=== PATIENT | female | born 1970 | race Caucasian/White ===

== ENCOUNTER 2021-04-24 09:58 | Inpatient (IN) | payer BC, SELFPAY ==
[2021-04-24] VITALS (29 sets, daily range): BP systolic 89–151; BP diastolic 59–99; PULSE 60–113; RESP 8–36; TEMP 36.3–37.9; O2SAT 83–100
--- NOTE | ~2021-04-24 | US_ITS ---
US abdomen limited DATE: 04/25/2021 07:59 INDICATION: Upper abdominal pain TECHNIQUE: Real-time imaging of liver, pancreas, gallbladder COMPARISON: 04/24/2021 CT abdomen pelvis FINDINGS: No hepatic or pancreatic space-occupying mass lesion is evident. There is hepatic steatosis . Normal hepatopedal portal venous flow direction. No gallstones or gallbladder wall thickening or abnormal pericholecystic fluid collection. Negative s onographic Jones's sign. The common bile duct measures 3.6 mm, normal. IMPRESSION: Hepatic steatosis Reviewed, dictated and finalized at [facility]. Reviewed, dictated and finalized at location [facility]. IMPRESSION: Hepatic steatosis
--- NOTE | ~2021-04-24 | CT_ITS ---
EXAMINATION: CT brain wo con DATE: 04/25/2021 15:28 INDICATION: Confusion TECHNIQUE: Computed tomography (CT) of the head was performed without intravenous contrast. Sagittal and coronal reconstructions were performed. The mA was adjusted according to patient size. Iterative reconstruction technique was employed. The dose-length product was 605.33 mGy-cm. COMPARISON: None FINDINGS: No acute intracranial hemorrhage, acute infarction or abnormal extra axial fluid collection. Symmetri c prominence of the sulci consistent with mild age-appropriate diffuse cerebral volume loss. Ventricl es are normal and symmetric. No mass/mass effect. The orbits, paranasal sinuses and mastoid air cells are normal. IMPRESSION: 1. Normal aging brain. No acute intracranial process. Reviewed, dictated and finalized at location [facility].
--- NOTE | ~2021-04-24 | XR_ITS ---
XR chest 1V portable DATE: 04/24/2021 12:39 INDICATION: Fever TECHNIQUE: Portable upright AP chest on 05/04/2021 at 1231 hours COMPARISON: None FINDINGS: Normal heart size. No hilar or mediastinal enlargement. No pulmonary infiltrate or consolidation, pleural effusion or pulmonary vascular congestion or pneumo thorax is detected. Osteopenia. IMPRESSION: No active cardiopulmonary disease Reviewed, dictated and finalized at location [facility].
--- NOTE | ~2021-04-24 | CT_ITS ---
EXAMINATION: CT abdomen pelvis w con DATE: 04/24/2021 11:41 INDICATION: Abdominal pain, fever, nausea and vomiting TECHNIQUE: Computed tomography (CT) of the abdomen and pelvis was performed with 100 cc Omnipaque 350 intravenous contrast. Automated exposure control and iterative reconstruction technique were employe d. Exam dose: 883.09 mGy-cm total exam DLP. COMPARISON: 01/10/2012 limited abdominal ultrasound examination, reported normal FINDINGS: The lung bases are clear of infiltrate or consolidation. Normal heart size. No pericardial or pleural effusion. Diffuse hepatic steatosis. No hepatic, splenic, pancreatic, adrenal or renal space-occupying mass les ion is detected. No urinary tract calculus or hydroureteronephrosis. No bile duct or pancreatic duct dilatation. Normal caliber of the abdominal aorta. No intraperitoneal or retroperitoneal or pelvic mass lesion or adenopathy or ascites. The uterus and adnexal areas are unremarkable. There is moderate diffuse thickness of the urinary mateusz dder wall. No bowel obstruction, bowel wall thickening, pneumatosis or intraperitoneal free air. Small fat-containing umbilical hernia. IMPRESSION: Diffuse hepatic steatosis No bowel obstruction or free air Reviewed, dictated and finalized at [facility]. Reviewed, dictated and finalized at location [facility].
[2021-04-24 10:22] LABS: Basophils Percent Auto 0.1 % (0.2-1.2); Eosinophils Percent Auto 0.1 % (0-4.4); Hematocrit 41.9 % (37.0-47.0); Hemoglobin 14.2 g/dL (12.0-15.0); Immature Granulocyte Absolute 0.08 K/mm3 (0.00-0.031); Immature Granulocyte Percent A 0.7 % (0-0.5); Lymphocytes Percent Auto 6.7 % (18.3-44.2); Mean Corpuscular HGB Conc 33.9 g/dl (32-36); Mean Corpuscular Hemoglobin 29.4 pg (26-34); Mean Corpuscular Volume 86.7 fl (80-100); Mean Platelet Volume 9.8 fl (7.4-10.4); Monocytes Absolute Auto 0.7 K/mm3 (0.1-0.6); Monocytes Percent Auto 6.2 % (2.6-8.5); Neutrophils Absolute Auto 10.4 K/mm3 (1.3-6.7); Neutrophils Percent Auto 86.2 % (45.5-73.1); Platelet Count Result 286 k/mm3 (150-375); Red Blood Count 4.83 M/mm3 (4.2-5.4); Red Cell Distribution Width 17.8 % (11.5-14.5)
--- NOTE | 2021-04-24 11:03 | ECG_ITS ---
Measurements Intervals [place] Rate: 67 P: 79 NC: 132 QRS: 23 QRSD: 102 T: 7 QT: 418 QTc: 442 Interpretive Statements SINUS RHYTHM BASELINE ARTIFACT- I, II, III, AVR, AVL, AVF, V3-V6 NORMAL ECG Electronically Signed On 04-24-2021 15:11:58 CDT by Shahid Gomez D.O.
[2021-04-24 11:04] LABS: Alanine Aminotransferase 27 U/L (4-35); Albumin Level 5.4 g/dL (3.5-5.1); Alkaline Phosphatase 116 U/L (38-126); Anion Gap 13 mmol/L (8-16); Aspartate Amino Transferase 53 U/L (14-36); Bilirubin,Total 1.5 mg/dL (0.2-1.3); Blood Urea Nitrogen 18 mg/dL (7-17); Calcium 9.2 mg/dL (8.4-10.2); Carbon Dioxide 39 mmol/L (22-30); Chloride 81 mmol/L (98-107); Estimated CRCL calculation 68 ml/min; Estimated Glomerular Filt Rate > 60; Glucose 187 mg/dL (65-110); Lipase 86 U/L (23-300); Potassium 2.4 mmol/L (3.4-5.0); Sodium 133 mmol/L (137-145)
--- NOTE | 2021-04-24 11:07 | ED.NAVMDI ---
HPI - Nausea/Vomiting/Diarrhea General Chief complaint: Nausea/Vomiting/Diarrhea Stated complaint: vomiting Time Seen by Provider: 04/24/21 10:14 Source: patient Mode of arrival: ambulatory Limitations: no limitations History of Present Illness HPI Narrative: This is a 50 year old female that presents to the ER for nausea and vomiting x 2 days. Associated with upper abdominal discomfort and fevers. Reports she has been having trouble with nausea and vomiting for years. She has had multiple studies done without certain cause found. She just moved here from [place]. Denies diarrhea, hematochezia, or dysuria. Related Data Allergies Allergy/AdvReac Type Severity Reaction Status Date / Time cefixime Allergy Unknown Verified 06/18/15 09:30 citalopram Allergy Unknown Verified 05/09/13 14:11 hydrocodone Allergy Unknown Verified 05/04/15 15:55 oxycodone Allergy Unknown Verified 05/04/15 15:54 venlafaxine Allergy Unknown Verified 04/18/13 14:16 Review of Systems Review of Systems: CONSTITUTIONAL: Reports fever GASTROINTESTINAL: Reports abdominal pain, nausea, vomiting. Denies diarrhea. GENITOURINARY: Denies dysuria or hematuria. All systems reviewed & are unremarkable except as noted in HPI and below PMFSH Past Medical History Medical History (Updated 04/24/21 @ 12:30 by Melissa Franks PA-C) History of anxiety History of hypertension Family History Family History (Updated 03/13/14 @ 07:13 by DOCTOR UNKNOWN) Mother Family history of elevated blood lipids Social History Social History Smoking status: Former smoker Smoking end date: 07/17/12 Alcohol intake: current Exam Narrative: GENERAL: Well-appearing, well-nourished, and in no acute distress. HEAD: Normocephalic, atraumatic. EYES: EOMI. ENT: Mucous membranes moist. CHEST: Clear to auscultation. No respiratory distress. No wheezes rales or rhonchi HEART: Regular rate and rhythm. No murmur heard. Normal peripheral pulses. ABDOMEN: Soft, nondistended, normal active bowel sounds. Tender to palpation in the epigastrium, without guarding. No CVA tenderness EXTREMITIES: Normal range of motion. No edema. SKIN: Warm, dry, no rash. NEURO: No focal deficits. Alert and oriented x3. PSYCH: Normal mood and affect Course Consultations Consultation #1: Spoke with hospitalist about patient and workup who accepts admission Date: 04/24/21 Time: 13:00 Vital Signs Vital signs: Vital Signs Temperature 100.2 F H 04/24/21 10:06 Pulse Rate 104 H 04/24/21 10:06 Respiratory Rate 24 H 04/24/21 10:06 Blood Pressure 145/99 H 04/24/21 10:06 Pulse Oximetry 95 04/24/21 10:06 Temperature 100.2 F H 04/24/21 10:06 Pulse Rate 104 H 04/24/21 10:06 Respiratory Rate 24 H 04/24/21 10:06 Blood Pressure 145/99 H 04/24/21 10:06 Pulse Oximetry 95 04/24/21 10:06 MDM - Nausea/Vomiting/Diarrhea MDM Narrative Medical decision making narrative: Patient presents to the ER for nausea and vomiting present over the last couple of days. Does report history of chronic problems with nausea and vomiting. Reports she has had numerous studies without certain cause found. These were done in [place]. She recently moved to the [facility]. Patient noted to be febrile in the ED. Other vitals are stable. She does not report any other focalizing infectious symptoms. CBC with mild leukocytosis to 12. Metabolic panel with hypokalemia with potassium of 2.4. Lipase is normal. UA with 10-15 white blood cells, also many squamous epithelial cells. This will be sent for culture. Patient reports history of alcohol abuse. Reports she has not been a heavy drinker for the last 10 months. Although does report she drank over the weekend, but no longer drinks daily. Alcohol level is negative. Urine drug screen is positive for benzodiazepines and cannabinoids. CT scan of the abdomen and pelvis is without acute findings. Patient hydrated and given antiemetic and Tylenol in the ED. Also s
[2021-04-24] MEDS: FAMOTIDINE 20 MG/2 ML VIAL IV PUSH (11:35)
[2021-04-24] MEDS: METOCLOPRAMIDE HCL INJ 10 MG/2 ML VIAL IV PUSH ×2 (11:36→16:03)
[2021-04-24] MEDS: SODIUM CHLORIDE 0.9% IV 1,000 ML 999 ML IV CONT (11:36)
[2021-04-24] MEDS: diphenhydrAMINE HCl INJ 50 MG/ML VIAL 25 MG IV PUSH (11:36)
[2021-04-24 11:57] LABS: Ethanol < 10 mg/dL (<10)
[2021-04-24 12:16] LABS: Amphetamine Screen Urine Negative (Negative); Barbiturate Screen Urine Negative (Negative); Benzodiazepines Screen Urine Positive (Negative); Cannabinoid Screen Urine Positive (Negative); Cocaine Screen Urine Negative (Negative); Methadone Screen Urine Negative (Negative); Opiate Screen Urine Negative (Negative); Phencyclidine Screen Urine Negative (Negative)
[2021-04-24 12:19] LABS: Add Urine Microscopic? YES; Appearance Urine Clear (Clear); Bacteria Urine Trace /hpf; Bilirubin Urine Negative (Negative); Blood Urine Negative (Negative); Color Urine Amber (Yellow); Glucose Urine UA Negative (Negative); Ketones Urine Negative (Negative); Leukocyte Esterase Ur Trace LEU/UL (Negative); Mucus Urine Few /lpf; Nitrate Urine Negative (Negative); Protein Urine 2+ mg/dL (Negative); Squamous Epithelial Cell Urine Many /hpf (Few)
[2021-04-24 12:23] LABS: Specific Grav Ur 1.047 (1.001-1.035)
--- NOTE | 2021-04-24 14:18 | PC.NURSE ---
pt to start Levaquin after completion of krider, med sent to floor with the pt
--- NOTE | 2021-04-24 14:52 | ADMGEN ---
This patient, Pam Smith, was admitted to [facility] Surg Room 320-01. Patient/family oriented to hospital policies and general routines including ID bracelet, bed and alarms, visiting hours, pain management, procedures, bathroom and other care routines, personal items, smoking policy, room service/diet, and visiting hours. Information on how to activate the Rapid Response Team has been discussed. Patient/Family are encouraged to report perceived risks to care and to ask questions if they do not understand what they are told or what they should do.
--- NOTE | 2021-04-24 15:39 | PM.IMHP ---
H&P: HPI History of Present Illness Date/Time: 04/24/21 15:39 this is a 50-year-old female patient who has a chronic history of nausea vomiting with dyspepsia. The patient recently moved back here from [place] and she has a scopolamine patch behind her right ear. She stated on the flight over here she was very nauseated and the scopolamine patch did not help. The patient stated that she had several episodes of nausea vomiting while she was in [place]. I asked the patient if she had an EGD and she stated that she had not and that was the Next step. The patient stated that she did try to smoke some marijuana to help calm her stomach down she thought that would help but it did not. The patient has a history of anxiety and takes medication for that as well. The patient is currently having dry heaves. She states that every time she talks she starts to gag. Her white count was noted to be 12.0. Her potassium was 2.[address] of the abdomen was read as diffuse hepatic steatosis which the patient is aware of and this is chronic. No bowel obstruction or free air. There is moderate diffuse thickness of the urinary bladder wall. Her urine shows that it possibly is contaminated as it shows many squamous epithelial cells. Nonetheless the patient was treated with Levaquin for a possible UTI. Chest x-ray shows no active cardiopulmonary disease. The patient was given IV fluids, Pepcid IV Zofran, Tylenol IV potassium, Reglan, Benadryl, and Levaquin in the emergency room. The patient still continues to have dry heaves. She does not have any abdominal pain. The patient stated that her urine is dark and foul smelling and she is urinating very little. The patient is being admitted to observation status on the date of service of 04/24/2021. Chief Complaint: Intractable nausea and vomiting Review of Systems Review of Systems: All systems reviewed & are unremarkable except as noted in HPI and below Constitutional: Constitutional: Reports as per HPI and Reports no additional constitutional complaints Eyes: Eyes: Reports as per HPI and Reports no additional eye complaints ENT: Reports system reviewed and no additional complaints, except as documented and Reports Normal hearing present Cardiovascular: Cardiovascular: Reports no additional cardiovascular complaints Respiratory: Respiratory: Reports no additional respiratory complaints and Reports no additional respiratory complaints Gastrointestinal: Gastrointestinal: Reports as per HPI and Reports no additional gastrointestinal complaints Musculoskeletal: Musculoskeletal: Reports no additional musculoskeletal complaints Integumentary/Breasts: Skin/Breast: Reports system reviewed and no additional complaints, except as docu and Reports as per HPI Neurologic: Reports system reviewed and no additional complaints, except as documented, Reports as per HPI and Reports Normal hearing present Psychiatric: Psychiatric: Reports no additional psychiatric complaints and Reports as per HPI Endocrine: Endocrine: Reports no additional endocrine complaints Hematologic/Lymphatic: Hematologic/Lymphatic: Reports no additional hematologic/lymphatic complaints Allergic/Immunologic: Allergic/Immunologic: Reports no additional allergic/immunologic complaints [facility] Past Medical History Medical History (Updated 04/24/21 @ 15:59 by Angela Call NP) Hepatic steatosis History of anxiety History of hypertension Surgical History Surgical History (Updated 04/24/21 @ 15:47 by Angela Call NP) H/O hand surgery on the right History of ankle surgery plate and screws to left ankle History of carpal tunnel release Family History Family History Mother Family history of elevated blood lipids Diverticulitis Father Hypertension Malignant neoplasm of prostate Social History Social History (Updated 04/24/21 @ 15:49 by Angela Rodriguez
[2021-04-24] MEDS: SODIUM CHLORIDE 0.9% IV 1,000 ML 125 ML IV CONT (16:03)
[2021-04-24] MEDS: SCOPOLAMINE 1.5 MG PATCH TRANSDERM (16:04)
[2021-04-24] MEDS: ONDANSETRON INJ 4 MG/2 ML VIAL IV PUSH (18:43)
[2021-04-24 20:33] LABS: Anion Gap 9 mmol/L (8-16); Blood Urea Nitrogen 15 mg/dL (7-17); Calcium 8.1 mg/dL (8.4-10.2); Carbon Dioxide 37 mmol/L (22-30); Chloride 88 mmol/L (98-107); Estimated CRCL calculation 86 ml/min; Estimated Glomerular Filt Rate > 60; Glucose 115 mg/dL (65-110); Magnesium 1.2 mg/dL (1.6-2.3); Sodium 134 mmol/L (137-145)
[2021-04-24] MEDS: PANTOPRAZOLE SODIUM IV 40 MG VIAL IV PUSH (20:45)
[2021-04-24] MEDS: PROPRANOLOL HCL 40 MG TABLET PO (20:45)
[2021-04-24] MEDS: LORazepam INJ (*CRX) 2 MG/ML VIAL 0.5 MG IV PUSH (21:04)
[2021-04-25] VITALS (7 sets, daily range): BP systolic 125–132; BP diastolic 84–88; PULSE 60–95; RESP 18; TEMP 35.1–36.2; O2SAT 95–96
[2021-04-25] MEDS: ONDANSETRON INJ 4 MG/2 ML VIAL IV PUSH (00:06)
[2021-04-25] MEDS: SODIUM CHLORIDE 0.9% IV 1,000 ML 125 ML IV CONT (03:34)
[2021-04-25] MEDS: LORazepam INJ (*CRX) 2 MG/ML VIAL 0.5 MG IV PUSH (04:15)
[2021-04-25] MEDS: diphenhydrAMINE HCl INJ 50 MG/ML VIAL 25 MG IV PUSH (04:16)
[2021-04-25] MEDS: LORazepam INJ (*CRX) 2 MG/ML VIAL 1 MG IV PUSH (06:08)
[2021-04-25] MEDS: chlordiazePOXIDE (*CRX) 25 MG CAPSULE 50 MG PO ×3 (06:09→20:36)
[2021-04-25 06:22] LABS: Basophils Percent Auto 0.1 % (0.2-1.2); Hematocrit 38.5 % (37.0-47.0); Hemoglobin 12.5 g/dL (12.0-15.0); Immature Granulocyte Absolute 0.02 K/mm3 (0.00-0.031); Immature Granulocyte Percent A 0.2 % (0-0.5); Lymphocytes Absolute Auto 1.66 K/mm3 (0.9-3.2); Lymphocytes Percent Auto 20.4 % (18.3-44.2); Mean Corpuscular HGB Conc 32.5 g/dl (32-36); Mean Corpuscular Hemoglobin 29.2 pg (26-34); Mean Platelet Volume 10.1 fl (7.4-10.4); Monocytes Absolute Auto 0.6 K/mm3 (0.1-0.6); Monocytes Percent Auto 7.4 % (2.6-8.5); Neutrophils Absolute Auto 5.9 K/mm3 (1.3-6.7); Neutrophils Percent Auto 71.9 % (45.5-73.1); Platelet Count Result 226 k/mm3 (150-375); Red Blood Count 4.28 M/mm3 (4.2-5.4); Red Cell Distribution Width 17.5 % (11.5-14.5); White Blood Count 8.2 K/mm3 (4.5-10.0)
[2021-04-25 06:32] LABS: Phosphorus 3.2 mg/dL (2.5-4.5)
[2021-04-25 06:33] LABS: Lactic Acid Reflex 1.6 mmol/L (0.7-2.1)
[2021-04-25 06:47] LABS: Alanine Aminotransferase 24 U/L (4-35); Albumin Level 4.6 g/dL (3.5-5.1); Alkaline Phosphatase 77 U/L (38-126); Anion Gap 11 mmol/L (8-16); Aspartate Amino Transferase 41 U/L (14-36); Bilirubin,Total 1.5 mg/dL (0.2-1.3); Blood Urea Nitrogen 14 mg/dL (7-17); Calcium 7.8 mg/dL (8.4-10.2); Carbon Dioxide 32 mmol/L (22-30); Chloride 91 mmol/L (98-107); Estimated CRCL calculation 76 ml/min; Estimated Glomerular Filt Rate > 60; Glucose 108 mg/dL (65-110); Lactate Dehydrogenase 519 U/L (313-618); Magnesium 1.1 mg/dL (1.6-2.3); Potassium 2.5 mmol/L (3.4-5.0); Sodium 134 mmol/L (137-145)
[2021-04-25] MEDS: LORazepam INJ (*CRX) 2 MG/ML VIAL IV PUSH ×5 (06:53→20:37)
--- NOTE | 2021-04-25 07:07 | P.PNCROSS_ITS ---
Event Note Event Note Event Note: 04/25/2021 at 6:00 a.m. Nursing staff called me a because the patient acutely became agitated and anxious. She admitted to nursing staff that she last drank alcohol approximately fiber 6 days ago. She reports to me that she drinks a 36 oz cup filled with ice and about long term filled with vodka and Sprite. She usually drinks 2 of those a day. Nursing staff reported that the patient was bit hallucinating bottom and standing in her room and was asking him to be removed. She was noted to be tremulous, she reported moderate anxiety, she was fidgety, she was disoriented did not realize that she was in the hospital. She had tangential and somewhat nonsensical thought process. I would ask her about her alcohol use and she would tell me about her recent CT scan. She would then talk about her recent move when it was not related to the questions that were discussed. Her CIWA score was 26. I ordered stat Librium and 1 mg of Ativan IV push. When I evaluated the patient approximately 30 minutes later. Her CIWA score was still 24 and an at that time was when she started having the visual hallucinations. I ordered another 2 mg of Ativan IV push immediately. The patient was given IV thiamin and IV folic acid. These have been ordered for daily. The patient's labs returned after evaluate the patient's yet potassium of 2.5. 240 mEq potassium chloride riders were ordered back to back. The patient's magnesium returned at 1.1. A 4 g magnesium sulfate rider was ordered. I updated the nursing supervisors to the patient's condition and requested that we find a sitter for the patient. I asked the nurses to repeat his CIWA score 1 hour after the 2 mg of Ativan was administered. If her CIWA scores not improving she may need transfer to intermediate care for closer monitoring. 35 minute spent in critical care activities. This case had a high probability of a clinically significant, sudden, or life threatening deterioration of this patient's condition which required my full and direct attention, intervention and personal management.
[2021-04-25] MEDS: FOLIC ACID 1 MG/0.2 ML INJ IV PUSH (08:08)
[2021-04-25] MEDS: PROPRANOLOL HCL 40 MG TABLET PO ×2 (08:09→20:51)
[2021-04-25] MEDS: PANTOPRAZOLE SODIUM IV 40 MG VIAL IV PUSH ×2 (08:10→20:50)
[2021-04-25] MEDS: buPROPion HCL SR (12 HR) 150 MG TAB PO (08:10)
[2021-04-25] MEDS: THIAMINE HCL 200 MG/2 ML VIAL 100 MG IV PUSH (08:28)
[2021-04-25] MEDS: POTASSIUM CHLORIDE 20 MEQ TABLET.ER 40 MEQ PO ×3 (12:16→20:37)
[2021-04-25] MEDS: MAGNESIUM OXIDE 400 MG TABLET PO (12:17)
--- NOTE | 2021-04-25 13:35 | WPDGICN ---
Assessment and Plan Additional Plan GI Consultation Dr. Sneed April, This is a 50 year old patient with a history of Anxiety, HTN, Hepatic Steatosis, Carpal tunnel release and ankle surgery who now presents for evaluation of nausea/vomiting. Patient is seen at the request of the Hospitalist service to evaluate for same. The patient?s primary care provider is Dr. Perry Rivas. Patient is VERY confused and has a sitter. She is a poor historian. No reports of n/v today by RN. Patient denies abdominal pain, trouble swallowing, bloating, loss of appetite or weight, early satiety, heartburn, diarrhea or constipation, rectal bleeding or melena. Patient denies fever, jaundice, scleral icterus, dark urine, light stool, itching, hot or cold intolerance, chest pain, shortness of breath at rest, hematuria, dysuria, new cough or visual changes, easy bruising, tingling of the skin, bone pain or tremors. No history of endocarditis, rheumatic fever, dental prophylaxis, heart valve surgery, bleeding disorder or joint replacement. Allergies: see list Medications: omeprazole 20 mg po daily, propranolol, Wellbutrin, Ativan prn. Social history: nonsmoker, drinker, unknown amount. Family history: negative for GI malignancy. Last colonoscopy was ? 2010. Physical exam: No lower extremity edema, jaundice, spider angioma, palmar erythema. Skull is normocephalic atraumatic. Sclera are non-icteric. Oropharynx is clear. Neck is supple without thyromegaly. Lungs are clear. Heart is rate and rhythm regular. S1 and S2 normal. Normal active bowel sounds. Non-tender, non-rigid, non-distended without hepatosplenomegaly or masses. No guarding. Rectal is deferred. Neuro is conscious and alert, VERY confused. Labs: 04-25-2021: Hct 39. WBC 8. TBili 1.5, A/P 77, AST 41, ALT 24. B12 708, folate 12. TSH 3.8 04-24-2021: Hct 42, WBC 12. MCV 87. TBili 1.5, A/P 116, AST 53, ALT 27. Lipase 86. UDS + Benzo, cannibis. EtOH negative Imagin04-25-2021 U/S Hepatic Steatosis 04-24-2021 CT Hepatic steatosis Assessment and plan: A. Abnormal LFT's and abnormal imaging-liver: - Likely related to Hepatic Steatosis from EtOH - Alcohol cessation discussed with patient - Follow labs and consider liver evaluation B. Abnormal mental status: - Likely EtoH withdrawal - CIWA - Doubt encephalopathy C. Nausea and vomiting - May be due to alcohol - Appears improved - Acid suppression - Hold on EGD for now D. Screening for colon cancer: consider colonoscopy as OP Thank you very much for allowing me to share in the care of your patient. Further recommendations per [facility]. Peter Sneed M.D. (c) [phone] Cc: Dr. Perry Rivas GI Consult Note Consult date/time: 04/25/21 13:35 HPI: Pam Smith is a 50 year old female [facility] Past Medical History Medical History (Updated 04/24/21 @ 15:59 by Angela Call NP) Hepatic steatosis History of anxiety History of hypertension Surgical History Surgical History (Updated 04/24/21 @ 15:47 by Angela Call NP) H/O hand surgery on the right History of ankle surgery plate and screws to left ankle History of carpal tunnel release Family History Family History Mother Family history of elevated blood lipids Diverticulitis Father Hypertension Malignant neoplasm of prostate Social History Social History (Updated 04/24/21 @ 15:49 by Angela Call NP) Social History: the patient stated that she only recently tried marijuana and was positive for this on her drug screen. The patient is lives with her . 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 She desires to have her is the durable power immigration attorney for healthcare. She desires to be a full code. The patient is a former smoker. She states she does not use any alcohol that she is recovering alcoholic. She does not use any illicit drugs but just recently
--- NOTE | 2021-04-25 14:16 | PM.IMPN ---
Progress Note: A&P Assessment and Plan (1) Nausea and vomiting: Qualifiers: Vomiting Intractability: intractable Vomiting type: unspecified Qualified Code(s): R11.2 - Nausea with vomiting, unspecified Code(s): R11.2 - Nausea with vomiting, unspecified Status: Acute Assessment and Plan: GI consulted for with workups in [place] Ultrasound abdomen and CT abdomen with hepatic cirrhosis and no other abnormality Protonix Clear liquid diet No urinary use hyperemesis syndrome Gastritis or ulcerative disease (2) Hepatic steatosis: Code(s): K76.0 - Fatty (change of) liver, not elsewhere classified Status: Chronic Assessment and Plan: This is chronic for the patient. She states that she has chronic elevated liver enzymes. (3) Acute hypokalemia: Code(s): E87.6 - Hypokalemia Status: Acute Assessment and Plan: Replace as necessary. The patient's potassium was 2.4 which was replaced. Replace and monitor close delete (4) History of hypertension: Code(s): Z86.79 - Personal history of other diseases of the circulatory system Status: Chronic Assessment and Plan: Continue with propranolol (5) History of anxiety: Code(s): Z86.59 - Personal history of other mental and behavioral disorders Status: Chronic Assessment and Plan: prn Ativan . (6) UTI (urinary tract infection): Code(s): N39.0 - Urinary tract infection, site not specified Status: Acute Assessment and Plan: her urinalysis is not very convincing for UTI. However on her CT scan it shows wall thickening of the bladder. She also has an elevated white count. The patient was started on Levaquin. Blood and urine cultures are pending. Wean off antibiotics when feasible. (7) Altered mental status: Code(s): R41.82 - Altered mental status, unspecified Status: Acute Assessment and Plan: Started since morning and likely due to alcohol withdrawal or psychoactive medications/[place] use last night [facility] protocol CT head Check ammonia level sitter Subjective Date/time seen: 04/25/21 14:16 Interval history: HPI: this is a 50-year-old female patient who has a chronic history of nausea vomiting with dyspepsia. The patient recently moved back here [place] and she has a scopolamine patch behind her right ear. She stated on the flight over here she was very nauseated and the scopolamine patch did not help. The patient stated that she had several episodes of nausea vomiting while she was in [place]. I asked the patient if she had an EGD and she stated that she had not and that was the Next step. The patient stated that she did try to smoke some marijuana to help calm her stomach down she thought that would help but it did not. The patient has a history of anxiety and takes medication for that as well. The patient is currently having dry heaves. She states that every time she talks she starts to gag. Her white count was noted to be 12.0. Her potassium was 2.[address] of the abdomen was read as diffuse hepatic steatosis which the patient is aware of and this is chronic. No bowel obstruction or free air. There is moderate diffuse thickness of the urinary bladder wall. Her urine shows that it possibly is contaminated as it shows many squamous epithelial cells. Nonetheless the patient was treated with Levaquin for a possible UTI. Chest x-ray shows no active cardiopulmonary disease. The patient was given IV fluids, Pepcid IV Zofran, Tylenol IV potassium, Reglan, Benadryl, and Levaquin in the emergency room. The patient still continues to have dry heaves. She does not have any abdominal pain. The patient stated that her urine is dark and foul smelling and she is urinating very little. The patient is being admitted to observation status on the date of service of 04/24/2021. Interval history: She continues to
[2021-04-25 15:24] LABS: Ammonia < 9 umol/L (9-30)
[2021-04-25 17:02] LABS: Creatine Kinase 245 U/L (30-135)
[2021-04-25 18:40] LABS: Anion Gap 13 mmol/L (8-16); Blood Urea Nitrogen 16 mg/dL (7-17); Calcium 8.1 mg/dL (8.4-10.2); Carbon Dioxide 29 mmol/L (22-30); Chloride 91 mmol/L (98-107); Estimated CRCL calculation 68 ml/min; Estimated Glomerular Filt Rate > 60; Glucose 106 mg/dL (65-110); Magnesium 1.1 mg/dL (1.6-2.3); Sodium 133 mmol/L (137-145)
[2021-04-25] MEDS: HALOPERIDOL LACTATE 5 MG/ML VIAL 10 MG IM (22:37)
--- NOTE | 2021-04-25 23:33 | P.PNCROSS_ITS ---
Event Note Event Note Event Note: 04/26/2021 at 10:09 p.m. Nursing staff had called me a low but earlier in the evening telling me that the patient was more agitated. She was pacing in the room, seeing visual and auditory hallucinations, and having progressive agitation. At that time a give the patient an additional 2 mg of IV Ativan and 10 mg of IM Haldol. The patient received the Ativan but nursing staff was waiting for the Haldol to arrive from pharmacy. Before the Haldol could arrived to the floor the patient had stood up and was pushing in wrestling with a CRACKING STILL OPERATOR trying to shove her out of the way so that she could exit the room. However by the time staff arrived for the code purple when she saw multiple people into her room she calmed down but was still altered. The Haldol was administered. Approximately 40 minutes to an hour later nursing staff called to update me that the patient had pulled out her IVs. Her CIWA score which had previously around 25 most the day had climbed up to 32. An order was given for IM the diazepam as patient had pulled out all IV access. I did discuss the patient's case with the computer education teacher given her escalating delirium and evidence of withdrawal. The computer education teacher agreed to accept the patient to the ICU in transfer with plan for Precedex bolus and drip for management of her alcohol withdrawal with delirium. 30 minute spent in critical care activities This case had a high probability of a clinically significant, sudden, or life threatening deterioration of this patient's condition which required my full and direct attention, intervention and personal management.
--- NOTE | 2021-04-25 23:46 | PC.NURSE ---
patient has become extremely agitated and a code purple was called. Received an order for haldol and was given.
[2021-04-26] VITALS (20 sets, daily range): BP systolic 81–123; BP diastolic 60–89; PULSE 60–89; RESP 15–26; TEMP 35.6–36.9; O2SAT 92–100
[2021-04-26] MEDS: dexmedeTOMIDine 400 MCG/100 ML 400 MCG/100 ML BAG IV CONT (00:45)
--- NOTE | 2021-04-26 01:35 | PC.NURSE ---
This patient, Pam Smith, was received from [facility] on 04/26/21 at 0045. Patient/family oriented to unit policies and routines
[2021-04-26] MEDS: SODIUM CHLORIDE 0.9% IV 1,000 ML 125 ML IV CONT ×3 (01:48→20:19)
[2021-04-26] MEDS: SODIUM CHLORIDE 0.9% IV 1,000 ML 999 ML IV CONT (03:15)
[2021-04-26 06:26] LABS: Basophils Percent Auto 0.5 % (0.2-1.2); Eosinophils Percent Auto 0.5 % (0-4.4); Hematocrit 32.8 % (37.0-47.0); Hemoglobin 10.5 g/dL (12.0-15.0); Immature Granulocyte Absolute 0.02 K/mm3 (0.00-0.031); Immature Granulocyte Percent A 0.5 % (0-0.5); Lymphocytes Absolute Auto 1.02 K/mm3 (0.9-3.2); Mean Corpuscular Hemoglobin 29.3 pg (26-34); Mean Corpuscular Volume 91.6 fl (80-100); Monocytes Absolute Auto 0.5 K/mm3 (0.1-0.6); Monocytes Percent Auto 13.5 % (2.6-8.5); Neutrophils Absolute Auto 2.2 K/mm3 (1.3-6.7); Platelet Count Result 117 k/mm3 (150-375); Red Blood Count 3.58 M/mm3 (4.2-5.4); Red Cell Distribution Width 16.9 % (11.5-14.5); White Blood Count 3.8 K/mm3 (4.5-10.0)
[2021-04-26 06:43] LABS: Magnesium 1.1 mg/dL (1.6-2.3); Phosphorus 4.2 mg/dL (2.5-4.5)
[2021-04-26] MEDS: chlordiazePOXIDE (*CRX) 25 MG CAPSULE 50 MG PO (06:45)
[2021-04-26 06:50] LABS: Alanine Aminotransferase 16 U/L (4-35); Albumin Level 3.5 g/dL (3.5-5.1); Alkaline Phosphatase 59 U/L (38-126); Anion Gap 10 mmol/L (8-16); Aspartate Amino Transferase 31 U/L (14-36); Blood Urea Nitrogen 14 mg/dL (7-17); Calcium 7.1 mg/dL (8.4-10.2); Carbon Dioxide 26 mmol/L (22-30); Chloride 102 mmol/L (98-107); Estimated CRCL calculation 86 ml/min; Estimated Glomerular Filt Rate > 60; Glucose 96 mg/dL (65-110); Potassium 2.6 mmol/L (3.4-5.0); Sodium 138 mmol/L (137-145)
[2021-04-26] MEDS: POTASSIUM CHLORIDE 20 MEQ TABLET 40 MEQ PO (07:44)
[2021-04-26] MEDS: POTASSIUM CHLORIDE 20 MEQ TABLET.ER 40 MEQ PO ×2 (07:45→16:23)
[2021-04-26] MEDS: MAGNESIUM SULF 4 GM/WATER100ML 4 GM/100 ML BAG IVPB (07:50)
[2021-04-26] MEDS: PROPRANOLOL HCL 40 MG TABLET PO ×2 (07:59→20:17)
[2021-04-26] MEDS: buPROPion HCL SR (12 HR) 150 MG TAB PO (07:59)
[2021-04-26] MEDS: PANTOPRAZOLE SODIUM IV 40 MG VIAL IV PUSH ×2 (08:08→20:17)
[2021-04-26] MEDS: THIAMINE HCL 200 MG/2 ML VIAL 100 MG IV PUSH (08:08)
[2021-04-26] MEDS: FOLIC ACID 1 MG/0.2 ML INJ IV PUSH (08:08)
--- NOTE | 2021-04-26 09:26 | WPDCNINT ---
Assessment and Plan Assessment and plan (1) Encephalopathy: Code(s): G93.40 - Encephalopathy, unspecified Status: Acute Assessment and Plan: Toxic metabolic encephalopathy likely secondary to alcohol withdrawal and multiple sedative she has received Her head CT TSH and ammonia level were normal Monitor (2) DTs (delirium tremens): Code(s): F10.231 - Alcohol dependence with withdrawal delirium Status: Acute Assessment and Plan: Patient is now on Precedex infusion which will be continued to titrate I will also add p.r.n. benzodiazepine in the form of IV Ativan depending on her CIWA score. Will hold scheduled Librium to avoid over-sedation as patient is now on Precedex infusion and may not be able to take p.o. anyways Will try to avoid all other psychotropic medications to minimize polypharmacy She does have a sitter at bedside Continue IV fluids folic acid and thiamine (3) UTI (urinary tract infection): Code(s): N39.0 - Urinary tract infection, site not specified Status: Acute Assessment and Plan: UA suggested UTI Urine blood cultures are negative till now She is on levofloxacin. She has allergy to cephalosporin I do not know details about her allergy (4) Hepatic steatosis: Code(s): K76.0 - Fatty (change of) liver, not elsewhere classified Status: Chronic Assessment and Plan: Fatty liver likely 2nd to alcohol abuse Patient is being followed by GI and I will defer management to Gastroenterology Her LFTs are normal (5) Electrolyte abnormality: Code(s): E87.8 - Other disorders of electrolyte and fluid balance, not elsewhere classified Status: Acute Assessment and Plan: Potassium and magnesium were low and replacement is ordered Additional Plan DVT prophylaxis -SCDs Nutrition -regular diet Code Status - Full Code [employer] Consult Note Consult date: 04/26/21 Time Seen: 08:20 HPI: Pam Smith is a 50 year old female with past medical history of Anxiety, HTN, Hepatic Steatosis, Carpal tunnel release and ankle surgery was admitted on 04/24 with chief complaint of nausea vomiting and dyspepsia. Has chronic history of nausea vomiting and has had workup done a broad. She has scopolamine patch on her during the air travel [place] which as per her was not helping hence she presented to ER. He was also found to be having UTI and was treated with antibiotics. GI was consulted for abnormal LFTs and nausea vomiting. It was also discovered the patient takes significant amount of alcohol. Yesterday morning patient was agitated and anxious and was diagnosed with alcohol withdrawal and was given Ativan and Librium. Last night the symptoms worse patient was agitated and hallucinating. Patient was given IV Ativan IM Haldol IM diazepam for controlling her agitation. Patient was transferred to ICU and started on IV Precedex infusion. Overnight physician who evaluated the patient suspected the patient was having DTs from alcohol withdrawal. Patient does not have any known history of psychiatric illness. At this time patient is fairly drowsy likely secondary to all the medications here CV overnight and is on low-dose of Precedex infusion. On calling her name she does not wake up but on stimulation she opens her eyes. She does not know where she is. Asked her if she has any complaints she states she has dry heaves and headache but she easily falls back asleep for answering single question. Limited review of system was obtained by repeatedly waking patient up and she denied any chest pain shortness of breath abdominal pain nausea vomiting or fever. She has not had any episode of vomiting since coming to ICU. Hemodynamics have been stable and she has been afebrile. She is on 0.3 of Precedex and IV fluids and is also receiving potassium replacement. On waking up she does follow commands and moves all 4 extremities. Review of Systems Review of Svpply
--- NOTE | 2021-04-26 16:18 | PM.IMPN ---
Progress Note: A&P Assessment and Plan (1) Encephalopathy: Code(s): G93.40 - Encephalopathy, unspecified Status: Acute Assessment and Plan: Toxic metabolic encephalopathy likely secondary to alcohol withdrawal and multiple sedative she has received Her head CT TSH and ammonia level were normal Currently in the ICU appreciate ICU evaluation On Precedex drip (2) DTs (delirium tremens): Code(s): F10.231 - Alcohol dependence with withdrawal delirium Status: Acute Assessment and Plan: Patient is now on Precedex infusion which will be continued to titrate I will also add p.r.n. benzodiazepine in the form of IV Ativan depending on her CIWA score. Will hold scheduled Librium to avoid over-sedation as patient is now on Precedex infusion and may not be able to take p.o. anyways Will try to avoid all other psychotropic medications to minimize polypharmacy She does have a sitter at bedside Continue IV fluids folic acid and thiamine (3) UTI (urinary tract infection): Code(s): N39.0 - Urinary tract infection, site not specified Status: Acute Assessment and Plan: UA suggested UTI Urine blood cultures are negative till now She is on levofloxacin. She has allergy to cephalosporin I do not know details about her allergy her urinalysis is not very convincing for UTI. However on her CT scan it shows wall thickening of the bladder. She also has an elevated white count. The patient was started on Levaquin. Blood and urine cultures are pending. Wean off antibiotics when feasible. (4) Hepatic steatosis: Code(s): K76.0 - Fatty (change of) liver, not elsewhere classified Status: Chronic Assessment and Plan: Fatty liver likely 2nd to alcohol abuse Patient is being followed by GI and I will defer management to Gastroenterology Her LFTs are normal This is chronic for the patient. She states that she has chronic elevated liver enzymes. (5) Electrolyte abnormality: Code(s): E87.8 - Other disorders of electrolyte and fluid balance, not elsewhere classified Status: Acute Assessment and Plan: Potassium and magnesium were low and replacement is ordered (6) Nausea and vomiting: Qualifiers: Vomiting Intractability: intractable Vomiting type: unspecified Qualified Code(s): R11.2 - Nausea with vomiting, unspecified Code(s): R11.2 - Nausea with vomiting, unspecified Status: Acute Assessment and Plan: GI consulted for with workups in [place] Ultrasound abdomen and CT abdomen with hepatic cirrhosis and no other abnormality Protonix Clear liquid diet No urinary use hyperemesis syndrome Gastritis or ulcerative disease (7) Acute hypokalemia: Code(s): E87.6 - Hypokalemia Status: Acute Assessment and Plan: Replace as necessary. The patient's potassium was 2.4 which was replaced. Replace and monitor close delete (8) History of hypertension: Code(s): Z86.79 - Personal history of other diseases of the circulatory system Status: Chronic Assessment and Plan: Continue with propranolol (9) History of anxiety: Code(s): Z86.59 - Personal history of other mental and behavioral disorders Status: Chronic Assessment and Plan: prn Ativan . (10) Altered mental status: Code(s): R41.82 - Altered mental status, unspecified Status: Acute Additional Plan DVT prophylaxis -SCDs Nutrition -regular diet Code Status - Full Code Subjective Date/time seen: 04/26/21 16:18 Interval history: HPI: this is a 50-year-old female patient who has a chronic history of nausea vomiting with dyspepsia. The patient recently moved back here from [facility] and she has a scopolamine patch behind her right ear. She stated on the flight over here she was very nauseated and the scopolamine patch did not help. The patient stated that she had several episodes of nausea vomiting while she wa
[2021-04-26] MEDS: ONDANSETRON INJ 4 MG/2 ML VIAL IV PUSH (16:24)
--- NOTE | 2021-04-26 17:05 | WPDGIPROGNO ---
Progress Note: A&P Assessment and Plan (1) DTs (delirium tremens): Code(s): F10.231 - Alcohol dependence with withdrawal delirium Status: Acute Assessment and Plan: she is in icu with precedex drip and better on thiamine, mvi, etc (2) Nausea and vomiting: Qualifiers: Vomiting Intractability: intractable Vomiting type: unspecified Qualified Code(s): R11.2 - Nausea with vomiting, unspecified Code(s): R11.2 - Nausea with vomiting, unspecified Status: Acute Assessment and Plan: when more stable we can do EGD (she says that never had one) antiemetics prn (3) Encephalopathy: Code(s): G93.40 - Encephalopathy, unspecified Status: Acute (4) Hepatic steatosis: Code(s): K76.0 - Fatty (change of) liver, not elsewhere classified Status: Chronic Assessment and Plan: liver enzymes reviewed (5) UTI (urinary tract infection): Code(s): N39.0 - Urinary tract infection, site not specified Status: Acute Assessment and Plan: on abx (6) Acute hypokalemia: Code(s): E87.6 - Hypokalemia Status: Acute Assessment and Plan: also with low Mg, replacing Subjective Date/time seen: 04/26/21 17:05 Interval history: patient was moved to ICU after more confused, started on precedex drip. Now she is talking and oriented. Still with nausea which is chronic. Review of Systems Review of Systems: All systems reviewed & are unremarkable except as noted in HPI and below Exam Const: General: comfortable Other: awake and talking, slightly tremulous HENMT: General nose exam: Normal nares present Eyes: Sclera: sclerae normal Neck: Neck: supple Resp: Auscultation: clear to auscultation bilaterally GI: GI Palp: Yes Soft to palpation, No Tenderness to palpation present (GI) and No Guarding due to palpation present (GI) Auscultation: normal bowel sounds Skin: General skin exam: normal color Neuro: Speech: normal speech Motor exam (neuro): Normal motor muscle tone present throughout Extrem: General: normal to inspection Psych: Affect: Anxious affect present Objective Data Vital Signs Vital Signs: Vital Signs - 24 hr 04/25/21 20:00 04/25/21 21:37 04/26/21 00:45 Temperature 95.1 F L Pulse Rate 66 89 84 Pulse Rate [Right Radial Palpation] Respiratory Rate 18 22 H Blood Pressure 125/84 Pulse Oximetry 96 04/26/21 01:00 04/26/21 02:00 04/26/21 04:00 Temperature 98.3 F 98.3 F Pulse Rate 76 68 68 Pulse Rate [Right Radial Palpation] 68 Respiratory Rate 20 17 17 Blood Pressure 96/61 L 97/72 L Pulse Oximetry 92 93 04/26/21 06:00 04/26/21 07:55 04/26/21 07:59 Temperature Pulse Rate 64 69 Pulse Rate [Right Radial Palpation] 71 Respiratory Rate 18 Blood Pressure 104/75 110/80 Pulse Oximetry 92 04/26/21 08:00 04/26/21 09:13 04/26/21 10:00 Temperature 96.0 F L Pulse Rate 61 62 67 Pulse Rate [Right Radial Palpation] Respiratory Rate 20 20 16 Blood Pressure 123/83 81/60 L Pulse Oximetry 100 92 04/26/21 10:15 04/26/21 12:00 04/26/21 12:25 Temperature 97.5 F L Pulse Rate 62 68 68 Pulse Rate [Right Radial Palpation] 71 Respiratory Rate 16 15 15 Blood Pressure 106/73 Pulse Oximetry 100 04/26/21 13:43 04/26/21 14:00 04/26/21 16:00 Temperature 97.7 F Pulse Rate 67 79 77 Pulse Rate [Right Radial Palpation] 77 Respiratory Rate 20 26 H 24 H Blood Pressure 106/68 115/88 Pulse Oximetry 100 99 Intake/Output Intake/Output: Intake & Output 04/23/21 04/24/21 04/25/21 04/26/21 23:59 23:59 23:59 23:59 Intake Total 2230 2100 3178.9 Output Total 550 Balance 2230 2100 2628.9 Meds/Results Medications: Active Medications Generic Name Dose Route Start Last Admin Trade Name Chas PRN Reason Stop Dose Admin Bupropion HCl 150 mg 04/25/21 09:00 04/26/21 07:59 Bupropion Hcl Sr (12 Hr) 150 Mg Tab PO 150 mg DAILY GISSELLE Administration
[2021-04-26] MEDS: LORazepam (*CRX) 1 MG TABLET PO (20:36)
[2021-04-27] VITALS (12 sets, daily range): BP systolic 93–139; BP diastolic 60–98; PULSE 70–89; RESP 16–22; TEMP 36.3–36.9; O2SAT 97–100
[2021-04-27] MEDS: ONDANSETRON INJ 4 MG/2 ML VIAL IV PUSH (01:49)
[2021-04-27] MEDS: LORazepam (*CRX) 1 MG TABLET PO ×5 (01:49→21:23)
[2021-04-27 04:49] LABS: Hematocrit 36.3 % (37.0-47.0); Hemoglobin 11.7 g/dL (12.0-15.0); Mean Corpuscular HGB Conc 32.2 g/dl (32-36); Mean Corpuscular Hemoglobin 29.5 pg (26-34); Mean Corpuscular Volume 91.4 fl (80-100); Mean Platelet Volume 9.9 fl (7.4-10.4); Platelet Count Result 150 k/mm3 (150-375); Red Blood Count 3.97 M/mm3 (4.2-5.4); Red Cell Distribution Width 17.3 % (11.5-14.5); White Blood Count 4.7 K/mm3 (4.5-10.0)
[2021-04-27 05:36] LABS: Alanine Aminotransferase 16 U/L (4-35); Albumin Level 3.3 g/dL (3.5-5.1); Alkaline Phosphatase 65 U/L (38-126); Anion Gap 7 mmol/L (8-16); Aspartate Amino Transferase 29 U/L (14-36); Bilirubin,Total 0.7 mg/dL (0.2-1.3); Blood Urea Nitrogen 7 mg/dL (7-17); Calcium 8.3 mg/dL (8.4-10.2); Carbon Dioxide 24 mmol/L (22-30); Chloride 105 mmol/L (98-107); Estimated CRCL calculation 97 ml/min; Estimated Glomerular Filt Rate > 60; Glucose 113 mg/dL (65-110); Magnesium 2.2 mg/dL (1.6-2.3); Potassium 3.8 mmol/L (3.4-5.0); Sodium 136 mmol/L (137-145)
[2021-04-27] MEDS: SODIUM CHLORIDE 0.9% IV 1,000 ML 125 ML IV CONT (05:59)
[2021-04-27] MEDS: PROPRANOLOL HCL 40 MG TABLET PO ×2 (08:55→20:51)
[2021-04-27] MEDS: buPROPion HCL SR (12 HR) 150 MG TAB PO (08:56)
[2021-04-27] MEDS: SCOPOLAMINE 1.5 MG PATCH TRANSDERM (08:56)
[2021-04-27] MEDS: FOLIC ACID 1 MG/0.2 ML INJ IV PUSH (08:57)
[2021-04-27] MEDS: THIAMINE HCL 200 MG/2 ML VIAL 100 MG IV PUSH (08:57)
[2021-04-27] MEDS: PANTOPRAZOLE SODIUM IV 40 MG VIAL IV PUSH ×2 (08:57→20:51)
--- NOTE | 2021-04-27 10:30 | PM.IMPN ---
Progress Note: A&P Assessment and Plan (1) Encephalopathy: Code(s): G93.40 - Encephalopathy, unspecified Status: Acute Assessment and Plan: Toxic metabolic encephalopathy likely secondary to alcohol withdrawal and multiple sedative she has received Her head CT TSH and ammonia level were normal Currently in the ICU appreciate ICU evaluation started On Precedex drip now off Mental status much better more improved now (2) DTs (delirium tremens): Code(s): F10.231 - Alcohol dependence with withdrawal delirium Status: Acute Assessment and Plan: Patient is now on Precedex infusion which will be continued to titrate I will also add p.r.n. benzodiazepine in the form of IV Ativan depending on her CIWA score. Will hold scheduled Librium to avoid over-sedation as patient is now on Precedex infusion and may not be able to take p.o. anyways Will try to avoid all other psychotropic medications to minimize polypharmacy She does have a sitter at bedside Continue IV fluids folic acid and thiamine This has improved (3) UTI (urinary tract infection): Code(s): N39.0 - Urinary tract infection, site not specified Status: Acute Assessment and Plan: UA suggested UTI Urine blood cultures are negative till now She is on levofloxacin. She has allergy to cephalosporin I do not know details about her allergy her urinalysis is not very convincing for UTI. However on her CT scan it shows wall thickening of the bladder. She also has an elevated white count. The patient was started on Levaquin. Blood and urine cultures are pending. Wean off antibiotics when feasible. (4) Hepatic steatosis: Code(s): K76.0 - Fatty (change of) liver, not elsewhere classified Status: Chronic Assessment and Plan: Fatty liver likely 2nd to alcohol abuse Patient is being followed by GI and I will defer management to Gastroenterology Her LFTs are normal This is chronic for the patient. She states that she has chronic elevated liver enzymes. (5) Electrolyte abnormality: Code(s): E87.8 - Other disorders of electrolyte and fluid balance, not elsewhere classified Status: Acute Assessment and Plan: Potassium and magnesium were low and replacement as ordered Stable today (6) Nausea and vomiting: Qualifiers: Vomiting Intractability: intractable Vomiting type: unspecified Qualified Code(s): R11.2 - Nausea with vomiting, unspecified Code(s): R11.2 - Nausea with vomiting, unspecified Status: Acute Assessment and Plan: GI consulted for with workups in [place] Ultrasound abdomen and CT abdomen with hepatic cirrhosis and no other abnormality Protonix Clear liquid diet No urinary use hyperemesis syndrome Gastritis or ulcerative disease Further plan for EGD per GI await their recommendation (7) Acute hypokalemia: Code(s): E87.6 - Hypokalemia Status: Acute Assessment and Plan: Replace as necessary. The patient's potassium was 2.4 which was replaced. Replace and monitor close delete (8) History of hypertension: Code(s): Z86.79 - Personal history of other diseases of the circulatory system Status: Chronic Assessment and Plan: Continue with propranolol (9) History of anxiety: Code(s): Z86.59 - Personal history of other mental and behavioral disorders Status: Chronic Assessment and Plan: scheduled Ativan . (10) Altered mental status: Code(s): R41.82 - Altered mental status, unspecified Status: Acute Assessment and Plan: this is improving Additional Plan DVT prophylaxis -SCDs Nutrition -regular diet Code Status - Full Code Okay to move out of the ICU Subjective Date/time seen: 04/27/21 10:30 Interval history: patient has been off Precedex drip since 1:00 p.m. yesterday. Her CIWA score has improved. She has had nausea for past few months but did not feelin
--- NOTE | 2021-04-27 11:13 | WPDINTPN ---
Progress Note: A&P Assessment and Plan (1) Encephalopathy: Code(s): G93.40 - Encephalopathy, unspecified Status: Acute Assessment and Plan: RESOLVED, likely related to alcohol withdrawal and sedation medication Her head CT TSH and ammonia level were normal Monitor (2) DTs (delirium tremens): Code(s): F10.231 - Alcohol dependence with withdrawal delirium Status: Acute Assessment and Plan: Patient off Precedex since 04/26/2021 -currently on chlordiazepoxide, and p.r.n. Ativan -continue CIWA protocol -Will try to avoid all other psychotropic medications to minimize polypharmacy -discontinue IV fluids -continue folic acid and thiamineContinue IV fluids folic acid and thiamine (3) UTI (urinary tract infection): Code(s): N39.0 - Urinary tract infection, site not specified Status: Acute Assessment and Plan: UA suggested UTI Urine and blood cultures are negative till now She is on levofloxacin. She has allergy to cephalosporin I do not know details about her allergy (4) Hepatic steatosis: Code(s): K76.0 - Fatty (change of) liver, not elsewhere classified Status: Chronic Assessment and Plan: Fatty liver likely 2nd to alcohol abuse Patient is being followed by GI and I will defer management to Gastroenterology Her LFTs are normal (5) Electrolyte abnormality: Code(s): E87.8 - Other disorders of electrolyte and fluid balance, not elsewhere classified Status: Acute Assessment and Plan: Potassium and magnesium were low and replacement is ordered (6) Nausea and vomiting: Qualifiers: Vomiting Intractability: intractable Vomiting type: unspecified Qualified Code(s): R11.2 - Nausea with vomiting, unspecified Code(s): R11.2 - Nausea with vomiting, unspecified Status: Acute Assessment and Plan: Nausea and vomiting, could be related to alcohol use -p.r.n. antiemetics -GI following the patient, EGD when she is stable Additional Plan DVT prophylaxis -SCDs Nutrition -regular diet Discussed with patient updated with her condition and plan of care. She is aware that she will be downgraded to medical floor Code Status - Full Code Critical care time spent: 31 minutes Subjective Date/time seen: 04/27/21 11:13 Interval history: Reason consult: Alcohol withdrawal, hallucinations, delirium, encephalopathy 04/27/2021: Patient seen and examined the ICU, is awake, alert, oriented x3, patient answers all questions appropriately she was talking on the phone when I entered the room. Denies any tremors, hallucinations, agitation combativeness overnight. Complains of baseline nausea and vomiting. Denies any abdominal pain, chest pain, cough, shortness of breath Review of Systems Review of Systems: All systems reviewed & are unremarkable except as noted in HPI and below Exam Narrative: General: Patient is awake, in no distress at this time Lungs/Chest: Trachea central Clear BS B/L, No crackles or wheezing. Cardiac: RRR. Normal S1 S2. No murmurs Circulation: Pedal pulses are intact and symmetrical. Abdomen: Normal bowel sounds.. Soft. NT. ND. Extremities: No clubbing, cyanosis or edema. Warm : Luna in place Neurologic: She is awake, alert, oriented x3, nonfocal, answers to questions appropriately and follows simple commands in all extremity Skin: No Rash Objective Data Vital Signs Vital Signs: Vital Signs - 24 hr 04/26/21 12:00 04/26/21 12:25 04/26/21 13:43 Temperature 97.5 F L Pulse Rate 68 68 67 Pulse Rate [Right Radial Palpation] 71 Respiratory Rate 15 15 20 Blood Pressure 106/73 Pulse Oximetry 100 04/26/21 14:00 04/26/21 16:00 04/26/21 18:00 Temperature 97.7 F Pulse Rate 79 77 86 Pulse Rate [Right Radial Palpation] 77 Respiratory Rate 26 H 24 H 25 H Blood Pressure 106/68 115/88 122/89 Pulse Oximetry 100 99 99 04/26/21 20:00 04/26/21 20:17 04/26/21 22:00 Temperature
[2021-04-27] MEDS: ACETAMINOPHEN 325 MG TABLET 650 MG PO ×3 (12:48→21:23)
--- NOTE | 2021-04-27 13:00 | PC.NURSE ---
This patient, Pam Smith, was transferred to [ [id number]] on 04/27/21 at 1250. Personal belongings sent with patient. Report given to [NORIS Gay @ [phone]]. Appropriate documentation sent with patient.
--- NOTE | 2021-04-27 15:40 | WPDGIPROGNO ---
Progress Note: A&P Assessment and Plan (1) DTs (delirium tremens): Code(s): F10.231 - Alcohol dependence with withdrawal delirium Status: Acute Assessment and Plan: treated and improved moved to floor ciwa protocol but more comfortable (2) Nausea and vomiting: Qualifiers: Vomiting Intractability: intractable Vomiting type: unspecified Qualified Code(s): R11.2 - Nausea with vomiting, unspecified Code(s): R11.2 - Nausea with vomiting, unspecified Status: Acute Assessment and Plan: chronic and never had egd she just returned to country [place] after 5 years and normally uses antiemetics will do egd tomorrow (3) UTI (urinary tract infection): Code(s): N39.0 - Urinary tract infection, site not specified Status: Acute (4) Altered mental status: Code(s): R41.82 - Altered mental status, unspecified Status: Acute (5) Acute hypokalemia: Code(s): E87.6 - Hypokalemia Status: Acute Assessment and Plan: repleted and normal today Subjective Date/time seen: 04/27/21 15:40 Interval history: she was moved to floor and much better, still persistent nausea. Review of Systems Review of Systems: All systems reviewed & are unremarkable except as noted in HPI and below Exam Const: General: comfortable Other: awake and talking HENMT: General nose exam: Normal nares present Eyes: Sclera: sclerae normal Neck: Neck: supple Resp: Auscultation: clear to auscultation bilaterally GI: GI Palp: Yes Soft to palpation, No Tenderness to palpation present (GI) and No Guarding due to palpation present (GI) Auscultation: normal bowel sounds Skin: General skin exam: normal color Neuro: Speech: normal speech Motor exam (neuro): Normal motor muscle tone present throughout Extrem: General: normal to inspection Psych: Affect: Anxious affect present Objective Data Vital Signs Vital Signs: Vital Signs - 24 hr 04/26/21 16:00 04/26/21 18:00 04/26/21 20:00 Temperature 97.7 F 98.4 F Pulse Rate 77 86 84 Pulse Rate [Right Radial Palpation] 77 Respiratory Rate 24 H 25 H 23 H Blood Pressure 115/88 122/89 113/72 Pulse Oximetry 99 99 100 04/26/21 20:17 04/26/21 22:00 04/27/21 00:00 Temperature Pulse Rate 89 75 81 Pulse Rate [Right Radial Palpation] Respiratory Rate 20 Blood Pressure 104/69 Pulse Oximetry 95 100 04/27/21 01:00 04/27/21 02:00 04/27/21 04:00 Temperature 98.2 F 98.4 F Pulse Rate 77 81 85 Pulse Rate [Right Radial Palpation] Respiratory Rate 22 H 19 22 H Blood Pressure 93/60 L 114/87 119/79 Pulse Oximetry 97 97 99 04/27/21 06:00 04/27/21 08:00 04/27/21 08:55 Temperature 98.3 F Pulse Rate 77 89 73 Pulse Rate [Right Radial Palpation] 73 Respiratory Rate 18 20 Blood Pressure 118/98 H 139/92 H Pulse Oximetry 99 04/27/21 14:00 Temperature 97.6 F Pulse Rate 70 Pulse Rate [Right Radial Palpation] Respiratory Rate 18 Blood Pressure 107/80 Pulse Oximetry 100 Intake/Output Intake/Output: Intake & Output 04/24/21 04/25/21 04/26/21 04/27/21 23:59 23:59 23:59 23:59 Intake Total 2230 2250 5408.8 1955 Output Total 550 3050 Balance 2230 2250 4858.8 -1095 Meds/Results Medications: Active Medications Generic Name Dose Route Start Last Admin Trade Name Freq PRN Reason Stop Dose Admin Acetaminophen 650 mg 04/27/21 12:25 04/27/21 12:48 Acetaminophen 325 Mg Tablet PO 650 mg Q4H PRN Administration Headache Bupropion HCl 150 mg 04/25/21 09:00 04/27/21 08:56 Bupropion Hcl Sr (12 Hr) 150 Mg Tab PO 150 mg DAILY GISSELLE Administration Chlordiazepoxide HCl 50 mg 04/25/21 06:00 04/26/21 06:45 Chlordiazepoxide (*Crx) 25 Mg Capsule PO 50 mg Q6HR GISSELLE Administration Folic Acid 1 mg 04/26/21 09:00 04/27/21 08:57 Folic Acid 1 Mg/0.2 Ml Inj IV PUSH 1 mg QAM GISSELLE Administration Levofloxacin/Dextrose 750 mg in 150 mls @ 100 mls/hr 04/16
[2021-04-28] VITALS (14 sets, daily range): BP systolic 103–131; BP diastolic 58–86; PULSE 68–90; RESP 16–30; TEMP 36.1–36.9; O2SAT 95–100
[2021-04-28 06:29] LABS: Hematocrit 35.3 % (37.0-47.0); Hemoglobin 11.3 g/dL (12.0-15.0); Mean Corpuscular Hemoglobin 29.7 pg (26-34); Mean Corpuscular Volume 92.7 fl (80-100); Mean Platelet Volume 10.5 fl (7.4-10.4); Platelet Count Result 181 k/mm3 (150-375); Red Blood Count 3.81 M/mm3 (4.2-5.4); Red Cell Distribution Width 17.9 % (11.5-14.5); White Blood Count 3.7 K/mm3 (4.5-10.0)
[2021-04-28 06:47] LABS: Alanine Aminotransferase 15 U/L (4-35); Albumin Level 3.3 g/dL (3.5-5.1); Alkaline Phosphatase 53 U/L (38-126); Anion Gap 5 mmol/L (8-16); Aspartate Amino Transferase 28 U/L (14-36); Bilirubin,Total 0.5 mg/dL (0.2-1.3); Blood Urea Nitrogen 6 mg/dL (7-17); Calcium 8.9 mg/dL (8.4-10.2); Carbon Dioxide 28 mmol/L (22-30); Chloride 105 mmol/L (98-107); Estimated CRCL calculation 75 ml/min; Estimated Glomerular Filt Rate > 60; Glucose 110 mg/dL (65-110); Magnesium 1.9 mg/dL (1.6-2.3); Potassium 4.1 mmol/L (3.4-5.0); Sodium 138 mmol/L (137-145)
[2021-04-28 07:08] LABS: GGT 87 U/L (3-70)
[2021-04-28] MEDS: LORazepam INJ (*CRX) 2 MG/ML VIAL IV PUSH (07:39)
--- NOTE | 2021-04-28 08:55 | PM.IMPN ---
Progress Note: A&P Assessment and Plan (1) Encephalopathy: Code(s): G93.40 - Encephalopathy, unspecified Status: Acute (2) DTs (delirium tremens): Code(s): F10.231 - Alcohol dependence with withdrawal delirium Status: Acute (3) UTI (urinary tract infection): Code(s): N39.0 - Urinary tract infection, site not specified Status: Acute (4) Hepatic steatosis: Code(s): K76.0 - Fatty (change of) liver, not elsewhere classified Status: Chronic (5) Electrolyte abnormality: Code(s): E87.8 - Other disorders of electrolyte and fluid balance, not elsewhere classified Status: Acute (6) Nausea and vomiting: Qualifiers: Vomiting Intractability: intractable Vomiting type: unspecified Qualified Code(s): R11.2 - Nausea with vomiting, unspecified Code(s): R11.2 - Nausea with vomiting, unspecified Status: Acute Additional Plan 50yo lady with alcoholism and hepatic steatosis. Treated in ICU for DTs, on precedex. Taper chlordiazepoxide and prn ativan per CIWA protocl. Continue folic and thiamine supplements. EGD showing erosive gastritis, GI recommends carafate and protonix. Needs EGD in 3 months. Follow biopsy results. UTI, pt has documented cephalosporin allergy. Currently on Day 4 Levaquin. Initially presented with encephalopathy related to alcohol withdrawal. Symptoms improving, pt close to baseline. Ammonia and CT head unremarkable. TSH also unremarkable. Continue symptomatic control of N/V with scopolamine. Resume diet as tolerated following EGD today. Time Spent With Patient Time with patient: less than 15 minutes Subjective Date/time seen: 04/28/21 08:55 resting comfortably feels able to tolerate meals Review of Systems Review of Systems: All systems reviewed & are unremarkable except as noted in HPI and below Exam Const: General: no acute distress Neck: Neck: no JVD Resp: Effort & Inspection: normal respiratory effort Auscultation: clear to auscultation bilaterally Cardio: Rate: regular rate Rhythm: regular rhythm GI: GI Palp: Yes Soft to palpation and No Tenderness to palpation present (GI) Objective Data Vital Signs Vital Signs: Vital Signs - 24 hr 04/27/21 14:00 04/27/21 16:00 04/27/21 20:00 Temperature 97.6 F Pulse Rate 70 Pulse Rate [Right Radial Palpation] 74 74 Respiratory Rate 18 Blood Pressure 107/80 107/80 Pulse Oximetry 100 04/27/21 20:51 04/27/21 21:43 04/28/21 00:00 Temperature 97.3 F L Pulse Rate 70 88 Pulse Rate [Right Radial Palpation] 74 Respiratory Rate 16 Blood Pressure 124/87 Pulse Oximetry 100 04/28/21 04:00 04/28/21 05:41 Temperature 97.1 F L Pulse Rate 79 Pulse Rate [Right Radial Palpation] 74 Respiratory Rate 16 Blood Pressure 103/58 L Pulse Oximetry 99 Intake/Output Intake/Output: Intake & Output 04/25/21 04/26/21 04/27/21 04/28/21 23:59 23:59 23:59 23:59 Intake Total 2250 5408.8 2925 480 Output Total 550 3050 Balance 2250 4858.8 -125 480 Meds/Results Medications: Active Medications Generic Name Dose Route Start Last Admin Trade Name Freq PRN Reason Stop Dose Admin Acetaminophen 650 mg 04/27/21 12:25 04/27/21 21:23 Acetaminophen 325 Mg Tablet PO 650 mg Q4H PRN Administration Headache Bupropion HCl 150 mg 04/25/21 09:00 04/28/21 07:51 Bupropion Hcl Sr (12 Hr) 150 Mg Tab PO Not Given DAILY GISSELLE Chlordiazepoxide HCl 50 mg 04/25/21 06:00 04/26/21 06:45 Chlordiazepoxide (*Crx) 25 Mg Capsule PO 50 mg Q6HR GISSELLE Administration Folic Acid 1 mg 04/26/21 09:00 04/28/21 07:51 Folic Acid 1 Mg/0.2 Ml Inj IV PUSH Not Given QAM GISSELLE Levofloxacin/Dextrose 750 mg in 150 mls @ 100 mls/hr 04/25/21 18:00 04/27/21 17:07 Levaquin 750 Mg/D5w 150 Ml IVPB 100 mls/hr Q24H GISSELLE Administration Lorazepam 2 mg 04/26/21 09:42 04/28/21 07:39 Lorazepam Inj (*Crx) 2 Mg/Ml Vial IV PUSH 2 mg Q2H
[2021-04-28] MEDS: LACTATED RINGERS 1,000 ML 150 ML IV CONT (09:23)
--- NOTE | 2021-04-28 09:33 | WPDANESEPPF ---
Anes - Initial Pre Proc Eval Procedure: Operation Date: 04/28/21 14:30 Proposed Procedures p Esophagogastroduodenoscopy - Miguelangel Castillo MD Date/Time: 04/28/21 09:33 Surgeon: Shawn Herrera MD Pre Op Diagnosis: Hypokalemia, intractable N&V, UTI Patient Data Age: 50 Gender: F Height: 1.57 m Weight: 87.5 kg Last Vital Signs Temp 36.1 C L 04/28/21 09:27 Pulse 68 04/28/21 09:27 Resp 16 04/28/21 09:27 BP 131/78 04/28/21 09:27 Pulse Ox 100 04/28/21 09:27 Allergies Allergy/AdvReac Type Severity Reaction Status Date / Time hydrocodone Allergy Intermediate Itching Verified 04/24/21 14:54 cefixime Allergy Unknown Unknown Verified 04/24/21 14:54 citalopram Allergy Unknown Unknown Verified 04/24/21 14:54 oxycodone Allergy Unknown Unknown Verified 04/24/21 14:54 venlafaxine Allergy Unknown Unknown Verified 04/24/21 14:54 Home Medications Medication Instructions Recorded Confirmed Type bupropion HCl [Wellbutrin SR] 150 mg PO DAILY 04/24/21 04/24/21 History lorazepam 1 mg PO TID PRN 04/24/21 04/24/21 History omeprazole 20 mg PO DAILY 04/24/21 04/24/21 History propranolol 40 mg PO Q12H PRN 04/24/21 04/24/21 History Laboratory Tests 04/25/21 04/28/21 04/28/21 15:00 05:43 05:43 WBC 3.7 K/mm3 L K/mm3 (4.5-10.0) RBC 3.81 M/mm3 L M/mm3 (4.2-5.4) Hgb 11.3 g/dL L g/dL (12.0-15.0) Hct 35.3 % L % (37.0-47.0) MCV 92.7 fl fl (80-100) MCH 29.7 pg pg (26-34) MCHC 32.0 g/dl g/dl (32-36) RDW 17.9 % H % (11.5-14.5) Plt Count 181 k/mm3 k/mm3 (150-375) MPV 10.5 fl H fl (7.4-10.4) Sodium 138 mmol/L mmol/L (137-145) Potassium 4.1 mmol/L mmol/L (3.4-5.0) Chloride 105 mmol/L mmol/L (98-107) Carbon Dioxide 28 mmol/L mmol/L (22-30) Anion Gap 5 mmol/L L mmol/L (8-16) BUN 6 mg/dL L mg/dL (7-17) Creatinine 0.80 mg/dL mg/dL (0.7-1.0) Estim Creat Clear Calc 75 ml/min ml/min Estimated GFR > 60 (59 - ) Glucose 110 mg/dL mg/dL (65-110) Calcium 8.9 mg/dL mg/dL (8.4-10.2) Magnesium 1.9 mg/dL mg/dL (1.6-2.3) Total Bilirubin 0.5 mg/dL mg/dL (0.2-1.3) GGT 87 U/L H U/L (3-70) AST 28 U/L U/L (14-36) ALT 15 U/L U/L (4-35) Alkaline Phosphatase 53 U/L U/L (38-126) Total Protein 6.0 g/dL L g/dL (6.3-8.2) Albumin 3.3 g/dL L g/dL (3.5-5.1) Patient hx anesthesia problems: none Family hx anesthesia problems: none Results Review: All pre-operative results and documents have been reviewed as part of the pre-operative evaluation. [facility] Past Medical History Medical History (Updated 04/28/21 @ 09:35 by Tam Artis MD) DTs (delirium tremens) Encephalopathy Hepatic steatosis History of anxiety History of hypertension Surgical History Surgical History H/O hand surgery on the right History of ankle surgery plate and screws to left ankle History of carpal tunnel release Family History Family History Mother Family history of elevated blood lipids Diverticulitis Father Hypertension Malignant neoplasm of prostate Social History Social History Social History: the patient stated that she only recently tried marijuana and was positive for this on her drug screen. The patient is lives with her . 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 She desires to have her is the durable power attorney lawyer for healthcare. She desires to be a full code. The patient is a former smoker. She states she does not use any alcohol that she is recovering alcoholic. She does not use any illicit drugs but just re
[2021-04-28] MEDS: PROPRANOLOL HCL 40 MG TABLET PO ×2 (12:42→20:34)
[2021-04-28] MEDS: THIAMINE HCL 200 MG/2 ML VIAL 100 MG IV PUSH (12:42)
[2021-04-28] MEDS: FOLIC ACID 1 MG/0.2 ML INJ IV PUSH (12:42)
[2021-04-28] MEDS: buPROPion HCL SR (12 HR) 150 MG TAB PO (12:42)
[2021-04-28] MEDS: SUCRALFATE 1 GM TABLET PO ×3 (12:43→20:33)
[2021-04-28] MEDS: PANTOPRAZOLE SODIUM IV 40 MG VIAL IV PUSH ×2 (12:43→20:33)
[2021-04-28] MEDS: ACETAMINOPHEN 325 MG TABLET 650 MG PO (20:33)
[2021-04-29] VITALS: PULSE 79
[2021-04-29 04:00] VITALS: PULSE 74
[2021-04-29] MEDS: SUCRALFATE 1 GM TABLET PO ×2 (05:30→11:24)
[2021-04-29 06:00] VITALS: BP 126/86; PULSE 87; RESP 16; TEMP 36.2; O2SAT 99
[2021-04-29 06:44] LABS: Basophils Percent Auto 0.3 % (0.2-1.2); Eosinophils Absolute Auto 0.1 K/mm3 (0-0.3); Eosinophils Percent Auto 2.5 % (0-4.4); Hematocrit 34.6 % (37.0-47.0); Immature Granulocyte Absolute 0.02 K/mm3 (0.00-0.031); Immature Granulocyte Percent A 0.5 % (0-0.5); Lymphocytes Absolute Auto 1.44 K/mm3 (0.9-3.2); Lymphocytes Percent Auto 36.5 % (18.3-44.2); Mean Corpuscular HGB Conc 31.8 g/dl (32-36); Mean Corpuscular Hemoglobin 29.5 pg (26-34); Mean Corpuscular Volume 92.8 fl (80-100); Mean Platelet Volume 10.5 fl (7.4-10.4); Monocytes Absolute Auto 0.7 K/mm3 (0.1-0.6); Monocytes Percent Auto 16.7 % (2.6-8.5); Neutrophils Absolute Auto 1.7 K/mm3 (1.3-6.7); Neutrophils Percent Auto 43.5 % (45.5-73.1); Platelet Count Result 178 k/mm3 (150-375); Red Blood Count 3.73 M/mm3 (4.2-5.4); Red Cell Distribution Width 18.5 % (11.5-14.5)
--- NOTE | 2021-04-29 07:08 | WPDANESPN ---
Anes - Prog Note Post-Op Date/Time: 04/29/21 07:08 Cardiovascular status: normal Respiratory status: normal Airway patency: baseline Mental status: baseline Post-Op hydration status: normal Vital Signs: Last Vital Signs Temp 97.2 F L 04/29/21 06:00 Pulse 87 04/29/21 06:00 Resp 16 04/29/21 06:00 BP 126/86 04/29/21 06:00 Pulse Ox 99 04/29/21 06:00 Pain Score (VAS): 0/10 I/O: Intake & Output 04/28/21 04/28/21 04/29/21 15:59 23:59 07:59 Intake Total 480 1240 200 Balance 480 1240 200 Laboratory Tests 04/29/21 05:51 04/25/21 04/29/21 04/29/21 15:00 05:51 05:51 WBC 4.0 L RBC 3.73 L Hgb 11.0 L Hct 34.6 L MCV 92.8 MCH 29.5 MCHC 31.8 L RDW 18.5 H Plt Count 178 MPV 10.5 H Immature Gran % (Auto) 0.5 Neut % (Auto) 43.5 L Lymph % (Auto) 36.5 [place] % (Auto) 16.7 H Eos % (Auto) 2.5 Baso % (Auto) 0.3 Lymph # (Auto) 1.44 [place] # (Auto) 0.7 H Eos # (Auto) 0.1 Baso # (Auto) 0.0 Abs Immat Gran (auto) 0.02 Absolute Neuts (auto) 1.7 Absolute Nucleated RBC 0.0 Nucleated RBC % 0.0 Sodium Pending Potassium Pending Chloride Pending Carbon Dioxide Pending Anion Gap Pending BUN Pending Creatinine Pending Estim Creat Clear Calc Pending Estimated GFR Pending Glucose Pending Calcium Pending Phosphorus Pending Magnesium Pending Total Bilirubin Pending GGT 87 H AST Pending ALT Pending Alkaline Phosphatase Pending Total Protein Pending Albumin Pending Post-procedural complaints: none Patient Feedback: Patient satisfied with anesthetic care.
[2021-04-29 07:24] LABS: Alanine Aminotransferase 15 U/L (4-35); Albumin Level 3.4 g/dL (3.5-5.1); Alkaline Phosphatase 55 U/L (38-126); Anion Gap 7 mmol/L (8-16); Aspartate Amino Transferase 27 U/L (14-36); Bilirubin,Total 0.3 mg/dL (0.2-1.3); Blood Urea Nitrogen 6 mg/dL (7-17); Calcium 8.9 mg/dL (8.4-10.2); Carbon Dioxide 26 mmol/L (22-30); Chloride 104 mmol/L (98-107); Estimated CRCL calculation 75 ml/min; Estimated Glomerular Filt Rate > 60; Glucose 103 mg/dL (65-110); Magnesium 1.6 mg/dL (1.6-2.3); Phosphorus 5.2 mg/dL (2.5-4.5); Potassium 3.9 mmol/L (3.4-5.0); Sodium 137 mmol/L (137-145)
[2021-04-29 07:49] VITALS: BP 126/86; PULSE 87
[2021-04-29 07:51] VITALS: PULSE 87; RESP 16; O2SAT 99
--- NOTE | 2021-04-29 08:24 | PM.DS ---
DS: Admitting Diagnosis Discharge Date 04/29/21 Admitting Diagnosis nausea vomiting DS: Discharge Diagnosis Discharge Diagnosis (1) Alcoholism: Code(s): F10.20 - Alcohol dependence, uncomplicated Status: Acute (2) Reflux esophagitis: Code(s): K21.00 - Gastro-esophageal reflux disease with esophagitis, without bleeding Status: Acute DS: Summary Hospital Course Reason for hospitalization: Alcohol withdrawal Several months nausea/vomiting Hospital Course: Patient is a 50-year-old female presenting to [facility] on April 24 with nausea and vomiting and being very confused. She had abnormal liver function tests. Given timeline and severity of symptoms, presumed that the patient was suffering from severe withdrawal, and she was started on CIWA protocol, in addition to Precedex infusion as she was not able to take p.o. medication. IV fluids folic acid and thiamine were also given. She was transitioned off of Precedex on April 26 and Librium was then tapered. At this point, has been 11 days since last alcoholic drink. At time of interview for discharge, patient's mentation is back to normal, and she has no somatic symptoms of alcohol withdrawal. Discussed at length importance of alcohol cessation, which she says she is committed to. Given the lengthy history of nausea vomiting, GI was consulted, and patient went for EGD. This showed a hiatal hernia in addition to reflux esophagitis. GI is recommending 2 weeks of sucralfate, and b.i.d. Protonix, which we will do. Advised that she needs to follow-up with GI for a repeat EGD in a few months. She was also treated for a UTI, which may have been contributing to her nausea and vomiting symptoms. She completed 5 days of level Floxin. Status at Discharge Functional status at discharge: independent ambulation Time Spent with Patient Time attestation: Total time spent providing and/or coordinating discharge services: Time spent: Less than 30 minutes Exam Const: General: no acute distress Neck: Neck: no JVD Resp: Effort & Inspection: normal respiratory effort Auscultation: clear to auscultation bilaterally Cardio: Rate: regular rate Rhythm: regular rhythm GI: GI Palp: Yes Soft to palpation and No Tenderness to palpation present (GI) DS: Data Data Completed and Pending Pending studies at discharge: Pending at discharge 04/28/21 10:04 Surgical [PTH] Routine Labs on day of discharge: Labs from last 24 hours 04/29/21 04/29/21 05:51 05:51 WBC 4.0 L RBC 3.73 L Hgb 11.0 L Hct 34.6 L MCV 92.8 MCH 29.5 MCHC 31.8 L RDW 18.5 H Plt Count 178 MPV 10.5 H Immature Gran % (Auto) 0.5 Neut % (Auto) 43.5 L Lymph % (Auto) 36.5 Wright % (Auto) 16.7 H Eos % (Auto) 2.5 Baso % (Auto) 0.3 Lymph # (Auto) 1.44 Wright # (Auto) 0.7 H Eos # (Auto) 0.1 Baso # (Auto) 0.0 Abs Immat Gran (auto) 0.02 Absolute Neuts (auto) 1.7 Absolute Nucleated RBC 0.0 Nucleated RBC % 0.0 Sodium 137 Potassium 3.9 Chloride 104 Carbon Dioxide 26 Anion Gap 7 L BUN 6 L Creatinine 0.80 Estim Creat Clear Calc 75 Estimated GFR > 60 Glucose 103 Calcium 8.9 Phosphorus 5.2 H Magnesium 1.6 Total Bilirubin 0.3 AST 27 ALT 15 Alkaline Phosphatase 55 Total Protein 6.0 L Albumin 3.4 L Preliminary micro results at discharge 04/24/21 16:49 Blood Culture - Preliminary Blood 04/24/21 16:49 Blood Culture - Preliminary Blood Discharge Plan Discharge Attending physician on discharge: Allyson Colbert Consulting providers: Melissa Franks ; Peter Sneed ; Partha Malin Discharging Clinician: Allyson Colbert Anticipated Discharge Date/Time: 04/29/21 00:00 Patient Disposition: Home, Self-Care Activity: may shower, no straining and as tolerated Diet: as tolerated, low cholesterol and low fat Patient Instructions: Antibiotic Form, Heart Healthy Diet (DC)
[2021-04-29 09:07] VITALS: PULSE 88
[2021-04-29] MEDS: PROPRANOLOL HCL 40 MG TABLET PO (09:07)
[2021-04-29] MEDS: PANTOPRAZOLE SODIUM IV 40 MG VIAL IV PUSH (09:08)
[2021-04-29] MEDS: buPROPion HCL SR (12 HR) 150 MG TAB PO (09:08)
[2021-04-29] MEDS: FOLIC ACID 1 MG/0.2 ML INJ IV PUSH (09:08)
[2021-04-29] MEDS: LORazepam (*CRX) 1 MG TABLET PO (09:18)
[2021-04-29] MEDS: THIAMINE HCL 200 MG/2 ML VIAL 100 MG IV PUSH (09:24)
[2021-04-29] MEDS: ONDANSETRON INJ 4 MG/2 ML VIAL IV PUSH (09:24)
--- NOTE | 2021-04-29 12:02 | WPDGIPROGNO ---
Progress Note: A&P Assessment and Plan (1) Reflux esophagitis: Code(s): K21.00 - Gastro-esophageal reflux disease with esophagitis, without bleeding Status: Acute Assessment and Plan: she was taking omeprazole at home but now prefers protonix bid (will give script) and also carafate egd in 3 months to assess for healing (2) Alcoholism: Code(s): F10.20 - Alcohol dependence, uncomplicated Status: Acute Assessment and Plan: she will try to quit (3) Nausea and vomiting: Qualifiers: Vomiting Intractability: intractable Vomiting type: unspecified Qualified Code(s): R11.2 - Nausea with vomiting, unspecified Code(s): R11.2 - Nausea with vomiting, unspecified Status: Acute Assessment and Plan: improved (4) Acute hypokalemia: Code(s): E87.6 - Hypokalemia Status: Acute (5) Colon cancer screening: Code(s): Z12.11 - Encounter for screening for malignant neoplasm of colon Status: Acute Assessment and Plan: she says that also due to have one at some point, will schedule one as outpatient same day of egd Subjective Date/time seen: 04/29/21 12:02 Interval history: she is feeling much better and ready to go home. EGD showed erosive esophagitis. Review of Systems Review of Systems: All systems reviewed & are unremarkable except as noted in HPI and below Exam Const: General: comfortable Other: awake and talking HENMT: General nose exam: Normal nares present Eyes: Sclera: sclerae normal Neck: Neck: supple Resp: Auscultation: clear to auscultation bilaterally GI: GI Palp: Yes Soft to palpation, No Tenderness to palpation present (GI) and No Guarding due to palpation present (GI) Auscultation: normal bowel sounds Skin: General skin exam: normal color Neuro: Speech: normal speech Motor exam (neuro): Normal motor muscle tone present throughout Extrem: General: normal to inspection Psych: Affect: Anxious affect present Objective Data Vital Signs Vital Signs: Vital Signs - 24 hr 04/28/21 12:42 04/28/21 14:00 04/28/21 16:00 Temperature 98.5 F Pulse Rate 76 79 Pulse Rate [Right Radial Palpation] 79 Respiratory Rate 19 Blood Pressure 128/86 128/86 Pulse Oximetry 95 04/28/21 20:00 04/28/21 20:34 04/28/21 22:00 Temperature 97 F L Pulse Rate 79 83 Pulse Rate [Right Radial Palpation] 79 Respiratory Rate 16 Blood Pressure 120/80 Pulse Oximetry 100 04/29/21 00:00 04/29/21 04:00 04/29/21 06:00 Temperature 97.2 F L Pulse Rate 87 Pulse Rate [Right Radial Palpation] 79 74 Respiratory Rate 16 Blood Pressure 126/86 Pulse Oximetry 99 04/29/21 07:49 04/29/21 07:51 04/29/21 09:07 Temperature Pulse Rate 87 88 Pulse Rate [Right Radial Palpation] 87 Respiratory Rate 16 Blood Pressure 126/86 Pulse Oximetry 99 Intake/Output Intake/Output: Intake & Output 04/26/21 04/27/21 04/28/21 04/29/21 23:59 23:59 23:59 23:59 Intake Total 5408.8 3075 2200 440 Output Total 550 3050 Balance 4858.8 25 2200 440 Meds/Results Medications: Active Medications Generic Name Dose Route Start Last Admin Trade Name Freq PRN Reason Stop Dose Admin Acetaminophen 650 mg 04/27/21 12:25 04/28/21 20:33 Acetaminophen 325 Mg Tablet PO 650 mg Q4H PRN Administration Headache Bupropion HCl 150 mg 04/25/21 09:00 04/29/21 09:08 Bupropion Hcl Sr (12 Hr) 150 Mg Tab PO 150 mg DAILY GISSELLE Administration Chlordiazepoxide HCl 50 mg 04/25/21 06:00 04/26/21 06:45 Chlordiazepoxide (*Crx) 25 Mg Capsule PO 50 mg Q6HR GISSELLE Administration Folic Acid 1 mg 04/26/21 09:00 04/29/21 09:08 Folic Acid 1 Mg/0.2 Ml Inj IV PUSH 1 mg QAM GISSELLE Administration Levofloxacin/Dextrose 750 mg in 150 mls @ 100 mls/hr 04/25/21 18:00 04/28/21 17:14 Levaquin 750 Mg/D5w 150 Ml IVPB 100 mls/hr Q24H GISSELLE Administration Lorazepam 2 mg 04/26/21 09:42
== END 2021-04-29 13:55 | disposition home or self-care (01) | DRG 896 ==
LOC: ANHED 13:17 → ANH3MEDSUR 13:29 → ANHICU 04-26 03:24 → ANH3MEDSUR 04-27 15:44 → ANHICU 05-03 16:33
PROVIDERS: Internal Medicine; Internal Medicine Gastroenterology; Nurse Practitioner; Physician Assistant; Admitting Provider Internal Medicine; Emergency Provider Emergency Medicine; PCP Family Medicine; Visit Provider Internal Medicine
PROC: 0DJ08ZZ Inspection of Upper Intestinal Tract, Via Natural or Artificial Opening Endoscopic (ICD-10-PCS; CPT 43235; principal; 2021-04-28 14:30)
DX: F10.231 Alcohol dependence with withdrawal delirium (principal); G92.8 Other toxic encephalopathy; N39.0 Urinary tract infection, site not specified; Z23 Encounter for immunization; K21.00 Gastro-esophageal reflux disease with esophagitis, without bleeding; K70.0 Alcoholic fatty liver; K29.70 Gastritis, unspecified, without bleeding; K44.9 Diaphragmatic hernia without obstruction or gangrene; I10 Essential (primary) hypertension; E87.6 Hypokalemia; F41.9 Anxiety disorder, unspecified; E66.9 Obesity, unspecified; Z68.35 Body mass index [BMI] 35.0-35.9, adult; Z87.891 Personal history of nicotine dependence
CPT/HCPCS: 36415; 70450; 71045; 74177; 76705; 80048; 80053; 80307; 81001; 82140; 82550; 82607; 82728; 82746; 82977; 83605; 83615; 83690; 83735; 84100; 84443; 85025; 85027; 86140; 87040; 87086; 88305; 90471; 90653; 93005; 96365; 96366; 96367; 96368; 96375; 96376; 99285; A9270; C9113; G0008; G0378; J0131; J1200; J1630; J1956; J2060; J2405; J2704; J2765; J3411; J3475; J3480; J7030; J7120; J7121; Q9967

== ENCOUNTER 2021-05-19 19:45 | Observation (INO) | payer BC, SELFPAY ==
[2021-05-19] VITALS (21 sets, daily range): BP systolic 128–166; BP diastolic 90–133; PULSE 103–160; RESP 10–29; TEMP 36.6; O2SAT 95–100
[2021-05-19] MEDS: SODIUM CHLORIDE 0.9% IV 1,000 ML 999 ML IV CONT ×2 (20:47→20:52)
[2021-05-19] MEDS: PROMETHAZINE HCL 25 MG/ML AMPUL 12.5 MG IV PUSH (20:48)
[2021-05-19 20:57] LABS: Basophils Percent Auto 0.2 % (0.2-1.2); Immature Granulocyte Absolute 0.04 K/mm3 (0.00-0.031); Immature Granulocyte Percent A 0.3 % (0-0.5); Lymphocytes Absolute Auto 0.61 K/mm3 (0.9-3.2); Lymphocytes Percent Auto 5.2 % (18.3-44.2); Mean Corpuscular HGB Conc 33.3 g/dl (32-36); Mean Corpuscular Hemoglobin 29.7 pg (26-34); Mean Corpuscular Volume 89.2 fl (80-100); Mean Platelet Volume 9.2 fl (7.4-10.4); Monocytes Absolute Auto 0.4 K/mm3 (0.1-0.6); Monocytes Percent Auto 3.5 % (2.6-8.5); Neutrophils Absolute Auto 10.6 K/mm3 (1.3-6.7); Neutrophils Percent Auto 90.8 % (45.5-73.1); Platelet Count Result 382 k/mm3 (150-375); Red Blood Count 4.71 M/mm3 (4.2-5.4); Red Cell Distribution Width 17.2 % (11.5-14.5); White Blood Count 11.7 K/mm3 (4.5-10.0)
[2021-05-19 21:19] LABS: Alanine Aminotransferase 22 U/L (4-35); Albumin Level 5.2 g/dL (3.5-5.1); Alkaline Phosphatase 149 U/L (38-126); Anion Gap 25 mmol/L (8-16); Aspartate Amino Transferase 41 U/L (14-36); Bilirubin,Total 1.7 mg/dL (0.2-1.3); Blood Urea Nitrogen 12 mg/dL (7-17); Calcium 10.7 mg/dL (8.4-10.2); Carbon Dioxide 14 mmol/L (22-30); Chloride 104 mmol/L (98-107); Estimated Glomerular Filt Rate > 60; Glucose 156 mg/dL (65-110); Lipase 62 U/L (23-300); Potassium 4.2 mmol/L (3.4-5.0); Sodium 143 mmol/L (137-145)
[2021-05-19] MEDS: PANTOPRAZOLE SODIUM IV 40 MG VIAL IV PUSH (21:56)
[2021-05-19] MEDS: LORazepam INJ (*CRX) 2 MG/ML VIAL IV PUSH (21:56)
--- NOTE | 2021-05-19 23:06 | PC.NURSE ---
Bedside test negative.
[2021-05-19 23:10] LABS: Add Urine Microscopic? YES; Appearance Urine Cloudy (Clear); Bilirubin Urine Negative (Negative); Blood Urine Negative (Negative); Color Urine Yellow (Yellow); Glucose Urine UA Negative (Negative); Ketones Urine 2+ mg/dL (Negative); Leukocyte Esterase Ur Negative LEU/UL (Negative); Mucus Urine Rare /lpf; Nitrate Urine Negative (Negative); Protein Urine 2+ mg/dL (Negative); Specific Grav Ur 1.026 (1.001-1.035); Squamous Epithelial Cell Urine Few /hpf (Few); Urobilinogen Urine Negative mg/dL (<2.0); WBC Urine 0-3 /hpf
--- NOTE | 2021-05-19 23:49 | ECG_ITS ---
Measurements Intervals [place] Rate: 128 P: 55 UT: 127 QRS: 42 QRSD: 82 T: 44 QT: 293 QTc: 428 Interpretive Statements SINUS TACHYCARDIA BASELINE ARTIFACT- III, V3, V5 ABNORMAL ECG Electronically Signed On 05-20-2021 8:02:57 CDT by Shahid Gomez D.O.
[2021-05-20] VITALS (16 sets, daily range): BP systolic 141–158; BP diastolic 88–103; PULSE 85–128; RESP 14–20; TEMP 36.6–37.1; O2SAT 99–100; BMI 37.3
--- NOTE | 2021-05-20 00:30 | ADMGEN ---
This patient, Pam Smith, was admitted to Medical Room 347-. Patient/family oriented to hospital policies and general routines including ID bracelet, bed and alarms, visiting hours, pain management, procedures, bathroom and other care routines, personal items, smoking policy, room service/diet, and visiting hours. Information on how to activate the Rapid Response Team has been discussed. Patient/Family are encouraged to report perceived risks to care and to ask questions if they do not understand what they are told or what they should do.
[2021-05-20] MEDS: SODIUM CHLORIDE 0.9% IV 1,000 ML 125 ML IV CONT ×2 (00:36→09:00)
[2021-05-20] MEDS: LORazepam INJ (*CRX) 2 MG/ML VIAL 1 MG IV PUSH ×4 (01:06→18:22)
[2021-05-20] MEDS: PROMETHAZINE HCL 25 MG/ML AMPUL 12.5 MG IV PUSH ×4 (02:53→21:30)
--- NOTE | 2021-05-20 03:33 | PM.IMHP ---
H&P: HPI History of Present Illness Date/Time: 05/20/21 03:33 Chief Complaint: nausea shaky Narrative: this is 50-year-old female who presents to the ED with nausea vomiting and feeling shaky. She states that she has been hurting in her upper abdomen as well. She was recently admitted for the similar symptoms back in April and was noted to be in alcohol withdrawal with severe symptoms and DTs requiring Precedex in the ICU. She was also having active hallucinations at that time. She had recently moved back here from [place] and has been having ongoing nausea and vomiting. She has been so over from drinking since last year but recently started drinking back again from which she started having this nausea and vomiting. Her CT at that time showed diffuse hepatic steatosis and GI consultation was performed with EGD showing esophagitis and gastritis with acute ulceration. She was placed on PPI and sucralfate at discharge. Plans to repeat EGD in few months. after her discharge she did drink couple of times last 1 being on Monday hello in day when she drank few drinks of vodka. She is noted to have mild leukocytosis with metabolic acidosis along with the mildly elevated liver enzymes. She was given Phenergan along with Ativan for shakiness and alcohol withdrawal symptoms initial vitals showed severe tachycardia and 160s which improved with Ativan down to 120s. She is admitted for further evaluation and management Review of Systems Review of Systems: - CONSTITUTIONAL: Denies weight loss, fever and chills. - HEENT: Denies changes in vision and hearing - RESPIRATORY: Denies SOB and cough. - CV: Denies palpitations and CP. - GI: reports abdominal pain, nausea, denies vomiting and diarrhea. - : Denies dysuria and urinary frequency. - MSK: Denies myalgia and joint pain. - SKIN: Denies rash and pruritus. - NEUROLOGICAL: Denies headache and syncope. - PSYCHIATRIC: Denies recent changes in mood. Denies anxiety and depression. All systems reviewed & are unremarkable except as noted in HPI and below Constitutional: Constitutional: Reports fatigue and Reports weakness Neurologic: Reports weakness Endocrine: Endocrine: Reports fatigue [facility] Past Medical History Medical History (Updated 04/29/21 @ 12:06 by Miguelangel Castillo MD) Alcoholism Colon cancer screening DTs (delirium tremens) Encephalopathy Hepatic steatosis History of anxiety History of hypertension Surgical History Surgical History H/O hand surgery on the right History of ankle surgery plate and screws to left ankle History of carpal tunnel release Family History Family History Mother Family history of elevated blood lipids Diverticulitis Father Hypertension Malignant neoplasm of prostate Social History Social History Social History: the patient stated that she only recently tried marijuana and was positive for this on her drug screen. The patient is lives with her . 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 She desires to have her is the durable power [place] attorney for healthcare. She desires to be a full code. The patient is a former smoker. She states she does not use any alcohol that she is recovering alcoholic. She does not use any illicit drugs but just recently started smoking marijuana due to the nausea and vomiting. The patient is a full code Smoking packs per day: 0.5 Smoking cigarettes per day: 10.0 Years smoked: 3 Smoking pack-years: 1.50 Smoking status: Former smoker Tobacco type: cigarettes Alcohol intake: former Substance use: current Substance use type: marijuana Other substance usage details: Only tried marijuana once. Last use: 05/16/21 Spiritual care concerns: No Meds Home Medications and
[2021-05-20] MEDS: SUCRALFATE 1 GM TABLET PO ×4 (06:01→21:29)
[2021-05-20 06:16] LABS: Basophils Percent Auto 0.1 % (0.2-1.2); Hematocrit 32.9 % (37.0-47.0); Hemoglobin 10.7 g/dL (12.0-15.0); Immature Granulocyte Absolute 0.02 K/mm3 (0.00-0.031); Immature Granulocyte Percent A 0.3 % (0-0.5); Lymphocytes Absolute Auto 0.93 K/mm3 (0.9-3.2); Lymphocytes Percent Auto 13.8 % (18.3-44.2); Mean Corpuscular HGB Conc 32.5 g/dl (32-36); Mean Corpuscular Hemoglobin 29.5 pg (26-34); Mean Corpuscular Volume 90.6 fl (80-100); Mean Platelet Volume 9.3 fl (7.4-10.4); Monocytes Absolute Auto 0.7 K/mm3 (0.1-0.6); Monocytes Percent Auto 10.8 % (2.6-8.5); Neutrophils Absolute Auto 5.1 K/mm3 (1.3-6.7); Platelet Count Result 259 k/mm3 (150-375); Red Blood Count 3.63 M/mm3 (4.2-5.4); Red Cell Distribution Width 17.4 % (11.5-14.5); White Blood Count 6.8 K/mm3 (4.5-10.0)
[2021-05-20 06:29] LABS: Ammonia < 9 umol/L (9-30); Lactic Acid Reflex 0.6 mmol/L (0.7-2.1)
[2021-05-20 06:31] LABS: INR 1.1; Prothrombin Time 14.5 Seconds (11.1-14.7)
[2021-05-20 06:39] LABS: Amphetamine Screen Urine Negative (Negative); Barbiturate Screen Urine Negative (Negative); Benzodiazepines Screen Urine Positive (Negative); Cannabinoid Screen Urine Positive (Negative); Cocaine Screen Urine Negative (Negative); Methadone Screen Urine Negative (Negative); Opiate Screen Urine Negative (Negative); Phencyclidine Screen Urine Negative (Negative)
[2021-05-20 06:39] LABS: Alanine Aminotransferase 15 U/L (4-35); Albumin Level 3.9 g/dL (3.5-5.1); Alkaline Phosphatase 96 U/L (38-126); Anion Gap 9 mmol/L (8-16); Aspartate Amino Transferase 29 U/L (14-36); Bilirubin,Total 1.3 mg/dL (0.2-1.3); Blood Urea Nitrogen 11 mg/dL (7-17); Calcium 9.2 mg/dL (8.4-10.2); Carbon Dioxide 20 mmol/L (22-30); Chloride 110 mmol/L (98-107); Estimated CRCL calculation 101 ml/min; Estimated Glomerular Filt Rate > 60; Glucose 113 mg/dL (65-110); Magnesium 1.7 mg/dL (1.6-2.3); Potassium 3.8 mmol/L (3.4-5.0); Sodium 139 mmol/L (137-145)
[2021-05-20 06:41] LABS: Acetaminophen < 10 ug/mL (10-30); Ethanol < 10 mg/dL (<10); Salicylate < 1.0 mg/dL (2-20)
[2021-05-20] MEDS: PANTOPRAZOLE SODIUM IV 40 MG VIAL IV PUSH (09:00)
[2021-05-20] MEDS: buPROPion HCL SR (12 HR) 150 MG TAB PO (09:00)
[2021-05-20] MEDS: PROPRANOLOL HCL 40 MG TABLET PO ×2 (09:00→21:29)
[2021-05-20] MEDS: ENOXAPARIN 40 MG/0.4 ML SYRINGE SUB-Q (09:01)
[2021-05-20 09:44] LABS: Hematocrit 32.1 % (37.0-47.0); Hemoglobin 10.4 g/dL (12.0-15.0)
[2021-05-20 13:53] LABS: Hematocrit 33.6 % (37.0-47.0); Hemoglobin 11.1 g/dL (12.0-15.0)
--- NOTE | 2021-05-20 15:48 | WPDGICN ---
Assessment and Plan Assessment and plan (1) Nausea and vomiting in adult: Code(s): R11.2 - Nausea with vomiting, unspecified Status: Acute Assessment and Plan: chronic n/v and now exacerbated for alcoholism recent EGD 1 month ago showed erosive esophagitis, she has been using protonix daily she needs to quit drinking altogether continue supportive care plan is to repeat EGD as outpatient in 2-3 months (already set up per patient) no signs of bleeding, noted that hb 14 on admission but down to 11 after hydration (most likely dehydrated with hemoconcentration- wbc, platelets, calcium were elevated on admission, now down to normal c/w hemoconcentration). She also presented with metabolic acidosis that is resolved now (2) Dehydration: Code(s): E86.0 - Dehydration Status: Acute Assessment and Plan: treated, from intractable n/v after she is sober, we can order gastric emptying study as outpatient also she will need to stop using marijuana and of course drinking antiemetics prn (3) Alcoholism: Code(s): F10.20 - Alcohol dependence, uncomplicated Status: Acute (4) Alcoholic hepatitis: Code(s): K70.10 - Alcoholic hepatitis without ascites Status: Acute Assessment and Plan: mild elevated on admission, now better on etoh withdrawal precautions (5) Erosive esophagitis: Code(s): K22.10 - Ulcer of esophagus without bleeding Status: Acute (6) Metabolic acidosis: Code(s): E87.2 - Acidosis Status: Acute Assessment and Plan: resolved (7) Hepatic steatosis: Code(s): K76.0 - Fatty (change of) liver, not elsewhere classified Status: Chronic (8) Colon cancer screening: Code(s): Z12.11 - Encounter for screening for malignant neoplasm of colon Status: Acute Assessment and Plan: colonoscopy as outpatient with her egd in 2-3 months GI Consult Note Consult date/time: 05/20/21 15:48 HPI: Pam Smith is a 50 year old female with past medical history of anxiety, HTN, Hepatic Steatosis who was in the hospial about 1 month ago with alcohol withdrawal treated in icu with precedex. EGD by me showed severe erosive esophagitis, small HH and mild gastritis. She also has chronic nausea for which [place] ([place] just returned from [place] after 5 years about 1 month ago). She is back again with nausea and dry heaving, unfortunately started drinking again every other night or so, 1-2 drinks (she was sober for several months earlier this year, used to drink quite heavy in the past). She was found to be dehydrated and admitted to hospital, blood work evidence of hemoconcentration (elevated wbc, platelets, hb, calcium)- repeat blood work improved today (hb 14 on arrival, after hydration down to 11 which was her baseline during previous hospitalization). She denies any melena, hematemesis. Nausea is better. Utox + benzo and marijuana. Her last colonoscopy about 10 years ago. Review of Systems Constitutional: Constitutional: Denies chills Eyes: Eyes: Reports no additional eye complaints ENT: Reports Normal hearing present Cardiovascular: Cardiovascular: Denies chest pain Respiratory: Respiratory: Denies dyspnea Gastrointestinal: Gastrointestinal: Reports nausea and Reports vomiting Genitourinary: Genitourinary: Denies hematuria Musculoskeletal: Musculoskeletal: Denies neck pain Integumentary/Breasts: Skin/Breast: Denies dry skin Neurologic: Denies Abnormal speech present Psychiatric: Psychiatric: Reports anxiety [facility] Past Medical History Medical History (Updated 05/20/21 @ 15:57 by Miguelangel Castillo MD) Alcoholic hepatitis Alcoholism Colon cancer screening Dehydration DTs (delirium tremens) Encephalopathy Erosive esophagitis Hepatic steatosis History of anxiety History of hypertension Metabolic acidosis Nausea and vomiting in adult Surgical History Surgical History (Reviewed 1
--- NOTE | 2021-05-20 16:04 | PM.IMPN ---
Progress Note: A&P Assessment and Plan (1) Nausea and vomiting in adult: Code(s): R11.2 - Nausea with vomiting, unspecified Status: Acute Assessment and Plan: -Chronic N/V likely exacerbated by alcoholism, discussed importance of alcohol cessation -cyclic vomiting? Secondary to marijuana? -Lipase is normal, abdomen examination with epigastric tenderness likely from her underlying alcohol-induced gastritis/hepatitis -Symptomatic management currently -Nausea improved, vomiting subsided s/p phenergan -GI consult placed, appreciate any additional recommendations (2) Alcohol withdrawal: Code(s): F10.239 - Alcohol dependence with withdrawal, unspecified Status: Acute Assessment and Plan: -Last drink Monday history of severe DTs requiring ICU on Precedex recently in April. -Continue CIWA protocol and Ativan scheduled -Thiamine, Folic Acid, Multivitamin -Ammonia level WNL (3) Metabolic acidosis: Code(s): E87.2 - Acidosis Status: Acute Assessment and Plan: -IV hydration no signs of infection currently continue to monitor -Mild confusion on arrival resolved -Metabolic acidosis now resolved (4) Alcoholic hepatitis: Code(s): K70.10 - Alcoholic hepatitis without ascites Status: Acute Assessment and Plan: -Elevated liver enzymes on admission, have improved -Continue etoh withdrawal precautions -Ammonia level, acetaminophen, salicylate WNL (5) Erosive esophagitis: Code(s): K22.10 - Ulcer of esophagus without bleeding Status: Acute Assessment and Plan: -Recent EGD showed ulcerative esophagitis and gastritis -Continue PPI and sucralfate -GI consult placed -Noted that hgb was 14 on admission, down to 10.7 s/p hydration. Suspect likely secondary dehydration with hemoconcentration on arrival. Is now stable at 11. Fecal occult ordered. No hemoptysis or melena reported. No hypotension. Will recheck hgb tomorrow. (6) Dehydration: Code(s): E86.0 - Dehydration Status: Acute Assessment and Plan: -Likely secondary to persistent N/V, decreased PO intake -Improved w/ IVF -Again discussed importance of etoh cessation (7) History of anxiety: Code(s): Z86.59 - Personal history of other mental and behavioral disorders Status: Chronic Assessment and Plan: -Continue Ativan -Continue home Wellbutrin -Suspect this is contributing to her intractable N/V, cyclic vomiting? (8) Sinus tachycardia: Code(s): R00.0 - Tachycardia, unspecified Status: Acute Assessment and Plan: -Likely from alcohol withdrawal on IVF and Ativan schedule no signs of infection at this time -Improving (9) History of hypertension: Code(s): Z86.79 - Personal history of other diseases of the circulatory system Status: Chronic Assessment and Plan: -resume Propanolol (10) Alcohol dependence: Code(s): F10.20 - Alcohol dependence, uncomplicated Status: Acute Assessment and Plan: -See above -Care coordination to provide resources for patient regarding alcohol cessation Subjective Date/time seen: 05/20/21 16:04 Pam Smith is a 50 year old female with past medical history of anxiety, HTN, Hepatic Steatosis who was in the hospital about 1 month ago with alcohol withdrawal treated in ICU with Precedex. EGD at the time showed severe erosive esophagitis, small HH and mild gastritis. She returned to the hospital for evaluation of similar symptoms including N/V and was subsequently admitted for IV hydration and antiemetics. Today she states she is doing fine, but has continued nausea and headache. No AH/VH/SI/HI. Admits to drinking intermittently over the past few weeks, most recently on 4 days ago and had 6-8 shots of vodka. Was sent home after last admission with PPI and sucralfate of which she admits to missing some doses. Does have mil
[2021-05-20] MEDS: SODIUM CHLORIDE 0.9% IV 1,000 ML 75 ML IV CONT (18:24)
[2021-05-21] VITALS (8 sets, daily range): BP systolic 144; BP diastolic 86; PULSE 69–91; RESP 18; TEMP 36.8; O2SAT 99
[2021-05-21] MEDS: LORazepam INJ (*CRX) 2 MG/ML VIAL 1 MG IV PUSH ×2 (00:59→09:12)
[2021-05-21] MEDS: SUCRALFATE 1 GM TABLET PO ×2 (05:30→11:18)
[2021-05-21 05:55] LABS: Basophils Percent Auto 0.3 % (0.2-1.2); Hematocrit 35.6 % (37.0-47.0); Hemoglobin 11.6 g/dL (12.0-15.0); Immature Granulocyte Absolute 0.01 K/mm3 (0.00-0.031); Immature Granulocyte Percent A 0.3 % (0-0.5); Mean Corpuscular HGB Conc 32.6 g/dl (32-36); Mean Corpuscular Hemoglobin 29.1 pg (26-34); Mean Corpuscular Volume 89.2 fl (80-100); Mean Platelet Volume 9.6 fl (7.4-10.4); Monocytes Absolute Auto 0.4 K/mm3 (0.1-0.6); Monocytes Percent Auto 10.3 % (2.6-8.5); Neutrophils Percent Auto 52.1 % (45.5-73.1); Platelet Count Result 212 k/mm3 (150-375); Red Blood Count 3.99 M/mm3 (4.2-5.4); Red Cell Distribution Width 17.2 % (11.5-14.5); White Blood Count 3.9 K/mm3 (4.5-10.0)
[2021-05-21 06:12] LABS: Alanine Aminotransferase 14 U/L (4-35); Albumin Level 3.5 g/dL (3.5-5.1); Alkaline Phosphatase 80 U/L (38-126); Anion Gap 9 mmol/L (8-16); Aspartate Amino Transferase 28 U/L (14-36); Blood Urea Nitrogen 8 mg/dL (7-17); Calcium 8.7 mg/dL (8.4-10.2); Carbon Dioxide 19 mmol/L (22-30); Chloride 112 mmol/L (98-107); Estimated CRCL calculation 101 ml/min; Estimated Glomerular Filt Rate > 60; Glucose 92 mg/dL (65-110); Potassium 3.3 mmol/L (3.4-5.0); Sodium 140 mmol/L (137-145)
[2021-05-21] MEDS: POTASSIUM CHLORIDE 20 MEQ TABLET 40 MEQ PO (08:56)
[2021-05-21] MEDS: ENOXAPARIN 40 MG/0.4 ML SYRINGE SUB-Q (08:56)
[2021-05-21] MEDS: PANTOPRAZOLE SODIUM IV 40 MG VIAL IV PUSH (08:57)
[2021-05-21] MEDS: buPROPion HCL SR (12 HR) 150 MG TAB PO (08:57)
[2021-05-21] MEDS: PROPRANOLOL HCL 40 MG TABLET PO (08:57)
[2021-05-21] MEDS: PROMETHAZINE HCL 25 MG/ML AMPUL 12.5 MG IV PUSH (09:12)
[2021-05-21] MEDS: THIAMINE HCL 100 MG TABLET PO (09:34)
[2021-05-21] MEDS: FOLIC ACID 0.4 MG TABLET PO (09:34)
[2021-05-21] MEDS: MULTIVITAMINS THERAPEUTIC TAB (*BKC) 1 TABLET PO (09:34)
--- NOTE | 2021-05-21 12:48 | PM.DS ---
DS: Admitting Diagnosis Discharge Date 05/21/21 Admitting Diagnosis intractable nausea/vomiting DS: Discharge Diagnosis Discharge Diagnosis (1) Nausea and vomiting in adult: Code(s): R11.2 - Nausea with vomiting, unspecified Status: Acute Assessment and Plan: -Chronic N/V likely exacerbated by alcoholism, discussed importance of alcohol cessation -cyclic vomiting? Secondary to marijuana? secondary to uncontrolled anxiety? -Lipase is normal, abdomen examination with epigastric tenderness likely from her underlying alcohol-induced gastritis/hepatitis -Symptomatic management currently -Nausea improved, vomiting subsided s/p phenergan -Evaluated by GI who states no additional intervention at this time. Pt is at her baseline. He again counseled on the importance of etoh cessation and will see her on an outpatient basis in a couple of weeks for EGD and colonoscopy. -I also had an at length conversation with patient regarding cyclic vomiting. She plans to stop etoh and marijuana and discuss differnet anxiolytic options in an attempt to mitigate her symptoms. -Will also send her with SILKE almeida as she states she has never had the dissolving type (2) Alcohol withdrawal: Code(s): F10.239 - Alcohol dependence with withdrawal, unspecified Status: Acute Assessment and Plan: -Last drink Monday history of severe DTs requiring ICU on Precedex recently in April. -Continue CIWA protocol and Ativan scheduled -Thiamine, Folic Acid, Multivitamin -Ammonia level WNL -Pt looks good, CIWA of 1 -Labs and vitals are stable at this time -Resources provided, pt plans to stop drinking (3) Metabolic acidosis: Code(s): E87.2 - Acidosis Status: Acute Assessment and Plan: -IV hydration no signs of infection currently continue to monitor -Mild confusion on arrival resolved -Metabolic acidosis now resolved (4) Alcoholic hepatitis: Code(s): K70.10 - Alcoholic hepatitis without ascites Status: Acute Assessment and Plan: -Elevated liver enzymes on admission, have improved -Continued etoh withdrawal precautions for duration of admission -Ammonia level, acetaminophen, salicylate WNL (5) Erosive esophagitis: Code(s): K22.10 - Ulcer of esophagus without bleeding Status: Acute Assessment and Plan: -Recent EGD showed ulcerative esophagitis and gastritis -Continued PPI and sucralfate -GI consult placed -Noted that hgb was 14 on admission, down to 10.7 s/p hydration. Suspect likely secondary dehydration with hemoconcentration on arrival. Is now stable at 11. No hemoptysis or melena reported. No hypotension. -Repeat Hgb remains stable. Have been unable to obtain fecal occult. No signs of acute GI bleed at this time. Per GI okay to follow up outpatient, no scope necessary at this time. Strict return precautions provided including hemoptysis and melena. Repeat CBC 1 week. (6) Dehydration: Code(s): E86.0 - Dehydration Status: Acute Assessment and Plan: -Likely secondary to persistent N/V, decreased PO intake -Improved s/p IVF -Again discussed importance of etoh cessation (7) History of anxiety: Code(s): Z86.59 - Personal history of other mental and behavioral disorders Status: Chronic Assessment and Plan: -Continued Ativan -Continued home Wellbutrin -Suspect this is contributing to her intractable N/V, cyclic vomiting? -Discussed following up with pcp to discuss medication adjustments that could potentially better control her anxiety as she admits to many life stressors in the most recent months (8) Sinus tachycardia: Code(s): R00.0 - Tachycardia, unspecified Status: Acute Assessment and Plan: -Likely from alcohol withdrawal, given IVF and Ativan, no signs of infection at this time -Resolved (9) History of hypertension: Code(s): Z86.79 - Personal history
--- NOTE | 2021-05-21 14:36 | WPDGIPROGNO ---
Progress Note: A&P Assessment and Plan (1) Nausea and vomiting in adult: Code(s): R11.2 - Nausea with vomiting, unspecified Status: Acute Assessment and Plan: tolerating diet and no more vomiting still with nausea but chronic she will try to quit drinking and also using marijuana if persistent nausea after abstinence then we can complete work up she can go home today (2) Alcohol dependence: Code(s): F10.20 - Alcohol dependence, uncomplicated Status: Acute (3) Erosive esophagitis: Code(s): K22.10 - Ulcer of esophagus without bleeding Status: Acute Assessment and Plan: egd in 2-3 months as outpatient continue with ppi daily colonoscopy also as outpatient (4) Alcoholic hepatitis: Code(s): K70.10 - Alcoholic hepatitis without ascites Status: Acute Assessment and Plan: lft's better now (5) Dehydration: Code(s): E86.0 - Dehydration Status: Acute (6) Colon cancer screening: Code(s): Z12.11 - Encounter for screening for malignant neoplasm of colon Status: Acute Subjective Date/time seen: 05/21/21 14:36 Interval history: no more vomiting and tolerating diet, still with nausea but is chronic Review of Systems Review of Systems: All systems reviewed & are unremarkable except as noted in HPI and below Exam Const: General: comfortable and no acute distress HENMT: General nose exam: Normal nares present Eyes: General: appearance normal, both eyes and all related structures Neck: Neck: no JVD Resp: Auscultation: clear to auscultation bilaterally Cardio: Rate: regular rate Rhythm: regular rhythm GI: Inspection: non-distended GI Palp: Yes Soft to palpation and No Guarding due to palpation present (GI) Auscultation: normal bowel sounds Skin: General skin exam: normal color Neuro: Speech: normal speech Extrem: General: normal to inspection Psych: Mental Status: mental status grossly normal Objective Data Vital Signs Vital Signs: Vital Signs - 24 hr 05/20/21 16:00 05/20/21 20:00 05/20/21 20:22 Temperature 98.7 F Pulse Rate 112 H 85 89 Pulse Rate [Apical] 85 85 Respiratory Rate 17 Blood Pressure 152/88 H 152/88 H Pulse Oximetry 100 05/20/21 21:29 05/21/21 00:00 05/21/21 00:30 Temperature Pulse Rate 89 75 Pulse Rate [Apical] 85 Respiratory Rate Blood Pressure Pulse Oximetry 05/21/21 04:00 05/21/21 04:33 05/21/21 04:45 Temperature 98.3 F Pulse Rate 75 69 Pulse Rate [Apical] 85 Respiratory Rate 18 Blood Pressure 144/86 H 144/86 H Pulse Oximetry 99 05/21/21 08:57 05/21/21 09:15 05/21/21 12:00 Temperature Pulse Rate 86 91 83 Pulse Rate [Apical] 80 Respiratory Rate Blood Pressure Pulse Oximetry Intake/Output Intake/Output: Intake & Output 05/18/21 05/19/21 05/20/21 05/21/21 23:59 23:59 23:59 23:59 Intake Total 1999 2900 1610 Output Total 999 Balance 1999 1900 1610 Meds/Results Medications: Active Medications Generic Name Dose Route Start Last Admin Trade Name Freq PRN Reason Stop Dose Admin Bupropion HCl 150 mg 05/20/21 09:00 05/21/21 08:57 Bupropion Hcl Sr (12 Hr) 150 Mg Tab PO 150 mg DAILY GISSELLE Administration Enoxaparin Sodium 40 mg 05/20/21 09:00 05/21/21 08:56 Enoxaparin 40 Mg/0.4 Ml Syringe SUB-Q 40 mg DAILY GISSELLE Administration Folic Acid 0.4 mg 05/21/21 09:00 05/21/21 09:34 Folic Acid 0.4 Mg Tablet PO 0.4 mg DAILY GISSELLE Administration Sodium Chloride 1,000 mls @ 75 mls/hr 05/19/21 23:05 05/21/21 05:30 Normal Saline Iv IV CONT 0 mls/hr .[id number] GISSELLE Infusion Loratadine 10 mg 05/20/21 03:37 Loratadine 10 Mg Tablet PO DAILY PRN Allergy Symptoms Lorazepam 1 mg 05/19/21 01:00 05/21/21 09:12 Lorazepam Inj (*Crx) 2 Mg/Ml Vial IV PUSH 1 mg Q6HR GISSELLE Administration Multivitamins Therapeutic 1 tablet 05/21/21 09:00 05/21/21 09:34 Multivit
--- NOTE | 2021-05-25 12:59 | ED.GENADULT ---
HPI - General Adult General Chief complaint: Abdominal Pain Stated complaint: abd pain Time Seen by Provider: 05/19/21 20:45 Source: patient and family Mode of arrival: ambulatory Limitations: no limitations History of Present Illness HPI narrative: 50-year-old with a history of alcoholism brought in by with complaints of marked anxiety, shaking since last 1 day. Patient states that she recently moved from [place] a new house and was celebrating over the weekend had quite a few drinks. Patient states her last drink was more than 48 hours ago. She also complains of abdominal pain, nausea and vomiting. No history of fever or chills denies any chest pain. Onset (ago): day(s) (1) Quality: aching Pain Consistency: constant Related Data Home Medications Medication Instructions Recorded Confirmed bupropion HCl [Wellbutrin SR] 150 mg PO DAILY 04/24/21 05/20/21 lorazepam 1 mg PO TID PRN 04/24/21 05/20/21 propranolol 40 mg PO Q12H PRN 04/24/21 05/20/21 loratadine 10 mg PO DAILY PRN 05/20/21 05/20/21 Allergies Allergy/AdvReac Type Severity Reaction Status Date / Time hydrocodone Allergy Intermediate Itching Verified 05/20/21 00:43 cefixime Allergy Unknown Unknown Verified 05/20/21 00:43 citalopram Allergy Unknown Unknown Verified 05/20/21 00:43 oxycodone Allergy Unknown Unknown Verified 05/20/21 00:43 venlafaxine Allergy Unknown Unknown Verified 05/20/21 00:43 Review of Systems Review of Systems: All systems reviewed & are unremarkable except as noted in HPI and below Constitutional: Constitutional: Reports weakness Eyes: Eyes: Reports no additional eye complaints ENT: Reports system reviewed and no additional complaints, except as documented Cardiovascular: Cardiovascular: Reports no additional cardiovascular complaints Respiratory: Respiratory: Reports no additional respiratory complaints Gastrointestinal: Gastrointestinal: Reports as per HPI Musculoskeletal: Musculoskeletal: Reports no additional musculoskeletal complaints Neurologic: Reports as per HPI Psychiatric: Psychiatric: Reports anxiety Endocrine: Endocrine: Reports no additional endocrine complaints Hematologic/Lymphatic: Hematologic/Lymphatic: Reports no additional hematologic/lymphatic complaints PMFSH Past Medical History Medical History Alcoholic hepatitis Alcoholism Colon cancer screening Dehydration DTs (delirium tremens) Encephalopathy Erosive esophagitis Hepatic steatosis History of anxiety History of hypertension Metabolic acidosis Nausea and vomiting in adult Surgical History Surgical History H/O hand surgery on the right History of ankle surgery plate and screws to left ankle History of carpal tunnel release Family History Family History Mother Family history of elevated blood lipids Diverticulitis Father Hypertension Malignant neoplasm of prostate Social History Social History Social History: the patient stated that she only recently tried marijuana and was positive for this on her drug screen. The patient is lives with her . 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 She desires to have her is the durable power document review attorney for healthcare. She desires to be a full code. The patient is a former smoker. She states she does not use any alcohol that she is recovering alcoholic. She does not use any illicit drugs but just recently started smoking marijuana due to the nausea and vomiting. The patient is a full code Smoking packs per day: 0.5 Smoking cigarettes per day: 10.0 Years smoked: 3 Smoking pack-years: 1.50 Smoking status: Former smoker Tobacco type: cigarettes Alcohol intake: former Substance use: current Substance use type: marijuana Other don
== END 2021-05-21 14:50 | disposition home or self-care (01) ==
LOC: ANHED 21:37 → ANH3MED 23:44
PROVIDERS: Admitting Provider Internal Medicine; Emergency Provider Family Medicine; PCP Family Medicine; Visit Provider Physician Assistant
DX: R11.2 Nausea with vomiting, unspecified (principal); E86.0 Dehydration; K22.10 Ulcer of esophagus without bleeding; F10.239 Alcohol dependence with withdrawal, unspecified; F12.10 Cannabis abuse, uncomplicated; K70.10 Alcoholic hepatitis without ascites; K76.0 Fatty (change of) liver, not elsewhere classified; K21.9 Gastro-esophageal reflux disease without esophagitis; E87.2 Acidosis; E87.6 Hypokalemia; F41.9 Anxiety disorder, unspecified; I10 Essential (primary) hypertension; Z87.891 Personal history of nicotine dependence
CPT/HCPCS: 36415; 80053; 80307; 81001; 81025; 82140; 83605; 83690; 83735; 85014; 85018; 85025; 85610; 93005; 96361; 96372; 96374; 96375; 96376; 99285; A9270; C9113; G0378; J1650; J2060; J2550; J7030

== ENCOUNTER 2021-05-28 11:30 | Outpatient (CLI) | payer BC, SELFPAY ==
[2021-05-28 11:50] LABS: Basophils Percent Auto 0.5 % (0.2-1.2); Eosinophils Absolute Auto 0.1 K/mm3 (0-0.3); Eosinophils Percent Auto 1.2 % (0-4.4); Hematocrit 37.9 % (37.0-47.0); Hemoglobin 12.4 g/dL (12.0-15.0); Immature Granulocyte Absolute 0.01 K/mm3 (0.00-0.031); Immature Granulocyte Percent A 0.2 % (0-0.5); Lymphocytes Percent Auto 24.1 % (18.3-44.2); Mean Corpuscular HGB Conc 32.7 g/dl (32-36); Mean Corpuscular Hemoglobin 30.4 pg (26-34); Mean Corpuscular Volume 92.9 fl (80-100); Mean Platelet Volume 9.9 fl (7.4-10.4); Monocytes Absolute Auto 0.6 K/mm3 (0.1-0.6); Neutrophils Absolute Auto 2.5 K/mm3 (1.3-6.7); Platelet Count Result 270 k/mm3 (150-375); Red Blood Count 4.08 M/mm3 (4.2-5.4); White Blood Count 4.2 K/mm3 (4.5-10.0)
[2021-05-28 12:01] LABS: Alanine Aminotransferase 23 U/L (4-35); Albumin Level 4.4 g/dL (3.5-5.1); Alkaline Phosphatase 76 U/L (38-126); Anion Gap 8 mmol/L (8-16); Aspartate Amino Transferase 38 U/L (14-36); Bilirubin,Total 0.5 mg/dL (0.2-1.3); Blood Urea Nitrogen 4 mg/dL (7-17); Calcium 9.6 mg/dL (8.4-10.2); Carbon Dioxide 30 mmol/L (22-30); Chloride 102 mmol/L (98-107); Estimated Glomerular Filt Rate > 60; Glucose 103 mg/dL (65-110); Potassium 3.5 mmol/L (3.4-5.0); Sodium 140 mmol/L (137-145)
== END 2021-05-28 11:31 | disposition home or self-care (01) ==
LOC: ANHLAB 11:33
PROVIDERS: PCP Family Medicine; Visit Provider Physician Assistant
DX: K22.10 Ulcer of esophagus without bleeding (principal); E87.6 Hypokalemia
CPT/HCPCS: 36415; 80053; 85025

== ENCOUNTER 2021-07-19 15:05 | Emergency (ER) | payer BC, SELFPAY ==
[2021-07-19] VITALS (9 sets, daily range): BP systolic 143–164; BP diastolic 98–112; PULSE 76–144; RESP 11–20; TEMP 35.9–36.3; O2SAT 97–100
--- NOTE | 2021-07-19 21:46 | ED.ALCOHOL ---
HPI - Alcohol General Chief Complaint: Alcohol Stated Complaint: nausea vomiting Time Seen by Provider: 07/19/21 21:45 Source: patient Mode of arrival: ambulatory Limitations: no limitations History of Present Illness HPI narrative: Patient been drinking alcohol for the last 5 years, failed alcohol detox twice, been drinking about 1 L of vodka daily. Last drink was 07/16/2021, patient came to avoid developing hallucination and confusion secondary to alcohol withdrawal. Currently patient feeling anxious, stressed, nausea and feeling dry. Patient denies any fever, chills, chest pain, shortness of breath. Patient is vaccinated for COVID x2. Related Data Home Medications Medication Instructions Recorded Confirmed acetaminophen 300 mg-codeine 30 mg 1 tablet PO Q4-6H PRN 07/06/21 07/06/21 tablet Allergies Allergy/AdvReac Type Severity Reaction Status Date / Time No Known Allergies Allergy Verified 07/19/21 21:52 Review of Systems Review of Systems: CONSTITUTIONAL: Denies fever, chills, or sweats. EYES: Denies visual changes, redness, or discharge. ENT: Denies rhinorrhea, congestion, sore throat, or otalgia. CARDIOVASCULAR: Denies chest pain, palpitations, or edema. RESPIRATORY: Denies cough or dyspnea. GASTROINTESTINAL: Denies abdominal pain, nausea, vomiting, or diarrhea. GENITOURINARY: Denies dysuria or hematuria. SKIN: Denies rash or itching. MUSCULOSKELETAL: Denies back pain, joint pain, or myalgia. NEUROLOGIC: Denies headache, numbness, or weakness. PSYCHIATRIC: Denies anxiety or depression. [facility] Past Medical History Medical History Alcoholic hepatitis Alcoholism Colon cancer screening Dehydration DTs (delirium tremens) Encephalopathy Erosive esophagitis Generalized anxiety disorder Hepatic steatosis History of anxiety History of hypertension HTN (hypertension) Metabolic acidosis Nausea and vomiting in adult Obesity Surgical History Surgical History H/O hand surgery on the right History of ankle surgery plate and screws to left ankle History of carpal tunnel release Family History Family History Mother Family history of elevated blood lipids Diverticulitis Father Hypertension Malignant neoplasm of prostate Social History Social History Social History: the patient stated that she only recently tried marijuana and was positive for this on her drug screen. The patient is lives with her . 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 She desires to have her is the durable power cafeteria team leader for healthcare. She desires to be a full code. The patient is a former smoker. She states she does not use any alcohol that she is recovering alcoholic. She does not use any illicit drugs but just recently started smoking marijuana due to the nausea and vomiting. The patient is a full code Smoking packs per day: 0.5 Smoking cigarettes per day: 10.0 Years smoked: 3 Smoking pack-years: 1.50 Smoking status: Never smoker Tobacco type: cigarettes Alcohol intake: former Alcohol use details: Pt states that's she's an alcoholic in remission since April Substance use: current Substance use type: does not use Other substance usage details: Only tried marijuana once. Last use: 05/16/21 Spiritual care concerns: No Exam Narrative: General appearance: Well-developed, well-nourished Skin: Normal color, a lot of self inflicted cuts on the forearms Head: Normocephalic, nontraumatic Eyes: Clear conjunctiva ENT: Oropharynx normal, ears normal, nose normal Neck: Supple, nontender Chest and respiratory: Airway patent, no respiratory distress, no accessory muscle use Heart: Regular rate/rhythm Abdomen: Soft, nontender, no organomegaly, quiet bowel sound
[2021-07-19 23:03] LABS: Basophils Percent Auto 0.3 % (0.2-1.2); Hemoglobin 12.8 g/dL (12.0-15.0); Immature Granulocyte Absolute 0.02 K/mm3 (0.00-0.031); Immature Granulocyte Percent A 0.3 % (0-0.5); Lymphocytes Absolute Auto 1.24 K/mm3 (0.9-3.2); Lymphocytes Percent Auto 21.3 % (18.3-44.2); Mean Corpuscular HGB Conc 32.8 g/dl (32-36); Mean Corpuscular Volume 88.2 fl (80-100); Mean Platelet Volume 9.4 fl (7.4-10.4); Monocytes Absolute Auto 0.6 K/mm3 (0.1-0.6); Monocytes Percent Auto 9.5 % (2.6-8.5); Neutrophils Percent Auto 68.6 % (45.5-73.1); Platelet Count Result 182 k/mm3 (150-375); Red Blood Count 4.42 M/mm3 (4.2-5.4); Red Cell Distribution Width 15.8 % (11.5-14.5); White Blood Count 5.8 K/mm3 (4.5-10.0)
[2021-07-19 23:12] LABS: Ethanol < 10 mg/dL (<10)
[2021-07-19 23:15] LABS: INR 1.1; Prothrombin Time 14.1 Seconds (11.1-14.7)
[2021-07-19 23:18] LABS: Alanine Aminotransferase 14 U/L (4-35); Albumin Level 5.1 g/dL (3.5-5.1); Alkaline Phosphatase 104 U/L (38-126); Anion Gap 16 mmol/L (8-16); Aspartate Amino Transferase 34 U/L (14-36); Bilirubin,Total 1.2 mg/dL (0.2-1.3); Blood Urea Nitrogen 11 mg/dL (7-17); Calcium 10.3 mg/dL (8.4-10.2); Carbon Dioxide 24 mmol/L (22-30); Chloride 97 mmol/L (98-107); Estimated CRCL calculation 100 ml/min; Estimated Glomerular Filt Rate > 60; Glucose 111 mg/dL (65-110); Potassium 3.4 mmol/L (3.4-5.0); Sodium 137 mmol/L (137-145)
[2021-07-19] MEDS: THIAMINE HCL INJ 100 MG, FOLIC ACID INJ 1 MG, MULTIVITAMINS-12 INJ VIAL 1 5 ML, MULTIVI... 1000 MG IV CONT (23:18)
[2021-07-19] MEDS: LORazepam INJ (*CRX) 2 MG/ML VIAL 1 MG IV PUSH (23:35)
[2021-07-19] MEDS: METOCLOPRAMIDE HCL INJ 10 MG/2 ML VIAL IV PUSH (23:36)
[2021-07-19] MEDS: diphenhydrAMINE HCl INJ 50 MG/ML VIAL IV PUSH (23:36)
[2021-07-20 00:31] VITALS: BP 119/88; PULSE 97; RESP 18; O2SAT 98
== END 2021-07-20 00:26 | disposition home or self-care (01) ==
PROVIDERS: Emergency Provider Emergency Medicine; PCP Family Medicine
DX: F10.230 Alcohol dependence with withdrawal, uncomplicated (principal); F41.1 Generalized anxiety disorder; I10 Essential (primary) hypertension; E66.9 Obesity, unspecified; Z68.36 Body mass index [BMI] 36.0-36.9, adult; Z87.891 Personal history of nicotine dependence; Y90.0 Blood alcohol level of less than 20 mg/100 ml; K70.10 Alcoholic hepatitis without ascites; K22.10 Ulcer of esophagus without bleeding
CPT/HCPCS: 36415; 80053; 80307; 85025; 85610; 96365; 96375; 99284; J1200; J2060; J2765; J3411; J3475; J7030

== ENCOUNTER 2021-07-23 01:36 | Day surgery (SDC) | payer BC, SELFPAY ==
[2021-07-05 14:03] VITALS: BMI 36.3
--- NOTE | 2021-07-22 11:00 | WPDANESEPPF ---
Anes - Initial Pre Proc Eval Procedure: Operation Date: 07/23/21 08:00 Proposed Procedures p Esophagogastroduodenoscopy & Screening Colonoscopy - Miguelangel Castillo MD Date/Time: 07/22/21 11:00 Surgeon: Miguelangel Castillo MD Pre Op Diagnosis: GERD, neoplasm screening Patient Data Age: 50 Gender: F Height: 1.57 m Weight: 90 kg Allergies Allergy/AdvReac Type Severity Reaction Status Date / Time No Known Allergies Allergy Verified 07/23/21 06:54 Home Medications Medication Instructions Recorded Confirmed Type pantoprazole [Protonix] 40 mg PO BID #60 tablet 04/29/21 07/06/21 Rx bupropion HCl 150 mg 24 hr tablet, 150 mg PO QAM #30 tablet 06/08/21 07/06/21 Rx extended release propranolol 40 mg tablet 40 mg PO Q12H PRN #60 tablet 06/08/21 07/06/21 Rx sucralfate 1 gram tablet 1 g PO ACHS 30 Days #120 tablet 06/08/21 07/06/21 Rx acetaminophen 300 mg-codeine 30 mg 1 tablet PO Q4-6H PRN 07/06/21 07/06/21 History tablet lorazepam 0.5 mg tablet 0.5 mg PO TID PRN #30 tablet 07/06/21 07/06/21 Rx Librium 07/20/21 History Patient hx anesthesia problems: none Family hx anesthesia problems: none Results Review: All pre-operative results and documents have been reviewed as part of the pre-operative evaluation. [facility] Past Medical History Medical History Alcoholic hepatitis Alcoholism Colon cancer screening Dehydration DTs (delirium tremens) Encephalopathy Erosive esophagitis Generalized anxiety disorder Hepatic steatosis History of anxiety History of hypertension HTN (hypertension) Metabolic acidosis Nausea and vomiting in adult Obesity Surgical History Surgical History H/O hand surgery on the right History of ankle surgery plate and screws to left ankle History of carpal tunnel release Family History Family History Mother Family history of elevated blood lipids Diverticulitis Father Hypertension Malignant neoplasm of prostate Social History Social History Social History: the patient stated that she only recently tried marijuana and was positive for this on her drug screen. The patient is lives with her . 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 She desires to have her is the durable power mergers and acquisitions attorney for healthcare. She desires to be a full code. The patient is a former smoker. She states she does not use any alcohol that she is recovering alcoholic. She does not use any illicit drugs but just recently started smoking marijuana due to the nausea and vomiting. The patient is a full code Smoking packs per day: 0.5 Smoking cigarettes per day: 10.0 Years smoked: 3 Smoking pack-years: 1.50 Smoking status: Never smoker Tobacco type: cigarettes Alcohol intake: former Alcohol use details: Pt states that's she's an alcoholic in remission since April Substance use: current Substance use type: does not use Other substance usage details: Only tried marijuana once. Last use: 05/16/21 Living arrangements: with family Spiritual care concerns: No Anes - Eval Final PreProcedure Day of Procedure 07/22/21 11:00 Patient weight: obese Heart: regular rate and rhythm Lungs: clear to auscultation and normal air movement Airway: Mallampati scale class II Neurological: alert and oriented Last oral intake: >/= 8 hours ASA classification: III Emergent: no Anesthetic plan: proceed Anesthesia type and monitoring: general GIVS and standard monitoring Results Review: All pre-operative results and documents have been reviewed as part of the pre-operative evaluation. Informed Consent: The patient's anesthetic plan and its attendant risks and benefits were discussed with the patient/family/POA. Questions were solicited an
[2021-07-23 06:56] VITALS: BP 150/100; PULSE 125; RESP 18; TEMP 36.1; O2SAT 100; BMI 35.5
[2021-07-23] MEDS: LACTATED RINGERS 1,000 ML 150 ML IV CONT (07:02)
[2021-07-23] MEDS: diphenhydrAMINE HCl INJ 50 MG/ML VIAL 25 MG IV PUSH (07:34)
--- NOTE | 2021-07-23 07:49 | PM.HPGS ---
History of Present Illness History of Present Illness Consent: Risks, benefits, and alternatives have been discussed and questions answered. Patient agrees to proceed with procedure. Chief complaint: GERD, neoplasm screening Narrative: Pam Smith is a 50 year old female with erosive esophagitis, drinking alcohol but trying to quit (she will see a counselor- just recently moved here from [facility]), nausea and gerd better with protonix. Last colonoscopy 10 years ago. Review of Systems Constitutional: Constitutional: Denies headache(s) and Denies weakness Eyes: Eyes: Denies blurry vision ENT: Reports Normal hearing present, Denies headache(s) and Denies neck pain Cardiovascular: Cardiovascular: Denies chest pain and Denies dyspnea Respiratory: Respiratory: Denies dyspnea Gastrointestinal: Gastrointestinal: Reports no additional gastrointestinal complaints Genitourinary: Genitourinary: Denies dysuria Musculoskeletal: Musculoskeletal: Denies neck pain Integumentary/Breasts: Skin/Breast: Denies dry skin Neurologic: Reports Normal hearing present, Denies headache(s) and Denies weakness Psychiatric: Psychiatric: Denies anxiety Endocrine: Endocrine: Denies change in body appearance Hematologic/Lymphatic: Hematologic/Lymphatic: Denies easy bleeding Allergic/Immunologic: Allergic/Immunologic: Denies urticaria PMFSH Past Medical History Medical History Alcoholic hepatitis Alcoholism Colon cancer screening Dehydration DTs (delirium tremens) Encephalopathy Erosive esophagitis Generalized anxiety disorder Hepatic steatosis History of anxiety History of hypertension HTN (hypertension) Metabolic acidosis Nausea and vomiting in adult Obesity Surgical History Surgical History H/O hand surgery on the right History of ankle surgery plate and screws to left ankle History of carpal tunnel release Family History Family History Mother Family history of elevated blood lipids Diverticulitis Father Hypertension Malignant neoplasm of prostate Social History Social History Social History: the patient stated that she only recently tried marijuana and was positive for this on her drug screen. The patient is lives with her . 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 She desires to have her is the durable power assistant attorney general for healthcare. She desires to be a full code. The patient is a former smoker. She states she does not use any alcohol that she is recovering alcoholic. She does not use any illicit drugs but just recently started smoking marijuana due to the nausea and vomiting. The patient is a full code Smoking packs per day: 0.5 Smoking cigarettes per day: 10.0 Years smoked: 3 Smoking pack-years: 1.50 Smoking status: Never smoker Tobacco type: cigarettes Alcohol intake: former Alcohol use details: Pt states that's she's an alcoholic in remission since April Substance use: current Substance use type: does not use Other substance usage details: Only tried marijuana once. Last use: 05/16/21 Living arrangements: with family Spiritual care concerns: No Meds Home Medications and Allergies Home Medications Medication Instructions Recorded Confirmed Type pantoprazole [Protonix] 40 mg PO BID #60 tablet 04/29/21 07/06/21 Rx bupropion HCl 150 mg 24 hr tablet, 150 mg PO QAM #30 tablet 06/08/21 07/06/21 Rx extended release propranolol 40 mg tablet 40 mg PO Q12H PRN #60 tablet 06/08/21 07/06/21 Rx sucralfate 1 gram tablet 1 g PO ACHS 30 Days #120 tablet 06/08/21 07/06/21 Rx acetaminophen 300 mg-codeine 30 mg 1 tablet PO Q4-6H PRN 07/06/21 07/06/21 History tablet lorazepam 0.5 mg tablet 0.5 mg PO TID PRN #30 tablet 07/06/21 07/06/21 Rx
[2021-07-23] MEDS: BENZOCAINE (*SP) 60 ML SPRAY CAN (HURRICAINE) 1 SPRAY MUCOUS MEM (07:55)
[2021-07-23 08:20] VITALS: BP 111/79; PULSE 93; RESP 15; O2SAT 98
[2021-07-23 08:30] VITALS: BP 112/80; PULSE 90; RESP 15; O2SAT 99
[2021-07-23 08:40] VITALS: BP 110/84; PULSE 95; RESP 15; O2SAT 98
[2021-07-23 08:50] VITALS: BP 133/94; PULSE 76; RESP 17; O2SAT 100
--- NOTE | 2021-07-23 09:03 | SUR.OPER ---
EGD START 757, END 801 COLONOSCOPY START 806, END 815
== END 2021-07-23 09:04 | disposition home or self-care (01) ==
PROVIDERS: PCP Family Medicine; Visit Provider Internal Medicine Gastroenterology
PROC: 0DJ08ZZ Inspection of Upper Intestinal Tract, Via Natural or Artificial Opening Endoscopic (ICD-10-PCS; CPT 43235; principal; 2021-07-23 08:00)
DX: Z12.11 Encounter for screening for malignant neoplasm of colon (principal); K21.00 Gastro-esophageal reflux disease with esophagitis, without bleeding; R11.2 Nausea with vomiting, unspecified; F41.1 Generalized anxiety disorder; F41.9 Anxiety disorder, unspecified; I10 Essential (primary) hypertension; E87.2 Acidosis; Z87.891 Personal history of nicotine dependence; K22.10 Ulcer of esophagus without bleeding; F10.20 Alcohol dependence, uncomplicated; K70.10 Alcoholic hepatitis without ascites; E66.9 Obesity, unspecified; Z68.35 Body mass index [BMI] 35.0-35.9, adult
CPT/HCPCS: 45378; 43235; J1200; J2704; J7120

== ENCOUNTER 2021-09-04 07:10 | Emergency (ER) | payer BC, SELFPAY ==
[2021-09-04] VITALS (8 sets, daily range): BP systolic 124–158; BP diastolic 76–110; PULSE 78–93; RESP 14–28; TEMP 36.7–36.9; O2SAT 97–100
--- NOTE | ~2021-09-04 | CT_ITS ---
EXAMINATION: CT abdomen pelvis w con DATE: 09/04/2021 10:36 INDICATION: Abdominal pain, nausea and vomiting TECHNIQUE: Computed tomography (CT) of the abdomen and pelvis was performed with 100 mL Omnipaque-350 intravenous contrast. Automated exposure control and iterative reconstruction technique were employe d. The dose-length product was 742.09 mGy-cm. COMPARISON: 04/24/2021 FINDINGS: Lung bases are clear. Heart size is normal. No pericardial or pleural effusion. Small sliding-type hi atal hernia with wall thickening in the distal esophagus suggestive of esophagitis likely related to reported history of vomiting. Heart size is normal. No pericardial or pleural effusion. Diffuse hepat ic steatosis. Gallbladder, spleen, pancreas, bilateral adrenal glands and kidneys are normal. Bowels including the appendix are normal. Anteverted uterus and bilateral adnexa are normal. Unchanged small focus of fatty infiltration at the anterior dome of the bladder. No free intraperitoneal gas or flui d. Moderate to severe lower lumbar facet osteoarthritis. IMPRESSION: 1. Small sliding-type hiatal hernia with distal esophageal wall thickening likely related to esophagi tis and reported history of vomiting. 2. Diffuse hepatic steatosis. Reviewed, dictated and finalized at location A. [facility] IMPRESSION: 1. Small sliding-type hiatal hernia with distal esophageal wall thickening like ly related to esophagitis and reported history of vomiting. 2. Diffuse hepatic steatosis.
[2021-09-04 08:00] LABS: Basophils Percent Auto 0.2 % (0.2-1.2); Hematocrit 41.6 % (37.0-47.0); Hemoglobin 14.1 g/dL (12.0-15.0); Immature Granulocyte Absolute 0.04 K/mm3 (0.00-0.031); Immature Granulocyte Percent A 0.4 % (0-0.5); Lymphocytes Absolute Auto 0.91 K/mm3 (0.9-3.2); Lymphocytes Percent Auto 8.4 % (18.3-44.2); Mean Corpuscular HGB Conc 33.9 g/dl (32-36); Mean Corpuscular Hemoglobin 29.6 pg (26-34); Mean Corpuscular Volume 87.4 fl (80-100); Mean Platelet Volume 10.4 fl (7.4-10.4); Monocytes Absolute Auto 0.7 K/mm3 (0.1-0.6); Monocytes Percent Auto 6.8 % (2.6-8.5); Neutrophils Absolute Auto 9.2 K/mm3 (1.3-6.7); Neutrophils Percent Auto 84.2 % (45.5-73.1); Platelet Count Result 396 k/mm3 (150-375); Red Blood Count 4.76 M/mm3 (4.2-5.4); Red Cell Distribution Width 17.6 % (11.5-14.5); White Blood Count 10.9 K/mm3 (4.5-10.0)
[2021-09-04] MEDS: SODIUM CHLORIDE 0.9% IV 1,000 ML 999 ML IV CONT (08:06)
[2021-09-04] MEDS: LORazepam INJ (*CRX) 2 MG/ML VIAL 1 MG IV PUSH (08:06)
[2021-09-04] MEDS: ONDANSETRON INJ 4 MG/2 ML VIAL IV PUSH (08:06)
[2021-09-04 08:22] LABS: INR 1.1; Prothrombin Time 13.4 Seconds (11.1-14.7)
--- NOTE | 2021-09-04 08:26 | ED.NAVMDI ---
HPI - Nausea/Vomiting/Diarrhea General Chief complaint: Nausea/Vomiting/Diarrhea Stated complaint: Vomiting, Deyhdration, Alcohol Use Time Seen by Provider: 09/04/21 07:26 Source: patient and RN notes reviewed Limitations: no limitations History of Present Illness HPI Narrative: Patient is 50 years old white female presented to the ED complaining of dry heaves and nausea since yesterday morning. Patient been drinking daily since Monday which is 5 days ago. Patient had similar symptoms when she was drinking in the past. Patient also complaining of epigastric pain. History of hypertension, GERD, depression, marijuana use. Patient does not smoke. Patient also denies any history of abdominal surgery patient did not take the Protonix for days.. Last alcohol intake was 48 hours ago Related Data Allergies Allergy/AdvReac Type Severity Reaction Status Date / Time No Known Allergies Allergy Verified 09/04/21 07:39 Review of Systems Review of Systems: CONSTITUTIONAL: Denies fever, chills, or sweats. EYES: Denies visual changes, redness, or discharge. ENT: Denies rhinorrhea, congestion, sore throat, or otalgia. CARDIOVASCULAR: Denies chest pain, palpitations, or edema. RESPIRATORY: Denies cough or dyspnea. GASTROINTESTINAL: Abdominal pain, nausea, dry heaves GENITOURINARY: Denies dysuria or hematuria. SKIN: Denies rash or itching. MUSCULOSKELETAL: Denies back pain, joint pain, or myalgia. NEUROLOGIC: Denies headache, numbness, or weakness. PSYCHIATRIC: History of depression PMFSH Past Medical History Medical History Alcoholic hepatitis Alcoholism Colon cancer screening Dehydration DTs (delirium tremens) Encephalopathy Erosive esophagitis Generalized anxiety disorder Hepatic steatosis History of anxiety History of hypertension HTN (hypertension) Metabolic acidosis Nausea and vomiting in adult Obesity Surgical History Surgical History H/O hand surgery on the right History of ankle surgery plate and screws to left ankle History of carpal tunnel release Family History Family History Mother Family history of elevated blood lipids Diverticulitis Father Hypertension Malignant neoplasm of prostate Social History Social History Social History: the patient stated that she only recently tried marijuana and was positive for this on her drug screen. The patient is lives with her . 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 She desires to have her is the durable power privacy attorney for healthcare. She desires to be a full code. The patient is a former smoker. She states she does not use any alcohol that she is recovering alcoholic. She does not use any illicit drugs but just recently started smoking marijuana due to the nausea and vomiting. The patient is a full code Smoking packs per day: 0.5 Smoking cigarettes per day: 10.0 Years smoked: 3 Smoking pack-years: 1.50 Smoking status: Never smoker Tobacco type: cigarettes Alcohol intake: former Alcohol use details: Pt states that's she's an alcoholic in remission since April Substance use: current Substance use type: does not use Other substance usage details: Only tried marijuana once. Last use: 05/16/21 Spiritual care concerns: No Exam Narrative: General appearance: Well-developed, well-nourished, dry heaving Skin: Normal color Head: Normocephalic, nontraumatic Eyes: Clear conjunctiva ENT: Oropharynx normal, ears normal, nose normal Neck: Supple, nontender Chest and respiratory: Airway patent, no respiratory distress, no accessory muscle use Heart: Regular rate/rhythm Abdomen: Soft, mild epigastric tenderness, no organomegaly, quiet bowel sounds Vascular: Normal peripheral pulses, normal capillary
--- NOTE | 2021-09-04 09:41 | PC.NURSE ---
Still c/o nausea, ERP aware.
[2021-09-04 09:46] LABS: Alanine Aminotransferase 16 U/L (4-35); Albumin Level 4.5 g/dL (3.5-5.1); Alkaline Phosphatase 84 U/L (38-126); Anion Gap 11 mmol/L (8-16); Aspartate Amino Transferase 33 U/L (14-36); Blood Urea Nitrogen 10 mg/dL (7-17); Calcium 9.2 mg/dL (8.4-10.2); Carbon Dioxide 25 mmol/L (22-30); Chloride 104 mmol/L (98-107); Estimated CRCL calculation 117 ml/min; Estimated Glomerular Filt Rate > 60; Glucose 146 mg/dL (65-110); Lipase 38 U/L (23-300); Potassium 3.7 mmol/L (3.4-5.0); Sodium 140 mmol/L (137-145)
[2021-09-04 10:10] LABS: Ethanol < 10 mg/dL (<10)
--- NOTE | 2021-09-04 10:19 | PC.NURSE ---
Pt wretching with small amount fluid brought up. ERP aware and wants to wait until CT results are back for more medication.
[2021-09-04 10:23] LABS: Amphetamine Screen Urine Negative (Negative); Barbiturate Screen Urine Negative (Negative); Benzodiazepines Screen Urine Positive (Negative); Cannabinoid Screen Urine Positive (Negative); Cocaine Screen Urine Negative (Negative); Methadone Screen Urine Negative (Negative); Opiate Screen Urine Negative (Negative); Phencyclidine Screen Urine Negative (Negative)
[2021-09-04 10:26] LABS: Add Urine Microscopic? YES; Appearance Urine Clear (Clear); Bacteria Urine Trace /hpf; Bilirubin Urine Negative (Negative); Blood Urine Negative (Negative); Color Urine Yellow (Yellow); Glucose Urine UA Negative (Negative); Ketones Urine 2+ mg/dL (Negative); Leukocyte Esterase Ur Negative LEU/UL (Negative); Mucus Urine Heavy /lpf; Nitrate Urine Negative (Negative); Protein Urine 2+ mg/dL (Negative); RBC Urine 0-2 /hpf (0-2); Squamous Epithelial Cell Urine Occasional /hpf (Few); Urobilinogen Urine Negative mg/dL (<2.0)
[2021-09-04 10:48] LABS: Pregnancy On Board Control Positive; Urine Pregnancy Test Negative
[2021-09-04] MEDS: PANTOPRAZOLE SODIUM IV 40 MG VIAL IV PUSH (11:53)
[2021-09-04] MEDS: BELLADONNA ALK/PHENOB ELIX 10 ML, MAG HYDROX/ALUMINUM HYD/SIMETH 30 ML, LIDOCAINE HCL 2... PO (11:53)
== END 2021-09-04 12:36 | disposition home or self-care (01) ==
PROVIDERS: Emergency Provider Emergency Medicine; PCP Family Medicine
DX: K22.10 Ulcer of esophagus without bleeding (principal); F41.9 Anxiety disorder, unspecified; F10.20 Alcohol dependence, uncomplicated; I10 Essential (primary) hypertension; K21.9 Gastro-esophageal reflux disease without esophagitis; K70.10 Alcoholic hepatitis without ascites; E87.2 Acidosis; E66.9 Obesity, unspecified; Z68.36 Body mass index [BMI] 36.0-36.9, adult; K76.0 Fatty (change of) liver, not elsewhere classified; K44.9 Diaphragmatic hernia without obstruction or gangrene
CPT/HCPCS: 36415; 74177; 80053; 80307; 81001; 81025; 83690; 85025; 85610; 96361; 96374; 96375; 99284; A9270; C9113; J2060; J2405; J7030; Q9967

== ENCOUNTER 2021-09-05 18:26 | Emergency (ER) | payer BC, SELFPAY ==
[2021-09-05 18:31] VITALS: BP 166/102; PULSE 102; RESP 18; TEMP 36.6; O2SAT 100
--- NOTE | 2021-09-05 19:56 | ED.NAVMDI ---
HPI - Nausea/Vomiting/Diarrhea General Chief complaint: Nausea/Vomiting/Diarrhea Stated complaint: vomiting Time Seen by Provider: 09/05/21 19:41 Source: patient History of Present Illness HPI Narrative: Patient presents with nausea vomiting and abdominal pain. Patient reports she was seen here couple days ago and was discharged home she did not feel like her symptoms improved since her last ER visit so she came back for further evaluation. She has been unable to keep anything down for the past few days. She reports she has a burning sensation in her mouth throat and chest due to the amount she has been vomiting. She denies any fevers or diarrhea Related Data Allergies Allergy/AdvReac Type Severity Reaction Status Date / Time No Known Allergies Allergy Verified 09/05/21 19:45 Review of Systems Review of Systems: CONSTITUTIONAL: Denies fever, chills, or sweats. EYES: Denies visual changes, redness, or discharge. ENT: Denies rhinorrhea, congestion, sore throat, or otalgia. CARDIOVASCULAR: Denies chest pain, palpitations, or edema. RESPIRATORY: Denies cough or dyspnea. GASTROINTESTINAL: Reports nausea and vomiting GENITOURINARY: Denies dysuria or hematuria. SKIN: Denies rash or itching. MUSCULOSKELETAL: Denies back pain, joint pain, or myalgia. NEUROLOGIC: Denies headache, numbness, dizziness, or weakness. PSYCHIATRIC: Denies anxiety or depression. All systems reviewed & are unremarkable except as noted in HPI and below PMFSH Past Medical History Medical History Alcoholic hepatitis Alcoholism Colon cancer screening Dehydration DTs (delirium tremens) Encephalopathy Erosive esophagitis Generalized anxiety disorder Hepatic steatosis History of anxiety History of hypertension HTN (hypertension) Metabolic acidosis Nausea and vomiting in adult Obesity Surgical History Surgical History H/O hand surgery on the right History of ankle surgery plate and screws to left ankle History of carpal tunnel release Family History Family History Mother Family history of elevated blood lipids Diverticulitis Father Hypertension Malignant neoplasm of prostate Social History Social History Social History: the patient stated that she only recently tried marijuana and was positive for this on her drug screen. The patient is lives with her . 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 She desires to have her is the durable power associate attorney for healthcare. She desires to be a full code. The patient is a former smoker. She states she does not use any alcohol that she is recovering alcoholic. She does not use any illicit drugs but just recently started smoking marijuana due to the nausea and vomiting. The patient is a full code Smoking packs per day: 0.5 Smoking cigarettes per day: 10.0 Years smoked: 3 Smoking pack-years: 1.50 Smoking status: Never smoker Tobacco type: cigarettes Alcohol intake: former Alcohol use details: Pt states that's she's an alcoholic in remission since April Substance use: current Substance use type: does not use Other substance usage details: Only tried marijuana once. Last use: 05/16/21 Spiritual care concerns: No Exam Narrative: GENERAL: Well-appearing, well-nourished HEAD: Normocephalic, atraumatic. EYES: PERRLA and EOMI. ENT: Nares clear, no rhinorrhea or epistaxis. Mucous membranes moist. NECK: Supple. No masses. No JVD CHEST: Clear to auscultation. No respiratory distress. No wheezes rales or rhonchi HEART: Regular rate and rhythm. No murmur heard. Normal peripheral pulses. ABDOMEN: Soft, nontender, nondistended, normal active bowel sounds. EXTREMITIES: Normal range of motion. No edema. SKIN: Warm, dry, no ra
--- NOTE | 2021-09-05 20:12 | PC.NURSE ---
This Rn unable to obtain IV access x2. Another Rn to try
[2021-09-05] MEDS: PANTOPRAZOLE SODIUM IV 40 MG VIAL IV PUSH (20:37)
[2021-09-05] MEDS: FAMOTIDINE 20 MG/2 ML VIAL IV PUSH (20:37)
[2021-09-05] MEDS: PROCHLORPERAZINE EDISYLATE 10 MG/2 ML VIAL IV PUSH (20:37)
[2021-09-05] MEDS: SODIUM CHLORIDE 0.9% IV 1,000 ML 999 ML IV CONT (20:38)
[2021-09-05 20:46] LABS: Basophils Percent Auto 0.1 % (0.2-1.2); Hematocrit 40.1 % (37.0-47.0); Hemoglobin 13.1 g/dL (12.0-15.0); Immature Granulocyte Absolute 0.02 K/mm3 (0.00-0.031); Immature Granulocyte Percent A 0.3 % (0-0.5); Lymphocytes Absolute Auto 0.64 K/mm3 (0.9-3.2); Lymphocytes Percent Auto 9.3 % (18.3-44.2); Mean Corpuscular HGB Conc 32.7 g/dl (32-36); Mean Corpuscular Hemoglobin 28.7 pg (26-34); Mean Corpuscular Volume 87.9 fl (80-100); Mean Platelet Volume 10.1 fl (7.4-10.4); Monocytes Absolute Auto 0.4 K/mm3 (0.1-0.6); Monocytes Percent Auto 5.1 % (2.6-8.5); Neutrophils Absolute Auto 5.8 K/mm3 (1.3-6.7); Neutrophils Percent Auto 85.2 % (45.5-73.1); Platelet Count Result 312 k/mm3 (150-375); Red Blood Count 4.56 M/mm3 (4.2-5.4); White Blood Count 6.9 K/mm3 (4.5-10.0)
[2021-09-05 20:48] VITALS: PULSE 64; RESP 20; O2SAT 98
[2021-09-05 20:56] LABS: Alanine Aminotransferase 21 U/L (4-35); Albumin Level 4.9 g/dL (3.5-5.1); Alkaline Phosphatase 96 U/L (38-126); Anion Gap 14 mmol/L (8-16); Aspartate Amino Transferase 38 U/L (14-36); Bilirubin,Total 1.2 mg/dL (0.2-1.3); Blood Urea Nitrogen 14 mg/dL (7-17); Calcium 10.1 mg/dL (8.4-10.2); Carbon Dioxide 28 mmol/L (22-30); Chloride 98 mmol/L (98-107); Estimated CRCL calculation 90 ml/min; Estimated Glomerular Filt Rate > 60; Glucose 142 mg/dL (65-110); Lipase 55 U/L (23-300); Potassium 3.3 mmol/L (3.4-5.0); Sodium 140 mmol/L (137-145)
--- NOTE | 2021-09-05 21:21 | PC.NURSE ---
Pt appears to be sleeping on stretcher
[2021-09-05 21:57] VITALS: BP 115/67; PULSE 62; RESP 14; O2SAT 92
== END 2021-09-05 22:33 | disposition home or self-care (01) ==
PROVIDERS: Emergency Provider Emergency Medicine; PCP Family Medicine
DX: R11.2 Nausea with vomiting, unspecified (principal); E87.6 Hypokalemia; K70.10 Alcoholic hepatitis without ascites; K22.10 Ulcer of esophagus without bleeding; F41.1 Generalized anxiety disorder; I10 Essential (primary) hypertension; E87.2 Acidosis; E66.9 Obesity, unspecified; Z68.39 Body mass index [BMI] 39.0-39.9, adult; F10.20 Alcohol dependence, uncomplicated; Z87.891 Personal history of nicotine dependence
CPT/HCPCS: 36415; 80053; 83690; 85025; 96361; 96374; 96375; 99284; C9113; J0780; J7030

== ENCOUNTER 2021-09-26 11:10 | Emergency (ER) | payer BC, SELFPAY ==
[2021-09-26 11:13] VITALS: BP 144/107; PULSE 116; RESP 20; O2SAT 98
--- NOTE | 2021-09-26 11:52 | PC.NURSE ---
pt states she has been drinking from september 19-september 23. states has been struggling alcoholic for 4 years.
--- NOTE | 2021-09-26 12:29 | ED.ALCOHOL ---
HPI - Alcohol General Chief Complaint: Alcohol Stated Complaint: tingling and vomiting Time Seen by Provider: 09/26/21 12:00 History of Present Illness HPI narrative: Patient with a history of alcohol abuse presents with nausea and vomiting. Reports she has been vomiting for 48 hours she has not been able to eat anything since that time. She also reports perioral burning sensation. She also reports epigastric pain because she not been able to take her Protonix and feels like her ulcers are acting up. She denies any diarrhea or urinary symptoms denies any known sick contacts. Reports she has been taking her Zofran at home without relief. Related Data Allergies Allergy/AdvReac Type Severity Reaction Status Date / Time No Known Allergies Allergy Verified 09/05/21 19:45 Review of Systems Review of Systems: CONSTITUTIONAL: Denies fever, chills, or sweats. EYES: Denies visual changes, redness, or discharge. ENT: Denies rhinorrhea, congestion, sore throat, or otalgia. CARDIOVASCULAR: Denies chest pain, palpitations, or edema. RESPIRATORY: Denies cough or dyspnea. GASTROINTESTINAL: Abdominal pain with nausea and vomiting GENITOURINARY: Denies dysuria or hematuria. SKIN: Denies rash or itching. MUSCULOSKELETAL: Denies back pain, joint pain, or myalgia. NEUROLOGIC: Denies headache, numbness, dizziness, or weakness. PSYCHIATRIC: Denies anxiety or depression. All systems reviewed & are unremarkable except as noted in HPI and below PMFSH Past Medical History Medical History Alcoholic hepatitis Alcoholism Colon cancer screening Dehydration DTs (delirium tremens) Encephalopathy Erosive esophagitis Generalized anxiety disorder Hepatic steatosis History of anxiety History of hypertension HTN (hypertension) Metabolic acidosis Nausea and vomiting in adult Obesity Surgical History Surgical History H/O hand surgery on the right History of ankle surgery plate and screws to left ankle History of carpal tunnel release Family History Family History Mother Family history of elevated blood lipids Diverticulitis Father Hypertension Malignant neoplasm of prostate Social History Social History Social History: the patient stated that she only recently tried marijuana and was positive for this on her drug screen. The patient is lives with her . 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 She desires to have her is the durable power senior trial attorney for healthcare. She desires to be a full code. The patient is a former smoker. She states she does not use any alcohol that she is recovering alcoholic. She does not use any illicit drugs but just recently started smoking marijuana due to the nausea and vomiting. The patient is a full code Smoking packs per day: 0.5 Smoking cigarettes per day: 10.0 Years smoked: 3 Smoking pack-years: 1.50 Smoking status: Never smoker Tobacco type: cigarettes Alcohol intake: former Alcohol use details: Pt states that's she's an alcoholic in remission since April Substance use: current Substance use type: does not use Other substance usage details: Only tried marijuana once. Last use: 05/16/21 Spiritual care concerns: No Exam Narrative: GENERAL: Well-appearing, well-nourished, and in no acute distress. HEAD: Normocephalic, atraumatic. EYES: PERRLA and EOMI. ENT: Nares clear, no rhinorrhea or epistaxis. Mucous membranes moist. NECK: Supple. No masses. No JVD CHEST: Clear to auscultation. No respiratory distress. No wheezes rales or rhonchi HEART: Regular rate and rhythm. No murmur heard. Normal peripheral pulses. ABDOMEN: Mild pain with palpation epigastric area, soft,nondistended, normal active bowel sounds. EXTREMITIE
[2021-09-26] MEDS: SODIUM CHLORIDE 0.9% IV 1,000 ML 150 ML IV CONT (12:30)
[2021-09-26] MEDS: PROCHLORPERAZINE EDISYLATE 10 MG/2 ML VIAL IV PUSH (12:30)
[2021-09-26] MEDS: PANTOPRAZOLE SODIUM IV 40 MG VIAL IV PUSH (12:30)
[2021-09-26 12:43] LABS: Alveolar/Arterial O2 Gradient 20.8 mmHg; Base Excess ABG 5.2 mEq/l (+/-2.0); Basophils Percent Auto 0.1 % (0.2-1.2); Fractional Inspired Oxygen 21 %; HCO3 ABG 24.8 mEq/l (22.0-26.0); Hematocrit 39.2 % (37.0-47.0); Hemoglobin 13.1 g/dL (12.0-15.0); Immature Granulocyte Absolute 0.03 K/mm3 (0.00-0.031); Immature Granulocyte Percent A 0.3 % (0-0.5); Lymphocytes Absolute Auto 1.25 K/mm3 (0.9-3.2); Lymphocytes Percent Auto 13.3 % (18.3-44.2); Mean Corpuscular HGB Conc 33.4 g/dl (32-36); Mean Corpuscular Hemoglobin 28.8 pg (26-34); Mean Corpuscular Volume 86.2 fl (80-100); Mean Platelet Volume 9.7 fl (7.4-10.4); Monocytes Absolute Auto 0.6 K/mm3 (0.1-0.6); Monocytes Percent Auto 6.5 % (2.6-8.5); Neutrophils Absolute Auto 7.5 K/mm3 (1.3-6.7); Neutrophils Percent Auto 79.8 % (45.5-73.1); Oxygen Content ABG 18.9 %vol (16.0-22.0); Oxygen Saturation ABG 98.6 % (95.0-100.0); Oxyhemoglobin 97.4 % THb (90.0-100.0); PO2 ABG 100.6 mmHg (80.0-100.0); PO2 FiO2 Ratio Arterial Blood 4.79 %; Platelet Count Result 361 k/mm3 (150-375); Red Blood Count 4.55 M/mm3 (4.2-5.4); Red Cell Distribution Width 16.8 % (11.5-14.5); Total Hemoglobin 13.7 g/dL (12.0-18.0); White Blood Count 9.4 K/mm3 (4.5-10.0)
[2021-09-26 12:44] LABS: pH ABG 7.637 (7.350-7.450)
[2021-09-26 12:45] LABS: Device ROOM AIR; Modified Allen's Test Pass; PCO2 ABG 23.7 mmHg (35.0-45.0); Site Drawn LEFT RADIAL
[2021-09-26 12:54] LABS: Ethanol < 10 mg/dL (<10)
[2021-09-26 12:55] LABS: Alanine Aminotransferase 21 U/L (4-35); Albumin Level 4.6 g/dL (3.5-5.1); Alkaline Phosphatase 108 U/L (38-126); Anion Gap 9 mmol/L (8-16); Aspartate Amino Transferase 41 U/L (14-36); Bilirubin,Total 1.4 mg/dL (0.2-1.3); Blood Urea Nitrogen 11 mg/dL (7-17); Carbon Dioxide 30 mmol/L (22-30); Chloride 91 mmol/L (98-107); Estimated Glomerular Filt Rate > 60; Glucose 141 mg/dL (65-110); Lipase 42 U/L (23-300); Partial Thromboplastin Time 24.5 SECONDS (22.3-36.8); Potassium 2.9 mmol/L (3.4-5.0); Sodium 130 mmol/L (137-145)
[2021-09-26 13:01] LABS: INR 1.1; Prothrombin Time 13.3 Seconds (11.1-14.7)
[2021-09-26] MEDS: POTASSIUM CHLORIDE INJ 40 MEQ in SODIUM CHLORIDE 0.9% IV 500 ML 130 MEQ IVPB (13:54)
[2021-09-26] MEDS: SODIUM CHLORIDE 0.9% IV 1,000 ML 999 ML IV CONT (13:54)
[2021-09-26 14:21] LABS: Add Urine Microscopic? YES; Appearance Urine Clear (Clear); Bacteria Urine Trace /hpf; Bilirubin Urine Negative (Negative); Blood Urine Negative (Negative); Color Urine Yellow (Yellow); Glucose Urine UA Negative (Negative); Ketones Urine Trace mg/dL (Negative); Leukocyte Esterase Ur Trace LEU/UL (Negative); Mucus Urine Rare /lpf; Nitrate Urine Negative (Negative); Protein Urine Negative (Negative); RBC Urine 0-2 /hpf (0-2); Specific Grav Ur 1.017 (1.001-1.035); Squamous Epithelial Cell Urine Occasional /hpf (Few); Urobilinogen Urine Negative mg/dL (<2.0)
[2021-09-26] MEDS: ONDANSETRON INJ 4 MG/2 ML VIAL IV PUSH (15:33)
[2021-09-26 16:24] VITALS: BP 128/89; PULSE 70; RESP 16; O2SAT 100
--- NOTE | 2021-10-07 18:11 | PC.NURSE ---
late entry 09/26 ns 600 cc infused. 500 cc potassium rider infused.
== END 2021-09-26 16:31 | disposition home or self-care (01) ==
PROVIDERS: Physician Assistant; Emergency Provider Emergency Medicine; PCP Family Medicine
DX: E87.6 Hypokalemia (principal); R11.2 Nausea with vomiting, unspecified; I10 Essential (primary) hypertension; K70.10 Alcoholic hepatitis without ascites; K22.10 Ulcer of esophagus without bleeding; E66.9 Obesity, unspecified; Z87.891 Personal history of nicotine dependence; F10.20 Alcohol dependence, uncomplicated; Y90.0 Blood alcohol level of less than 20 mg/100 ml
CPT/HCPCS: 36415; 36600; 80053; 80307; 81001; 82010; 82805; 83690; 85025; 85610; 85730; 87086; 87088; 96361; 96365; 96366; 96375; 99284; C9113; J0780; J2405; J3480; J7030; J7040

== ENCOUNTER 2021-11-03 14:15 | Emergency (ER) | payer BC, SELFPAY ==
[2021-11-03 14:20] VITALS: BP 154/114; PULSE 130; RESP 18; TEMP 36.9; O2SAT 98
--- NOTE | 2021-11-03 14:30 | ECG_ITS ---
Measurements Intervals [place] Rate: 63 P: 37 AL: 113 QRS: 40 QRSD: 87 T: 37 QT: 448 QTc: 461 Interpretive Statements SINUS RHYTHM WITH SHORT AL INTERVAL NONSPECIFIC ST ABNORMALITY BORDERLINE ECG COMPARED TO ECG 05/19/2021 20:35:51 HEART RATE HAS DECREASED Electronically Signed On 11-03-2021 18:16:05 CDT by Damir Schwartz M.D.
[2021-11-03] MEDS: SODIUM CHLORIDE 0.9% IV 1,000 ML 999 ML IV CONT (14:51)
[2021-11-03] MEDS: THIAMINE HCL 200 MG/2 ML VIAL 100 MG IV PUSH (14:52)
[2021-11-03] MEDS: MULTIVITAMINS THERAPEUTIC TAB (*BKC) 1 TABLET PO (14:53)
[2021-11-03] MEDS: LORazepam INJ (*CRX) 2 MG/ML VIAL 1 MG IV PUSH ×3 (14:53→19:15)
[2021-11-03 15:05] LABS: Basophils Percent Auto 0.1 % (0.2-1.2); Hematocrit 39.4 % (37.0-47.0); Hemoglobin 14.1 g/dL (12.0-15.0); Immature Granulocyte Absolute 0.02 K/mm3 (0.00-0.031); Immature Granulocyte Percent A 0.2 % (0-0.5); Lymphocytes Absolute Auto 1.34 K/mm3 (0.9-3.2); Lymphocytes Percent Auto 15.6 % (18.3-44.2); Mean Corpuscular HGB Conc 35.8 g/dl (32-36); Mean Corpuscular Hemoglobin 30.4 pg (26-34); Mean Corpuscular Volume 84.9 fl (80-100); Mean Platelet Volume 10.3 fl (7.4-10.4); Monocytes Absolute Auto 0.7 K/mm3 (0.1-0.6); Monocytes Percent Auto 8.5 % (2.6-8.5); Neutrophils Absolute Auto 6.5 K/mm3 (1.3-6.7); Neutrophils Percent Auto 75.6 % (45.5-73.1); Platelet Count Result 439 k/mm3 (150-375); Red Blood Count 4.64 M/mm3 (4.2-5.4); Red Cell Distribution Width 15.1 % (11.5-14.5); White Blood Count 8.6 K/mm3 (4.5-10.0)
[2021-11-03 15:20] LABS: Ethanol < 10 mg/dL (<10)
[2021-11-03 15:41] LABS: Alanine Aminotransferase 20 U/L (4-35); Albumin Level 4.9 g/dL (3.5-5.1); Alkaline Phosphatase 105 U/L (38-126); Anion Gap 11 mmol/L (8-16); Aspartate Amino Transferase 48 U/L (14-36); Bilirubin,Total 1.2 mg/dL (0.2-1.3); Blood Urea Nitrogen 9 mg/dL (7-17); Calcium 9.6 mg/dL (8.4-10.2); Carbon Dioxide 27 mmol/L (22-30); Chloride 95 mmol/L (98-107); Estimated CRCL calculation 97 ml/min; Estimated Glomerular Filt Rate > 60; Glucose 144 mg/dL (65-110); Lipase 58 U/L (23-300); Sodium 133 mmol/L (137-145)
[2021-11-03] MEDS: ONDANSETRON INJ 4 MG/2 ML VIAL IV PUSH ×2 (15:43→19:15)
[2021-11-03] MEDS: POTASSIUM CHLORIDE 20 MEQ PACKET (FOR LIQUID) 40 MEQ PO (16:16)
[2021-11-03 16:22] LABS: Appearance Urine Slightly Cloudy (Clear); Bilirubin Urine 1+ (Negative); Blood Urine Negative (Negative); Color Urine Yellow (Yellow); Glucose Urine UA Negative (Negative); Ketones Urine 1+ mg/dL (Negative); Leukocyte Esterase Ur Negative LEU/UL (Negative); Nitrate Urine Negative (Negative); Protein Urine Trace mg/dL (Negative); Urobilinogen Urine 0.2 mg/dL (<2.0)
[2021-11-03 16:29] LABS: Bacteria Urine Trace /hpf; Mucus Urine Heavy /lpf; RBC Urine 0-2 /hpf (0-2); Squamous Epithelial Cell Urine Few /hpf (Few)
[2021-11-03 16:31] LABS: Add Urine Microscopic? YES
[2021-11-03 16:51] LABS: Barbiturate Screen Urine Negative (Negative); Benzodiazepines Screen Urine Positive (Negative)
[2021-11-03 16:59] LABS: Amphetamine Screen Urine Negative (Negative); Cannabinoid Screen Urine Positive (Negative); Cocaine Screen Urine Negative (Negative); Methadone Screen Urine Negative (Negative); Opiate Screen Urine Negative (Negative); Phencyclidine Screen Urine Negative (Negative)
[2021-11-03 17:23] VITALS: BP 121/87; PULSE 78; RESP 13; O2SAT 100
--- NOTE | 2021-11-03 18:22 | ED.ALCOHOL ---
HPI - Alcohol General Chief Complaint: Abdominal Pain Stated Complaint: severe stomach pains Time Seen by Provider: 11/03/21 14:22 Source: patient Mode of arrival: ambulatory Limitations: no limitations History of Present Illness HPI narrative: 51-year-old female presents today with complaints of nausea and vomiting. Patient states she is a chronic alcoholic. Had been sober for about 2 to 3 weeks and started drinking on Monday. Last drink was Monday. And started with nausea and vomiting 2 days ago. Patient with tremors at home so bad that she could not walk then decided she should be coming to the ER. Patient currently in conversation with family about rehab. Patient currently has a new job. Related Data Allergies Allergy/AdvReac Type Severity Reaction Status Date / Time No Known Allergies Allergy Verified 11/03/21 14:24 Review of Systems Review of Systems: CONSTITUTIONAL: Denies fever, chills, or sweats. EYES: Denies visual changes, redness, or discharge. ENT: Denies rhinorrhea, congestion, sore throat, or otalgia. CARDIOVASCULAR: Denies chest pain, palpitations, or edema. RESPIRATORY: Denies cough or dyspnea. GASTROINTESTINAL: Nausea and vomiting. Denies abdominal pain or diarrhea. GENITOURINARY: Denies dysuria or hematuria. SKIN: Denies rash or itching. MUSCULOSKELETAL: Denies back pain, joint pain, or myalgia. NEUROLOGIC: Tremors. Denies headache, numbness, dizziness, or weakness. PSYCHIATRIC: Denies anxiety or depression. [facility] Past Medical History Medical History Alcoholic hepatitis Alcoholism Colon cancer screening Dehydration DTs (delirium tremens) Encephalopathy Erosive esophagitis Generalized anxiety disorder Hepatic steatosis History of anxiety History of hypertension HTN (hypertension) Metabolic acidosis Nausea and vomiting in adult Obesity Surgical History Surgical History H/O hand surgery on the right History of ankle surgery plate and screws to left ankle History of carpal tunnel release Family History Family History Mother Family history of elevated blood lipids Diverticulitis Father Hypertension Malignant neoplasm of prostate Social History Social History Social History: the patient stated that she only recently tried marijuana and was positive for this on her drug screen. The patient is lives with her . 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 She desires to have her is the durable power assault amphibious vehicle officer for healthcare. She desires to be a full code. The patient is a former smoker. She states she does not use any alcohol that she is recovering alcoholic. She does not use any illicit drugs but just recently started smoking marijuana due to the nausea and vomiting. The patient is a full code Smoking packs per day: 0.5 Smoking cigarettes per day: 10.0 Years smoked: 3 Smoking pack-years: 1.50 Smoking status: Never smoker Tobacco type: cigarettes Alcohol intake: former Alcohol use details: Pt states that's she's an alcoholic in remission since April Substance use: current Substance use type: does not use Other substance usage details: Only tried marijuana once. Last use: 05/16/21 Spiritual care concerns: No Exam Narrative: GENERAL: Well-appearing, well-nourished, and in no acute distress. HEAD: Normocephalic, atraumatic. EYES: PERRLA and EOMI. ENT: Nares clear, no rhinorrhea or epistaxis. Mucous membranes moist. Oropharynx without tonsillar hypertrophy exudate or other lesions. Bilateral TMs pearly [place] nonbulging NECK: Supple. No adenopathy or masses. No carotid bruits or JVD CHEST: Clear to auscultation. No respiratory distress. No wheezes rales or rhonchi HEART: Regular rate and rhythm. No
[2021-11-03 19:22] VITALS: BP 135/95; PULSE 77; RESP 15; O2SAT 99
== END 2021-11-03 19:23 | disposition home or self-care (01) ==
PROVIDERS: Emergency Provider Nurse Practitioner Family; PCP Family Medicine
DX: F10.230 Alcohol dependence with withdrawal, uncomplicated (principal); F41.9 Anxiety disorder, unspecified; I10 Essential (primary) hypertension; Y90.0 Blood alcohol level of less than 20 mg/100 ml
CPT/HCPCS: 36415; 80053; 80307; 81001; 81025; 83690; 85025; 93005; 96361; 96374; 96375; 96376; 99284; A9270; J2060; J2405; J3411; J7030

== ENCOUNTER 2023-03-31 10:44 | Outpatient (CLI) | payer BC, SELFPAY ==
[2023-03-31 11:18] LABS: Hematocrit 42.5 % (37.0-47.0); Mean Corpuscular HGB Conc 32.9 g/dl (32-36); Mean Platelet Volume 9.8 fl (7.4-10.4); Platelet Count Result 236 k/mm3 (150-375); Red Blood Count 4.67 M/mm3 (4.2-5.4); Red Cell Distribution Width 13.2 % (11.5-14.5); White Blood Count 4.3 K/mm3 (4.5-10.0)
[2023-03-31 11:42] LABS: Alanine Aminotransferase 19 U/L (6-35); Albumin Level 4.8 g/dL (3.5-5.1); Alkaline Phosphatase 86 U/L (38-126); Anion Gap 9 mmol/L (8-16); Aspartate Amino Transferase 30 U/L (14-36); Bilirubin,Total 0.5 mg/dL (0.2-1.3); Blood Urea Nitrogen 12 mg/dL (7-17); Calcium 9.7 mg/dL (8.4-10.2); Carbon Dioxide 24 mmol/L (22-30); Chloride 107 mmol/L (98-107); Cholesterol 220 mg/dL (0-200); Estimated Glomerular Filt Rate > 60; Glucose 92 mg/dL (65-110); HDL Direct 52 mg/dL; Potassium 3.8 mmol/L (3.4-5.0); Sodium 140 mmol/L (137-145); Triglycerides 78 mg/dL (<150)
[2023-03-31 11:53] LABS: LDL Cholesterol Direct 112 mg/dL
[2023-03-31 12:02] LABS: Vitamin D 25 Hydroxy 45.8 ng/mL
[2023-03-31 12:54] LABS: Folic Acid > 20.0 ng/mL (2.76->20)
== END 2023-03-31 10:45 | disposition home or self-care (01) ==
LOC: ANHLAB 10:46
PROVIDERS: PCP Family Medicine; Visit Provider Family Medicine
DX: Z00.00 Encounter for general adult medical examination without abnormal findings (principal); I10 Essential (primary) hypertension
CPT/HCPCS: 36415; 80053; 80061; 82306; 82607; 82746; 84443; 85027

== ENCOUNTER → 2023-06-21 11:11 | Outpatient (CLI) | payer BC, SELFPAY ==
--- NOTE | ~2023-06-21 | MM_ITS ---
EXAMINATION: MM screening [facility] BI w dalila HISTORY: Screening mammogram TECHNIQUE: Craniocaudal and mediolateral oblique 3-D tomosynthesis images were obtained and synthetic 2-D images were generated. CAD analysis was submitted and interpreted. COMPARISON: 04/04/2023, 03/28/2013, 04/17/2010 BREAST PARENCHYMAL COMPOSITION: There are scattered areas of fibroglandular density. FINDINGS: No suspicious mass, calcification, or architectural distortion are identified in either patricia ast to suggest malignancy. There has been no suspicious interval change. IMPRESSION: 1. No mammographic evidence of malignancy. 2. Recommend routine screening mammography in one year. BI-RADS Category 1: Negative Reviewed, dictated and finalized at location A. 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
== END ==
PROVIDERS: PCP Nurse Practitioner Obstetrics & Gynecology; Visit Provider Nurse Practitioner Obstetrics & Gynecology
DX: Z12.31 Encounter for screening mammogram for malignant neoplasm of breast (principal)
CPT/HCPCS: 77063; 77067

== ENCOUNTER 2023-10-06 14:41 | Outpatient (CLI) | payer BC, SELFPAY ==
--- NOTE | ~2023-10-06 | XR_ITS ---
XR_[id number] DATE: 10/06/2023 15:06 INDICATION: Neck pain TECHNIQUE: AP, open-mouth, lateral views COMPARISON: None FINDINGS: There is straightening of the cervical spine, which may be due to muscle spasm. C1 and C2 are normally aligned and the odontoid process is intact. There is moderately prominent loss of interspace height at C5-6. The remaining cervical interspaces a re well preserved. No fracture or dislocation or locked facet or prevertebral soft tissue swelling. IMPRESSION: Moderately prominent degenerative disc disease at C5-6 Straightening of the cervical spine which may be due to muscle spasm Reviewed, dictated and finalized at Location [facility]. Reviewed, dictated and finalized at location B.
--- NOTE | ~2023-10-06 | XR_ITS ---
XR hip BI 2V w AP pelvis DATE: 10/06/2023 15:06 INDICATION: Right hip pain TECHNIQUE: AP pelvis. AP and lateral views of each hip. COMPARISON: None FINDINGS: Normal alignment at the pubic symphysis and sacroiliac joints. No pelvic fracture or bone d estruction. Hip joint spaces are symmetric and well preserved. No fracture, dislocation, avascular necrosis or nguyễn ne destruction of either hip is detected. IMPRESSION: No significant abnormality of pelvis or hips Reviewed, dictated and finalized at location B.
== END 2023-10-06 14:42 | disposition home or self-care (01) ==
PROVIDERS: PCP Family Medicine; Visit Provider Physician Assistant Medical
DX: M25.551 Pain in right hip (principal); M25.552 Pain in left hip; M50.322 Other cervical disc degeneration at C5-C6 level
CPT/HCPCS: 72040; 73521

== ENCOUNTER 2024-03-07 08:54 | Outpatient (CLI) | payer BC, SELFPAY ==
[2024-03-07 10:09] LABS: Hematocrit 41.8 % (37.0-47.0); Hemoglobin 13.8 g/dL (12.0-15.0); Mean Corpuscular Hemoglobin 30.9 pg (26-34); Mean Corpuscular Volume 93.5 fl (80-100); Mean Platelet Volume 10.1 fl (7.4-10.4); Platelet Count Result 283 k/mm3 (150-375); Red Blood Count 4.47 M/mm3 (4.2-5.4); Red Cell Distribution Width 12.9 % (11.5-14.5); White Blood Count 4.7 K/mm3 (4.5-10.0)
[2024-03-07 10:39] LABS: Alanine Aminotransferase 17 U/L (6-35); Albumin Level 4.6 g/dL (3.5-5.1); Alkaline Phosphatase 76 U/L (38-126); Anion Gap 10 mmol/L (4-12); Aspartate Amino Transferase 34 U/L (14-36); Bilirubin,Total 0.8 mg/dL (0.2-1.3); Blood Urea Nitrogen 10 mg/dL (7-17); Calcium 9.3 mg/dL (8.4-10.2); Carbon Dioxide 22 mmol/L (22-30); Chloride 107 mmol/L (98-107); Cholesterol 200 mg/dL (0-200); Estimated Glomerular Filt Rate > 60; Glucose 89 mg/dL (65-110); HDL Direct 60 mg/dL; Potassium 4.4 mmol/L (3.4-5.0); Sodium 139 mmol/L (137-145); Triglycerides 75 mg/dL (<150)
[2024-03-07 10:45] LABS: LDL Cholesterol Direct 100 mg/dL
[2024-03-07 11:16] LABS: Vitamin D 25 Hydroxy 24.7 ng/mL
[2024-03-07 11:46] LABS: Add Urine Microscopic? YES; Appearance Urine Cloudy (Clear); Bacteria Urine 2+ /hpf; Bilirubin Urine Negative (Negative); Blood Urine Negative (Negative); Color Urine Yellow (Yellow); Glucose Urine UA Negative (Negative); Ketones Urine Negative (Negative); Leukocyte Esterase Ur 1+ LEU/UL (Negative); Need Manual Microscopic Reviewed; Nitrate Urine Negative (Negative); Non Pathogenic Casts 0-2; Protein Urine Negative (Negative); RBC Urine 0-2 /hpf (0-2); Specific Grav Ur 1.022 (1.001-1.035); Squamous Epithelial Cell Urine Many /hpf (Few); Urobilinogen Urine 0.2 mg/dL (<2.0)
== END 2024-03-07 08:55 | disposition home or self-care (01) ==
LOC: ANHLAB 08:56
PROVIDERS: PCP Family Medicine; Visit Provider Physician Assistant Medical
DX: E66.9 Obesity, unspecified (principal); E55.9 Vitamin D deficiency, unspecified; I10 Essential (primary) hypertension; Z00.00 Encounter for general adult medical examination without abnormal findings
CPT/HCPCS: 36415; 80053; 80061; 81001; 82306; 84443; 85027

== ENCOUNTER 2024-08-07 13:57 | Outpatient (CLI) | payer BC, SELFPAY ==
--- NOTE | 2024-08-07 14:08 | ECHO_ITS ---
Patient Info Name: Pam Smith Age: 53 years : 1970 Gender: Female Ht: 62 in Wt: 200 lbs BSA: 2.04 m2 HR: 80 bpm BP: 129 / 88 mmHg Heart Rhythm: Sinus Rhythm Technical Quality: Good Exam Date: 08/07/2024 2:19 PM Exam Location: Echo Lab Patient Status: Outpatient Admit Date: 08/07/2024 Staff Ordering Physician: Vaibhav Acosta PA-C Roof Bolter Helper: Maryam Morgan RDCS Attending Provider: Vaibhav Acosta PA-C Referring Physician: Dave COOPER; Exam Type: CA echo dop color flow w con Study Info Indications - Palpitations, other specified soft tissue disorders Complete two-dimensional, color flow and Doppler transthoracic echocardiogram is performed. Summary 1. Complete two-dimensional, color flow and Doppler transthoracic echocardiogram is performed. 2. Left ventricular chamber dimension is normal. 3. Left ventricular systolic function is normal, estimated at 60-65%. 4. The left ventricular diastolic function is grade I diastolic dysfunction. 5. E/e' 8 is minimally elevated. 6. Left atrial chamber dimension is mildly enlarged. 7. There is mild mitral valve regurgitation. 8. No pulmonary hypertension, estimated pulmonary arterial systolic pressure is 31 mmHg. 9. Dilated inferior vena cava with >50% collapse upon inspiration consistent with elevated right atrial pressure, 10 mmHg. Left Ventricle E/e' 8 is minimally elevated. Left ventricular chamber dimension is normal. Left ventricular systolic function is normal, estimated at 60-65%. The left ventricular diastolic function is grade I diastolic dysfunction. Right Ventricle Right ventricular systolic function is normal and with normal TAPSE 1.9 cm. Right ventricular chamber dimension is normal. Left Atria Left atrial chamber dimension is mildly enlarged. Right Atria Right atrial chamber dimension is normal. Aortic Valve The aortic valve is trileaflet. There is no aortic valve stenosis. There is no aortic valve regurgitation. Pulmonic Valve There is no pulmonic regurgitation. Mitral Valve There is no mitral valve stenosis. There is mild mitral valve regurgitation. Tricuspid Valve There is no tricuspid valve regurgitation. No pulmonary hypertension, estimated pulmonary arterial systolic pressure is 31 mmHg. Pericardium/Pleural There is no pericardial effusion. Inferior Vena Cava Dilated inferior vena cava with >50% collapse upon inspiration consistent with elevated right atrial pressure, 10 mmHg. Aorta The aortic root size at the sinus of Valsalva is normal. Left Ventricular Outflow Tract Name Value Normal LVOT 2D LVOT Diameter 2.06 cm LVOT Doppler LVOT Peak Gradient 4 mmHg LVOT Mean Gradient 2 mmHg LVOT VTI 21.07 cm LVOT VTI/AV VTI Ratio 1.03 LVOT Stroke Volume 70.38 ml LVOT CO 4.67 l/min LVOT CI 2.29 L/min/m2 Pulmonic Valve Name Value Normal PV Doppler PV Peak Gradient 2 mmHg PV Regurgitation Doppler AZ Peak End Diastolic Velocity 74.20 cm/s Mitral Valve Name Value Normal MV Doppler MV Peak Gradient 3 mmHg MV Mean Gradient 1 mmHg MV Decel [place] 245.60 cm/s2 MV PHT 0 s MV Area (PHT) 3.19 cm2 4.00-5.00 MV Area (Cont Eq VTI) 3.03 cm2 MV Regurgitation Doppler MR Peak Gradient 124 mmHg MV Diastolic Function MV E Peak Velocity 58.37 cm/s MV A Peak Velocity 82.99 cm/s MV E/A 0.70 MV Decel Time 0 s MV Annular TDI MV E/e' (Septal) 9.13 <=8.00 MV E/e' (Lateral) 8.30 <=8.00 MV E/e' (Average) 8.71 Tricuspid Valve Name Value Normal TV Regurgitation Doppler TR Peak Velocity 226.76 cm/s TR Peak Gradient 21 mmHg Estimated PAP/RSVP RA Pressure 10 mmHg <=5 PA Systolic Pressure 31 mmHg <36 RV Systolic Pressure 31 mmHg <36 Aortic Valve Name Value Normal AV Doppler AV Peak Velocity 102.37 cm/s AV Peak Gradient 4 mmHg AV Mean Gradient 2 mmHg AV VTI 20.51 cm AV Area (Cont Eq VTI) 3.43 cm2 >=3.00 AV Area (Cont Eq Master) 3.37 cm2 AV Regurgitation 2D LVOT Area 3.34 cm2 Ventricles Name Value Normal LV Dimensions 2D/MM IVS Diastolic Thickness (2D) 0.89 cm 0.60-1.00 LVID Diastole (2D) 4.92 cm 3.80-5.20 LVIW Diastolic Thickness (2D) 0.83 cm 0.60-0.90 LVID Systole (2D) 3.33 cm 2.20-3.50 LVOT Diameter 2.06 cm LV Mass (2D Cubed) 144.33 g 67.00-162.00 LV Mass Index (2D Cubed) 0.01 g/cm2 0.00-0.01 Relative Wall Thickness (2D) 0.34 LV Fractional Shortening/Ejection Fraction 2D/MM LV Fractional Shortening (2D) 32 % 27-45 LV EF (2D Teicholz) 60 % 54-74 LV Diastolic Volume (4C MOD) 83.29 ml LV EF (4C MOD) 60 % LV Diastolic Length (4C) 7.32 cm LV Systolic Length (4C) 5.83 cm LV Stroke Volume (4C MOD) 49.67 ml Atria Name Value Normal LA Dimensions LA Volume (4C A-L) 72.31 ml RA Dimensions RA Area (4C) 12.03 cm2 <=18.00 Report Signatures
--- OUTSIDE RECORDS SUMMARY | 2024-08-09 01:04 | XMS_ITS | Continuity of Care Document ---
Author Name [facility] Organization [facility] Care Team Providers Care Wind [employer] Project Manager Name Role Phone [facility] Unavailable Unavailable Problems Combined list of problems from Department of Defense and Veterans Affairs facilities. It does not include entries that were removed or entered in error. Problem Status Onset Date Problem Type Date of Resolution Comments Source Alcohol dependence, uncomplicated Active 03/22/2018 Condition [facility] Alcohol dependence with withdrawal, unspecified Active 06/30/2017 Condition [facility] Allergies, Adverse Reactions, Alerts Combined list of allergies from Department of Defense and Veterans [facility] facilities. It does not include entries that were removed or entered in error. Substance Category Reaction Severity Reaction type Status Date Reported Comments Source SUPRAX (CEFIXIME) Drug allergy (disorder) Anaphylaxi s, Other: blood in stool active 7 [facility] Immunizations Combined list of available immunizations from the Department of Defense and Veterans Affairs facilities. Immunization Series Date Given Administered By Site Reaction Lot Number CVX Code Drug Angiography Technologist Status Comments Source SARS-COV-2 (COVID-19) vaccine, vector non-replicati ng, recombinant spike protein-Ad26, preservative free, 0.5 mL 1 2020 LEANDRA PICKETT [id number] Yadiel (JSN) complet ed SARS-COV- 2 (COVID-19 ) vaccine, vector non-repli cating, recombina nt spike protein-A d26, preservat yohan free, 0.5 mL [facility] Influenza, injectable, quadrivalent, preservative free 1 2020 CONOR HICKEY [id number] 150 Seqirus (SEQ) complet ed Influenza , injectabl e, quadrival ent, preservat yohan free DoD Influenza, injectable, quadrivalent, preservative free 1 2019 DRE BARRERA [id number] 150 Seqirus (SEQ) complet ed Influenza , injectabl e, quadrival ent, preservat yohan free [facility] Encounters Combined list of: 1) Encounters from Department of Veterans Affairs facilities going back up to thelast 18 months. 2) Encounters from the Department of Defense facilities going back up to 280 months. Location Location Details Encounter Type Encounter Number Reason For Visit Attending Provider ADM Date DC Date Status Disposition Source [facility](LSL Emergency Room) OUTPATIENT [id number] Notes Entered by: Cora CELESTE 08 Nov 2016 194 ------- ------- ------- ------- -- 46 y/o F poss Liver failure JABIER BILLINGS 11/08 Released w/o Limitations [facility](LSL Emergen cy Room) [facility](ZZZLS L Enhanced Access Care Cl) OUTPATIENT [id number] initial appt / er f/u for alcohol ic hep / other types of hep CASSANDRA CARPIO 11/28 Released w/o Limitations [facility] LSL Enhance d Access Care Cl[facility] TELE CONSULT [id number] Notes Entered by: KE DONNELLY 02 Dec 2016 1127 ------- ------- ------- ------- -- Case managem ent KE DONNELLY 12/02 [facility] OUTPATIENT [id number] F/U for Labs//0 [id number] CASSANDRA CARPIO 03/29 [facility] w/o Limitations [facility] XQ98TTpva B) TELE CONSULT [id number] Notes Entered by: WERO CARPIO 30 Mar 2017 1548 ------- ------- ------- ------- -- Inpatie nt Detox resourc es KE DONNELLY 03/30 [facility](ZZZ [id number] TeamB) [facility](LSL Emergency Room) OUTPATIENT [id number] Notes Entered by: LITO RAMOS 28 Jun 2017 1304 ------- ------- ------- ------- -- 46y/o F Jaundic e/vomit darrius MEGAN PATEL 06/28 [facility] [id number] YANETH VERMA 06/28 [facility] HOME [facility] Cl[facility] [id number] [id number] CASSANDRA CARPIO 07/05 [facility]ased w/o Limitations [facility] Access Care Cl) [facility] F01A Team A) TELE CONSULT [id number] Notes Entered by: KE DONNELLY 12 Jul 2017 1321 ------- ------- ------- ------- -- Care Coordin KE Ramos 07/12 [facility](W[facility] Behaviora l Hlth Multi-D Tm) TELE CONSULT [id number] Notes Entered by: PETRA DURAND 13 Jul 2017 1001 ------- ------- ------- ------- -- SUDCC Coordin PETRA Flowers 07/13 [facility] Behav[facility]al [facility]-D Tm) [facility] Care Cl) OUTPATIENT [id number] f/u lab results /[id number] CASSANDRA CARPIO 07/18 Released w/o Limitations [facility](ZZZ LSL Enhance d Access Care Cl) [facility] F01A Team A) OUTPATIENT [id number] Notes Entered by: KE DONNELLY 18 Jul 2017 1203 ------- ------- ------- ------- -- Case ManageKE Iverson 07/18 Released w/o Limitations [facility] F01A Team A) [facility] L Enhanced Access Care Cl) TELE CONSULT [id number] Notes Entered by: WERO CARPIO 19 Jul 2017 0938 ------- ------- ------- ------- -- PAULY Coleman 07/19 [facility](ZZZ LSL Enhance d Access Care Cl) [facility](LSL Nutrition Care) OUTPATIENT [id number] 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 SILAS TAYLOR 07/24 Released w/o Limitations [facility](LSL Nutriti on Care) [facility] L Enhanced Access Care Cl) OUTPATIENT [id number] CASSANDRA CARPIO 08/10 Released w/o Limitations [facility](ZZZ LSL Enhance d Access Care Cl) [facility] F01A Team A) OUTPATIENT [id number] Notes Entered by: KE DONNELLY 10 Oct 2017 0806 ------- ------- ------- ------- -- Care KE Dooley 10/10 Released w/o Limitations [facility] F01A Team A) [facility] L Enhanced Access Care Cl) OUTPATIENT [id number] well women/b reast hurting /[id number] RUFINO KERNS 01/09 Released w/o Limitations [facility](ZZZ LSL Enhance d Access Care Cl) [facility] L Enhanced Access Care Cl) TELE CONSULT [id number] Notes Entered by: ENZO KERNS 23 Jan 20189 ------- ------- ------- ------- -- pap is wnl and HPV is negativ e retest in 5 years [facility]N [facility]) TELE CONSULT [id number] Notes Entered by: ENZO KERNS 15 Feb 2018 0826 ------- ------- ------- ------- -- normal US, can start control to reduce flow EDMAR KAHN 02/15 [facility]) TELE CONSULT [id number] Notes Entered by: ELGIN BLOOD 13 Mar 2018 1254 ------- ------- ------- ------- -- KEELY Ag 03/13 [facility](LSL Emergency Room) OUTPATIENT [id number] Notes Entered by: JOSE MIGUEL AGUIAR 05 Sep 20181932 ------- ------- ------- ------- -- 47yo F extreme vomitin g x 2 days MARIE HO 09/05 Released w/o Limitations [facility] Emergen [facility] Room) [facility](LSL Emergency Room) OUTPATIENT [id number] Notes Entered by: LITO RAMOS 24 Oct 2018 0925 ------- ------- ------- ------- -- 48y/o F GIBSON Fuentes 10/24 [facility] ER, [facility] TO [id number] REBECCA BARRY 10/24 DISCHARGED HOME [facility](L[facility] Emergency Room) OUTPATIENT [id number] Notes Entered by: Nano CARPENTER 23 Nov 2018 1540 ------- ------- ------- ------- -- 48yo F DEMI Arellano 11/23 Admitted [facility](LSL Emergen cy Room) [facility] ER, DIRECT TO [facility] [id number] REBECCA BARRY 11/23 DISCHARGED HOME [facility](L[facility] Emergency Room) OUTPATIENT [id number] SUJEY BAILON 01/22 Released w/o Limitations [facility](LSL Emergen cy Room) [facility] ER, DIRECT TO [facility] [id number] MINGO CARRION 02/28 DISCHARGED HOME [facility] ER, DIRECT TO [facility] [id number] SY HAWKINS 06/05 DISCHARGED HOME [facility](L[facility] Emergency Room) OUTPATIENT [id number] MARIA ELENA MONTANEZ 06/26 Admitted [facility](LSL Emergen cy Room) [facility] ER, DIRECT TO [facility] [id number] JULI COY 06/26 DISCHARGED HOME [facility] ER, DIRECT TO [facility] [id number] MINGO CARRION 07/15 DISCHARGED HOME [facility] ER, DIRECT TO [facility] [id number] JULI COY 08/13 DISCHARGED HOME [facility] ER, DIRECT TO [facility] [id number] JULI COY 08/27 DISCHARGED HOME [facility](AMH I02A Int Med) OUTPATIENT [id number] Notes Entered by: HANS GUPTA 30 Aug 2019 1141 ------- ------- ------- ------- -- Medicat ion Adminis tration MERLYN BENAVIDES 08/30 Released w/o Limitations [facility](AMH I02A Int Med) [facility](AM[facility] I02A Int Med) OUTPATIENT [id number] Notes Entered by: SA BHARATI DUENAS 03 Sep 2019 1039 ------- ------- ------- ------- -- meds JAZ THIBODEAUX 09/03 Released w/o Limitations [facility](AMH I02A Int Med) [facility] I02A Int Med) OUTPATIENT [id number] Notes Entered by: TURNER DEVRIES 04 Sep 2019 1036 ------- ------- ------- ------- -- meds check JAZ THIBODEAUX 09/04 Released w/o Limitations [facility](AMH I02A Int Med) [facility](LSL Allergy) OUTPATIENT [id number] Notes Entered by: DANIEL COTA 05 Sep 2019 1044 ------- ------- ------- ------- -- DEMI CHAVARRIA 09/05 Released w/o Limitations [facility](LSL Allergy ) [facility](AMH I02A Int Med) OUTPATIENT [id number] Notes Entered by: VIVEK THIBODEAUX 05 Sep 2019 1114 ------- ------- ------- ------- -- Med Check JAZ THIBODEAUX 09/05 Released w/o Limitations [facility](AMH I02A Int Med) [facility](AMH I02A Int Med) OUTPATIENT [id number] Notes Entered by: TURNER DEVRIES 06 Sep 2019 1057 ------- ------- ------- ------- -- med review. JAZ THIBODEAUX 09/06 Released w/o Limitations [facility](AMH I02A Int Med) [facility] I02A Int Med) OUTPATIENT [id number] Notes Entered by: CAREN BYRD 11 Sep 2019 1057 ------- ------- ------- ------- -- chk in/f/u JAZ THIBODEAUX 09/11 Released w/o Limitations [facility](AMH I02A Int Med) [facility] ER, DIRECT TO [facility] [id number] JULI COY 09/24 DISCHARGED HOME [facility](L[facility] Emergency Room) OUTPATIENT [id number] MARIA ELENA MONTANEZ 10/06 Admitted [facility](LSL Emergen cy Room) [facility] ER, DIRECT TO [facility] [id number] MINGO CARRION 10/06 DISCHARGED HOME [facility](AM[facility] I02A Int Med) TELE CONSULT [id number] Notes Entered by: SANTANA LEBRON 15 Oct 2019 1214 ------- ------- ------- ------- -- Hospita l follow up AR LEBRON 10/14 [facility](AMH I02A Int Med) [facility](AMH I02A Int Med) TELE CONSULT [id number] Notes Entered by: SANTANA LEBRON 25 Oct 2019 1305 ------- ------- ------- ------- -- NCM follow up AR LEBRON 10/24 [facility](AMH I02A Int Med) [facility] ER, DIRECT TO [facility] [id number] JULI COY 12/21 DISCHARGED HOME [facility] ER, DIRECT TO [facility] [id number] MINGO CARRION Romel 01/11 DISCHARGED HOME [facility](LSL Emergency Room) OUTPATIENT [id number] LISSETHMARIA ELENA MIRYAM 03/08 Admitted [facility](LSL Emergen cy Room) [facility] ER, DIRECT TO [facility] [id number] JEROMEYOANDYMINGO 03/08 DISCHARGED HOME [facility] ER, DIRECT TO [facility] [id number] MINGO CARRION Romel 04/09 DISCHARGED HOME [facility] ER, DIRECT TO [facility] [id number] JULI COY 05/19 DISCHARGED HOME [facility] ER, DIRECT TO [facility] [id number] DACIA DAVIS 06/07 DISCHARGED HOME [facility](AMH I02A Int Med) OUTPATIENT [id number] ETOH withdra wal/NCM assessm ent AR LEBRON 10/22 Released w/o Limitations [facility](AMH I02A Int Med) [facility](LSL Mass Immunizat ions) OUTPATIENT [id number] J&J BOB ALBRIGHT 01/01 Released w/o Limitations [facility](LSL Mass Immuniz ations) [facility] ER, DIRECT TO [facility] [id number] LIANA TRUJILLO, S[place] 01/15 DISCHARGED HOME [facility] ER, DIRECT TO [facility] [id number] SANDY VALDOVINOS 02/03 DISCHARGED HOME [facility] DIRECT TO [facility] FROM OTHER THAN ER OR [facility] [id number] LIANA TRUJILLO, SANDY 03/05 DISCHARGED HOME [facility](AMH F03B White) TELE CONSULT [id number] Notes Entered by: HANNA WRIGHT 06 Apr 2021 1009 ------- ------- ------- ------- -- Occupat ional Health In-Proc [facility] HANNA WRIGHT 04/06 Other Not Elsewhere Classified [facility](AMH F03B White) Procedures Combined list of: 1) Procedures from Department of Veterans Affairs facilities going back up to thelast 18 months, not all VA non-surgical procedures are included; 2) All procedures from the Department of Defense facilities. Procedure Procedure Type Code Date Perfomer Comments [facility] e ECG Interpretation And Report Only ECG Interpretation And Report Only [id number] GIBSON LIVE NSR; Prolonged QT; Nl axis; No ROBERT or STD. [facility] Psychometric Emotional / Behavioral A e ment Psychometric Emotional / Behavioral Assessment [id number] ROCAEL HUSSEIN [facility] Clinical Social Work Individual Outpatient Counseling 60 Minutes Clinical Social Work Individual Outpatient Counseling 60 Minutes [id number] ROCAEL HUSSEIN Psychiatric Diagnostic Evaluation Review of Records and Reports Psychiatric Diagnostic Evaluation Review of Records and Reports [id number] KRYSTLE ANDERSON Psychiatric Diagnostic Evaluation Review of Records and Reports Psychiatric Diagnostic Evaluation Review of Records and Reports [id number] MICHAEL CAR [facility] Non-Physician Phone Call To Patient/Provider Brief (5-10min) Non-Physician Phone Call To Patient/Provider Brief (5-10min) [id number] EDMAR KAHN [facility] Non-Physician Phone Call To Patient/Provider Brief (5-10min) Non-Physician Phone Call To Patient/Provider Brief (5-10min) [id number] [id number] EDMAR KAHN [facility] Case Management, each 15 minutes 018 KE DONNELLY [facility] Coordinated care fee, risk adjusted maintenance 018 KE DONNELLY [facility] Clinical Social Work Individual Outpatient Counseling 60 Minutes Clinical Social Work Individual Outpatient Counseling 60 Minutes [id number] ROCAEL HUSSEIN [facility] Psychometric Emotional / Behavioral A e ment Psychometric Emotional / Behavioral Assessment [id number] NIKOLAI HUSSEINRY O [facility] Psychiatric Diagnostic Evaluation Psychiatric Diagnostic Evaluation [id number] NIKOLAI HUSSEINRY O [facility] Medical Nutrition Therapy Initial A e ment And Intervention Each 15 Minutes Medical Nutrition Therapy Initial Assessment And Intervention Each 15 Minutes [id number] SILAS TAYLOR [facility] Case Management, each 15 minutes 018 KE DONNELLY [facility] 08/29/15 [facility] Case Management, each 15 minutes 017 KE DONNELLY [facility] 09/17/12 [facility] Psychotherapy For Crisis Intervention Each Additional 30 Minutes Psychotherapy For Crisis Intervention Each Additional 30 Minutes [id number] DOUG FERNANDO [facility] Psychotherapy For Crisis Intervention First 60 Minutes Psychotherapy For Crisis Intervention First 60 Minutes [id number] DOUG FERNANDO [facility] ECG Interpretation And Report Only ECG Interpretation And Report Only [id number] MEGAN PATEL [facility] Case Management, each 15 minutes 017 KE DONNELLY [facility] Case Management, each 15 minutes 017 KE DONNELLY [facility] 09/24/13 [facility] ECG Standard ECG Standard [id number] DEMI PICKARD [facility] Patient Counseling Medical Management Individual Patient Patient Counseling Medical Management Individual Patient [id number] MERLYN AGUERO [facility] A e ment & Intervention Blood Pre ure Measured Assessment & Intervention Blood Pressure Measured 2000F JAZ THIBODEAUX 2 units of service to equal 30 min; time spent including encounter set up, chart research, medication review, triage H/P, relax time, monitor BP, results, answering patient questions, advising provider, and documentation in AHLTA. [facility] Patient Counseling Medical Management Individual Patient Patient Counseling Medical Management Individual Patient [id number] JAZ THIBODEAUX Time spent including encounter set up, chart research, assessing learning style, providing standardized telephone triage education related to Alcohol Abuse and Dependence from [place] Clinical Content (STCC), answering patient questions, and documentation: 30 MIN. Pt currently attends local daily AA meetings. Will continue to research LN intensive Inpatient programs she may be eligible for. [facility] Patient Counseling Medical Management Individual Patient Patient Counseling Medical Management Individual Patient [id number] JAZ THIBODEAUX Time spent including encounter set up, chart research, assessing learning style, providing standardized telephone triage education related to Alcohol Abuse and Dependence from [facility] Clinical Content (ST), answering patient questions, and documentation: 30 MIN. [facility] Influenza Split Virus Vaccine IM Preserv Free 0.5mL Dosage Quadrivalent Influenza Split Virus Vaccine IM Preserv Free 0.5mL Dosage Quadrivalent [id number] DRE BARRERA Influenza, Inj., quad., preservative free (Afluria); Series #: 1; 0.5 mL; IM; Right Arm; Mfg: Seqirus; Lot: [id number]; VIS given (Cristo: 02/28/2019). [facility] Immunization Administration By Injection, One Vaccine Immunization Administration By Injection, One Vaccine [id number] DRE BARRERA [facility] Psychotherapy Individual Approximately 30 Minutes Psychotherapy Individual Approximately 30 Minutes [id number] REBECCA ARNETT [facility] Vaccine SARS-CoV-2 DNA Foreign Protein Ad26 Preservative Free 5x10*10vp/0.5mL IM Single Dose Vaccine SARS-CoV-2 DNA Foreign Protein Ad26 Preservative Free 5x10*10vp/0.5mL IM Single Dose [id number] BOB ALBRIGHT [facility] DETOXIFICATION SERVICES FOR SUBSTANCE ABUSE TREATMENT [facility] ULTRASONOGRAPHY OF ABDOMEN [facility] COMPUTERIZED TOMOGRAPHY (CT SCAN) OF ABDOMEN AND PELVIS USING LOW OSMOLAR CONTRAST [facility] INJECTION, METOCLOPRAMIDE HCL, UP TO 10 MG [facility] DETOXIFICATION SERVICES FOR SUBSTANCE ABUSE TREATMENT [facility] INJECTION, LORAZEPAM, 2 MG [facility] ELECTROCARDIOGRAM, ROUTINE ECG WITH AT LEAST 12 LEADS; WITH INTERPRETATION AND REPORT DoD IMMUNIZAT ADM,IM INJ,SEVERE AC RESPIRATORY SYND CORONAVIR 2 (SARSCOV-2) (CORONAVIR DIS [COVID-19]) VACC,DNA,SPIKE PROT,ADENOVIR TYPE 26 (AD26) VECTOR,PRESRV FREE,[id number] VIRAL PART/0.5ML DOSAGE;1 DOSE [facility] DETOXIFICATION SERVICES FOR SUBSTANCE ABUSE TREATMENT DoD INJECTION, METOCLOPRAMIDE HCL, UP TO 10 MG [facility] DETOXIFICATION SERVICES FOR SUBSTANCE ABUSE TREATMENT DoD INJECTION, METOCLOPRAMIDE HCL, UP TO 10 MG DoD ULTRASONOGRAPHY OF RIGHT UPPER EXTREMITY VEINS, GUIDANCE [facility] INSERTION OF INFUSION DEVICE INTO RIGHT CEPHALIC VEIN, PERCUTANEOUS APPROACH [facility] INSERT OF PERIPH INSERT CENTRAL MJ CATH (PICC),W/O SUBCUT PORT/PUMP,INCL ALL IMG GUIDANCE,IMAG DOCUMENT,AND ALL ASSOC RADIOLOGICAL SUPERVIS &INTERPRET REQ TO PERFORM THE INSERT; AGE 5 YEARS OR OLDER DoD INJECTION, POTASSIUM CHLORIDE, PER 2 MEQ DoD INSERTION OF INFUSION DEVICE INTO UPPER VEIN, PERCUTANEOUS APPROACH DoD ULTRASOUND GUID VASCULAR ACCESS REQUIR ULTRASOUND EVALUAT POTENTIAL ACCESS SITES, DOCUMENTAT SELECT VESSEL PATENCY, REALTIME ULTRASOUND VISUALIZAT VASCULAR NEED ENTRY, W PERMANENT RECORD&REPORT DoD INJECTION, ONDANSETRON HCL, PER 1 MG [facility] DETOXIFICATION SERVICES FOR SUBSTANCE ABUSE TREATMENT DoD ULTRASONOGRAPHY OF RIGHT UPPER EXTREMITY VEINS, GUIDANCE [facility] INSERTION OF INFUSION DEVICE INTO RIGHT BASILIC VEIN, PERCUTANEOUS APPROACH [facility] ULTRASOUND GUID VASCULAR ACCESS REQUIR ULTRASOUND EVALUAT POTENTIAL ACCESS SITES, DOCUMENTAT SELECT VESSEL PATENCY, REALTIME ULTRASOUND VISUALIZAT VASCULAR NEED ENTRY, W PERMANENT RECORD&REPORT DoD INSERTION OF NON-TUNNELED CENTRALLY INSERTED CENTRAL VENOUS CATHETER; AGE 5 YEARS OR OLDER DoD INJECTION, ONDANSETRON HCL, PER 1 MG DoD INJECTION, PROCHLORPERAZINE, UP TO 10 MG DoD PSYCHOTHERAPY, 30 MINUTES WITH PATIENT DoD INJECTION, ONDANSETRON HCL, PER 1 MG [facility] ELECTROCARDIOGRAM, ROUTINE ECG WITH AT LEAST 12 LEADS; WITH INTERPRETATION AND REPORT [facility] BLOOD PRESSURE MEASURED (CKD)(DM) [facility] EDUCATION &TRAINING, PATIENT SELF-MGT QUALIFIED, NONPHYSICIAN HEALTH HELPDESK ADMINISTRATOR USING STDIZED CURRICULUM, [id number] W THE PATIENT (COULD INCL CAREGIVER/FAMILY) EA 30 MIN; INDIVIDUAL PATIENT [facility] EDUCATION &TRAINING, PATIENT SELF-MGT QUALIFIED, NONPHYSICIAN HEALTH HELPDESK ADMINISTRATOR USING STDIZED CURRICULUM, [id number] W THE PATIENT (COULD INCL CAREGIVER/FAMILY) EA 30 MIN; INDIVIDUAL PATIENT [facility] INFLUENZA VIRUS VACCINE, QUADRIVALENT (IIV4), SPLIT VIRUS, PRESERVATIVE FREE, 0.5 ML DOSAGE, FOR INTRAMUSCULAR USE [facility] EDUCATION &TRAINING, PATIENT SELF-MGT QUALIFIED, NONPHYSICIAN HEALTH HELPDESK ADMINISTRATOR USING STDIZED CURRICULUM, [id number]-[id number] W THE PATIENT (COULD INCL CAREGIVER/FAMILY) EA 30 MIN; INDIVIDUAL PATIENT [facility] EDUCATION &TRAINING, PATIENT SELF-MGT QUALIFIED, NONPHYSICIAN HEALTH HELPDESK ADMINISTRATOR USING STDIZED CURRICULUM, [id number] W THE PATIENT (COULD INCL CAREGIVER/FAMILY) EA 30 MIN; INDIVIDUAL PATIENT [facility] EDUCATION &TRAINING, PATIENT SELF-MGT QUALIFIED, NONPHYSICIAN HEALTH HELPDESK ADMINISTRATOR USING STDIZED CURRICULUM, [id number] W THE PATIENT (COULD INCL CAREGIVER/FAMILY) EA 30 MIN; INDIVIDUAL PATIENT [facility] MEDICATION MANAGEMENT FOR SUBSTANCE ABUSE TREATMENT, NALTREXONE [facility] INJECTION, LORAZEPAM, 2 MG [facility] INJECTION, DIAZEPAM, UP TO 5 MG [facility] INJECTION, KETOROLAC TROMETHAMINE, PER 15 MG [facility] INTRODUCTION OF ELECTROLYTIC AND WATER BALANCE SUBSTANCE INTO PERIPHERAL VEIN, PERCUTANEOUS APPROACH [facility] INJECTION, METOCLOPRAMIDE HCL, UP TO 10 MG [facility] INJECTION, KETOROLAC TROMETHAMINE, PER 15 MG [facility] INJECTION, ONDANSETRON HCL, PER 1 MG [facility] INFUSION, NORMAL SALINE SOLUTION , 1000 CC [facility] DETOXIFICATION SERVICES FOR SUBSTANCE ABUSE TREATMENT [facility] INJECTION, LORAZEPAM, 2 MG [facility] INTRAVENOUS INFUSION, HYDRATION; INITIAL, 31 MINUTES TO 1 HOUR [facility] BRIEF EMOTIONAL/BEHAVIORAL ASSESSMENT (EG, DEPRESSION INVENTORY, ATTENTION-DEFICIT/HYP ERACTIVITY DISORDER [ADHD] SCALE), WITH SCORING AND DOCUMENTATION, PER STANDARDIZED INSTRUMENT [facility] PSYCHIATRIC EVALUATION OF HOSPITAL RECORDS, OTHER PSYCHIATRIC REPORTS, PSYCHOMETRIC AND/OR PROJECTIVE TESTS, AND OTHER ACCUMULATED DATA FOR MEDICALDIAGNOSTIC PURPOSES [facility] PSYCHIATRIC EVALUATION OF HOSPITAL RECORDS, OTHER PSYCHIATRIC REPORTS, PSYCHOMETRIC AND/OR PROJECTIVE TESTS, AND OTHER ACCUMULATED DATA FOR MEDICALDIAGNOSTIC PURPOSES DoD TELE ASSESS & MGT SRV PROV QUAL NONPHYS HLTH CARE PRO TO EST PAT,PARENT,GUARD NOT ORIG REL ASSESS & MGT SRV PROV W/IN PREV 7 DAYS NOR LEAD ASSESS & MGT SRV/PX W/IN NXT 24 HR/SOON APT;5-10 MIN MED DIS DoD TELE ASSESS & MGT SRV PROV QUAL NONPHYS HLTH CARE PRO TO EST PAT,PARENT,GUARD NOT ORIG REL ASSESS & MGT SRV PROV W/IN PREV 7 DAYS NOR LEAD ASSESS & MGT SRV/PX W/IN NXT 24 HR/SOON APT;5-10 MIN MED DIS [facility] CASE MANAGEMENT, EACH 15 MINUTES [facility] PSYCHOTHERAPY, 60 MINUTES WITH PATIENT [facility] PSYCHIATRIC DIAGNOSTIC EVALUATION [facility] MEDICAL NUTRITION THERAPY; INITIAL ASSESSMENT AND INTERVENTION, INDIVIDUAL, [id number] WITH THE PATIENT, EACH 15 MINUTES [facility] CASE MANAGEMENT, EACH 15 MINUTES [facility] CASE MANAGEMENT, EACH 15 MINUTES [facility] PSYCHOTHERAPY FOR CRISIS; FIRST 60 MINUTES [facility] ELECTROCARDIOGRAM, ROUTINE ECG WITH AT LEAST 12 LEADS; WITH INTERPRETATION AND REPORT [facility] CASE MANAGEMENT, EACH 15 MINUTES [facility] CASE MANAGEMENT, EACH 15 MINUTES [facility] COLLECTION OF VENOUS BLOOD BY VENIPUNCTURE [facility] Social History Combined list of available smoking, tobacco, and other social history from [facility] [employer] and [facility] facilities. Social History Type Response Date Comment Sourc e This section is an empty social history section. [facility]
--- OUTSIDE RECORDS SUMMARY | 2024-08-09 01:05 | XMS_ITS | Data Portability ---
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 Directives Directive N: Payers Encounter Date Sequence Insurance Name Policy Number Policy Tompkins Covered Member ID Tompkins Member ID Guarantor Name 03/07/2022 1 [place] 105 Quentin Smith [id number] Pam Smith 03/09/2022 1 [place] 105 Quentin Smith [id number] Pam Smith 03/21/2023 1 [place] 105 Quentin Smith [id number] Pam Smith 05/23/2024 1 [place] 105 Quentin Romel Sarah [id number] Pam Smith 07/04/2024 1 [place] 105 Quentin Smith [id number] Pam Smith Notes Date Note Type Note Provider Name and Address Organization Details Recorded Time 03/07/2022 text/html Prolapse SymptomsReported bypatient.Quality:pre ssure; sensation of everything falling out Severity:moderate (But worse at end of the day.) Duration:present 1-5 years (Progressively worse over the last few years when she was living in [place].) Onset/Timing:worse at the end of the day (Feels the most in shower.) Associated Symptoms:no abdominal pain; no cramping; no constipation; no fecal urgency; no splinting; no difficulty voiding; no feelings of incomplete emptying of bladder;urinary incontinence(ARGELIA/UUI) Possible Rectal prolapse.[id number]before [place]) significant UUIHigh anxiety issuesVery sensitive to drugsNot always proturding butIncontinence pad worn ARGELIA+UUI + (Has pee'd the bed)Nocturia +SA + (monogamous) Ursula Rodriguez [facility] [address], [place], [address], [facility] 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.Menopausal Symptoms:no menopausal symptoms; normal vaginal lubrication Vaginal Bleeding:history of menopause having occurred; no history of post menopausal bleeding Urinary Symptoms:no hematuria; no incontinence; no nocturia; no urinary frequency Vulva:no genital lesion; no vulvar atrophy Vagina:normal vaginal discharge; no vaginal atrophy Breast:no breast lump; no nipple discharge; no breast pain Sexual Complaints:no sexual complaints Psychological Symptoms:no depression; no anxiety Preventive Measures:encourage regular mammograms starting age 40; encourage self breast examination; encourage regular exercise; encourage no tobacco use; needs to schedule mammogram; history of recent colonoscopy Ursula Rodriguez [facility] [address], [place], [address], [facility] 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.Menopausal Symptoms:no menopausal symptoms; normal vaginal lubrication Vaginal Bleeding:history of menopause having occurred; no history of post menopausal bleeding Urinary Symptoms:no hematuria; no incontinence; no nocturia; no urinary frequency Vulva:no genital lesion; no vulvar atrophy Vagina:normal vaginal discharge; no vaginal atrophy Breast:no breast lump; no nipple discharge; no breast pain Sexual Complaints:no sexual complaints Psychological Symptoms:no depression; no anxiety Preventive Measures:encourage regular mammograms starting age 40; encourage self breast examination; encourage regular exercise; encourage no tobacco use; needs to schedule mammogram; history of recent colonoscopy Ursula Rodriguez [facility] [address], [place], [address], [facility] 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.Menopausal Symptoms:normal vaginal lubrication;hot flashes Vaginal Bleeding:history of menopause having occurred Urinary Symptoms:no hematuria; no incontinence; no nocturia; no urinary frequency Vulva:no genital lesion; no vulvar atrophy Vagina:normal vaginal discharge; no vaginal atrophy Breast:no breast lump; no nipple discharge; no breast pain Sexual Complaints:no sexual complaints;decreased libido Psychological Symptoms:no depression;anxiety Preventive Measures:encourage regular mammograms starting age 40; encourage self breast examination; encourage regular exercise; encourage no tobacco use; mammogram performed within the past year Patient presents for annual well woman exam.Pt would like hormones checked since she states that she has never had them confirm that she was post-menopausal. Patient has not bled in 5 years.Patient c/o hot flashes and night sweats occasionally.Patient has hx of anxiety d/t current work situation, PCP manages mood medications. JAZ ARENAS NP [address], [place], [address], [facility] 05/23/2024 17:14:47 07/04/2024 text/html Patient here to discuss recent bloodwork that confirmed that she was post-menopausal.Harley nt reports increasing anxiety, dry eyes, irritability, fatigue, hot flashes, low libido, night sweats, weight gain over the past few years.Patient inquires about HRT vs other treatment options. Patient states that she was starting on ADHD medication that helped with her anxiety, but now has been having elevated BP readings. Patient states that her PCP took her off Adderall and put her on propranolol. However, patient has noted swelling of hands and feet since starting this medication. Patient states that she sees her PCP tomorrow. Patient denies history of blood clots, FL/stroke, or CVD. JAZ ARENAS NP [address], [place], [address], [facility] 07/04/2024 11:46:16 OBGyn Episode Ob Episode Information Episode Created Date Number of Fetuses Patient Bloodtype Patient rh Status Prepregnancy Weight lbs Domestic Partner Domestic Partner Phone Father Name Cvt Rn Status 03/07/20 22 1 CLOSED Fetus Data First Name Last Name Admitted to NICU Weight (g) Sex Living Outcome Pediatric Complications Fetus ID Race Codes Race Delivery Type M [id number] Vaginal Delivery Stephen Calculation Initial Stephen Date Initial Exam Date Initial Exam Provider Initial Ultrasound Date Last Menstrual Period Date Ultra Sound Weeks Gestation 0 Eighteen To Twenty Week Stephen Update Ultra Sound Date Fundal Height At Umbil Quickening Date Ultra Sound Latest Weeks Gestation Final Stephen Confirmed By Final Stephen Confirmed Date Final Stephen Date Ultra Sound Latest Days Gestation 0 0 Menstrual History Last Menstrual Date Menses Monthly On Bcp Conception Prior Menses Frequency Hcg Plus Date Menarche Onset Age Delivery Information Delivery Date Delivery Type Labor Anesthesia Weeks Gestation Incision Type Labor Labor Length Hrs Delivered By Post Complications Tubal Sterilization Discharge Date Comments 1 Discharge Information Feeding Method Contraceptive Method Maternal HG B and HCT Levels Ob Episode Information Episode Created Date Number of Fetuses Patient Bloodtype Patient rh Status Prepregnancy Weight lbs Domestic Partner Domestic Partner Phone Father Name Cvt Rn Status 03/07/20 22 1 CLOSED Fetus Data First Name Last Name Admitted to [facility] Weight (g) Sex Living Outcome Pediatric Complications Fetus ID Race Codes Race Delivery Type F [id number] Vaginal Delivery Stephen Calculation Initial Stephen Date Initial Exam Date Initial Exam Provider Initial Ultrasound Date Last Menstrual Period Date Ultra Sound Weeks Gestation 0 Eighteen To Twenty Week Stephen Update Ultra Sound Date Fundal Height At Umbil Quickening Date Ultra Sound Latest Weeks Gestation Final Stephen Confirmed By Final Stephen Confirmed Date Final Stephen Date Ultra Sound Latest Days Gestation 0 0 Menstrual History Last Menstrual Date Menses Monthly On Bcp Conception Prior Menses Frequency Hcg Plus Date Menarche Onset Age Delivery Information Delivery Date Delivery Type Labor Anesthesia Weeks Gestation Incision Type Labor Labor Length Hrs Delivered By Post Complications Tubal Sterilization Discharge Date Comments 9 Discharge Information Feeding Method Contraceptive Method Maternal HG B and HCT Levels
--- OUTSIDE RECORDS SUMMARY | 2024-08-09 01:06 | XMS_ITS | Referral Summary ---
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 [facility] Neuro Psychology [address] [place] [id number] Rebecca Ambrose, PhD Memory impairment from Last 3 Months Allergies No known active allergies Medications metoclopramide (REGLAN) 10 mg tabletIndicatio ns:Nausea and Vomiting Take 1 tablet (10 mg total) by mouth 3 (three) times a day as needed (nausea/vomit ing) 30 tablet 04/13/2022 Active multivitamin with folic acid 400 mcg tablet Take 1 tablet by mouth daily Active propranoloL (INDERAL) 40 mg tablet Take 1 tablet (40 mg total) by mouth 2 (two) times a day 60 tablet 07/14/2022 Active oxybutynin XL (DITROPAN-XL) 10 mg 24 hr tablet Take 1 tablet (10 mg total) by mouth daily Active sucralfate (CARAFATE) 1 gram tablet Take 1 tablet (1 g total) by mouth 4 (four) times a day Active traZODone (DESYREL) 50 mg tablet Take 1 tablet (50 mg total) by mouth nightly as needed 09/12/2022 Active cholecalciferol (VITAMIN D-3) 2000 unit capsule Take 1 capsule (2,000 Units total) by mouth daily 30 capsule 11 10/16/2022 Active loratadine (CLARITIN) 10 mg tablet Take 1 tablet (10 mg total) by mouth daily Active folic acid (FOLVITE) 1 mg tablet Take 1 tablet (1 mg total) by mouth daily 30 tablet 11/19/2022 Active dextromethorpha n-bupropion (Auvelity) 45-105 mg tablet, IR & ER, biphasic Take 1 tablet by mouth as directed 1 tablet daily x 7 days then increase to 1 tablet twice daily Active [id number] rb-[id number] 1000-130(40-80) mg capsule Take 1 capsule by mouth daily Active LORazepam (ATIVAN) 0.5 mg tablet Take 1 tablet (0.5 mg total) by mouth nightly Active promethazine (PHENERGAN) 25 mg tablet Take 0.5 tablets (12.5 mg total) by mouth 2 (two) times a day as needed for nausea or vomiting Active scopolamine 1 mg over 3 days patch 3 dayIndications: Motion Sickness Place 1 patch on the skin every third day as needed Active thiamine (VITAMIN B1) 100 mg tabletIndicatio ns:Thiamine Deficiency Take 1 tablet (100 mg total) by mouth daily for 30 doses 30 tablet 12/20/[address] (PROTONIX) 40 mg EC tabletIndicatio ns:Treatment of Non-Bleeding Gastric Disorder Take 1 tablet (40 mg total) by mouth 2 (two) times a day 60 tablet 12/20/2022 Active chlordiazePOXID E (LIBRIUM) 5 mg capsule Take 1 capsule (5 mg total) by mouth 2 (two) times a day for 1 day, THEN 1 capsule (5 mg total) daily for 1 day. 3 capsule 12/20/2022 Active Active Problems Problem Noted Date Diagnosed Date Memory impairment 11/28/2023 Hypokalemia 12/20/2022 Serum total bilirubin elevated 12/20/2022 Alcoholic liver disease 12/20/2022 Neutrophilia 12/20/2022 Hypomagnesemia 12/17/2022 Hypocalcemia 12/17/2022 Alcohol withdrawal syndrome without complication 10/12/2022 High anion gap metabolic acidosis 08/11/2022 Essential hypertension 08/11/2022 Alcohol withdrawal 07/11/2022 Nausea and vomiting 05/30/2022 Alcohol withdrawal syndrome, uncomplicated 05/17 Alcohol withdrawal syndrome with complication Anxiety and depression 01/26/2022 Alcohol withdrawal syndrome with perceptual dist urbance 01/26/2022 Breast pain 04/27/2015 Fibroadenoma of breast 05/26/2014 Abnormal mammogram 04/17/2013 Hyponatremia Hypokalemia Hypercalcemia Hypophosphatemia Gastroesophageal reflux disease without esophagi tis Thrombocytopenia Normocytic normochromic anemia Chronic alcohol abuse Hyperglycemia Class 2 obesity due to exces s calories without serious comorbidity with body mass index (BMI) of 37.0 to 37.9 in adult Immunizations Name Administration Dates Next Due Influenza, Quadrivalent, Spl it, Preservative Free, Intramuscular 05/19/2022 Social History Tobacco Use Types Packs/Day Years Used Date Smoking Tobacco: Never Smokeless Tobacco: Never Tobacco Cessation:Counseling Given: Not Answered Alcohol Use Standard Drinks/Week Comments Yes 8 (1 standard drink = 0.6 oz pur e alcohol) Social Connection and Isolat ion Panel [NHANES] Answer Date Recorded In a typical week, how many times do you talk on the phone with family, friends, or neighbors? More than three times a week 12/19/2022 How often do you get togethe r with friends or relatives? More than three times a week 12/19/2022 How often do you attend chur or yarsanism services? Never 12/19/2022 Do you belong to any clubs o r organizations such as presybeterian groups, unions, fraternal or athletic groups, or school groups? Yes 12/19/2022 How often do you attend meet ings of the clubs or organizations you belong to? More than 4 times per year 12/19/2022 Are you , , di vorced, , never , or living with a partner? 12/19/2022 AUDIT-C Answer Date Recorded Q1: How often do you have a drink containing alcohol? 4 or more times a week 10/12/2022 Q2: How many drinks containi ng alcohol do you have on a typical day when you are drinking? 3 or 4 Q3: How often do you have si x or more drinks on one occasion? Weekly 10/12/2022 Overall Financial Resource Strain (CARDIA) Answe r Date Recorded How hard is it for you to pa y for the very basics like food, housing, medical care, and heating? Not hard at all 12/19/2022 Hunger Vital Sign Answer Date Recorded Within the past 12 months, y ou worried that your food would run out before you got the money to buy more. Never true 12/20/19 23 Within the past 12 months, t he food you bought just didn't last and you didn't have money to get more. Never true 12/19/2022 PRAPARE - Transportation Answer Date Re corded In the past 12 months, has l ack of transportation kept you from medical appointments or from getting medications? No 11/2022 In the past 12 months, has l ack of transportation kept you from meetings, work, or from getting things needed for daily living? No 12/19/2022 Housing Stability Vital Sign Answer Chinmay e Recorded In the last 12 months, was t here a time when you were not able to pay the mortgage or rent on time? No 12/19/2022 In the last 12 months, how many places have you lived? 2 12/19/2022 In the last 12 months, was t here a time when you did not have a steady place to sleep or slept in a half-way (including now)? No 12/19/2022 Personal Safety Answer Date Recorded Have you ever been in or are you currently in a harmful physical or emotional relationship or is someone making you feel afraid or unsafe? 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 Gender Identity Not on file Sexual Orientation Not on file Last Filed Vital Signs Vital Sign Reading Time Taken Comments Blood Pressure 114/77 11/28/2023 1:33 PM CDT Pulse 76 11/28/2023 1:33 PM CDT Temperature 36.9 ??C (98.5 ??F) 12/20/2022 7:00 AM CD T Respiratory Rate 17 12/20/2022 7:00 AM CDT Oxygen Saturation 99% 12/20/2022 7:00 AM CDT Inhaled Oxygen Concentration - - Weight 91.4 kg (201 lb 6.4 oz) 11/28/2023 1:33 P M CDT Height 157.5 cm (5' 2 ) 11/28/2023 1:33 PM CDT Body Mass Index 36.84 11/28/2023 1:33 PM CDT Plan of Treatment Not on file Procedures Procedure Name Priority Date/Time Associated Diagnosis Comments DIAGNOSTIC MAMMOGRAM BILATERAL W EDUAR Routine 04/29/2015 3:02 PM CDT from Last 3 Months or Most Recently Relevant to Health Maintenance Results * Diagnostic Mammogram Bilateral W Eduar (04/29/2015 3:02 PM CDT) Anatomical Region Laterality Modality Breast Bilateral Mammography 04/29/2015 3:02 PM CDT Narrative 04/29/2015 3:57 PM CDT NIDA FORTE M.D. REBECCA HILL M.D. FINAL REPORT The radiology attending physician has personally reviewed this study, and has reviewed and/or edited this written report and agrees with it. ACC# ??Date Time ??Exam [id number] Apr 29, 2015 15:02:00 [facility] [id number] Diag Mammogram Bilateral ?? Technologist(s): Angelica Gorman; ; [id number] Apr 29, 2015 15:02:00 [facility] [id number] Dig Breast Eduar Johnnie [id number] Apr 29, 2015 15:11:00 [facility] [id number] Breast US unilateral, ltd R EXAMINATION: ?? BILATERAL FULL FIELD DIGITAL DIAGNOSTIC MAMMOGRAM WITH CAD AND DIGITAL BREAST TOMOSYNTHESIS AND RIGHT BREAST ULTRASOUND HISTORY: 44-year-old woman with 2 week history of right breast pain. MAMMOGRAM TECHNIQUE: ??Full field digital craniocaudal and mediolateral oblique views of both breasts were obtained. ??Computer Aided Detection was performed with BlueMessaging.3 version 9.3. ??Digital breast tomosynthesis was performed and reviewed as a part of this examination. COMPARISON: 05/26/2014, 04/24/2013, and 04/22/2013. BREAST PARENCHYMAL COMPOSITION: The breasts are heterogeneously dense, which may obscure small masses. MAMMOGRAPHIC FINDINGS: Triangular marker overlies the reported site of breast tenderness in the upper outer LEFT breast. No suspicious abnormality is confirmed at this location. BILATERAL breast are normal. RIGHT BREAST ULTRASOUND: Directed ultrasound of the upper outer quadrant of the right breast was performed. Multiple small cysts, measuring 3 mm or less, are located within the glandular tissue at the site of patient's tenderness. There is no suspicious abnormality in the right breast. IMPRESSION: ?? Multiple, small, benign-appearing cysts are located within the glandular tissue at the site of patient's tenderness in the upper outer quadrant of the RIGHT breast. No suspicious abnormality in the RIGHT breast. OVERALL FINAL ASSESSMENT: BI-RADS Category 2: Benign finding. RECOMMENDATION: Return for annual BILATERAL screening mammogram in April 2016. Requested By: Dictated By: ?? REBECCA HILL M.D. ??on Apr 29 2015 ??3:36P This document has been electronically signed by: NIDA FORTE M.D. on Apr 29 2015 ??3:56P [id number] Procedure Note Provider, MD Dawn - 11/19/2016 NIDA FORTE M.D. REBECCA HILL M.D. FINAL REPORT The radiology attending physician has personally reviewed this study, and has reviewed and/or edited this written report and agrees with it. ACC# Date Time Exam [id number] Apr 29, 2015 15:02:00 [facility] [id number] Diag Mammogram Bilateral Technologist(s): Angelica Gorman; ; [id number] Apr 29, 2015 15:02:00 [facility] 39534 Dig Breast Eduar Johnnie [id number] Apr 29, 2015 15:11:00 [facility] [id number] Breast US unilateral, ltd R EXAMINATION: BILATERAL FULL FIELD DIGITAL DIAGNOSTIC MAMMOGRAM WITH CAD AND DIGITAL BREAST TOMOSYNTHESIS AND RIGHT BREAST ULTRASOUND HISTORY: 44-year-old woman with 2 week history of right breast pain. MAMMOGRAM TECHNIQUE: Full field digital craniocaudal and mediolateral oblique views of both breasts were obtained. Computer Aided Detection was performed with BlueMessaging.3 version 9.3. Digital breast tomosynthesis was performed and reviewed as a part of this examination. COMPARISON: 05/26/2014, 04/24/2013, and 04/22/2013. BREAST PARENCHYMAL COMPOSITION: The breasts are heterogeneously dense, which may obscure small masses. MAMMOGRAPHIC FINDINGS: Triangular marker overlies the reported site of breast tenderness in the upper outer LEFT breast. No suspicious abnormality is confirmed at this location. BILATERAL breast are normal. RIGHT BREAST ULTRASOUND: Directed ultrasound of the upper outer quadrant of the right breast was performed. Multiple small cysts, measuring 3 mm or less, are located within the glandular tissue at the site of patient's tenderness. There is no suspicious abnormality in the right breast. IMPRESSION: Multiple, small, benign-appearing cysts are located within the glandular tissue at the site of patient's tenderness in the upper outer quadrant of the RIGHT breast. No suspicious abnormality in the RIGHT breast. OVERALL FINAL ASSESSMENT: BI-RADS Category 2: Benign finding. RECOMMENDATION: Return for annual BILATERAL screening mammogram in April 2016. Requested By: Dictated By: REBECCA HILL M.D. on Apr 29 2015 3:36P This document has been electronically signed by: NIDA FORTE M.D. on Apr 29 2015 3:56P [id number] [facility] Provider MD YOUNG MAMMO PROCEDURES Elisa l Result from Last 3 Months or Most Recently Relevant to Health Maintenance Insurance Availendar [facility] FEDERAL [facility] FEDERAL Advance Directives For more information, please contact: [phone] * Full Code (Latest Code Status on File) Date Activated Date Inactivated Comments 12/17/2022 2:36 PM 12/20/2022 3:55 PM * Full Code Date Activated Date Inactivated Comments 11/17/2022 10:12 AM 11/19/2022 6:06 PM * Full Code Date Activated Date Inactivated Comments 08/11/2022 12:24 PM 08/13/2022 9:59 PM * Full Code Date Activated Date Inactivated Comments 07/11/2022 7:21 PM 07/14/2022 6:23 PM * Full Code Date Activated Date Inactivated Comments 05/31/2022 6:56 AM 06/04/2022 10:42 PM Care Teams Overhead Foreman Relationship Specialty Start Date End Date Cristopher Rivas MD [address] [facility] [address] [place] [address] PCP - General Family Medicine 01/26/22
--- OUTSIDE RECORDS SUMMARY | 2024-08-09 01:06 | XMS_ITS ---
Author Organization [facility] [employer] [email or web address] Address [address] [facility] [address] [facility] [address] [place] [address] Care Team Providers Care Client Support Coordinator Name Role Phone Cristopher Rivas MD Primary Care Provider UnavailDevang Robert Unavailable [phone] REASON FOR VISIT Refill request Medications Medication SIG (Take, Route, Frequency, Duration) Notes Start Date End Date Status Amphetamine-Dextroamphet ER 30 MG 1 capsule in the morning Orally Once a day for 30 days 07/23/2024 Active Social History Sex Assigned At : Social History Observation Description Sex Assigned At Unknown Encounters Encounter Location Date Provider Diagnosis [facility] [employer] [facility] [address] [facility] [address] [facility] [address] [place] [address] 07/23/2024 Devang Neff ADHD (attention defi cit hyperactivity disorder), combined type F90.2 Assessments Encounter Date Diagnosis (ICD Code) Assessment Notes Treatment Notes Treatment Clinical Notes Section Notes 07/23/2024 ADHD (attention deficit hyperactivity disorder), combined type (ICD-10 - F90.2) Plan Of Treatment Medication Medication Name Sig Start Date Stop Date Notes Amphetamine-Dextroamphet ER 30 MG 1 capsule in the morning Orally Once a day for 30 days 07/23/2024 Next Appt Details Provider Name:Devang pagan, 09/05/2024 04:45:00 PM, [address], [place], [address], Progress Notes * KIRK COOKOB:[birth year] (53 yo F)Acc No.[id number]:07/23/2024 Patient:?EVERT COOK :1970???Age:53 Y???Sex:Female Address:[address] , [place], [address] * Refills? Refill Amphetamine-Dextroamphet ER Capsule Extended Release 24 Hour, 30 MG, Orally, 30, 1 capsule in the morning, Once a day, 30 days, Refills=0 Subjective: * Chief Complaints: * ???Refill request * Medical History:? * Surgical History:? * Hospitalization/Major Diagno stic Procedure:? * Medications:? Objective: * Vitals:? * Physical Examination:? Assessment: * Assessment: 1.?ADHD (attention deficit h yperactivity disorder), combined type - F90.2??? Plan: * Treatment: * Procedure Codes:?ERX CONTROL LED SUBSTANCE ERX * true * Date:? Generated for Eloy zhong/Angela/eTransmitting on:?08/09/2024 01:06 AM SUPERVISORY TRAINING SPECIALIST
--- OUTSIDE RECORDS SUMMARY | 2024-08-09 01:06 | XMS_ITS ---
Author Organization [facility] [employer] Address [address] [facility] [address] [facility] [address] [place] [address] Care Team Providers Care Travel Nurse Name Role Phone Cristopher Rivas MD Primary Care Provider UnavailDevang Robert Unavailable [phone] REASON FOR VISIT Request for anxiety medication to resume Medications Medication SIG (Take, Route, Fr equency, Duration) Notes Start Date End Date Status busPIRone HCl 7.5 MG 1 tablet Orally Twi ce a day for 30 days 08/06/2024 2024 Active Social History Sex Assigned At : Social History Observation Description Sex Assigned At Unknown Encounters Encounter Location Date Provider Diagnosis [facility] [employer] [facility] [address] [facility] [address] [place] [address] 08/05/2024 Devang Neff Generalized anxiety disorder F41.1 Assessments Encounter Date Diagnosis (ICD Code) Assessment Notes Treatment Notes Treatment Clinical Notes Section Notes 08/05/2024 Generalized anxiety disorder (ICD-10 - F41.1) Plan Of Treatment Medication Medication Name Sig Start Date Stop Date Notes busPIRone HCl 7.5 MG 1 tablet Orally Twi ce a day for 30 days 08/06/2024 2024 Next Appt Details Provider Name:Devang pagan, 09/05/2024 04:45:00 PM, [address], [place], [address], Progress Notes * KIRK COOKOB:[birth year] (53 yo F)Acc No.[id number]:08/05/2024 Patient:?EVERT COOK :1970???Age:53 Y???Sex:Female Address:[address] , [place], [address] * Refills? Start busPIRone HCl Tablet, 7.5 MG, Orally, 60 Tablet, 1 tablet, Twice a day, 30 days, Refills=1 Subjective: * Chief Complaints: * ???Request for anxiety medic ation to resume * Medical History:? * Surgical History:? * Hospitalization/Major Diagno stic Procedure:? * Medications:? Objective: * Vitals:? * Physical Examination:? Assessment: * Assessment: 1.?Generalized anxiety disor roberto - F41.1 (Primary)??? Plan: * Treatment: * Procedure Codes:? * true * Date:? Generated for Eloy zhong/Angela/Jayden on:?08/09/2024 01:06 AM RN CHARGE
--- OUTSIDE RECORDS SUMMARY | 2024-08-09 01:06 | XMS_ITS | Clinical Summary ---
Author Organization [facility] Care Team Providers Care Cardio Tech Name Role Phone Unavailable Primary Care Provider Unavailabl e Social History Tobacco Use Types Packs/Day Years Used Date Smoking Tobacco: Never Assessed Comments Unknown Sex and Gender Information Value Date Recorded Sex Assigned at Not on file Legal Sex Female 9:19 AM SHOE SHINER Gender Identity Not on file Sexual Orientation Not on file Plan of Treatment Health Maintenance Due Date Last Done Comments Hepatitis C Virus (HCV) Screening 1970 TdaP Immunization 1970 Hepatitis B Immunization (1 of 3 - 19+ 3-dose series) 1989 Pap Smear 10/06/1991 Cervical Cancer Screening (CCS) 2000 HPV/Cotest 2000 Colonoscopy 10/06/2015 Colorectal Cancer Screening 10/06/2015 Cologuard 2020 Immunochemical Fecal Occult Blood 2020 Mammogram 2020 Pneumococcal Immunization (5 0+ years) (1 of 1 - PCV) 2020 Zoster Immunization (1 of 2) 2020 Influenza Immunization (#1) 2024 04/29/2021 SARS-COV-2 Immunization (2 - season) 2024 08/01/2021 Respiratory Syncytial Virus (RSV) Immunization (Adult) (1 - 1-dose 75+ series) 2045 Meningococcal Immunization (ACWY) Aged Out No longer eligible based on patient's age to complete this topic Pneumococcal Immunization Combined Aged Out No longer eligible based on patient's age to complete this topic Rotavirus Immunization Aged Out No lo nger eligible based on patient's age to complete this topic
--- OUTSIDE RECORDS SUMMARY | 2024-08-09 01:06 | XMS_ITS | Clinical Summary ---
Author Organization [facility] Address [address] [place] [address] Care Team Providers Care Data Migration Consultant Name Role Phone Cristopher Rivas MD Primary Care Provider Allergies No known active allergies Medications metoclopramide [...] increase to 1 tablet twice daily Active usxvj-id6-lrw-e do-jx5-ztm-astx 1000-130(40-80) mg capsule Take 1 capsule by [...] (BMI) of 37.0 to 37.9 in adult Encounters Date Type Department Care Team Description 05/22/2024 8:00 AM MANNEQUIN REFINISHER Clinical Support [facility] Psychology [address] [place] [address] Rebecca Ambrose, PhD Memory impairment from Last 3 Months Immunizations Name Administration Dates Next Due Influenza, Quadrivalent, Spl it, Preservative Free, Intramuscular 05/19/2022 Medical History Medical History Date Comments Personal history of other sp ecified conditions History of breast disorder - (Added by TW Conv) Anxiety Alcohol withdrawal (HCC) Nonsmoker for personal reasons Family History Medical History Relation Name Comments Prostate cancer Father Prostate can cer - (Added by TW Conv) Relation Name Status Comments Father Social History Tobacco Use Types Packs/Day Years [...] 12/19/2022 How often do you attend chur ch or moravian services? Never 12/19/2022 Do you belong to any clubs o r organizations such as zoroastrianism groups, unions, fraternal or athletic groups, or [...] place to sleep or slept in a assisted (including now)? No 12/19/2022 Personal Safety Answer Date Recorded Have you ever been in or are you currently in a harmful physical or emotional relationship or is someone making you feel afraid or unsafe? Denies 12/17/2022 Comments No Sex and Gender Information Value Date Recorded Sex Assigned at Not on file Legal Sex Female 3:39 AM MANNEQUIN REFINISHER Gender Identity Not on file Sexual Orientation Not on file Obstetrics History Last Filed Vital Signs Vital Sign Reading [...] 11/28/2023 1:33 PM CDT Plan of Treatment Health Maintenance Due Date Last Done Comments Cervical Cancer Screening 1970 Colon Cancer Screening-Colonoscopy 1970 Depression Screening 1970 Hepatitis C Screening 1970 Pneumococcal vaccine <65 (1 of 2 - PCV) 1976 DTaP/Tdap/Td Vaccine (1 - Tdap) 1981 Hepatitis B Screening 1988 Regular Well Visit/Exam 18-64 1988 Zoster Vaccine (1 of 2) 1989 Breast Cancer Screening-Mammogram 04/29/2016 04/29/2015, 05/26/2014, 04/22/2013 Covid-19 Vaccine (3 - 2023-2 5 season) 2024 08/01/2021, 01/01/2021 Influenza Vaccine (#1) 2024 , 04/29/2021, 08/06/2020, Additional history exists Procedures Procedure Name Priority Date/Time Associated Diagnosis [...] agrees with it. ACC# ??Date Time ??Exam [id number] Apr 29, 2015 15:02:00 [facility] [address] Diag Mammogram Bilateral ?? Technologist(s): Angelica Gorman; ; [id number] Apr 29, 2015 15:02:00 [facility] [address] Dig Breast Eduar Johnnie [id number] Apr 29, 2015 15:11:00 [facility] [address] Breast US unilateral, ltd R EXAMINATION: ?? BILATERAL FULL FIELD DIGITAL DIAGNOSTIC MAMMOGRAM WITH CAD AND DIGITAL BREAST TOMOSYNTHESIS AND RIGHT BREAST ULTRASOUND HISTORY: 44-year-old woman with 2 week history of right breast pain. MAMMOGRAM TECHNIQUE: ??Full field digital craniocaudal and mediolateral oblique views of both breasts were obtained. ??Computer Aided Detection was performed with BigSwerve3 version 9.3. ??Digital breast tomosynthesis was performed [...] FORTE M.D. on Apr 29 2015 ??3:56P [id number] Procedure Note Provider, MD Dawn - 11/19/2016 NIDA FORTE M.D. REBECCA HILL M.D. FINAL REPORT The radiology attending physician has personally reviewed this study, and has reviewed and/or edited this written report and agrees with it. [facility]# Date Time Exam [id number] Apr 29, 2015 15:02:00 [facility] [address] Diag Mammogram Bilateral Technologist(s): Angelica Gorman; ; [id number] Apr 29, 2015 15:02:00 [facility] [address] Dig Breast Eduar Johnnie [id number] Apr 29, 2015 15:11:00 [facility] [address] Breast US unilateral, ltd R EXAMINATION: BILATERAL FULL FIELD DIGITAL DIAGNOSTIC MAMMOGRAM WITH CAD AND DIGITAL BREAST TOMOSYNTHESIS AND RIGHT BREAST ULTRASOUND HISTORY: 44-year-old woman with 2 week history of right breast pain. MAMMOGRAM TECHNIQUE: Full field digital craniocaudal and mediolateral oblique views of both breasts were obtained. Computer Aided Detection was performed with Gravity Jack.3 version 9.3. Digital breast tomosynthesis was performed [...] FORTE M.D. on Apr 29 2015 3:56P [id number] us Historical Provider MD YOUNG MAMMO PROCEDURES Elisa l Result from Last 3 Months or Most Recently Relevant to Health Maintenance Insurance [email or web address] [facility] [employer] [facility] [employer] Advance Directives For more information, please contact: [phone] * Full Code (Latest Code Status on [...] 6:56 AM 06/04/2022 10:42 PM Care Teams Data Migration Consultant Relationship Specialty Start Date End Date Cristopher Rivas MD [address] [address] PCP - General Family Medicine 01/26/22
--- OUTSIDE RECORDS SUMMARY | 2024-08-09 01:06 | XMS_ITS | Clinical Summary ---
Author Organization [facility] Address [address] [facility] [place], [place] [address] [place] [address] Care Team Providers Care Machine Operator Hay Stacker Name Role Phone Cristopher Rivas MD Primary Care Provider [phone] Allergies Active Allergy Reactions Criticality Noted Date Comments Cefixime GI Bleed 02/25/2023 Medications vitamin D2, ergocalciferol, (DRISDOL) 1.25 mg capsule Take 1 capsule (1.25 mg total) by mouth. Active B vadgqha-R-xfjzh acid 0.8 mg (DIALYVITE/NEPH RO-LISA) Tab tablet Take 1 tablet by mouth daily. Active propranolol (INDERAL) 40 MG tablet Take 1 tablet (40 mg total) by mouth 2 (two) times daily. Active docusate sodium (COLACE) 100 MG capsule Take 1 capsule (100 mg total) by mouth 2 (two) times daily. Active traZODone (DESYREL) 50 MG tablet Take 1 tablet (50 mg total) by mouth nightly at bedtime. Active Dextromethorpha n-buPROPion ER (AUVELITY) 45-105 MG Tab CR Take 1 tablet by mouth 2 (two) times a day. Active cetirizine (ZYRTEC) 10 MG tablet Take 1 tablet (10 mg total) by mouth daily. Active B Complex-C Tab tablet Take 1 tablet by mouth daily. Active magnesium oxide (MAG-OX) 400 (240 Mg) MG tablet Take 1 tablet (400 mg total) by mouth nightly. Active hydrOXYzine (ATARAX) 50 MG tablet Take 1 tablet (50 mg total) by mouth 3 (three) times daily as needed for Itching. Active oxybutynin XL (DITROPAN-XL) 10 MG 24 hr tablet Take 1 tablet (10 mg total) by mouth daily. Active promethazine (PHENERGAN) 12.5 MG tablet Take 1 tablet (12.5 mg total) by mouth every 12 (twelve) hours. Active Social History Tobacco Use Types Packs/Day Years Used Date Smoking Tobacco: Never Passive Smoke Exposure: Never Smokeless Tobacco: Never Tobacco Cessation:Counseling Given: No Alcohol Use Standard Drinks/Week Comments Not Currently 0 (1 standard drink = 0.6 oz pur e alcohol) 72 days sober Comments Unknown Sex and Gender Information Value Date Recorded Sex Assigned at Not on file Legal Sex Female 9:55 PM CDT Gender Identity Not on file Sexual Orientation Not on file Last Filed Vital Signs Vital Sign Reading Time Taken Comments Blood Pressure 156/111 02/26/2023 2:00 AM CDT Pulse 72 02/25/2023 10:05 PM CDT Temperature 36.8 ??C (98.2 ??F) 02/25/2023 10:05 PM C DT Respiratory Rate 16 02/25/2023 10:05 PM CDT Oxygen Saturation 100% 02/26/2023 2:00 AM CDT Inhaled Oxygen Concentration - - Weight 88.9 kg (196 lb) 02/25/2023 10:05 PM CDT Height 157.5 cm (5' 2 ) 02/25/2023 10:05 PM CDT Body Mass Index 35.85 02/25/2023 10:05 PM CDT Plan of Treatment Health Maintenance Due Date Last Done Comments Colorectal Cancer Screening Colonoscopy (10 Years) 1970 Annual Physical 1973 Hepatitis C 1988 DTaP, Tdap and Td Vaccines ( 1 - Tdap) 1989 Hepatitis B Vaccines (1 of 3 - 19+ 3-dose series) 1989 Cervical Cancer Screening Pa p with HPV Testing (Age 30 to 64) Every 5 Years 2000 Mammogram Screening 2010 Zoster Vaccines (1 of 2) 2020 COVID-19 Vaccine ( - 2023-2 5 season) 2024 07/18/2022, 08/01/2021 Influenza Adult (#1) 2024 05/19/2022, 04/29/2021, 05/16/2013 Cervical Cancer Screening Pa p Smear (Age 30 to 64) Every 3 Years 03/09/2025 03/09/2022 Cervical Cancer Screening wi th HPV 03/09/2025 Meningococcal Vaccine Aged Out No nazario justin eligible based on patient's age to complete this topic Pneumococcal Vaccine: Pediatrics (0 to 5 Years) and At-Risk Patients (6 to 64 Years) Aged Out No longer eligible b ased on patient's age to complete this topic RSV Immunizations Under 20 Months Aged Out No longer eligible b ased on patient's age to complete this topic Insurance Care Teams Machine Operator Hay Stacker Relationship Specialty Start Date End Date Cristopher Rivas MD [address] [place] [address] PCP - General FAMILY PRACTICE 02/25/23
--- OUTSIDE RECORDS SUMMARY | 2024-08-09 01:07 | XMS_ITS ---
Author Organization [facility] [place] Address [address] [place] [address] Care Team Providers Care Journeyman Pressman Name Role Phone Cristopher Rivas MD Primary Care Provider UnavailDevang Robert Unavailable [phone] Allergies Allergen (clinical drug ingredient) Drug/Non Drug Allergy documented on EMR Reaction Allergy Type Onset Date Status cefixime Suprax Unknown Drug Allergy 09/28/2023 Active REASON FOR VISIT follow up visit, medication evaluation Medications Medication SIG (Take, Route, Frequency, Duration) Notes Start Date End Date Status Amphetamine-Dextroamphet ER 30 MG 1 capsule in the morning Orally Once a day for 30 days 06/05/2024 Active Vitamin D 50 MCG (1999) 1 tablet Oral ly Once a day Active traZODone HCl 50 MG 2 tablets at bedtime as needed by mouth for 30 days 09/28/2023 Active LORazepam 0.5 MG 1 tablet Oral Once a day for 10 days As needed 06/05/2024 Active Ondansetron HCl 4 MG 1 tablet Orally four times a day for 14 days As needed 05/15/2024 Active Promethazine HCl 12.5 MG Oral 09/28/2023 Active oxyBUTYnin Chloride ER 10 MG Oral 09/28/2023 Active Scopolamine 1 MG/3DAYS Transdermal 09/28/2023 Active Multivitamin - 1 tablet Orally Once a day 03/07/2024 Active Magnesium 250 MG 1 tablet with a meal Orally Once a day 03/07/2024 Active Social History Tobacco Use: Social History Observation Description Date Details (start date - stop date) Former Smoker NA - NA Sex Assigned At : Social History Observation Description Sex Assigned At Unknown Tobacco Control (Standard) Question Answer Notes Tobacco use: Former smoker Vital Signs Blood pressure systolic 161 mm Hg 06/05/20 24 Blood pressure diastolic 104 mm Hg 024 Heart Rate 109 /min 06/05/2024 Height 62.00 in 06/05/2024 Weight 195.0 lbs 06/05/2024 BMI 35.66 kg/m2 06/05/2024 Height-cm 157.48 cm 06/05/2024 Weight-kg 88.45 kg 06/05/2024 Encounters Encounter Location Date Provider Diagnosis [facility] [address] [place] [address] 06/05/2024 Devang Neff Generalized anxiety disorder F41.1 ; Major depressive disorder, recurrent, mild F33.0 ; Alcohol abuse, in remission F10.11 ; Insomnia due to other mental disorder F51.05 and ADHD (attention deficit hyperactivity disorder), combined type F90.2 Assessments Encounter Date Diagnosis (ICD Code) Assessment Notes Treatment Notes Treatment Clinical Notes Section Notes 06/05/2024 Generalized anxiety disorder (ICD-10 - F41.1) 1. Memory and cognitive concerns - Patient reports difficulty recalling specific details from past work experiences. - Recent neuropsychological testing at [facility] showed normal results. Plan: - Continue monitoring cognitive function and memory. - Encourage patient to discuss concerns with their therapist. 2. Work-related stress and anxiety - Patient reports increased stress and anxiety due to work-related issues, including filing an ethical complaint and potential retaliation. - Patient has increased therapy sessions to twice a week. Plan: - Continue therapy sessions and support from sponsor. - Refill lorazepam prescription (10 tablets) for situational use as needed. 3. Blood pressure management - Patient reports elevated blood pressure readings, with systolic in the 120s and diastolic consistently above 90. - Patient has a history of kidney issues. Plan: - Initiate propranolol for anxiety and blood pressure management. - Follow up with Dr. Rivas for further blood pressure management and potential alternative medications. - Monitor kidney function through regular lab tests. 4. Sleep disturbances - Patient reports occasional sleep disturbances related to stress. - Patient has previously used hydroxyzine for sleep in rehab. Plan: - Consider hydroxyzine for situational use if sleep disturbances worsen or become more frequent. - Encourage patient to maintain good sleep hygiene and discuss sleep concerns with their therapist. 5. ADHD management - Patient is currently on Adderall and reports improvement in symptoms. Plan: - Refill Adderall prescription as needed. - Continue monitoring ADHD symptoms and medication effectiveness. 6. Sobriety and recovery - Patient reports successful sobriety and participation in a book club. - Patient has a strong support system, including a sponsor and therapist. Plan: - Encourage patient to continue engaging in recovery activities and maintaining sobriety. - Monitor patient's emotional well-being and provide support as needed. 06/05/2024 Major depressive disorder, recurrent, mild (ICD-10 - F33.0) 1. Memory and cognitive concerns - Patient reports difficulty recalling specific details from past work experiences. - Recent neuropsychological testing at [facility] showed normal results. Plan: - Continue monitoring cognitive function and memory. - Encourage patient to discuss concerns with their therapist. 2. Work-related stress and anxiety - Patient reports increased stress and anxiety due to work-related issues, including filing an ethical complaint and potential retaliation. - Patient has increased therapy sessions to twice a week. Plan: - Continue therapy sessions and support from sponsor. - Refill lorazepam prescription (10 tablets) for situational use as needed. 3. Blood pressure management - Patient reports elevated blood pressure readings, with systolic in the 120s and diastolic consistently above 90. - Patient has a history of kidney issues. Plan: - Initiate propranolol for anxiety and blood pressure management. - Follow up with Dr. Rivas for further blood pressure management and potential alternative medications. - Monitor kidney function through regular lab tests. 4. Sleep disturbances - Patient reports occasional sleep disturbances related to stress. - Patient has previously used hydroxyzine for sleep in rehab. Plan: - Consider hydroxyzine for situational use if sleep disturbances worsen or become more frequent. - Encourage patient to maintain good sleep hygiene and discuss sleep concerns with their therapist. 5. ADHD management - Patient is currently on Adderall and reports improvement in symptoms. Plan: - Refill Adderall prescription as needed. - Continue monitoring ADHD symptoms and medication effectiveness. 6. Sobriety and recovery - Patient reports successful sobriety and participation in a book club. - Patient has a strong support system, including a sponsor and therapist. Plan: - Encourage patient to continue engaging in recovery activities and maintaining sobriety. - Monitor patient's emotional well-being and provide support as needed. 06/05/2024 Alcohol abuse, in remission (ICD-10 - F10.11) 1. Memory and cognitive concerns - Patient reports difficulty recalling specific details from past work experiences. - Recent neuropsychological testing at [facility] showed normal results. Plan: - Continue monitoring cognitive function and memory. - Encourage patient to discuss concerns with their therapist. 2. Work-related stress and anxiety - Patient reports increased stress and anxiety due to work-related issues, including filing an ethical complaint and potential retaliation. - Patient has increased therapy sessions to twice a week. Plan: - Continue therapy sessions and support from sponsor. - Refill lorazepam prescription (10 tablets) for situational use as needed. 3. Blood pressure management - Patient reports elevated blood pressure readings, with systolic in the 120s and diastolic consistently above 90. - Patient has a history of kidney issues. Plan: - Initiate propranolol for anxiety and blood pressure management. - Follow up with Dr. Rivas for further blood pressure management and potential alternative medications. - Monitor kidney function through regular lab tests. 4. Sleep disturbances - Patient reports occasional sleep disturbances related to stress. - Patient has previously used hydroxyzine for sleep in rehab. Plan: - Consider hydroxyzine for situational use if sleep disturbances worsen or become more frequent. - Encourage patient to maintain good sleep hygiene and discuss sleep concerns with their therapist. 5. ADHD management - Patient is currently on Adderall and reports improvement in symptoms. Plan: - Refill Adderall prescription as needed. - Continue monitoring ADHD symptoms and medication effectiveness. 6. Sobriety and recovery - Patient reports successful sobriety and participation in a book club. - Patient has a strong support system, including a sponsor and therapist. Plan: - Encourage patient to continue engaging in recovery activities and maintaining sobriety. - Monitor patient's emotional well-being and provide support as needed. 06/05/2024 Insomnia due to other mental disorder (ICD-10 - F51.05) Cont Trazodone 50mg hs prn 1. Memory and cognitive concerns - Patient reports difficulty recalling specific details from past work experiences. - Recent neuropsychological testing at [facility] showed normal results. Plan: - Continue monitoring cognitive function and memory. - Encourage patient to discuss concerns with their therapist. 2. Work-related stress and anxiety - Patient reports increased stress and anxiety due to work-related issues, including filing an ethical complaint and potential retaliation. - Patient has increased therapy sessions to twice a week. Plan: - Continue therapy sessions and support from sponsor. - Refill lorazepam prescription (10 tablets) for situational use as needed. 3. Blood pressure management - Patient reports elevated blood pressure readings, with systolic in the 120s and diastolic consistently above 90. - Patient has a history of kidney issues. Plan: - Initiate propranolol for anxiety and blood pressure management. - Follow up with Dr. Rivas for further blood pressure management and potential alternative medications. - Monitor kidney function through regular lab tests. 4. Sleep disturbances - Patient reports occasional sleep disturbances related to stress. - Patient has previously used hydroxyzine for sleep in rehab. Plan: - Consider hydroxyzine for situational use if sleep disturbances worsen or become more frequent. - Encourage patient to maintain good sleep hygiene and discuss sleep concerns with their therapist. 5. ADHD management - Patient is currently on Adderall and reports improvement in symptoms. Plan: - Refill Adderall prescription as needed. - Continue monitoring ADHD symptoms and medication effectiveness. 6. Sobriety and recovery - Patient reports successful sobriety and participation in a book club. - Patient has a strong support system, including a sponsor and therapist. Plan: - Encourage patient to continue engaging in recovery activities and maintaining sobriety. - Monitor patient's emotional well-being and provide support as needed. 06/05/2024 ADHD (attention deficit hyperactivity disorder), combined type (ICD-10 - F90.2) 1. Memory and cognitive concerns - Patient reports difficulty recalling specific details from past work experiences. - Recent neuropsychological testing at [facility] showed normal results. Plan: - Continue monitoring cognitive function and memory. - Encourage patient to discuss concerns with their therapist. 2. Work-related stress and anxiety - Patient reports increased stress and anxiety due to work-related issues, including filing an ethical complaint and potential retaliation. - Patient has increased therapy sessions to twice a week. Plan: - Continue therapy sessions and support from sponsor. - Refill lorazepam prescription (10 tablets) for situational use as needed. 3. Blood pressure management - Patient reports elevated blood pressure readings, with systolic in the 120s and diastolic consistently above 90. - Patient has a history of kidney issues. Plan: - Initiate propranolol for anxiety and blood pressure management. - Follow up with Dr. Rivas for further blood pressure management and potential alternative medications. - Monitor kidney function through regular lab tests. 4. Sleep disturbances - Patient reports occasional sleep disturbances related to stress. - Patient has previously used hydroxyzine for sleep in rehab. Plan: - Consider hydroxyzine for situational use if sleep disturbances worsen or become more frequent. - Encourage patient to maintain good sleep hygiene and discuss sleep concerns with their therapist. 5. ADHD management - Patient is currently on Adderall and reports improvement in symptoms. Plan: - Refill Adderall prescription as needed. - Continue monitoring ADHD symptoms and medication effectiveness. 6. Sobriety and recovery - Patient reports successful sobriety and participation in a book club. - Patient has a strong support system, including a sponsor and therapist. Plan: - Encourage patient to continue engaging in recovery activities and maintaining sobriety. - Monitor patient's emotional well-being and provide support as needed. Plan Of Treatment Medication Medication Name Sig Start Date Stop Date Notes Amphetamine-Dextroamphet ER 30 MG 1 capsule in the morning Orally Once a day for 30 days 06/05/2024 LORazepam 0.5 MG 1 tablet Oral Once a day for 10 days 06/05/2024 Treatment Notes Assessment Notes Insomnia due to other mental disorder Co nt Trazodone 50mg hs prn Next Appt Details Follow Up: 2 Months, Reason: f/u adhd Provider Name:Devang pagan, 09/05/2024 04:45:00 PM, [address], [facility] [address], [place], [address], Progress Notes * KIRK COOKOB:[birth year] (53 yo F)Acc No.[id number]:06/05/2024 Patient:?NIKOLAI COOKILYN Provider:?NIGEL PRABHAKAR :1970???Age:53 Y???Sex:Female D ate:06/05/2024 Address:[address] [facility] Pcp:Cristopher Rivas MD Subjective: * Chief Complaints: * ???Follow up visit, medicati on evaluation * HPI: ???Depression Screening:? Chief complaint- Memory concerns, cognitive function issues, workplace stress. the note is transcribed using speech recognition software. It is a reflection of a visit with the patient. It might have some inaccuracy, including medication names and transcribing errors, though efforts have been made to correct them. The patient reports concerns about memory and cognitive function, stating that she has difficulty recalling specific details of her past work experiences. She mentions that this issue has affected her performance in a recent job interview. The patient denies any history of alcohol abuse during her time at her previous job. The patient is currently experiencing workplace stress and has filed an ethical complaint against her employer. She reports retaliation and has increased her therapy sessions to twice a week. The patient is considering resigning from her job if a remote work situation cannot be arranged. The patient has been maintaining sobriety and has joined a book club to support her recovery. She is in close contact with her sponsor and acknowledges that this is a trying time for her. She expresses concern about her blood pressure, which has been consistently high, with the diastolic number not dropping below 90. The patient is worried about the potential impact of high blood pressure on her kidneys. The patient reports that her anxiety is situational and not constant. She experiences difficulty controlling her emotions during periods of high stress, leading to uncontrollable laughter or tears. The patient has a prescription for lorazepam but has not been able to locate her remaining tablets. The patient has had recent lab work and a physical examination, with all results reported as normal. The patient's sleep is affected by stress, and her psychologist has suggested considering medication for sleep management. The patient has previously used hydroxyzine but does not feel the need for it at this time. ?NAYE-7 (2018 Edition)?Feeling nervous, anxious, or on edge?Several days,?Not being able to stop or control worrying?Not at all,?Worrying too much about different things?Several days,?Trouble relaxing?Not at all,?Being so restless that it is hard to sit still?Not at all,?Becoming easily annoyed or irritable?Several days,?Feeling afraid as if something awful might happen?Several days,?Total NAYE-7 Score?4,?If you checked any problems, how difficult have they made it for you to do your work, take care of things at home, or get along with other people??Very difficult,?Interpretation of Total?(0 to 4) No Anxiety.?[place]-Suicide Severity Rating Scale:?Suicide Risk (CSRS-screener)?in the past one month Have you wished you were or wished you could go to sleep and not wake up??No,?in the past one month Have you actually had any thoughts of killing yourself??No.?Depression screening:?PHQ-9?Little interest or pleasure in doing things?Not at all,?Feeling down, depressed, or hopeless?Several days,?Trouble falling or staying asleep, or sleeping too much?Not at all,?Feeling tired or having little energy?Not at all,?Poor appetite or overeating?Not at all,?Feeling bad about yourself or that you are a failure, or have let yourself or your family down?Several days,?Trouble concentrating on things, such as reading the newspaper or watching television?Several days,?Moving or speaking so slowly that other people could have noticed; or the opposite, being so fidgety or restless that you have been moving around a lot more than usual?Not at all,?Thoughts that you would be better off or of hurting yourself in some way?Not at all,?Total Score?3,?Interpretation?Minimal Depression.?Intervention?Depression Screening Findings?Negative,?Suicide Risk Assessment Performed?06/05/2024 .?History of Presenting Problem:?Substance abuse?hx alcohol abuse.?ADHD?often talks excessively, often on the go or often acts as if driven by a motor, fidgets with hands or feet or squirms in seat.?Psychotherapy?participates in counseling.?Pt was seen today and Urine drug screen was done. * Medical History:? * Surgical History:? * Hospitalization/Major Diagno stic Procedure:? * Social History:?Tobacco Use:?Tobacco Control (Standard)?Tobacco use:?Former smoker.?Migrated Social History:?Migrated Social History: Alcohol Intake: None 05/02/2023,Tobacco Years: Former smoker 07/22/2021. ???Miscellaneous:?Advance Care Planning?Are you your own decision-maker?No,?Do you have Power of Wildlife Ecologist for Health or Medical??No.? * Medications:?TakingAmphetami ne-Dextroamphet ER 30 MG Capsule Extended Release 24 Hour 1 capsule in the morning Orally Once a day traZODone HCl 50 MG Tablet 2 tablets at bedtime as needed by mouth Vitamin D 50 MCG (2000 UT) Tablet 1 tablet Orally Once a day Magnesium 250 MG Tablet 1 tablet with a meal Orally Once a day Multivitamin - Tablet 1 tablet Orally Once a day Scopolamine 1 MG/3DAYS Patch 72 Hour Transdermal oxyBUTYnin Chloride ER 10 MG Tablet Extended Release 24 Hour Oral Promethazine HCl 12.5 MG Tablet Oral Ondansetron HCl 4 MG Tablet 1 tablet Orally four times a day As neededTaking Amphetamine-Dextroamphet ER 30 MG Capsule Extended Release 24 Hour 1 capsule in the morning Orally Once a day Taking traZODone HCl 50 MG Tablet 2 tablets at bedtime as needed by mouth Taking Vitamin D 50 MCG (2000 UT) Tablet 1 tablet Orally Once a day Taking Magnesium 250 MG Tablet 1 tablet with a meal Orally Once a day Taking Multivitamin - Tablet 1 tablet Orally Once a day Taking Scopolamine 1 MG/3DAYS Patch 72 Hour Transdermal Taking oxyBUTYnin Chloride ER 10 MG Tablet Extended Release 24 Hour Oral Taking Promethazine HCl 12.5 MG Tablet Oral Taking Ondansetron HCl 4 MG Tablet 1 tablet Orally four times a day As neededDiscontinuedAuvelity 45-105 MG Tablet Extended Release 1 tablet Oral Once a day , Notes to Pharmacist: *[facility]*Ashwagandha 300 MG Tablet as directed Orally daily As neededMedication List reviewed and reconciled with the patientDiscontinued Auvelity 45-105 MG Tablet Extended Release 1 tablet Oral Once a day , Notes to Pharmacist: *[facility]*Discontinued Ashwagandha 300 MG Tablet as directed Orally daily As neededMedication List reviewed and reconciled with the patient * Allergies:?Suprax: Allergy - Onset Date 09/28/2023no[Allergies Verified] Objective: * Vitals:?BP:161/104mm Hg, HR: 109/min, Wt:195.0lbs, Wt-k.45 kg, Ht: 62.00 in, Ht-cm: 157.48 cm, BMI:35.66Index, Body Surface Area: 1.97. * Examination: ???General Examination: ???- Mental Status Examination: - Patient exhibited emotional distress, evidenced by becoming flustered and emotional during a stressful interview, with physical manifestations such as chin quivering. - Reported memory deficits, specifically difficulty recalling specific work- related events and client names. - Described mood fluctuations, from laughter to tears, indicating possible mood instability. - Expressed feelings of being overwhelmed and concerns about handling stress independently. - Diagnostic Test Results and Labs: - Psychological assessment conducted on May 22, 2024, at [facility], reported as normal. - Recent unspecified labs and kidney function tests reported by the patient as perfect, with no specific abnormalities noted. - Physical and blood tests discussed with Dr. Rivas, with results indicating no need for weight loss drugs and overall normal findings. Assessment: * Assessment: 1.?Generalized anxiety disor roberto - F41.1 (Primary)???2.?Major depressive disorder, recurrent, mild - F33.0???3.?Alcohol abuse, in remission - F10.11???4.?Insomnia due to other mental disorder - F51.05???5.?ADHD (attention deficit hyperactivity disorder), combined type - F90.2??? 1. Memory and cognitive conc erns- Patient reports difficulty recalling specific details from past work experiences.- Recent neuropsychological testing at [facility] showed normal results.Plan:- Continue monitoring cognitive function and memory.- Encourage patient to discuss concerns with their therapist.2. Work-related stress and anxiety- Patient reports increased stress and anxiety due to work-related issues, including filing an ethical complaint and potential retaliation.- Patient has increased therapy sessions to twice a week.Plan:- Continue therapy sessions and support from sponsor.- Refill lorazepam prescription (10 tablets) for situational use as needed.3. Blood pressure management- Patient reports elevated blood pressure readings, with systolic in the 120s and diastolic consistently above 90.- Patient has a history of kidney issues.Plan:- Initiate propranolol for anxiety and blood pressure management.- Follow up with Dr. Rivas for further blood pressure management and potential alternative medications.- Monitor kidney function through regular lab tests.4. Sleep disturbances- Patient reports occasional sleep disturbances related to stress.- Patient has previously used hydroxyzine for sleep in rehab.Plan:- Consider hydroxyzine for situational use if sleep disturbances worsen or become more frequent.- Encourage patient to maintain good sleep hygiene and discuss sleep concerns with their therapist.5. ADHD management- Patient is currently on Adderall and reports improvement in symptoms.Plan:- Refill Adderall prescription as needed.- Continue monitoring ADHD symptoms and medication effectiveness.6. Sobriety and recovery- Patient reports successful sobriety and participation in a book club.- Patient has a strong support system, including a sponsor and therapist.Plan:- Encourage patient to continue engaging in recovery activities and maintaining sobriety.- Monitor patient's emotional well-being and provide support as needed. Plan: * Treatment: 2.?Insomnia due to other men cristopher disorder? Notes: Cont Trazodone 50mg hs prn?? 3.?ADHD (attention deficit h yperactivity disorder), combined type? Refill Amphetamine-Dextroamphet ER Capsule Extended Release 24 Hour, 30 MG, 1 capsule in the morning, Orally, Once a day, 30 days, 30, Refills 0.?? * Procedure Codes:?45718 BEHAV ASSMT W/SCORE & DOCD/STAND [id number] VISIT COMPLEXITY INHERENT TO ONGOING CARE RELATED TO A PATIENT'S SINGLE, SERIOUS CONDITION OR A COMPLEX CONDITION * Preventive Medicine:? ??Counseling:?BP Management:?FIRST HYPERTENSIVE BP READING FOLLOW-UP PLAN:?Follow-up 1 month Follow up with your PCP,?LIFESTYLE RECOMMENDATION:?Lifestyle education, REFERRAL TO ALTERNATIVE / PRIMARY CARE PROVIDER:?Referral to general medical service ____.? * Follow Up:?2 Months (Reason: f/u adhd) * Billing Information: * Visit Code:? 52673 OFFICE OUTPATIENT VISIT 25 MINUTES DETAILED HISTORY AND EXAM/MODERATE MEDICAL DECISION MAKING. * Procedure Codes:? 89989 BEHAV ASSMT W/SCORE & DOCD/STAND INSTRUMENT. G2211 VISIT COMPLEXITY INHERENT TO ONGOING CARE RELATED TO A PATIENT'S SINGLE, SERIOUS CONDITION OR A COMPLEX CONDITION. * RVISOR CORE DRILLING Sign off status: Completed true * [facility] Date:? 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 History and Physical Notes * HPI (History of Present Illness) Category Sub-Category Detail Notes Category Not es History of Presenting Problem Substance abuse hx alcohol abuse Pt was seen today and Urine drug screen was done ADHD often talks excessiv abebe, often on the go or often acts as if driven by a motor, fidgets with hands or feet or squirms in seat Psychotherapy participates in coun seling Depression screening PHQ-9 Little inte rest or pleasure in doing things: Not at all Feeling down, depressed, or hopeless: Se veral days Trouble falling or staying asleep, or sl eeping too much: Not at all Feeling tired or having little energy: N ot at all Poor appetite or overeating: Not at all Feeling bad about yourself o r that you are a failure, or have let yourself or your family down: Several days Trouble concentrating on thi ngs, such as reading the newspaper or watching television: Several days Moving or speaking so slowly that other people could have noticed; or the opposite, being so fidgety or restless that you have been moving around a lot more than usual: Not at all Thoughts that you would be b gerardo off or of hurting yourself in some way: Not at all Total Score: 3 Interpretation: Minimal Depression Intervention Depression Screening Findings: N egative Suicide Risk Assessment Performed: 06/05 Depression Screening NAYE-7 (2018 Edition) [place] g nervous, anxious, or on edge: Several days Not being able to stop or control worryi ng: Not at all Worrying too much about different things : Several days Trouble relaxing: Not at all Being so restless that it is hard to sit still: Not at all Becoming easily annoyed or irritable: Se veral days Feeling afraid as if something awful matt ht happen: Several days Total NAYE-7 Score: 4 If you checked any problems, how difficult have they made it for you to do your work, take care of things at home, or get along with other people?: Very difficult Interpretation of Total: (0 to 4) No Anx iety [place]-Suicide Severity Rating Scale Suicide Risk (CSRS-screener) in the past one month Have you wished you were or wished you could go to sleep and not wake up?: No in the past one month Have y ou actually had any thoughts of killing yourself?: No Examination Category Sub-Category Detail Notes Category Not es General Examination - Mental Status Examination: - Patient exhibited emotional distress, evidenced by becoming flustered and emotional during a stressful interview, with physical manifestations such as chin quivering. - Reported memory deficits, specifically difficulty recalling specific work-related events and client names. - Described mood fluctuations, from laughter to tears, indicating possible mood instability. - Expressed feelings of being overwhelmed and concerns about handling stress independently. - Diagnostic Test Results and Labs: - Psychological assessment conducted on May 22, 2024, at [facility], reported as normal. - Recent unspecified labs and kidney function tests reported by the patient as perfect, with no specific abnormalities noted. - Physical and blood tests discussed with Dr. Rivas, with results indicating no need for weight loss drugs and overall normal findings.
--- OUTSIDE RECORDS SUMMARY | 2024-08-09 01:37 | XMS_ITS | Continuity of Care Document ---
Author Name [facility] Organization [facility] Care Team Providers Care Mig Welder Name Role Phone [facility] Unavailable Unavailable Problems Combined list of problems from Department of Defense and Veterans Affairs facilities. It does not include entries that were removed or entered in error. Problem Status Onset Date Problem Type Date of Resolution Comments Source Alcohol dependence, uncomplicated Active 03/22/2018 Condition [facility] Alcohol dependence with withdrawal, unspecified Active 06/30/2017 Condition [facility] Allergies, Adverse Reactions, Alerts Combined list of allergies from Department of Defense and [facility] facilities. It does not include entries that were removed or entered in error. Substance Category Reaction Severity Reaction type Status Date Reported Comments Source SUPRAX (CEFIXIME) Drug allergy (disorder) Anaphylaxi s, Other: blood in stool active 7 On license of [facility] Immunizations Combined list of available immunizations from the Department of Defense and Veterans Affairs facilities. Immunization Series Date Given Administered By Site Reaction Lot Number CVX Code Drug Beach Attendant Status Comments Source SARS-COV-2 (COVID-19) vaccine, vector non-replicati ng, recombinant spike protein-Ad26, preservative free, 0.5 mL 1 2020 LEANDRA PICKETT [id number] Yadiel (JSN) complet ed SARS-COV- 2 (COVID-19 ) vaccine, vector non-repli cating, recombina nt spike protein-A d26, preservat yohan free, 0.5 mL [facility] Influenza, injectable, quadrivalent, preservative free 1 2020 CONOR HICKEY [id number] 150 Seqirus (SEQ) complet ed Influenza , injectabl e, quadrival ent, preservat yohan free DoD Influenza, injectable, quadrivalent, preservative free 1 2019 DRE BARRERA [id number] 150 Seqirus (SEQ) complet ed Influenza , injectabl e, quadrival ent, preservat yohan free [facility] Encounters Combined list of: 1) Encounters from Department of Veterans Affairs facilities going back up to thelast 18 months. 2) Encounters from the Department of Defense facilities going back up to 280 months. Location Location Details Encounter Type Encounter Number Reason For Visit Attending Provider ADM Date DC Date Status Disposition Source [facility](LSL Emergency Room) OUTPATIENT [id number] Notes Entered by: Cora CELESTE 08 Nov 2016 194 ------- ------- ------- ------- -- 46 y/o F poss Liver failure JABIER BILLINGS 11/08 Released w/o Limitations [facility](LSL Emergen cy Room) [facility](ZZZLS L Enhanced Access Care Cl) OUTPATIENT [id number] initial appt / er f/u for alcohol ic hep / other types of hep CASSANDRA CARPIO 11/28 Released w/o Limitations [facility] LSL Enhance d Access Care Cl) [facility] TELE CONSULT [id number] Notes Entered by: KE DONNELLY 02 Dec 2016 1127 ------- ------- ------- ------- -- Case managem ent KE DONNELLY 12/02 [facility] Care Cl[facility] OUTPATIENT [id number] F/U for Labs//0 [id number] CASSANDRA CARPIO 03/29 [facility]ased w/o Limitations [facility] Access Care Cl) [facility] [id number] B) TELE CONSULT [id number] Notes Entered by: WERO CARPIO 30 Mar 2017 1548 ------- ------- ------- ------- -- Inpatie nt Detox resourc es KE DONNELLY 03/30 [facility](ZZZ [id number] TeamB) [facility](LSL Emergency Room) OUTPATIENT [id number] Notes Entered by: LITO RAMOS 28 Jun 2017 1304 ------- ------- ------- ------- -- 46y/o F Jaundic e/vomit darrius MEGAN PATEL 06/28 [facility]mitted [facility] ER, [facility] TO [facility] [id number] YANETH VERMA 06/28 DISCHARGED HOME [facility] Access Care Cl) [facility] [id number] [id number] CASSANDRA CARPIO 07/05 Released w/o Limitations [facility] L[facility] Enh[facility] d Access Care Cl) [facility](AM[facility] F01A Team A) TELE CONSULT [id number] Notes Entered by: KE DONNELLY 12 Jul 2017 1321 ------- ------- ------- ------- -- Care Coordin KE Ramos 07/12 [facility] F[facility]A [facility] A) [facility](WBD Behaviora l Hlth Multi-D Tm) TELE CONSULT [id number] Notes Entered by: PETRA DURAND 13 Jul 2017 1001 ------- ------- ------- ------- -- SUDCC Coordin PETRA Flowers 07/13 [facility] Behavio ral Hlth Multi-D Tm) [facility] L Enh[facility] Access Care Cl) OUTPATIENT [id number] f/u lab results /[id number] CASSANDRA CARPIO 07/18 Released w/o Limitations [facility](ZZZ LSL Enhance d Access Care Cl) [facility] F01A Team A) OUTPATIENT [id number] Notes Entered by: KE DONNELLY 18 Jul 2017 1203 ------- ------- ------- ------- -- Case ManageKE Iverson 07/18 Released w/o Limitations [facility] F01A Team A) [facility] L Enhanced Access Care Cl) TELE CONSULT [id number] Notes Entered by: WERO CARPIO 19 Jul 2017 0938 ------- ------- ------- ------- -- PAULY Coleman 07/19 [facility](ZZZ LSL Enhance d Access Care Cl) [facility](LSL Nutrition Care) OUTPATIENT [id number] 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 SILAS TAYLOR 07/24 Released w/o Limitations [facility](LSL Nutriti on Care) [facility] L Enhanced Access Care Cl) OUTPATIENT [id number] / [id number] CASSANDRA CARPIO 08/10 Released w/o Limitations [facility](ZZZ LSL Enhance d Access Care Cl) [facility] F01A Team A) OUTPATIENT [id number] Notes Entered by: KE DONNELLY 10 Oct 2017 0806 ------- ------- ------- ------- -- Care KE Dooley 10/10 Released w/o Limitations [facility] F01A Team A) [facility] L Enhanced Access Care Cl) OUTPATIENT [id number] well women/b reast hurting /[id number] RUFINO KERNS 01/09 Released w/o Limitations [facility](ZZZ LSL Enhance d Access Care Cl) [facility] L Enhanced Access Care Cl) TELE CONSULT [id number] Notes Entered by: ENZO KERNS 23 Jan 20189 ------- ------- ------- ------- -- pap is wnl and HPV is negativ e retest in 5 years ED[facility]AHN [facility] L Enh[facility] Access Care Cl) TELE CONSULT [id number] Notes Entered by: ENZO KERNS 15 Feb 2018 0826 ------- ------- ------- ------- -- normal US, can start control to reduce flow EDMAR KAHN 02/15 [facility] L[facility] Enh[facility] d Access Care Cl) On license of [facility]) TELE CONSULT [id number] Notes Entered by: ELGIN BLOOD 13 Mar 2018 1254 ------- ------- ------- ------- -- KEELY Ag 03/13 [facility] On license of [facility](LSL Emergency Room) OUTPATIENT [id number] Notes Entered by: JOSE MIGUEL AGUIAR 05 Sep 20181932 ------- ------- ------- ------- -- 47yo F extreme vomitin g x 2 days MARIE HO 09/05 Released w/o Limitations [facility] Emergen cy Room) On license of [facility](LSL Emergency Room) OUTPATIENT [id number] Notes Entered by: LITO RAMOS 24 Oct 2018 0925 ------- ------- ------- ------- -- 48y/o F GIBSON Fuentes 10/24 [facility] On license of [facility] ER, DIRECT TO [id number] RBEECCA BARRY 10/24 DISCHARGED HOME [facility](LSL Emergency Room) OUTPATIENT [id number] Notes Entered by: Nano CARPENTER 23 Nov 2018 1540 ------- ------- ------- ------- -- 48yo F DEMI Arellano 11/23 Admitted [facility](LSL Emergen cy Room) [facility] ER, DIRECT TO [facility] [id number] REBECCA BARRY 11/23 DISCHARGED HOME [facility](L[facility] Emergency Room) OUTPATIENT [id number] SUJEY BAILON 01/22 Released w/o Limitations [facility](LSL Emergen cy Room) [facility] ER, DIRECT TO [facility] [id number] MINGO CARRION 02/28 DISCHARGED HOME [facility] ER, DIRECT TO [facility] [id number] SY HAWKINS 06/05 DISCHARGED HOME [facility](LSL Emergency Room[facility] OUTPATIENT [id number] MARIA ELENA MONTANEZ 06/26 Admitted [facility](LSL Emergen cy Room) [facility] ER, DIRECT TO [facility] [id number] JULI COY 06/26 DISCHARGED HOME [facility] ER, DIRECT TO [facility] [id number] MINGO CARRION 07/15 DISCHARGED HOME [facility] ER, DIRECT TO [facility] [id number] JULI COY 08/13 DISCHARGED HOME [facility] ER, DIRECT TO [facility] [id number] JULI COY 08/27 DISCHARGED HOME [facility](AMH I02A Int Med) OUTPATIENT [id number] Notes Entered by: HANS GUPTA 30 Aug 2019 1141 ------- ------- ------- ------- -- Medicat ion Adminis tration MERLYN BENAVIDES 08/30 Released w/o Limitations [facility](AMH I02A Int Med) [facility](AMH I02A Int Med) OUTPATIENT [id number] Notes Entered by: SA BHARATI DUENAS 03 Sep 2019 1039 ------- ------- ------- ------- -- meds JAZ THIBODEAUX 09/03 Released w/o Limitations [facility](AMH I02A Int Med) [facility](AMH I02A Int Med) OUTPATIENT [id number] Notes Entered by: TURNER DEVRIES 04 Sep 2019 1036 ------- ------- ------- ------- -- meds check JAZ THIBODEAUX 09/04 Released w/o Limitations [facility](AMH I02A Int Med) [facility](LSL Allergy) OUTPATIENT [id number] Notes Entered by: DANIEL COTA 05 Sep 2019 1044 ------- ------- ------- ------- -- DEMI CHAVARRIA 09/05 Released w/o Limitations [facility](LSL Allergy ) [facility](AMH I02A Int Med) OUTPATIENT [id number] Notes Entered by: VIVEK THIBODEAUX 05 Sep 2019 1114 ------- ------- ------- ------- -- Med Check JAZ THIBODEAUX 09/05 Released w/o Limitations [facility](AMH I02A Int Med) [facility](AMH I02A Int Med) OUTPATIENT [id number] Notes Entered by: TURNER DEVRIES 06 Sep 2019 1057 ------- ------- ------- ------- -- med review. JAZ THIBODEAUX 09/06 Released w/o Limitations [facility](AMH I02A Int Med) [facility](AMH I02A Int Med) OUTPATIENT [id number] Notes Entered by: CAREN BYRD 11 Sep 2019 1057 ------- ------- ------- ------- -- chk in/f/u JAZ THIBODEAUX 09/11 Released w/o Limitations [facility](AMH I02A Int Med) [facility] ER, DIRECT TO [facility] [id number] JULI COY 09/24 DISCHARGED HOME [facility](LSL Emergency Room) OUTPATIENT [id number] MARIA ELENA MONTANEZ 10/06 Admitted [facility](LSL Emergen cy Room) [facility] ER, DIRECT TO [facility] [id number] MINGO CARRION 10/06 DISCHARGED HOME [facility](AMH I02A Int Med) TELE CONSULT [id number] Notes Entered by: SANTANA LEBRON 15 Oct 2019 1214 ------- ------- ------- ------- -- Hospita l follow up AR LEBRON 10/14 [facility](AMH I02A Int Med) [facility](AMH I02A Int Med) TELE CONSULT [id number] Notes Entered by: SANTANA LEBRON 25 Oct 2019 1305 ------- ------- ------- ------- -- NCM follow up AR LEBRON 10/24 [facility](AMH I02A Int Med) [facility] ER, DIRECT TO [facility] [id number] JULI COY 12/21 DISCHARGED HOME [facility] ER, DIRECT TO [facility] [id number] MINGO CARRION Romel 01/11 DISCHARGED HOME [facility](LSL Emergency Room) OUTPATIENT [id number] LISSETHMARIA ELENA MIRYAM 03/08 Admitted [facility](LSL Emergen cy Room) [facility] ER, DIRECT TO [facility] [id number] JEROMEYOANDYMINGO 03/08 DISCHARGED HOME [facility] ER, DIRECT TO [facility] [id number] MINGO CARRION Romel 04/09 DISCHARGED HOME [facility] ER, DIRECT TO [facility] [id number] JULI COY 05/19 DISCHARGED HOME [facility] ER, DIRECT TO [facility] [id number] DACIA DAVIS 06/07 DISCHARGED HOME [facility](AMH I02A Int Med) OUTPATIENT [id number] ETOH withdra wal/NCM assessm ent AR LEBRON 10/22 Released w/o Limitations [facility](AMH I02A Int Med) [facility](LSL Mass Immunizat ions) OUTPATIENT [id number] J&J BOB ALBRIGHT 01/01 Released w/o Limitations [facility](LSL Mass Immuniz ations) [facility] ER, DIRECT TO [facility] [id number] LIANA TRUJILLO, SANDY 01/15 DISCHARGED HOME [facility] ER, DIRECT TO [facility] [id number] SANDY VALDOVINOS 02/03 DISCHARGED HOME [facility] DIRECT TO [facility] FROM OTHER THAN ER OR [facility] [id number] LIANA TRUJILLO, SANDY 03/05 DISCHARGED HOME [facility](AMH F03B White) TELE CONSULT [id number] Notes Entered by: HANNA WRIGHT 06 Apr 2021 1009 ------- ------- ------- ------- -- Occupat ional Health In-Proc [facility] HANNA WRIGHT 04/06 Other Not Elsewhere Classified [facility](AMH F03B White) Procedures Combined list of: 1) Procedures from Department of Veterans Affairs facilities going back up to thelast 18 months, not all VA non-surgical procedures are included; 2) All procedures from the Department of Defense facilities. Procedure Procedure Type Code Date Perfomer Comments [facility] e ECG Interpretation And Report Only ECG Interpretation And Report Only [id number] GIBSON LIVE NSR; Prolonged QT; Nl axis; No ROBERT or STD. [facility] Psychometric Emotional / Behavioral A e ment Psychometric Emotional / Behavioral Assessment [id number] ROCAEL HUSSEIN [facility] Clinical Social Work Individual Outpatient Counseling 60 Minutes Clinical Social Work Individual Outpatient Counseling 60 Minutes [id number] ROCAEL HUSSEIN Psychiatric Diagnostic Evaluation Review of Records and Reports Psychiatric Diagnostic Evaluation Review of Records and Reports [id number] KRYSTLE ANDERSON Psychiatric Diagnostic Evaluation Review of Records and Reports Psychiatric Diagnostic Evaluation Review of Records and Reports [id number] MICHAEL CAR [facility] Non-Physician Phone Call To Patient/Provider Brief (5-10min) Non-Physician Phone Call To Patient/Provider Brief (5-10min) [id number] EDMAR KAHN [facility] Non-Physician Phone Call To Patient/Provider Brief (5-10min) Non-Physician Phone Call To Patient/Provider Brief (5-10min) [id number] EDMAR KAHN [facility] Case Management, each 15 minutes 018 KE DONNELLY [facility] Coordinated care fee, risk adjusted maintenance 018 KE DONNELLY [facility] Clinical Social Work Individual Outpatient Counseling 60 Minutes Clinical Social Work Individual Outpatient Counseling 60 Minutes [id number] ROCAEL HUSSEIN [facility] Psychometric Emotional / Behavioral A e ment Psychometric Emotional / Behavioral Assessment [id number] NIKOLAI HUSSEINRY O [facility] Psychiatric Diagnostic Evaluation Psychiatric Diagnostic Evaluation [id number] NIKOLAI HUSSEINRY O [facility] Medical Nutrition Therapy Initial A e ment And Intervention Each 15 Minutes Medical Nutrition Therapy Initial Assessment And Intervention Each 15 Minutes [id number] SILAS TAYLOR [facility] Case Management, each 15 minutes 018 KE DONNELLY ACG 08/29/15 [facility] Case Management, each 15 minutes 017 KE DONNELLY [facility] 09/17/12 [facility] Psychotherapy For Crisis Intervention Each Additional 30 Minutes Psychotherapy For Crisis Intervention Each Additional 30 Minutes [id number] DOUG FERNANDO [facility] Psychotherapy For Crisis Intervention First 60 Minutes Psychotherapy For Crisis Intervention First 60 Minutes [id number] DOUG FERNANDO [facility] ECG Interpretation And Report Only ECG Interpretation And Report Only [id number] MEGAN PATEL [facility] Case Management, each 15 minutes 017 KE DONNELLY [facility] Case Management, each 15 minutes 017 KE DONNELLY ACG 09/24/13 [facility] ECG Standard ECG Standard 51484 DEMI PICKARD [facility] Patient Counseling Medical Management Individual Patient Patient Counseling Medical Management Individual Patient [id number] MERLYN AGUERO [facility] A e ment & Intervention Blood Pre ure Measured Assessment & Intervention Blood Pressure Measured 2000F JAZ THIBODEAUX 2 units of service to equal 30 min; time spent including encounter set up, chart research, medication review, triage H/P, relax time, monitor BP, results, answering patient questions, advising provider, and documentation in AHLTA. [facility] Patient Counseling Medical Management Individual Patient Patient Counseling Medical Management Individual Patient [id number] JAZ THIBODEAUX Time spent including encounter set up, chart research, assessing learning style, providing standardized telephone triage education related to Alcohol Abuse and Dependence from [facility] ([facility]), answering patient questions, and documentation: 30 MIN. Pt currently attends local daily AA meetings. Will continue to research LN intensive Inpatient programs she may be eligible for. [facility] Patient Counseling Medical Management Individual Patient Patient Counseling Medical Management Individual Patient [id number] JAZ THIBODEAUX Time spent including encounter set up, chart research, assessing learning style, providing standardized telephone triage education related to Alcohol Abuse and Dependence from [facility] ([facility]), answering patient questions, and documentation: 30 MIN. [facility] Influenza Split Virus Vaccine IM Preserv Free 0.5mL Dosage Quadrivalent Influenza Split Virus Vaccine IM Preserv Free 0.5mL Dosage Quadrivalent [id number] DRE BARRERA Influenza, Inj., quad., preservative free (Afluria); Series #: 1; 0.5 mL; IM; Right Arm; Mfg: Seqirus; Lot: [id number]; VIS given (Cristo: 02/28/2019). [facility] Immunization Administration By Injection, One Vaccine Immunization Administration By Injection, One Vaccine 21034 DRE BARRERA [facility] Psychotherapy Individual Approximately 30 Minutes Psychotherapy Individual Approximately 30 Minutes [id number] REBECCA ARNETT [facility] Vaccine SARS-CoV-2 DNA Foreign Protein Ad26 Preservative Free 5x10*10vp/0.5mL IM Single Dose Vaccine SARS-CoV-2 DNA Foreign Protein Ad26 Preservative Free 5x10*10vp/0.5mL IM Single Dose [id number] BOB ALBRIGHT [facility] DETOXIFICATION SERVICES FOR SUBSTANCE ABUSE TREATMENT [facility] ULTRASONOGRAPHY OF ABDOMEN [facility] COMPUTERIZED TOMOGRAPHY (CT SCAN) OF ABDOMEN AND PELVIS USING LOW OSMOLAR CONTRAST [facility] INJECTION, METOCLOPRAMIDE HCL, UP TO 10 MG [facility] DETOXIFICATION SERVICES FOR SUBSTANCE ABUSE TREATMENT [facility] INJECTION, LORAZEPAM, 2 MG [facility] ELECTROCARDIOGRAM, ROUTINE ECG WITH AT LEAST 12 LEADS; WITH INTERPRETATION AND REPORT DoD IMMUNIZAT ADM,IM INJ,SEVERE AC RESPIRATORY SYND CORONAVIR 2 (SARSCOV-2) (CORONAVIR DIS [COVID-19]) VACC,DNA,SPIKE PROT,ADENOVIR TYPE 26 (AD26) VECTOR,PRESRV FREE,[id number] VIRAL PART/0.5ML DOSAGE;1 DOSE [facility] DETOXIFICATION SERVICES FOR SUBSTANCE ABUSE TREATMENT DoD INJECTION, METOCLOPRAMIDE HCL, UP TO 10 MG [facility] DETOXIFICATION SERVICES FOR SUBSTANCE ABUSE TREATMENT DoD INJECTION, METOCLOPRAMIDE HCL, UP TO 10 MG DoD ULTRASONOGRAPHY OF RIGHT UPPER EXTREMITY VEINS, GUIDANCE [facility] INSERTION OF INFUSION DEVICE INTO RIGHT CEPHALIC VEIN, PERCUTANEOUS APPROACH [facility] INSERT OF PERIPH INSERT CENTRAL MJ CATH [...] DoD INJECTION, ONDANSETRON HCL, PER 1 MG [facility] DETOXIFICATION SERVICES FOR SUBSTANCE ABUSE TREATMENT DoD ULTRASONOGRAPHY OF RIGHT UPPER EXTREMITY VEINS, GUIDANCE [facility] INSERTION OF INFUSION DEVICE INTO RIGHT BASILIC VEIN, PERCUTANEOUS APPROACH [facility] ULTRASOUND GUID VASCULAR ACCESS REQUIR ULTRASOUND EVALUAT [...] DoD INJECTION, ONDANSETRON HCL, PER 1 MG [facility] ELECTROCARDIOGRAM, ROUTINE ECG WITH AT LEAST 12 LEADS; WITH INTERPRETATION AND REPORT [facility] BLOOD PRESSURE MEASURED (CKD)(DM) [facility] EDUCATION &TRAINING, PATIENT SELF-MGT QUALIFIED, NONPHYSICIAN HEALTH CLINICAL PHARMACIST USING STDIZED CURRICULUM, [id number] W THE PATIENT (COULD INCL CAREGIVER/FAMILY) EA 30 MIN; INDIVIDUAL PATIENT [facility] EDUCATION &TRAINING, PATIENT SELF-MGT QUALIFIED, NONPHYSICIAN HEALTH CLINICAL PHARMACIST USING STDIZED CURRICULUM, [id number] W THE PATIENT (COULD INCL CAREGIVER/FAMILY) EA 30 MIN; INDIVIDUAL PATIENT [facility] INFLUENZA VIRUS VACCINE, QUADRIVALENT (IIV4), SPLIT VIRUS, PRESERVATIVE FREE, 0.5 ML DOSAGE, FOR INTRAMUSCULAR USE [facility] EDUCATION &TRAINING, PATIENT SELF-MGT QUALIFIED, NONPHYSICIAN HEALTH CLINICAL PHARMACIST USING STDIZED CURRICULUM, [id number] W THE PATIENT (COULD INCL CAREGIVER/FAMILY) EA 30 MIN; INDIVIDUAL PATIENT [facility] EDUCATION &TRAINING, PATIENT SELF-MGT QUALIFIED, NONPHYSICIAN HEALTH CLINICAL PHARMACIST USING STDIZED CURRICULUM, [id number] W THE PATIENT (COULD INCL CAREGIVER/FAMILY) EA 30 MIN; INDIVIDUAL PATIENT [facility] EDUCATION &TRAINING, PATIENT SELF-MGT QUALIFIED, NONPHYSICIAN HEALTH CLINICAL PHARMACIST USING STDIZED CURRICULUM, [id number] W THE PATIENT (COULD INCL CAREGIVER/FAMILY) EA 30 MIN; INDIVIDUAL PATIENT [facility] MEDICATION MANAGEMENT FOR SUBSTANCE ABUSE TREATMENT, NALTREXONE [facility] INJECTION, LORAZEPAM, 2 MG [facility] INJECTION, DIAZEPAM, UP TO 5 MG [facility] INJECTION, KETOROLAC TROMETHAMINE, PER 15 MG [facility] INTRODUCTION OF ELECTROLYTIC AND WATER BALANCE SUBSTANCE INTO PERIPHERAL VEIN, PERCUTANEOUS APPROACH [facility] INJECTION, METOCLOPRAMIDE HCL, UP TO 10 MG [facility] INJECTION, KETOROLAC TROMETHAMINE, PER 15 MG [facility] INJECTION, ONDANSETRON HCL, PER 1 MG [facility] INFUSION, NORMAL SALINE SOLUTION , 1000 CC [facility] DETOXIFICATION SERVICES FOR SUBSTANCE ABUSE TREATMENT [facility] INJECTION, LORAZEPAM, 2 MG [facility] INTRAVENOUS INFUSION, HYDRATION; INITIAL, 31 MINUTES TO 1 HOUR [facility] BRIEF EMOTIONAL/BEHAVIORAL ASSESSMENT (EG, DEPRESSION INVENTORY, ATTENTION-DEFICIT/HYP ERACTIVITY DISORDER [ADHD] SCALE), WITH SCORING AND DOCUMENTATION, PER STANDARDIZED INSTRUMENT [facility] PSYCHIATRIC EVALUATION OF HOSPITAL RECORDS, OTHER PSYCHIATRIC REPORTS, PSYCHOMETRIC AND/OR PROJECTIVE TESTS, AND OTHER ACCUMULATED DATA FOR MEDICALDIAGNOSTIC PURPOSES [facility] PSYCHIATRIC EVALUATION OF HOSPITAL RECORDS, OTHER PSYCHIATRIC [...] NXT 24 HR/SOON APT;5-10 MIN MED DIS [facility] CASE MANAGEMENT, EACH 15 MINUTES [facility] PSYCHOTHERAPY, 60 MINUTES WITH PATIENT [facility] PSYCHIATRIC DIAGNOSTIC EVALUATION [facility] MEDICAL NUTRITION THERAPY; INITIAL ASSESSMENT AND INTERVENTION, INDIVIDUAL, PJIC-[id number] WITH THE PATIENT, EACH 15 MINUTES [facility] CASE MANAGEMENT, EACH 15 MINUTES [facility] CASE MANAGEMENT, EACH 15 MINUTES [facility] PSYCHOTHERAPY FOR CRISIS; FIRST 60 MINUTES [facility] ELECTROCARDIOGRAM, ROUTINE ECG WITH AT LEAST 12 LEADS; WITH INTERPRETATION AND REPORT DoD CASE MANAGEMENT, EACH 15 MINUTES [facility] CASE MANAGEMENT, EACH 15 MINUTES [facility] COLLECTION OF VENOUS BLOOD BY VENIPUNCTURE [facility] Social History Combined list of available smoking, tobacco, and other social history from Department of Defense and Veterans Affairs facilities. Social History Type Response Date Comment Sourc e This section is an empty social history section. DoD
--- OUTSIDE RECORDS SUMMARY | 2024-08-09 01:38 | XMS_ITS | Clinical Summary ---
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
--- OUTSIDE RECORDS SUMMARY | 2024-08-09 01:38 | XMS_ITS | Clinical Summary ---
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 Never 12/19/2022 Do you belong to any clubs o r organizations such as nondenominational groups, unions, fraternal or athletic groups, or [...] place to sleep or slept in a jail (including now)? No 12/19/2022 Personal Safety Answer Date Recorded Have you ever been in or are you currently in a harmful physical or emotional relationship or is someone making you feel afraid or unsafe? 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 [facility]# ??Date Time ??Exam [id number] Apr 29, 2015 15:02:00 [facility] [address] Diag Mammogram Bilateral ?? Technologist(s): Angelica Gorman; ; [id number] Apr 29, 2015 15:02:00 [facility] [address] Dig Breast Eduar Johnnie [id number] Apr 29, 2015 15:11:00 [facility] [address] Breast US unilateral, ltd R EXAMINATION: ?? BILATERAL FULL FIELD DIGITAL DIAGNOSTIC MAMMOGRAM WITH CAD AND DIGITAL BREAST TOMOSYNTHESIS AND RIGHT BREAST ULTRASOUND HISTORY: 44-year-old woman with 2 week history of right breast pain. MAMMOGRAM TECHNIQUE: ??Full field digital craniocaudal and mediolateral oblique views of both breasts were obtained. ??Computer Aided Detection was performed with Topadmit3 version 9.3. ??Digital breast tomosynthesis was performed [...] FORTE M.D. on Apr 29 2015 ??3:56P [id number] Procedure Note Provider, MD Dawn - 11/19/2016 NIDA FORTE M.D. REBECCA HILL M.D. FINAL REPORT The radiology attending physician has personally reviewed this study, and has reviewed and/or edited this written report and agrees with it. [facility]# Date Time Exam [id number] Apr 29, 2015 15:02:00 [facility] [address] Diag Mammogram Bilateral Technologist(s): Angelica Gorman; ; [id number] Apr 29, 2015 15:02:00 [facility] [address] Dig Breast Eduar Johnnie [id number] Apr 29, 2015 15:11:00 [facility] [address] Breast US unilateral, ltd R EXAMINATION: BILATERAL FULL FIELD DIGITAL DIAGNOSTIC MAMMOGRAM WITH CAD AND DIGITAL BREAST TOMOSYNTHESIS AND RIGHT BREAST ULTRASOUND HISTORY: 44-year-old woman with 2 week history of right breast pain. MAMMOGRAM TECHNIQUE: Full field digital craniocaudal and mediolateral oblique views of both breasts were obtained. Computer Aided Detection was performed with Internet Pawn.3 version 9.3. Digital breast tomosynthesis was performed [...] FORTE M.D. on Apr 29 2015 3:56P [id number] us Historical Provider MD YOUNG MAMMO PROCEDURES Elisa l Result from Last 3 Months or Most Recently Relevant to Health Maintenance Insurance [employer] [facility] Advance Directives For more information, please contact: [phone] * Full Code (Latest Code Status on [...] 6:56 AM 06/04/2022 10:42 PM Care Teams Servicenow Administrator Developer Relationship Specialty Start Date End Date Cristopher Rivas MD [address] [address] PCP - General Family Medicine 01/26/22
--- OUTSIDE RECORDS SUMMARY | 2024-08-09 01:38 | XMS_ITS | Referral Summary ---
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 Never 12/19/2022 Do you belong to any clubs o r organizations such as restoration groups, unions, fraternal or athletic groups, or [...] place to sleep or slept in a [facility] (including now)? No 12/19/2022 Personal Safety Answer Date Recorded Have you ever been in or are you currently in a harmful physical or emotional relationship or is someone making you feel afraid or unsafe? Denies 12/17/2022 Comments No Sex and Gender Information Value Date Recorded Sex Assigned at Not on file Legal Sex Female 3:39 AM DECORATIVE ENGRAVER APPRENTICE Gender Identity Not on file Sexual Orientation [...] agrees with it. [facility]# ??Date Time ??Exam [id number] Apr 29, 2015 15:02:00 [facility] [address] Diag Mammogram Bilateral ?? Technologist(s): Angelica Gorman; ; [id number] Apr 29, 2015 15:02:00 [facility] [address] Dig Breast Eduar Johnnie [id number] Apr 29, 2015 15:11:00 [facility] [address] Breast US unilateral, ltd R EXAMINATION: ?? BILATERAL FULL FIELD DIGITAL DIAGNOSTIC MAMMOGRAM WITH CAD AND DIGITAL BREAST TOMOSYNTHESIS AND RIGHT BREAST ULTRASOUND HISTORY: 44-year-old woman with 2 week history of right breast pain. MAMMOGRAM TECHNIQUE: ??Full field digital craniocaudal and mediolateral oblique views of both breasts were obtained. ??Computer Aided Detection was performed with Bright Pattern.3 version 9.3. ??Digital breast tomosynthesis was performed [...] FORTE M.D. on Apr 29 2015 ??3:56P [id number] Procedure Note Provider, MD Dawn - 11/19/2016 NIDA FORTE M.D. REBECCA HILL M.D. FINAL REPORT The radiology attending physician has personally reviewed this study, and has reviewed and/or edited this written report and agrees with it. [facility]# Date Time Exam [id number] Apr 29, 2015 15:02:00 [facility] [address] Diag Mammogram Bilateral Technologist(s): Angelica Gorman; ; [id number] Apr 29, 2015 15:02:00 [facility] [address] Dig Breast Eduar Johnnie [id number] Apr 29, 2015 15:11:00 [facility] [address] Breast US unilateral, ltd R EXAMINATION: BILATERAL FULL FIELD DIGITAL DIAGNOSTIC MAMMOGRAM WITH CAD AND DIGITAL BREAST TOMOSYNTHESIS AND RIGHT BREAST ULTRASOUND HISTORY: 44-year-old woman with 2 week history of right breast pain. MAMMOGRAM TECHNIQUE: Full field digital craniocaudal and mediolateral oblique views of both breasts were obtained. Computer Aided Detection was performed with Bright Pattern.3 version 9.3. Digital breast tomosynthesis was performed [...] FORTE M.D. on Apr 29 2015 3:56P [id number] [facility] Provider MD YOUNG MAMMO PROCEDURES Elisa l Result from Last 3 Months or Most Recently Relevant to Health Maintenance Insurance [employer] [facility] [employer] [facility] [employer] Advance Directives For more information, please contact: [phone] * Full Code (Latest Code Status on [...] 6:56 AM 06/04/2022 10:42 PM Care Teams Bandage Maker Relationship Specialty Start Date End Date Cristopher Rivas MD [address] [facility] [address] [place] [address] PCP - General Family Medicine 01/26/22
--- OUTSIDE RECORDS SUMMARY | 2024-08-09 01:38 | XMS_ITS ---
Author Organization [facility] Address [address] [facility] [address] [place] [address] Care Team Providers Care Drug Safety Specialist Name Role Phone Cristopher Rivas MD Primary Care Provider UnavailDevang Robert Unavailable [phone] REASON FOR VISIT Coordination of Care Social History Sex Assigned At : Social History Observation Description Sex Assigned At Unknown Encounters Encounter Location Date Provider Diagnosis [facility] [address] [place] [address] 08/07/2024 Devang Neff Plan Of Treatment Next Appt Details Provider Name:Devang pagan, 09/05/2024 04:45:00 PM, [address], [address], [place], [address], Progress Notes * KIRK COOKOB:[birth year] (53 yo F)Acc No.[id number]:08/07/2024 Patient:?EVERT COOK :1970???Age:53 Y???Sex:Female Address:[address] , [place], [address] * * Date:?
--- OUTSIDE RECORDS SUMMARY | 2024-08-09 01:38 | XMS_ITS | Patient Health Record ---
Author Organization [facility] The Personal Bee Address [address] [facility] [address] [place] [address] Care Team Providers Care Enrolled Nurse Name Role Phone Cristopher Rivas MD Primary Care Provider Unavaila Devang Mcclellan Unavailable [phone] Riccardo Chowdhury Unavailable [phone] Migration, Provider Unavailable Unavailable Allergies Allergen (clinical drug ingredient) Drug/Non Drug Allergy documented on EMR Reaction Allergy Type Onset Date Status cefixime Suprax Unknown Drug Allergy 09/28/2023 Active Results Component Value Reference Range Notes UDT Reviewed date:04/05/2024 05:16:50 PM Interpretation: Performing Lab: Notes/Report: THC N 0 - 50 ng/ml Cocaine N 0 - 300 ng/ml Amphetamine P 0 - 1000 ng/ml Buprenorphine (BUP) N 0 - 10 ng/ml Secobarbital (Bar) N 0 - 300 ng/ml Oxazepam (BZO) N 0 - 300 ng/ml 3-vkbunrfoct-5,3-qzfmaqdx-6,3-diphenylpyrrolidine (NEFTALY P) N 0 - 300 ng/ml Methamphetamine (MET) N 0 - 1000 ng/ml Methylenedioxymethamphetamine (MDMA) N 0 - 500 ng/ml Morphine (MOP 300/FBQ7890) N 0 - 300 ng/ml Methadone (MTD) N 0 - 300 ng/ml Phencyclidine (PCP) N 0 - 25 ng/ml Propoxyphene (PPX) N 0 - 300 ng/ml Nortriptyline (TCA) N 0 - 1000 ng/ml Oxycodone N 0 - 300 ng/ml UDT Reviewed date:02/06/2024 04:36:11 PM Interpretation: Performing Lab: Notes/Report: THC neg 0 - 50 ng/ml Cocaine neg 0 - 300 ng/ml Amphetamine neg 0 - 1000 ng/ml Buprenorphine (BUP) neg 0 - 10 ng/ml Secobarbital (Bar) neg 0 - 300 ng/ml Oxazepam (BZO) neg 0 - 300 ng/ml 9-qgiiwwlxey-4,7-vuxoeggp-3,3-diphenylpyrrolidine (NEFTALY P) neg 0 - 300 ng/ml Methamphetamine (MET) neg 0 - 1000 ng/ml Methylenedioxymethamphetamine (MDMA) neg 0 - 500 ng/ml Morphine (MOP 300/VFK4195) neg 0 - 300 ng/ml Methadone (MTD) neg 0 - 300 ng/ml Phencyclidine (PCP) neg 0 - 25 ng/ml Propoxyphene (PPX) neg 0 - 300 ng/ml Nortriptyline (TCA) neg 0 - 1000 ng/ml Oxycodone neg 0 - 300 ng/ml Reason For Referral No Information Medications Medication SIG (Take, Route, Frequency, Duration) Notes Start Date End Date Status Multivitamin - 1 tablet Orally Once a day 03/07/2024 Active Magnesium 250 MG 1 tablet with a meal Orally Once a day 03/07/2024 Active Vitamin D 50 MCG (1999 UT) 1 tablet Oral ly Once a day Active traZODone HCl 50 MG 2 tablets at bedtime as needed by mouth for 30 days 09/28/2023 Active Ondansetron HCl 4 MG 1 tablet Orally four times a day for 14 days As needed 05/15/2024 Active Promethazine HCl 12.5 MG Oral 09/28/2023 Active LORazepam 0.5 MG 1 tablet Oral Once a day for 10 days As needed 06/05/2024 Active oxyBUTYnin Chloride ER 10 MG Oral 09/28/2023 Active Scopolamine 1 MG/3DAYS Transdermal 09/28/2023 Active busPIRone HCl 7.5 MG 1 tablet Orally Twi ce a day for 30 days 08/06/2024 2024 Active Amphetamine-Dextroamphet ER 30 MG 1 capsule in the morning Orally Once a day for 30 days 07/23/2024 Active Immunizations Vaccine Route Administration Date Status [facility] 1st dose Unknown 08/01/2021 Ad ministered Social History Tobacco Use: Social History Observation Description Date Details (start date - stop date) Former Smoker NA - NA Sex Assigned At : Social History Observation Description Sex Assigned At Unknown Tobacco Control (Standard) Question Answer Notes Tobacco use: Former smoker Problems Problem Type SNOMED Code ICD Code Onset Dates Problem Status W/U Status Risk Notes Problem Mild recurrent major depression (93805927) Major depressive disorder, recurrent, mild (F33.0) Active confirmed Problem Generalized anxiety disorder (41805209) Generalized anxiety disorder (F41.1) Active confirmed Problem Insomnia disorder related to another mental disorder (77282237) Insomnia 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) Active confirmed Problem Nondependent alcohol abuse in remission (702558462) Alcohol abuse, in remission (F10.11) Active confirmed Problem Attention deficit hyperactivity disorder (575890474) ADHD (attention deficit hyperactivity disorder), combined type (F90.2) Active confirmed Vital Signs Heart Rate 109 /min 06/05/2024 Height-cm 157.48 cm 06/05/2024 Blood pressure diastolic 104 mm Hg 06/05/2024 Weight-kg 88.45 kg 06/05/2024 Height 62.00 in 06/05/2024 Blood pressure systolic 161 mm Hg 06/05/2024 Weight 195.0 lbs 06/05/2024 BMI 35.66 kg/m2 06/05/2024 Procedures Procedure Date Ordered Date Performed Result Body Sit e ADHD Testing 01/11/2024 N/A Encounters Encounter Location Date Provider Diagnosis [facility] [address] [address] 09/28/2023 Devang Neff Generalized anxiety disorder F41.1 ; Adverse effect of unspecified drugs, medicaments and biological substances, initial encounter T50.905A ; Other amnesia R41.3 ; Alcohol abuse, in remission F10.11 ; Major depressive disorder, recurrent, mild F33.0 and Insomnia due to other mental disorder F51.05 [facility] [address] [place] [address] 01/11/2024 Devang Neff Generalized anxiety disorder F41.1 ; Major depressive disorder, recurrent, mild F33.0 ; Alcohol abuse, in remission F10.11 ; Insomnia due to other mental disorder F51.05 and ADHD (attention deficit hyperactivity disorder), combined type F90.2 [facility], [facility] [address] [place] [address] 02/06/2024 Riccardo Chowdhury ADHD (attention deficit hyperactivity disorder), combined type F90.2 [facility] [address] [place] [address] 02/09/2024 Devang Neff Generalized anxiety disorder F41.1 ; Alcohol abuse, in remission F10.11 ; ADHD (attention deficit hyperactivity disorder), combined type F90.2 ; Major depressive disorder, recurrent, mild F33.0 and Insomnia due to other mental disorder F51.05 [facility] [address] [place] [address] 03/07/2024 Devang Neff Generalized anxiety disorder F41.1 ; Major depressive disorder, recurrent, mild F33.0 ; Alcohol abuse, in remission F10.11 ; Insomnia due to other mental disorder F51.05 and ADHD (attention deficit hyperactivity disorder), combined type F90.2 [place] [address] [place] [address] 04/04/2024 Devang Neff Generalized anxiety disorder F41.1 ; Major depressive disorder, recurrent, mild F33.0 ; Alcohol abuse, in remission F10.11 ; Insomnia due to other mental disorder F51.05 and ADHD (attention deficit hyperactivity disorder), combined type F90.2 [facility] [address] [place] [address] 05/02/2024 Devang Neff [place] [address] [place] [address] 05/08/2024 Devang Neff Generalized anxiety disorder F41.1 ; Major depressive disorder, recurrent, mild F33.0 ; Alcohol abuse, in remission F10.11 ; Insomnia due to other mental disorder F51.05 and ADHD (attention deficit hyperactivity disorder), combined type F90.2 [facility] [address] [place] [address] 06/05/2024 Devang Neff Generalized anxiety disorder F41.1 ; Major depressive disorder, recurrent, mild F33.0 ; Alcohol abuse, in remission F10.11 ; Insomnia due to other mental disorder F51.05 and ADHD (attention deficit hyperactivity disorder), combined type F90.2 [facility], [facility] [address] [place] [address] 08/07/2024 Devang Neff [facility], [facility] [address] [place] [address] 10/17/2023 Provider Migration [facility], [facility] [address] [place] [address] 10/27/2023 Provider Migration [facility], [facility] [address] [place] [address] 11/02/2023 Provider Migration [facility], [facility] [address] [place] [address] 12/02/2023 Provider Migration [facility], [facility] [address] [place] [address] 12/03/2023 Provider [facility], [facility] [address] [place] [address] 02/09/2024 Devang Jamesa [facility], [facility] [address] [place] [address] 03/13/2024 Devang Neff [facility], [facility] [address] [place] [address] 04/22/2024 Devang Neff Insomnia due to othe r mental disorder F51.05 [facility], [facility] [address] [place] [address] 05/15/2024 Devang Nicholsonoza [facility], [facility] [address] [place] [address] 05/15/2024 Devang Neff Nausea R11.0 [facility], [facility] [address] [place] [address] 02/12/2024 Devang Neff ADHD (attention deficit hyperactivity disorder), combined type F90.2 [facility], [facility] [address] [place] [address] 03/20/2024 Devang Neff ADHD (attention deficit hyperactivity disorder), combined type F90.2 [facility], [facility] [address] [place] [address] 04/25/2024 Devang Neff [facility], [facility] [address] [place] [address] 07/23/2024 Devang Neff ADHD (attention deficit hyperactivity disorder), combined type F90.2 [facility] [address] [place] [address] 08/05/2024 Devang Neff Generalized anxiety disorder F41.1 Assessments Encounter Date Diagnosis (ICD Code) Assessment Notes Treatment Notes Treatment Clinical Notes Section Notes 09/28/2023 Major depressive disorder, recurrent, mild (ICD-10 - F33.0) 09/28/2023 Generalized anxiety disorder (ICD-10 - F41.1) 09/28/2023 Insomnia due to other mental disorder (ICD-10 - F51.05) 09/28/2023 Other amnesia (ICD-10 - R41.3) 09/28/2023 Adverse effect of unspecified drugs, medicaments and biological substances, initial encounter (ICD-10 - T50.905A) 09/28/2023 Alcohol abuse, in remission (ICD-10 - F10.11) 01/11/2024 Major depressive disorder, recurrent, mild (ICD-10 - F33.0) 1. ADHD (Attention Deficit Hyperactivity Disorder) - Suspected - Plan: Schedule the patient for computerized ADHD testing to confirm the diagnosis. Once the results are available, discuss stimulant and non-stimulant treatment options with the patient, considering their medication sensitivity. 2. Alcohol Use Disorder - In Remission - Plan: Continue to monitor the patient's progress in sobriety and provide support as needed. Encourage the patient to maintain their involvement in support groups and sponsorship. 3. Depression - - Plan: Cont Auvelity 45mg -105mg twice daily. Monitor the patient's gastrointestinal symptoms and consider adjusting the medication if constipation persists despite adequate hydration and dietary fiber intake. 4. Anxiety and Impulsivity - Possible comorbidity with ADHD - Plan: Reassess anxiety and impulsivity levels after initiating ADHD treatment, as addressing ADHD symptoms may improve these issues. 5. Follow-up appointments - Plan: Schedule a follow-up appointment after the ADHD testing to discuss treatment options. Additionally, schedule a regular follow-up to monitor the patient's progress, medication side effects, and overall mental health. 01/11/2024 Generalized anxiety disorder (ICD-10 - F41.1) 1. ADHD (Attention Deficit Hyperactivity Disorder) - Suspected - Plan: Schedule the patient for computerized ADHD testing to confirm the diagnosis. Once the results are available, discuss stimulant and non-stimulant treatment options with the patient, considering their medication sensitivity. 2. Alcohol Use Disorder - In Remission - Plan: Continue to monitor the patient's progress in sobriety and provide support as needed. Encourage the patient to maintain their involvement in support groups and sponsorship. 3. Depression - - Plan: Cont Auvelity 45mg -105mg twice daily. Monitor the patient's gastrointestinal symptoms and consider adjusting the medication if constipation persists despite adequate hydration and dietary fiber intake. 4. Anxiety and Impulsivity - Possible comorbidity with ADHD - Plan: Reassess anxiety and impulsivity levels after initiating ADHD treatment, as addressing ADHD symptoms may improve these issues. 5. Follow-up appointments - Plan: Schedule a follow-up appointment after the ADHD testing to discuss treatment options. Additionally, schedule a regular follow-up to monitor the patient's progress, medication side effects, and overall mental health. 02/06/2024 ADHD (attention deficit hyperactivity disorder), combined type (ICD-10 - F90.2) 02/09/2024 Generalized anxiety disorder (ICD-10 - F41.1) 1. ADHD - Combined Presentation - Patient's ADHD test results indicate a combined presentation of ADHD, with a history of impulsivity and poor decision-making. - Plan: Initiate pharmacological treatment with Adderall XR 15 mg daily. Monitor patient's response to the medication, including improvements in focus, motivation, and decreased anxiety. Adjust dosage as needed based on patient's response and side effects. Educate the patient on potential side effects, such as insomnia, decreased appetite, and increased blood pressure. 2. Anxiety - Patient reports a history of anxiety and self-medication with alcohol. - Plan: Monitor patient's anxiety levels during ADHD treatment with Adderall XR. Assess the impact of the medication on anxiety symptoms and consider additional interventions if necessary, such as therapy or anxiolytic medications. 3. Alcoholism (in recovery) - Patient is in recovery from alcoholism and reports no concerns about potential abuse or addiction to stimulant medication. - Plan: Continue to support patient's recovery and monitor for any signs of substance abuse or misuse during ADHD treatment. 4. Weight gain and potential metabolic issues - Patient reports weight gain and concerns about potential metabolic issues, including slow gut motility and interest in Ozempic. - Plan: Encourage the patient to discuss Ozempic with their primary care provider and [facility]. Monitor patient's weight and appetite during ADHD treatment with Adderall XR, as the medication may cause appetite suppression. 5. Insomnia - Patient reports a history of insomnia, which may be exacerbated by Adderall XR. - Plan: Instruct the patient to take Adderall XR in the morning to minimize potential insomnia. Monitor patient's sleep patterns during treatment and consider adjustments to the medication regimen if sleep disturbances persist or worsen. 02/09/2024 Alcohol abuse, in remission (ICD-10 - F10.11) 1. ADHD - Combined Presentation - Patient's ADHD test results indicate a combined presentation of ADHD, with a history of impulsivity and poor decision-making. - Plan: Initiate pharmacological treatment with Adderall XR 15 mg daily. Monitor patient's response to the medication, including improvements in focus, motivation, and decreased anxiety. Adjust dosage as needed based on patient's response and side effects. Educate the patient on potential side effects, such as insomnia, decreased appetite, and increased blood pressure. 2. Anxiety - Patient reports a history of anxiety and self-medication with alcohol. - Plan: Monitor patient's anxiety levels during ADHD treatment with Adderall XR. Assess the impact of the medication on anxiety symptoms and consider additional interventions if necessary, such as therapy or anxiolytic medications. 3. Alcoholism (in recovery) - Patient is in recovery from alcoholism and reports no concerns about potential abuse or addiction to stimulant medication. - Plan: Continue to support patient's recovery and monitor for any signs of substance abuse or misuse during ADHD treatment. 4. Weight gain and potential metabolic issues - Patient reports weight gain and concerns about potential metabolic issues, including slow gut motility and interest in Ozempic. - Plan: Encourage the patient to discuss Ozempic with their primary care provider and [facility]. Monitor patient's weight and appetite during ADHD treatment with Adderall XR, as the medication may cause appetite suppression. 5. Insomnia - Patient reports a history of insomnia, which may be exacerbated by Adderall XR. - Plan: Instruct the patient to take Adderall XR in the morning to minimize potential insomnia. Monitor patient's sleep patterns during treatment and consider adjustments to the medication regimen if sleep disturbances persist or worsen. 02/12/2024 ADHD (attention deficit hyperactivity disorder), combined type (ICD-10 - F90.2) 03/07/2024 Generalized anxiety disorder (ICD-10 - F41.1) 1. ADHD: - Patient reports no significant improvement in focus, memory, or fidgetiness with Adderall. No change in appetite or sleep. - Plan: Discontinue Adderall. Start Concerta 27 mg every morning. Monitor for changes in sleep, appetite, and anxiety. Reevaluate in one month to determine if Concerta is more effective and adjust the dose if necessary (up to 72 mg). 2. Anxiety: - Patient reports a decrease in anxiety, possibly due to Adderall. Mood has improved significantly. - Plan: Monitor anxiety levels while transitioning from Adderall to Concerta. Compare the effectiveness of both medications for anxiety management and choose the one that works better for the patient. 3. Medication management: - Patient no longer takes pantoprazole, propranolol, and trazodone. Lorazepam and scopolamine patch are used as needed. Promethazine is used occasionally for motion sickness. - Plan: Update medication list accordingly. 4. Auvelity refill: - Patient needs a refill on Auvelity. - Plan: Prescribe a 90-day supply of Auvelity, to be filled at [facility]. 5. Follow-up: - Plan: Schedule a follow-up appointment in one month to assess the effectiveness of Concerta and discuss any changes in symptoms or medication side effects. 03/20/2024 ADHD (attention deficit hyperactivity disorder), combined type (ICD-10 - F90.2) 04/04/2024 Generalized anxiety disorder (ICD-10 - F41.1) 1. ADHD - Patient reports significant improvement in clarity and focus with Adderall XR 30 mg daily. - Patient experiences a crash after about 12 hours but is overall satisfied with the current medication. Plan: - Continue Adderall XR 30 mg daily. - Schedule a follow-up appointment in six weeks to reassess the medication's effectiveness and discuss potential adjustments or alternatives (e.g., Vyvanse, Mydayis). 2. Insomnia - Patient reports occasional use of trazodone for sleep, mainly due to work-related stress and long hours. Plan: - Continue trazodone as needed for sleep. 3. Anxiety - Patient is currently on Auvelity and wonders if it is still necessary, given the improvement in ADHD symptoms and sobriety. Plan: - Continue Auvelity for now. - Reevaluate the need for Auvi-Q during the follow-up appointment in six weeks. Follow-up appointment - Schedule a follow-up appointment for six weeks from now, around April 19, to reassess the patient's progress and medication needs. 05/08/2024 Generalized anxiety disorder (ICD-10 - F41.1) 1. Hypertension: - Patient reports increased blood pressure since starting Adderall and experiencing work stress. Home measurements have been in the 130s/90s, with a recent in-office measurement of 149/88. Plan: - Decrease Auvelity to once daily for one week, then discontinue. - Monitor blood pressure at home and follow up in one month. 2. Anxiety: - Patient reports improvement in anxiety since starting Adderall, with situational anxiety related to work stress. Plan: - Continue Adderall as it has positively impacted anxiety levels. - Reevaluate the need for Auvelity after discontinuation and blood pressure monitoring. 3. Insomnia: - Patient reports occasional difficulty sleeping due to work stress, using trazodone as needed. Plan: - Continue using trazodone as needed for sleep disturbances. 4. Follow-up: - Schedule a follow-up appointment for June 05 to reassess blood pressure, anxiety, and medication management. 05/15/2024 Nausea (ICD-10 - R11.0) 06/05/2024 Generalized anxiety disorder (ICD-10 - F41.1) 1. Memory and cognitive concerns - Patient reports difficulty recalling specific details from past work experiences. - Recent neuropsychological testing at [facility] showed normal results. Plan: - Continue monitoring [...] emotional well-being and provide support as needed. 07/23/2024 ADHD (attention deficit hyperactivity disorder), combined type (ICD-10 - F90.2) 08/05/2024 Generalized anxiety disorder (ICD-10 - F41.1) 06/05/2024 Major depressive disorder, recurrent, mild (ICD-10 - F33.0) 1. Memory and cognitive concerns - Patient reports difficulty recalling specific details from past work experiences. - Recent neuropsychological testing at [facility] showed normal results. Plan: - Continue monitoring [...] emotional well-being and provide support as needed. 04/22/2024 Insomnia due to other mental disorder (ICD-10 - F51.05) 05/08/2024 Major depressive disorder, recurrent, mild (ICD-10 - F33.0) Auvelity 45mg-105mg twice daily 1. Hypertension: - Patient reports increased blood pressure since starting Adderall and experiencing work stress. Home measurements have been in the 130s/90s, with a recent in-office measurement of 149/88. Plan: - Decrease Auvelity to once daily for one week, then discontinue. - Monitor blood pressure at home and follow up in one month. 2. Anxiety: - Patient reports improvement in anxiety since starting Adderall, with situational anxiety related to work stress. Plan: - Continue Adderall as it has positively impacted anxiety levels. - Reevaluate the need for Auvelity after discontinuation and blood pressure monitoring. 3. Insomnia: - Patient reports occasional difficulty sleeping due to work stress, using trazodone as needed. Plan: - Continue using trazodone as needed for sleep disturbances. 4. Follow-up: - Schedule a follow-up appointment for June 05 to reassess blood pressure, anxiety, and medication management. 04/04/2024 Major depressive disorder, recurrent, mild (ICD-10 - F33.0) Auvelity 45mg-105mg twice daily 1. ADHD - Patient reports significant improvement in clarity and focus with Adderall XR 30 mg daily. - Patient experiences a crash after about 12 hours but is overall satisfied with the current medication. Plan: - Continue Adderall XR 30 mg daily. - Schedule a follow-up appointment in six weeks to reassess the medication's effectiveness and discuss potential adjustments or alternatives (e.g., Vyvanse, Mydayis). 2. Insomnia - Patient reports occasional use of trazodone for sleep, mainly due to work-related stress and long hours. Plan: - Continue trazodone as needed for sleep. 3. Anxiety - Patient is currently on Auvelity and wonders if it is still necessary, given the improvement in ADHD symptoms and sobriety. Plan: - Continue Auvelity for now. - Reevaluate the need for Auvi-Q during the follow-up appointment in six weeks. Follow-up appointment - Schedule a follow-up appointment for six weeks from now, around April 19, to reassess the patient's progress and medication needs. 03/07/2024 Major depressive disorder, recurrent, mild (ICD-10 - F33.0) Auvelity 45mg-105mg twice daily 1. ADHD: - Patient reports no significant improvement in focus, memory, or fidgetiness with Adderall. No change in appetite or sleep. - Plan: Discontinue Adderall. Start Concerta 27 mg every morning. Monitor for changes in sleep, appetite, and anxiety. Reevaluate in one month to determine if Concerta is more effective and adjust the dose if necessary (up to 72 mg). 2. Anxiety: - Patient reports a decrease in anxiety, possibly due to Adderall. Mood has improved significantly. - Plan: Monitor anxiety levels while transitioning from Adderall to Concerta. Compare the effectiveness of both medications for anxiety management and choose the one that works better for the patient. 3. Medication management: - Patient no longer takes pantoprazole, propranolol, and trazodone. Lorazepam and scopolamine patch are used as needed. Promethazine is used occasionally for motion sickness. - Plan: Update medication list accordingly. 4. Auvelity refill: - Patient needs a refill on Auvelity. - Plan: Prescribe a 90-day supply of Auvelity, to be filled at [facility]. 5. Follow-up: - Plan: Schedule a follow-up appointment in one month to assess the effectiveness of Concerta and discuss any changes in symptoms or medication side effects. 02/09/2024 ADHD (attention deficit hyperactivity disorder), combined type (ICD-10 - F90.2) Electronic Prior Authorization was requested for Amphetamine-Dextr oamphet ER 15 MG Capsule Extended Release 24 Hour. Provider can order medication once approval received. 1. ADHD - Combined Presentation - Patient's ADHD test results indicate a combined presentation of ADHD, with a history of impulsivity and poor decision-making. - Plan: Initiate pharmacological treatment with Adderall XR 15 mg daily. Monitor patient's response to the medication, including improvements in focus, motivation, and decreased anxiety. Adjust dosage as needed based on patient's response and side effects. Educate the patient on potential side effects, such as insomnia, decreased appetite, and increased blood pressure. 2. Anxiety - Patient reports a history of anxiety and self-medication with alcohol. - Plan: Monitor patient's anxiety levels during ADHD treatment with Adderall XR. Assess the impact of the medication on anxiety symptoms and consider additional interventions if necessary, such as therapy or anxiolytic medications. 3. Alcoholism (in recovery) - Patient is in recovery from alcoholism and reports no concerns about potential abuse or addiction to stimulant medication. - Plan: Continue to support patient's recovery and monitor for any signs of substance abuse or misuse during ADHD treatment. 4. Weight gain and potential metabolic issues - Patient reports weight gain and concerns about potential metabolic issues, including slow gut motility and interest in Ozempic. - Plan: Encourage the patient to discuss Ozempic with their primary care provider and [facility]. Monitor patient's weight and appetite during ADHD treatment with Adderall XR, as the medication may cause appetite suppression. 5. Insomnia - Patient reports a history of insomnia, which may be exacerbated by Adderall XR. - Plan: Instruct the patient to take Adderall XR in the morning to minimize potential insomnia. Monitor patient's sleep patterns during treatment and consider adjustments to the medication regimen if sleep disturbances persist or worsen. 01/11/2024 Alcohol abuse, in remission (ICD-10 - F10.11) 1. ADHD (Attention Deficit Hyperactivity Disorder) - Suspected - Plan: Schedule the patient for computerized ADHD testing to confirm the diagnosis. Once the results are available, discuss stimulant and non-stimulant treatment options with the patient, considering their medication sensitivity. 2. Alcohol Use Disorder - In Remission - Plan: Continue to monitor the patient's progress in sobriety and provide support as needed. Encourage the patient to maintain their involvement in support groups and sponsorship. 3. Depression - - Plan: Cont Auvelity 45mg -105mg twice daily. Monitor the patient's gastrointestinal symptoms and consider adjusting the medication if constipation persists despite adequate hydration and dietary fiber intake. 4. Anxiety and Impulsivity - Possible comorbidity with ADHD - Plan: Reassess anxiety and impulsivity levels after initiating ADHD treatment, as addressing ADHD symptoms may improve these issues. 5. Follow-up appointments - Plan: Schedule a follow-up appointment after the ADHD testing to discuss treatment options. Additionally, schedule a regular follow-up to monitor the patient's progress, medication side effects, and overall mental health. 03/07/2024 Alcohol abuse, in remission (ICD-10 - F10.11) 1. ADHD: - Patient reports no significant improvement in focus, memory, or fidgetiness with Adderall. No change in appetite or sleep. - Plan: Discontinue Adderall. Start Concerta 27 mg every morning. Monitor for changes in sleep, appetite, and anxiety. Reevaluate in one month to determine if Concerta is more effective and adjust the dose if necessary (up to 72 mg). 2. Anxiety: - Patient reports a decrease in anxiety, possibly due to Adderall. Mood has improved significantly. - Plan: Monitor anxiety levels while transitioning from Adderall to Concerta. Compare the effectiveness of both medications for anxiety management and choose the one that works better for the patient. 3. Medication management: - Patient no longer takes pantoprazole, propranolol, and trazodone. Lorazepam and scopolamine patch are used as needed. Promethazine is used occasionally for motion sickness. - Plan: Update medication list accordingly. 4. Auvelity refill: - Patient needs a refill on Auvelity. - Plan: Prescribe a 90-day supply of Auvelity, to be filled at [facility]. 5. Follow-up: - Plan: Schedule a follow-up appointment in one month to assess the effectiveness of Concerta and discuss any changes in symptoms or medication side effects. 04/04/2024 Alcohol abuse, in remission (ICD-10 - F10.11) 1. ADHD - Patient reports significant improvement in clarity and focus with Adderall XR 30 mg daily. - Patient experiences a crash after about 12 hours but is overall satisfied with the current medication. Plan: - Continue Adderall XR 30 mg daily. - Schedule a follow-up appointment in six weeks to reassess the medication's effectiveness and discuss potential adjustments or alternatives (e.g., Vyvanse, Mydayis). 2. Insomnia - Patient reports occasional use of trazodone for sleep, mainly due to work-related stress and long hours. Plan: - Continue trazodone as needed for sleep. 3. Anxiety - Patient is currently on Auvelity and wonders if it is still necessary, given the improvement in ADHD symptoms and sobriety. Plan: - Continue Auvelity for now. - Reevaluate the need for Auvi-Q during the follow-up appointment in six weeks. Follow-up appointment - Schedule a follow-up appointment for six weeks from now, around April 19, to reassess the patient's progress and medication needs. 05/08/2024 Alcohol abuse, in remission (ICD-10 - F10.11) 1. Hypertension: - Patient reports increased blood pressure since starting Adderall and experiencing work stress. Home measurements have been in the 130s/90s, with a recent in-office measurement of 149/88. Plan: - Decrease Auvelity to once daily for one week, then discontinue. - Monitor blood pressure at home and follow up in one month. 2. Anxiety: - Patient reports improvement in anxiety since starting Adderall, with situational anxiety related to work stress. Plan: - Continue Adderall as it has positively impacted anxiety levels. - Reevaluate the need for Auvelity after discontinuation and blood pressure monitoring. 3. Insomnia: - Patient reports occasional difficulty sleeping due to work stress, using trazodone as needed. Plan: - Continue using trazodone as needed for sleep disturbances. 4. Follow-up: - Schedule a follow-up appointment for June 05 to reassess blood pressure, anxiety, and medication management. 06/05/2024 Alcohol abuse, in remission (ICD-10 - F10.11) 1. Memory and cognitive concerns - Patient reports difficulty recalling specific details from past work experiences. - Recent neuropsychological testing at [facility] showed normal results. Plan: - Continue monitoring [...] emotional well-being and provide support as needed. 01/11/2024 Insomnia due to other mental disorder (ICD-10 - F51.05) 1. ADHD (Attention Deficit Hyperactivity Disorder) - Suspected - Plan: Schedule the patient for computerized ADHD testing to confirm the diagnosis. Once the results are available, discuss stimulant and non-stimulant treatment options with the patient, considering their medication sensitivity. 2. Alcohol Use Disorder - In Remission - Plan: Continue to monitor the patient's progress in sobriety and provide support as needed. Encourage the patient to maintain their involvement in support groups and sponsorship. 3. Depression - - Plan: Cont Auvelity 45mg -105mg twice daily. Monitor the patient's gastrointestinal symptoms and consider adjusting the medication if constipation persists despite adequate hydration and dietary fiber intake. 4. Anxiety and Impulsivity - Possible comorbidity with ADHD - Plan: Reassess anxiety and impulsivity levels after initiating ADHD treatment, as addressing ADHD symptoms may improve these issues. 5. Follow-up appointments - Plan: Schedule a follow-up appointment after the ADHD testing to discuss treatment options. Additionally, schedule a regular follow-up to monitor the patient's progress, medication side effects, and overall mental health. 06/05/2024 Insomnia due to other mental disorder (ICD-10 - F51.05) Cont Trazodone 50mg hs prn 1. Memory and cognitive concerns - Patient reports difficulty recalling specific details from past work experiences. - Recent neuropsychological testing at [facility] showed normal results. Plan: - Continue monitoring [...] emotional well-being and provide support as needed. 04/04/2024 Insomnia due to other mental disorder (ICD-10 - F51.05) Cont Trazodone 50mg hs prn 1. ADHD - Patient reports significant improvement in clarity and focus with Adderall XR 30 mg daily. - Patient experiences a crash after about 12 hours but is overall satisfied with the current medication. Plan: - Continue Adderall XR 30 mg daily. - Schedule a follow-up appointment in six weeks to reassess the medication's effectiveness and discuss potential adjustments or alternatives (e.g., Vyvanse, Mydayis). 2. Insomnia - Patient reports occasional use of trazodone for sleep, mainly due to work-related stress and long hours. Plan: - Continue trazodone as needed for sleep. 3. Anxiety - Patient is currently on Auvelity and wonders if it is still necessary, given the improvement in ADHD symptoms and sobriety. Plan: - Continue Auvelity for now. - Reevaluate the need for Auvi-Q during the follow-up appointment in six weeks. Follow-up appointment - Schedule a follow-up appointment for six weeks from now, around April 19, to reassess the patient's progress and medication needs. 05/08/2024 Insomnia due to other mental disorder (ICD-10 - F51.05) Cont Trazodone 50mg hs prn 1. Hypertension: - Patient reports increased blood pressure since starting Adderall and experiencing work stress. Home measurements have been in the 130s/90s, with a recent in-office measurement of 149/88. Plan: - Decrease Auvelity to once daily for one week, then discontinue. - Monitor blood pressure at home and follow up in one month. 2. Anxiety: - Patient reports improvement in anxiety since starting Adderall, with situational anxiety related to work stress. Plan: - Continue Adderall as it has positively impacted anxiety levels. - Reevaluate the need for Auvelity after discontinuation and blood pressure monitoring. 3. Insomnia: - Patient reports occasional difficulty sleeping due to work stress, using trazodone as needed. Plan: - Continue using trazodone as needed for sleep disturbances. 4. Follow-up: - Schedule a follow-up appointment for June 05 to reassess blood pressure, anxiety, and medication management. 03/07/2024 Insomnia due to other mental disorder (ICD-10 - F51.05) 1. ADHD: - Patient reports no significant improvement in focus, memory, or fidgetiness with Adderall. No change in appetite or sleep. - Plan: Discontinue Adderall. Start Concerta 27 mg every morning. Monitor for changes in sleep, appetite, and anxiety. Reevaluate in one month to determine if Concerta is more effective and adjust the dose if necessary (up to 72 mg). 2. Anxiety: - Patient reports a decrease in anxiety, possibly due to Adderall. Mood has improved significantly. - Plan: Monitor anxiety levels while transitioning from Adderall to Concerta. Compare the effectiveness of both medications for anxiety management and choose the one that works better for the patient. 3. Medication management: - Patient no longer takes pantoprazole, propranolol, and trazodone. Lorazepam and scopolamine patch are used as needed. Promethazine is used occasionally for motion sickness. - Plan: Update medication list accordingly. 4. Auvelity refill: - Patient needs a refill on Auvelity. - Plan: Prescribe a 90-day supply of Auvelity, to be filled at [facility]. 5. Follow-up: - Plan: Schedule a follow-up appointment in one month to assess the effectiveness of Concerta and discuss any changes in symptoms or medication side effects. 01/11/2024 ADHD (attention deficit hyperactivity disorder), combined type (ICD-10 - F90.2) 1. ADHD (Attention Deficit Hyperactivity Disorder) - Suspected - Plan: Schedule the patient for computerized ADHD testing to confirm the diagnosis. Once the results are available, discuss stimulant and non-stimulant treatment options with the patient, considering their medication sensitivity. 2. Alcohol Use Disorder - In Remission - Plan: Continue to monitor the patient's progress in sobriety and provide support as needed. Encourage the patient to maintain their involvement in support groups and sponsorship. 3. Depression - - Plan: Cont Auvelity 45mg -105mg twice daily. Monitor the patient's gastrointestinal symptoms and consider adjusting the medication if constipation persists despite adequate hydration and dietary fiber intake. 4. Anxiety and Impulsivity - Possible comorbidity with ADHD - Plan: Reassess anxiety and impulsivity levels after initiating ADHD treatment, as addressing ADHD symptoms may improve these issues. 5. Follow-up appointments - Plan: Schedule a follow-up appointment after the ADHD testing to discuss treatment options. Additionally, schedule a regular follow-up to monitor the patient's progress, medication side effects, and overall mental health. 02/09/2024 Major depressive disorder, recurrent, mild (ICD-10 - F33.0) auvelity 45mg-105mg bid 1. ADHD - Combined Presentation - Patient's ADHD test results indicate a combined presentation of ADHD, with a history of impulsivity and poor decision-making. - Plan: Initiate pharmacological treatment with Adderall XR 15 mg daily. Monitor patient's response to the medication, including improvements in focus, motivation, and decreased anxiety. Adjust dosage as needed based on patient's response and side effects. Educate the patient on potential side effects, such as insomnia, decreased appetite, and increased blood pressure. 2. Anxiety - Patient reports a history of anxiety and self-medication with alcohol. - Plan: Monitor patient's anxiety levels during ADHD treatment with Adderall XR. Assess the impact of the medication on anxiety symptoms and consider additional interventions if necessary, such as therapy or anxiolytic medications. 3. Alcoholism (in recovery) - Patient is in recovery from alcoholism and reports no concerns about potential abuse or addiction to stimulant medication. - Plan: Continue to support patient's recovery and monitor for any signs of substance abuse or misuse during ADHD treatment. 4. Weight gain and potential metabolic issues - Patient reports weight gain and concerns about potential metabolic issues, including slow gut motility and interest in Ozempic. - Plan: Encourage the patient to discuss Ozempic with their primary care provider and [facility]. Monitor patient's weight and appetite during ADHD treatment with Adderall XR, as the medication may cause appetite suppression. 5. Insomnia - Patient reports a history of insomnia, which may be exacerbated by Adderall XR. - Plan: Instruct the patient to take Adderall XR in the morning to minimize potential insomnia. Monitor patient's sleep patterns during treatment and consider adjustments to the medication regimen if sleep disturbances persist or worsen. 02/09/2024 Insomnia due to other mental disorder (ICD-10 - F51.05) 1. ADHD - Combined Presentation - Patient's ADHD test results indicate a combined presentation of ADHD, with a history of impulsivity and poor decision-making. - Plan: Initiate pharmacological treatment with Adderall XR 15 mg daily. Monitor patient's response to the medication, including improvements in focus, motivation, and decreased anxiety. Adjust dosage as needed based on patient's response and side effects. Educate the patient on potential side effects, such as insomnia, decreased appetite, and increased blood pressure. 2. Anxiety - Patient reports a history of anxiety and self-medication with alcohol. - Plan: Monitor patient's anxiety levels during ADHD treatment with Adderall XR. Assess the impact of the medication on anxiety symptoms and consider additional interventions if necessary, such as therapy or anxiolytic medications. 3. Alcoholism (in recovery) - Patient is in recovery from alcoholism and reports no concerns about potential abuse or addiction to stimulant medication. - Plan: Continue to support patient's recovery and monitor for any signs of substance abuse or misuse during ADHD treatment. 4. Weight gain and potential metabolic issues - Patient reports weight gain and concerns about potential metabolic issues, including slow gut motility and interest in Ozempic. - Plan: Encourage the patient to discuss Ozempic with their primary care provider and [facility]. Monitor patient's weight and appetite during ADHD treatment with Adderall XR, as the medication may cause appetite suppression. 5. Insomnia - Patient reports a history of insomnia, which may be exacerbated by Adderall XR. - Plan: Instruct the patient to take Adderall XR in the morning to minimize potential insomnia. Monitor patient's sleep patterns during treatment and consider adjustments to the medication regimen if sleep disturbances persist or worsen. 03/07/2024 ADHD (attention deficit hyperactivity disorder), combined type (ICD-10 - F90.2) Electronic Prior Authorization was requested for Methylphenidate HCl ER (OSM) 27 MG Tablet Extended Release. Provider can order medication once approval received. 1. ADHD: - Patient reports no significant improvement in focus, memory, or fidgetiness with Adderall. No change in appetite or sleep. - Plan: Discontinue Adderall. Start Concerta 27 mg every morning. Monitor for changes in sleep, appetite, and anxiety. Reevaluate in one month to determine if Concerta is more effective and adjust the dose if necessary (up to 72 mg). 2. Anxiety: - Patient reports a decrease in anxiety, possibly due to Adderall. Mood has improved significantly. - Plan: Monitor anxiety levels while transitioning from Adderall to Concerta. Compare the effectiveness of both medications for anxiety management and choose the one that works better for the patient. 3. Medication management: - Patient no longer takes pantoprazole, propranolol, and trazodone. Lorazepam and scopolamine patch are used as needed. Promethazine is used occasionally for motion sickness. - Plan: Update medication list accordingly. 4. Auvelity refill: - Patient needs a refill on Auvelity. - Plan: Prescribe a 90-day supply of Auvelity, to be filled at [facility]. 5. Follow-up: - Plan: Schedule a follow-up appointment in one month to assess the effectiveness of Concerta and discuss any changes in symptoms or medication side effects. 04/04/2024 ADHD (attention deficit hyperactivity disorder), combined type (ICD-10 - F90.2) 1. ADHD - Patient reports significant improvement in clarity and focus with Adderall XR 30 mg daily. - Patient experiences a crash after about 12 hours but is overall satisfied with the current medication. Plan: - Continue Adderall XR 30 mg daily. - Schedule a follow-up appointment in six weeks to reassess the medication's effectiveness and discuss potential adjustments or alternatives (e.g., Vyvanse, Mydayis). 2. Insomnia - Patient reports occasional use of trazodone for sleep, mainly due to work-related stress and long hours. Plan: - Continue trazodone as needed for sleep. 3. Anxiety - Patient is currently on Auvelity and wonders if it is still necessary, given the improvement in ADHD symptoms and sobriety. Plan: - Continue Auvelity for now. - Reevaluate the need for Auvi-Q during the follow-up appointment in six weeks. Follow-up appointment - Schedule a follow-up appointment for six weeks from now, around April 19, to reassess the patient's progress and medication needs. 06/05/2024 ADHD (attention deficit hyperactivity disorder), combined type (ICD-10 - F90.2) 1. Memory and cognitive concerns - Patient reports difficulty recalling specific details from past work experiences. - Recent neuropsychological testing at [facility] showed normal results. Plan: - Continue monitoring [...] emotional well-being and provide support as needed. 05/08/2024 ADHD (attention deficit hyperactivity disorder), combined type (ICD-10 - F90.2) 1. Hypertension: - Patient reports increased blood pressure since starting Adderall and experiencing work stress. Home measurements have been in the 130s/90s, with a recent in-office measurement of 149/88. Plan: - Decrease Auvelity to once daily for one week, then discontinue. - Monitor blood pressure at home and follow up in one month. 2. Anxiety: - Patient reports improvement in anxiety since starting Adderall, with situational anxiety related to work stress. Plan: - Continue Adderall as it has positively impacted anxiety levels. - Reevaluate the need for Auvelity after discontinuation and blood pressure monitoring. 3. Insomnia: - Patient reports occasional difficulty sleeping due to work stress, using trazodone as needed. Plan: - Continue using trazodone as needed for sleep disturbances. 4. Follow-up: - Schedule a follow-up appointment for June 05 to reassess blood pressure, anxiety, and medication management. Plan Of Treatment Pending Test Test Name Order Date ADHD Testing 01/11/2024 Next Appt Details Provider Name:Devang pagan, 09/05/2024 04:45:00 PM, [address] [facility] [facility], [facility] [address], [place], [address], Insurance Providers Payer Name Payer Address Payer Phone Subscriber Number Group Number Insured Name Patient Relationship to Insured Coverage Start Date Coverage End Date [employer] [employer]po [address] [place] [address] [id number] COOK Spouse - patient is the spouse of the insured Medical (General) History Medical History History ICD Code Problems: Alcohol dependence Drug-induced nausea and vomiting Generalized anxiety disorder Insomnia disorder related to another men cristopher disorder Memory impairment Mild recurrent major depression Nondependent alcohol abuse in remission Panic disorder with agoraphobia AND mode rate panic attacks , Surgical History Surgery Date(Month/Year) Other Fibula bone graft microvasc (03137) Carpal tunnel surgery (24719) Finger tendon transfer (67356)
--- OUTSIDE RECORDS SUMMARY | 2024-08-09 01:38 | XMS_ITS | Clinical Summary ---
Author Organization [facility] Address [address] [facility] [place], [place] [id number] [place] [id number] Care Team Providers Care Chisel Grinder Name Role Phone Cristopher Rivas MD Primary Care Provider [phone] Allergies Active Allergy Reactions Criticality Noted Date Comments Cefixime GI Bleed 02/25/2023 Medications vitamin D2, ergocalciferol, (DRISDOL) 1.25 mg capsule Take 1 capsule (1.25 mg total) by mouth. Active B ufmyfts-O-gnqom acid 0.8 mg (DIALYVITE/NEPH RO-LISA) Tab tablet [...] to complete this topic Insurance Care Teams Chisel Grinder Relationship Specialty Start Date End Date Cristopher Rivas MD [id number] [place] [address] PCP - General FAMILY PRACTICE 02/25/23
== END 2024-08-07 13:58 | disposition home or self-care (01) ==
LOC: ANHCARD 13:58
PROVIDERS: PCP Family Medicine; Visit Provider Physician Assistant
DX: M79.89 Other specified soft tissue disorders (principal)
CPT/HCPCS: 93306

== ENCOUNTER 2025-04-28 14:20 | Outpatient (CLI) | payer BC, SELFPAY ==
--- OUTSIDE RECORDS SUMMARY | 2025-04-28 15:24 | XMS_ITS | Clinical Summary ---
Author Organization [facility] Address [address] [place] [address] Care Team Providers Care Solderer Torch Name Role Phone Cristopher Rivas MD Primary [...] increase to 1 tablet twice daily Active [id number]-[id number]-jep-[id number] ic-[id number]-vbo-[id number] 1000-130(40-80) mg capsule Take 1 capsule by [...] of 37.0 to 37.9 in adult Immunizations Immunization Administration Dates Next Due Influenza, Quadrivalent, Spl [...] oz pur e alcohol) Social Connection and Isolation Panel Answer Date Recorded In a typical week, how many times do you talk on the phone with family, friends, or neighbors? More than three times a week 12/19/2022 How often do you get togethe r with friends or relatives? More than three times a week 12/19/2022 How often do you attend chur ch or protestant services? Never 12/19/2022 Do you belong to any clubs o r organizations such as sikh groups, unions, fraternal or athletic groups, or [...] place to sleep or slept in a custodial (including now)? No 12/19/2022 Personal Safety Answer Date Recorded Have you ever been in or are you currently in a harmful physical or emotional relationship or is someone making you feel afraid or unsafe? 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 Gender Identity Not on file Sexual Orientation Not on file Obstetrics History Last Filed Vital Signs Vital Sign Reading Time Taken Comments Blood Pressure 114/77 11/28/2023 1:33 PM CDT Pulse 76 11/28/2023 1:33 PM CDT Temperature 36.9 C (98.5 F) 12/20/2022 7:00 AM CDT Respiratory Rate 17 12/20/2022 7:00 AM CDT Oxygen Saturation 99% 12/20/2022 7:00 AM CDT Inhaled Oxygen Concentration - - Weight 91.4 kg (201 lb 6.4 oz) 11/28/2023 1:33 P M CDT Height 157.5 cm (5' 2) 11/28/2023 1:33 PM CDT Body Mass Index 36.84 11/28/2023 1:33 PM CDT Plan of Treatment Health Maintenance Due Date Last Done Comments Cervical Cancer Screening 1970 Colon Cancer Screening-Colonoscopy 1970 Depression Screening 1970 Hepatitis C Screening 1970 DTaP/Tdap/Td Vaccine (1 - Tdap) 1981 Hepatitis B Screening 1988 Regular Well Visit/Exam 18-64 1988 Pneumococcal vaccine <65 (1 of 2 - PCV) 1989 Zoster Vaccine (1 of 2) 1989 Breast Cancer Screening-Mammogram 04/29/2016 04/29/2015, 05/26/2014, 04/22/2013 Covid-19 Vaccine (3 - 2024-2 6 season) 2025 08/01/2021, 01/01/2021 Influenza Vaccine (#1) 2025 , 04/29/2021, 08/06/2020, Additional history exists Procedures [...] agrees with it. ACC# Date Time Exam [id number] Apr 29, 2015 15:02:00 [facility] [id number] Diag Mammogram Bilateral Technologist(s): Angelica Gorman; ; [id number] Apr 29, 2015 15:02:00 [facility] [id number] Dig Breast Eduar Johnnie [id number] Apr 29, 2015 15:11:00 [facility] [id number] Breast US unilateral, ltd R EXAMINATION: BILATERAL FULL FIELD DIGITAL DIAGNOSTIC MAMMOGRAM WITH CAD AND DIGITAL BREAST TOMOSYNTHESIS AND RIGHT BREAST ULTRASOUND HISTORY: 44-year-old woman with 2 week history of right breast pain. MAMMOGRAM TECHNIQUE: Full field digital craniocaudal and mediolateral oblique views of both breasts were obtained. Computer Aided Detection was performed with Clixtr.3 version 9.3. Digital breast tomosynthesis was performed [...] FORTE M.D. on Apr 29 2015 3:56P [id number] Procedure Note Provider, MD Dawn - 11/19/2016 NIDA FORTE M.D. REBECCA HILL M.D. FINAL REPORT The radiology attending physician has personally reviewed this study, and has reviewed and/or edited this written report and agrees with it. ACC# Date Time Exam [id number] Apr 29, 2015 15:02:00 [facility] [id number] Diag Mammogram Bilateral Technologist(s): Angelica Gorman; ; [id number] Apr 29, 2015 15:02:00 [facility] [id number] Dig Breast Eduar Johnnie [id number] Apr 29, 2015 15:11:00 [facility] [id number] Breast US unilateral, ltd R EXAMINATION: BILATERAL FULL FIELD DIGITAL DIAGNOSTIC MAMMOGRAM WITH CAD AND DIGITAL BREAST TOMOSYNTHESIS AND RIGHT BREAST ULTRASOUND HISTORY: 44-year-old woman with 2 week history of right breast pain. MAMMOGRAM TECHNIQUE: Full field digital craniocaudal and mediolateral oblique views of both breasts were obtained. Computer Aided Detection was performed with Clixtr.3 version 9.3. Digital breast tomosynthesis was performed [...] FORTE M.D. on Apr 29 2015 3:56P [id number] Historical Provider MD YOUNG MAMMO PROCEDURES Elisa escobar Result from Last 3 Months or Most Recently Relevant to Health Maintenance Insurance [employer] [facility] [employer] [facility] [employer] Advance Directives For more information, please contact: [phone] * Full Code (Latest Code Status on [...] 6:56 AM 06/04/2022 10:42 PM Care Teams Solderer Torch Relationship Specialty Start Date End Date Cristopher Rivas MD [address] [facility] [address] [place] [address] PCP - General Family Medicine 01/26/22
--- OUTSIDE RECORDS SUMMARY | 2025-04-28 15:24 | XMS_ITS | Clinical Summary ---
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 Gender Identity Not on file Sexual Orientation Not on file Plan of Treatment Health Maintenance Due Date Last Done Comments Hepatitis C Virus (HCV) Screening 1970 TdaP Immunization 1970 Hepatitis B Immunization (1 of 3 - 19+ 3-dose series) 1989 Pap Smear 10/06/1991 Cervical Cancer Screening (CCS) 2000 HPV/Cotest 2000 Cologuard 10/06/2015 Colonoscopy 10/06/2015 Colorectal Cancer Screening 10/06/2015 Immunochemical Fecal Occult Blood 10/06/2015 Pneumococcal Immunization (5 0+ years) (1 of 1 - PCV) 2020 Zoster Immunization (1 of 2) 2020 Influenza Immunization (#1) 03/17/202504/16, 05/16/2013 SARS-COV-2 Immunization (2 - 2024- season) 2025 08/01/2021 Respiratory Syncytial Virus (RSV) Immunization (Adult) (1 - 1-dose 75+ series) 2045 Human Papillomavirus (HPV) Immunization Aged Out No longer eligible b ased on patient's age to complete this topic Meningococcal Immunization (ACWY) Aged Out No longer eligible b ased on patient's age to complete this topic Rotavirus Immunization Aged Out No lo nger eligible based on patient's age to complete this topic
--- OUTSIDE RECORDS SUMMARY | 2025-04-28 15:24 | XMS_ITS | Clinical Summary ---
Author Organization [facility] Address [address] [place] [address] Care Team Providers Care Perinatal Instructor Name Role Phone Cristopher Rivas MD Primary Care Provider [phone] Allergies Active Allergy Reactions Criticality Noted Date Comments Cefixime GI Bleed 02/25/2023 Medications vitamin D2, ergocalciferol, (DRISDOL) 1.25 mg capsule Take 1 capsule (1.25 mg total) by mouth. Active B wajpeyf-C-bgsir acid 0.8 mg (DIALYVITE/NEPH RO-LISA) Tab tablet [...] 72 02/25/2023 10:05 PM CDT Temperature 36.8 C (98.2 F) 02/25/2023 10:05 PM CDT Respiratory Rate 16 02/25/2023 10:05 PM CDT Oxygen Saturation 100% 02/26/2023 2:00 AM CDT Inhaled Oxygen Concentration - - Weight 88.9 kg (196 lb) 02/25/2023 10:05 PM CDT Height 157.5 cm (5' 2) 02/25/2023 10:05 PM CDT Body Mass Index [...] Every 5 Years 2000 Mammogram Screening 2010 Pneumococcal Vaccine: 50+ Years (1 of 1 - PCV) 2020 Zoster Vaccines (1 of 2) 2020 Cervical Cancer Screening Pa p Smear (Age 30 to 64) Every 3 Years 03/09/2025 03/09/2022 Cervical Cancer Screening wi th HPV 03/09/2025 COVID-19 Vaccine (3 - 2024-2 6 season) 2025 07/18/2022, 08/01/2021 Influenza Adult (#1) 2025 05/19/2022, 04/29/2021, 05/16/2013 Meningococcal B Vaccine Aged Out No l onger eligible based on patient's age to complete this topic Meningococcal Vaccine Aged Out No nazario justin eligible based on patient's age to complete this topic RSV Immunizations Under 20 Months Aged Out No longer eligible b ased on patient's age to complete this topic Insurance Care Teams Perinatal Instructor Relationship Specialty Start Date End Date Cristopher Rivas MD [address] [place] [address] PCP - General FAMILY PRACTICE 02/25/23
--- OUTSIDE RECORDS SUMMARY | 2025-04-28 15:24 | XMS_ITS | Patient Health Record ---
Author Organization [facility] [employer] Address [address] [place] [address] Care Team Providers Care Respiratory Technician Name Role Phone Cristopher Rivas MD Primary Care Provider UnavailDevang Robert Unavailable [phone] Allergies Allergen (clinical drug ingredient) Drug/Non Drug Allergy documented on EMR Reaction Allergy Type Onset Date Status Suprax Unknown Drug Allergy 09/28/2023 Active Results Component Value Reference Range Notes UDT Reviewed date:11/29/2024 11:29:04 AM Interpretation: Performing Lab: Notes/Report: THC P 0 - 50 ng/ml Cocaine N 0 - 300 ng/ml Amphetamine P 0 - 1000 ng/ml Buprenorphine (BUP) N 0 - 10 ng/ml Secobarbital (Bar) N 0 - 300 ng/ml Oxazepam (BZO) N 0 - 300 ng/ml 0-xrcydjrtmi-7,0-elbfjims-6,3-diphenylpyrrolidine (NEFTALY P) N 0 - 300 ng/ml Methamphetamine (MET) N 0 - 1000 ng/ml Methylenedioxymethamphetamine (MDMA) N 0 - 500 ng/ml Morphine (MOP 300/CFW6354) N 0 - 300 ng/ml Methadone (MTD) N 0 - 300 ng/ml Phencyclidine (PCP) N 0 - 25 ng/ml Nortriptyline (TCA) N 0 - 1000 ng/ml Oxycodone N 0 - 300 ng/ml x N 0 - 300 ng/ml Reason For Referral No Information Medications Medication SIG (Take, Route, Frequency, Duration) Notes Start Date End Date Status Magnesium 250 MG Tablet 1 tablet with a meal Orally Once a day 03/07/2024 Active Vitamin D 50 MCG (1999) Tablet 1 tablet Orally Once a day Active Wegovy 0.25 MG/0.5ML Solution Auto-injector Subcutaneous; Duration: 28 Days Not-Taking traZODone HCl 50 MG Tablet 2 tablets at bedtime as needed by mouth; Duration: 30 days 09/28/2023 Active oxyBUTYnin Chloride ER 10 MG Tablet Extended Release 24 Hour Oral 09/28/2023 Not-Taking Propranolol HCl ER 60 MG Capsule Extended Release 24 Hour Oral; Duration: 90 Days Active Ondansetron HCl 4 MG Tablet 1 tablet Orally four times a day; Duration: 14 days As needed 05/15/2024 Active Promethazine HCl 12.5 MG Tablet Oral 09/28/2023 Active Scopolamine 1 MG/3DAYS Patch 72 Hour Transdermal 09/28/2023 Active Multivitamin - Tablet 1 tablet Orally On a day 03/07/2024 Active Azelastine HCl 0.1 % Solution Nasal; Duration: 50 Days Active Amphetamine-Dextroamphet ER 30 MG Capsule Extended Release 24 Hour 1 capsule in the morning Orally Once a day; Duration: 30 days 03/24/2025 Active LORazepam 0.5 MG Tablet 1 tablet Oral Once a day; Duration: 10 days As needed 03/07/2025 Active busPIRone HCl 7.5 MG Tablet 1 tablet Orally Twice a day; Duration: 90 days 10/15/2025 Active busPIRone HCl 7.5 MG Tablet 1 tablet Orally Twice a day; Duration: 90 days Active Immunizations Vaccine Route Administration Date Status [facility] 1st dose Unknown 08/01/2021 Ad ministered Social History Tobacco Use: Social History Observation Description Date Details (start date - stop date) Former Smoker NA - 01/14/2005 Sex Assigned At : Social History Observation Description Sex Assigned At Unknown Social History Miscellaneous: Social Info Question Answer Notes Advance Care Planning Are you your own decision-maker Yes Do you have Power of E Learning Coordinator for Health or [facility] irvin? No Tobacco Use: Social Info Question Answer Notes Tobacco Control (Standard) Tobacco use: Former smoker When did you stop smoking? 01/14/2005 How long has it been since you last smoked? Greater than 10 years Additional Details Category Social Info Options Details Migrated Social History Migrated Social History Alcohol Intake: None 05/02/2023,Tobacco Years: Former smoker 07/22/2021 Problems Problem Type SNOMED Code ICD Code Onset Dates Problem Status W/U Status Risk Notes Problem Mild recurrent major depression (50638584) Major depressive disorder, recurrent, mild (F33.0) Active confirmed Problem Generalized anxiety disorder (05922610) Generalized anxiety disorder (F41.1) Active confirmed Problem Insomnia disorder related to another mental disorder (66448425) Insomnia 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) Active confirmed Problem Nondependent alcohol abuse in remission (200794062) Alcohol abuse, in remission (F10.11) Active confirmed Problem Attention deficit hyperactivity disorder (255351675) ADHD (attention deficit hyperactivity disorder), combined type (F90.2) Active confirmed Vital Signs Heart Rate 112 /min 03/07/2025 Height-cm 157.48 cm 03/07/2025 Blood pressure diastolic 89 mm Hg 03/07/2025 Weight-kg 86.64 kg 03/07/2025 Height 62.00 in 03/07/2025 Blood pressure systolic 131 mm Hg 03/07/2025 Weight 191.0 lbs 03/07/2025 BMI 34.93 kg/m2 03/07/2025 Encounters Encounter Location Date Provider Diagnosis [facility] [employer] [facility] [address] [address] 05/02/2024 Devang Neff [facility] [employer] [facility] [address] [facility] [address] [place] [address] 05/08/2024 Devang Neff Generalized anxiety disorder F41.1 ; Major depressive disorder, recurrent, mild F33.0 ; Alcohol abuse, in remission F10.11 ; Insomnia due to other mental disorder F51.05 and ADHD (attention deficit hyperactivity disorder), combined type F90.2 [facility] [employer] [facility] [address] [facility] [address] [place] [address] 06/05/2024 Devang Neff Generalized anxiety disorder F41.1 ; Major depressive disorder, recurrent, mild F33.0 ; Alcohol abuse, in remission F10.11 ; Insomnia due to other mental disorder F51.05 and ADHD (attention deficit hyperactivity disorder), combined type F90.2 [facility] [employer] [facility] [address] [place] [address] 09/04/2024 Devang Neff Generalized anxiety disorder F41.1 ; Major depressive disorder, recurrent, mild F33.0 ; Alcohol abuse, in remission F10.11 ; Insomnia due to other mental disorder F51.05 and ADHD (attention deficit hyperactivity disorder), combined type F90.2 [facility], [facility] [address] [place] [address] 11/28/2024 Devang Nicholsonoza Negative depression screening Z13.31 ; Encounter for screening for cardiovascular disorders Z13.6 ; Dietary counseling and surveillance Z71.3 ; Generalized anxiety disorder F41.1 ; Major depressive disorder, recurrent, mild F33.0 ; Alcohol abuse, in remission F10.11 ; Insomnia due to other mental disorder F51.05 and ADHD (attention deficit hyperactivity disorder), combined type F90.2 [facility] [address] [place] [address] 03/07/2025 Devang Neff Generalized anxiety disorder F41.1 ; Major depressive disorder, recurrent, mild F33.0 ; Alcohol abuse, in remission F10.11 ; Insomnia due to other mental disorder F51.05 and ADHD (attention deficit hyperactivity disorder), combined type F90.2 [facility] [employer], [facility] [address] [place] [address] 05/15/2024 Devang Neff [facility], [facility] [address] [place] [address] 05/15/2024 Devangdaisy Nicholsonoza Nausea R11.0 [facility], [facility] [address] [place] [address] 08/07/2024 Devang Neff [facility], [facility] [address] [place] [address] 12/17/2024 Devang Neff [facility], [facility] [address] [place] [address] 04/28/2025 Devang Neff ADHD (attention defi cit hyperactivity disorder), combined type F90.2 [facility] [address] [place] [address] 07/23/2024 Devang Neff ADHD (attention defi cit hyperactivity disorder), combined type F90.2 [facility], [facility] [address] [place] [address] 08/05/2024 Devang Neff Generalized anxiety disorder F41.1 [facility] [address] [place] [address] 08/21/2024 Devang Neff ADHD (attention defi cit hyperactivity disorder), combined type F90.2 [facility] [address] [place] [address] 09/29/2024 Devang Neff ADHD (attention defi cit hyperactivity disorder), combined type F90.2 [facility] [address] [place] [address] 10/12/2024 Devang Neff Generalized anxiety disorder F41.1 [facility] [address] [place] [address] 11/05/2024 Devang Neff ADHD (attention defi cit hyperactivity disorder), combined type F90.2 [facility] [address] [place] [address] 12/15/2024 Devang Neff [facility] [address] [place] [address] 01/09/2025 Devang Neff ADHD (attention defi cit hyperactivity disorder), combined type F90.2 [facility] [address] [place] [address] 02/15/2025 Devang Neff ADHD (attention defi cit hyperactivity disorder), combined type F90.2 [facility] [address] [place] [address] 02/18/2025 Devang Neff [facility] [address] [place] [address] 03/22/2025 Devang Neff ADHD (attention defi cit hyperactivity disorder), combined type F90.2 [facility] [address] [place] [address] 04/17/2025 Devang Neff Generalized anxiety disorder F41.1 Assessments Encounter Date Diagnosis (ICD Code) Assessment Notes Treatment Notes Treatment Clinical Notes Section Notes 05/08/2024 Generalized anxiety disorder (ICD-10 - F41.1) [...] work experiences. - Recent neuropsychological testing at [facility] showed normal results. Plan: - Continue monitoring [...] 08/05/2024 Generalized anxiety disorder (ICD-10 - F41.1) 08/21/2024 ADHD (attention deficit hyperactivity disorder), combined type (ICD-10 - F90.2) 09/04/2024 Generalized anxiety disorder (ICD-10 - F41.1) 09/29/2024 ADHD (attention deficit hyperactivity disorder), combined type (ICD-10 - F90.2) 10/12/2024 Generalized anxiety disorder (ICD-10 - F41.1) 11/05/2024 ADHD (attention deficit hyperactivity disorder), combined type (ICD-10 - F90.2) 11/28/2024 Negative depression screening (ICD-10 - Z13.31) 01/09/2025 ADHD (attention deficit hyperactivity disorder), combined type (ICD-10 - F90.2) 02/15/2025 ADHD (attention deficit hyperactivity disorder), combined type (ICD-10 - F90.2) 03/07/2025 Generalized anxiety disorder (ICD-10 - F41.1) 03/22/2025 ADHD (attention deficit hyperactivity disorder), combined type (ICD-10 - F90.2) 04/17/2025 Generalized anxiety disorder (ICD-10 - F41.1) 04/28/2025 ADHD (attention deficit hyperactivity disorder), combined type (ICD-10 - F90.2) 03/07/2025 Major depressive disorder, recurrent, mild (ICD-10 - F33.0) 11/28/2024 Encounter for screening for cardiovascular disorders (ICD-10 - Z13.6) 09/04/2024 Major depressive disorder, recurrent, mild (ICD-10 - F33.0) 06/05/2024 Major depressive disorder, recurrent, mild (ICD-10 - F33.0) 1. Memory and cognitive concerns - Patient reports difficulty recalling specific details from past work experiences. - Recent neuropsychological testing at [facility] showed normal results. Plan: - Continue monitoring [...] well-being and provide support as needed. 05/08/2024 Major depressive disorder, recurrent, mild (ICD-10 [...] reassess blood pressure, anxiety, and medication management. 05/08/2024 Alcohol abuse, in remission (ICD-10 - [...] work experiences. - Recent neuropsychological testing at [facility] showed normal results. Plan: - Continue monitoring [...] emotional well-being and provide support as needed. 09/04/2024 Alcohol abuse, in remission (ICD-10 - F10.11) almost 2 years sobriety 11/28/2024 Dietary counseling and surveillance (ICD-10 - Z71.3) 03/07/2025 Alcohol abuse, in remission (ICD-10 - F10.11) almost 2 years sobriety 03/07/2025 Insomnia due to other mental disorder (ICD-10 - F51.05) Cont Trazodone 50mg hs prn 11/28/2024 Generalized anxiety disorder (ICD-10 - F41.1) 09/04/2024 Insomnia due to other mental disorder (ICD-10 - F51.05) Cont Trazodone 50mg hs prn 06/05/2024 Insomnia due to other mental disorder (ICD-10 - F51.05) Cont Trazodone 50mg hs prn 1. Memory and cognitive concerns - Patient reports difficulty recalling specific details from past work experiences. - Recent neuropsychological testing at [facility] showed normal results. Plan: - Continue monitoring [...] well-being and provide support as needed. 05/08/2024 Insomnia due to other mental disorder [...] blood pressure, anxiety, and medication management. 06/05/2024 ADHD (attention deficit hyperactivity disorder), combined type (ICD-10 - F90.2) 1. Memory and cognitive concerns - Patient reports difficulty recalling specific details from past work experiences. - Recent neuropsychological testing at [facility] showed normal results. Plan: - Continue monitoring [...] reassess blood pressure, anxiety, and medication management. 09/04/2024 ADHD (attention deficit hyperactivity disorder), combined type (ICD-10 - F90.2) 11/28/2024 Major depressive disorder, recurrent, mild (ICD-10 - F33.0) 03/07/2025 ADHD (attention deficit hyperactivity disorder), combined type (ICD-10 - F90.2) 11/28/2024 Alcohol abuse, in remission (ICD-10 - F10.11) almost 2 years sobriety 11/28/2024 Insomnia due to other mental disorder (ICD-10 - F51.05) Cont Trazodone 50mg hs prn 11/28/2024 ADHD (attention deficit hyperactivity disorder), combined type (ICD-10 - F90.2) 11/28/2024 Jessica Evert Smith, a patient with a history of ADD and weight fluctuations, presents for follow-up on medication management and weight loss efforts. Weight Management Assessment: Patient reports starting Wegovy last week for weight management. She has been working with a dietitian and previously used compounded semaglutide through [employer]. Patient describes a pattern of seasonal weight fluctuations of about 15 pounds over the past 2 years. She identifies as an emotional eater but reports that since starting Wegovy, she doesn't think about food as much and the food noise has diminished. Patient denies experiencing nausea, a side effect she was concerned about due to previous issues with nausea. Plan: - Continue Wegovy as prescribed - Maintain current diet plan with dietitian - Continue exercise regimen at [employer] (minimum twice weekly) - Monitor for side effects, particularly nausea - Follow up to assess efficacy of Wegovy for weight management Attention Deficit Disorder (ADD) Assessment: Patient is currently managed on Adderall 7.5 mg twice daily (morning and night) for ADD. She reports good response to the medication, noting that it helps reduce noise similar to the effect of Wegovy on food-related thoughts. Plan: - Continue Adderall 7.5 mg PO BID (morning and night) - Monitor for efficacy and side effects Anxiety Assessment: Patient reports using lorazepam as needed for anxiety management. She mentions having a therapist but hasn't seen them recently due to a new job. Patient was previously seeing the therapist weekly. Plan: - Refill lorazepam prescription (current supply nearly depleted) - Encourage resumption of regular therapy sessions when schedule permits - Continue to use lorazepam as needed for anxiety symptoms the note is transcribed using speech recognition software. It is a reflection of a visit with the patient. It might have some inaccuracy, including medication names and transcribing errors, though efforts have been made to correct them. 03/07/2025 Other Evert Smith, female patient with ADD, presents for follow-up, reporting improved sleep, weight loss, and overall well-being, while managing multiple responsibiliti es. Attention Deficit Disorder (ADD) Assessment: Patient reports consistent use of Adderall twice daily, which appears to be effectively managing ADD symptoms. Last prescription refill was on February 15, 2025. Patient is demonstrating improved ability to recognize and manage potential early signs of issues related to her condition, including sleep disturbances and stress eating. Plan: - Continue Adderall twice daily - Refill Adderall prescription for 3 months Anxiety Assessment: Patient reports taking BuSpar twice daily as prescribed. No current use of lorazepam, suggesting adequate anxiety management with current regimen. Patient demonstrates improved coping strategies, including recognizing when to breathe and balance. Plan: - Continue BuSpar twice daily Sleep Disturbance Assessment: Patient reports improved sleep attributed to regular exercise (at least 3 times per week). Previously used trazodone, but reports feeling slow when taking it and hasn't needed a refill in over a year. Patient tried CBD gummies for sleep but discontinued use upon learning they contained THC. Reports melatonin causes vivid dreams and unrestful sleep. Plan: - Continue current exercise regimen for sleep improvement - Discussed xppd-jrb-rzkch er options: - L-theanine - Lavender - Magnesium - Advised on supplement use: - Ensure [employer] [employer] certification - Use appropriate dosage - Maintain brand consistency - Trazodone available as needed, but patient prefers non-pharmacolo gical approaches the note is transcribed using speech recognition software. It is a reflection of a visit with the patient. It might have some inaccuracy, including medication names and transcribing errors, though efforts have been made to correct them. Plan Of Treatment Pending Test Test Name Order Date ADHD Testing 01/11/2024 Next Appt Details Provider Name:Devang pagan, 06/06/2025 04:45:00 PM, [address], [place], [address], Insurance Providers Payer Name Payer Address Payer Phone Subscriber Number Group Number Insured Name Patient Relationship to Insured Coverage Start Date Coverage End Date [employer] [employer]po [address] [place] [address] [id number] JOSE ALBERTO SMITH Spouse - patient is the spouse of the insured Medical (General) History Medical History History ICD Code Problems: Alcohol dependence Drug-induced nausea and vomiting Generalized anxiety disorder Insomnia disorder related to another men cristopher disorder Memory impairment Mild recurrent major depression Nondependent alcohol abuse in remission Panic disorder with agoraphobia AND mode rate panic attacks , Imported from [employer]: Th e patient has had numerous encounters with healthcare providers and facilities from 2016 to 2024. The patient has had multiple outpatient visits, teleconsultations, and emergency room visits, many of which were direct to a MTF. Specific conditions and events noted include memory impairment, which was addressed during a clinical support visit with Rene Ambrose, PhD at [facility] on 05/22/2024 and an office visit with Paige Philip MD PhD at the same institution on 11/28/2023. Gynecological examinations and screenings were conducted by [facility]ula [facility] on 03/09/2022, 03/07/2022, and 03/21/2023. 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 Menopausal symptoms were addressed during preventative visits with Fabrice Ochoa MD on 05/23/2024, 09/04/2024, and 07/04/2024. Surgical History Surgery Date(Month/Year) Other Fibula bone graft microvasc (89936) Carpal tunnel surgery (58445) Finger tendon transfer (44851)
== END 2025-04-28 14:21 | disposition home or self-care (01) ==
LOC: ANHAUDIO 14:21
PROVIDERS: Visit Provider Otolaryngology
DX: H69.93 Unspecified Eustachian tube disorder, bilateral (principal)
CPT/HCPCS: 92557; 92567

== ENCOUNTER 2025-05-27 08:57 | Outpatient (CLI) | payer BC, SELFPAY ==
--- OUTSIDE RECORDS SUMMARY | 2025-05-27 09:15 | XMS_ITS | Clinical Summary ---
Author Organization [facility] Address [address] [place] [address] Care Team Providers Care Mems Process Engineer Name Role Phone Cristopher Rivas MD Primary [...] increase to 1 tablet twice daily Active [id number]-[id number]-iax-e kk-[id number]-ytq-astx 1000-130(40-80) mg capsule Take 1 capsule by [...] often do you attend chur ch or cheondoism services? Never 12/19/2022 Do you belong to any clubs o r organizations such as mandaen groups, unions, fraternal or athletic groups, or [...] place to sleep or slept in a longterm (including now)? No 12/19/2022 Personal Safety Answer Date Recorded Have you ever been in or are you currently in a harmful physical or emotional relationship or is someone making you feel afraid or unsafe? 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 ACC# Date Time Exam [id number] Apr 29, 2015 15:02:00 [facility] [id number] Diag Mammogram Bilateral Technologist(s): Angelica Gorman; ; [id number] Apr 29, 2015 15:02:00 [facility] [address]6705 Dig Breast Eduar Johnnie [id number] Apr 29, 2015 15:11:00 [facility] 42432 Breast US unilateral, ltd R EXAMINATION: BILATERAL FULL FIELD DIGITAL DIAGNOSTIC MAMMOGRAM WITH CAD AND DIGITAL BREAST TOMOSYNTHESIS AND RIGHT BREAST ULTRASOUND HISTORY: 44-year-old woman with 2 week history of right breast pain. MAMMOGRAM TECHNIQUE: Full field digital craniocaudal and mediolateral oblique views of both breasts were obtained. Computer Aided Detection was performed with TuneStars.3 version 9.3. Digital breast tomosynthesis was performed [...] FORTE M.D. on Apr 29 2015 3:56P [id number] Procedure Note Provider, MD Dawn - 11/19/2016 NIDA FORTE M.D. REBECCA HILL M.D. FINAL REPORT The radiology attending physician has personally reviewed this study, and has reviewed and/or edited this written report and agrees with it. ACC# Date Time Exam [id number] Apr 29, 2015 15:02:00 [facility] 84035 Diag Mammogram Bilateral Technologist(s): Angelica Gorman; ; [id number] Apr 29, 2015 15:02:00 [facility] 17279 Dig Breast Eduar Johnnie [id number] Apr 29, 2015 15:11:00 [facility] 31583 Breast US unilateral, ltd R EXAMINATION: BILATERAL FULL FIELD DIGITAL DIAGNOSTIC MAMMOGRAM WITH CAD AND DIGITAL BREAST TOMOSYNTHESIS AND RIGHT BREAST ULTRASOUND HISTORY: 44-year-old woman with 2 week history of right breast pain. MAMMOGRAM TECHNIQUE: Full field digital craniocaudal and mediolateral oblique views of both breasts were obtained. Computer Aided Detection was performed with TuneStars.3 version 9.3. Digital breast tomosynthesis was performed [...] FORTE M.D. on Apr 29 2015 3:56P [id number] Historical Provider MD YOUNG MAMMO PROCEDURES Elisa escobar Result from Last 3 Months or Most Recently Relevant to Health Maintenance Insurance [employer] [facility] [employer] [facility] Advance Directives For more information, please contact: [phone] * Full Code (Latest Code Status on [...] 6:56 AM 06/04/2022 10:42 PM Care Teams Mems Process Engineer Relationship Specialty Start Date End Date Cristopher Rivas MD [address] [facility] [address] [place] [address] PCP - General Family Medicine 01/26/22
--- OUTSIDE RECORDS SUMMARY | 2025-05-27 09:15 | XMS_ITS | Clinical Summary ---
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
--- OUTSIDE RECORDS SUMMARY | 2025-05-27 09:15 | XMS_ITS | Clinical Summary ---
Author Organization [facility] Address [address] [place] [address] Care Team Providers Care Mentally Impaired Teacher Name Role Phone Cristopher Rivas MD Primary Care Provider [phone] Allergies Active Allergy Reactions Criticality Noted Date Comments Cefixime GI Bleed 02/25/2023 Medications vitamin D2, ergocalciferol, (DRISDOL) 1.25 mg capsule Take 1 capsule (1.25 mg total) by mouth. Active B nguzeev-S-xwmdv acid 0.8 mg (DIALYVITE/NEPH RO-LISA) Tab tablet [...] Influenza Adult (#1) 2025 05/19/2022, 04/29/2021, 05/16/2013 Hepatitis A Vaccines Aged Out No long er eligible based on patient's age to complete this topic Meningococcal B Vaccine Aged Out No l onger eligible based on patient's age to complete this topic Meningococcal Vaccine Aged Out No nazario justin eligible based on patient's age to complete this topic RSV Immunizations Under 20 Months Aged Out No longer eligible b ased on patient's age to complete this topic Insurance Care Teams Mentally Impaired Teacher Relationship Specialty Start Date End Date Cristopher Rivas MD [address] [place], [place] [id number] PCP - General FAMILY PRACTICE 02/25/23
--- OUTSIDE RECORDS SUMMARY | 2025-05-27 09:16 | XMS_ITS | Patient Health Record ---
Author Organization [facility] [employer] Address [address] [facility] [address] [place] [address] Care Team Providers Care Mortgage Loan Counselor Name Role Phone Cristopher Rivas MD Primary Care Provider UnavailDevang Robert Unavailable [phone] Allergies Allergen (clinical drug ingredient) Drug/Non Drug Allergy documented on EMR Reaction Allergy Type Onset Date Status Suprax Unknown Drug Allergy 09/28/2023 Active Results Component Value Reference Range Notes UDT Reviewed date:11/29/2024 11:29:04 AM Interpretation: Performing Lab: Notes/Report: Amphetamine (AMP) P 0 - 1000 ng/ml Buprenorphine (BUP) N 0 - 10 ng/ml Oxazepam (BZO) N 0 - 300 ng/ml Cocaine (OMAR) N 0 - 300 ng/ml Methamphetamine (mAMP) N 0 - 300 ng/ml Methylenedioxymethamphetamine (MDMA) N 0 - 500 ng/ml Morphine (MOP) N 0 - 25 ng/ml Methadone (MTD) N 0 - 300 ng/ml Oxycodone (OXY) N 0 - 300 ng/ml THC P 0 - 50 ng/ml x N 0 - 1000 ng/ml x N 0 - 1000 ng/ml x N 0 - 300 ng/ml x N 0 - 300 ng/ml x N 0 - 300 ng/ml Reason For Referral No Information Medications Medication SIG (Take, Route, Frequency, Duration) Notes Start Date End Date Status Magnesium 250 MG Tablet 1 tablet with a meal Orally Once a day 03/07/2024 Active Vitamin D 50 MCG (2000 UT) Tablet [...] Orally Once a day; Duration: 30 days 04/28/2025 Active LORazepam 0.5 MG Tablet 1 tablet Oral Once a day; Duration: 10 days As needed 03/07/2025 Active busPIRone HCl 7.5 MG Tablet 1 tablet Orally Twice a day; Duration: 90 days 10/15/2025 Active busPIRone HCl 7.5 MG Tablet 1 tablet Orally Twice a day; Duration: 90 days Active Immunizations Vaccine Route Administration Date Status [facility] Vacc[facility] 1st dose Unknown 08/01/2021 Ad ministered Social History Tobacco Use: Social History Observation Description Date Details (start date - stop date) Former Smoker NA - 01/14/2005 Sex Assigned At : Social History Observation Description Sex Assigned At Unknown Social History Miscellaneous: Social Info Question Answer Notes Advance Care Planning Are you your own decision-maker Yes Do you have Power of Building Construction Contractor for Health or [facility]? No Tobacco Use: Social Info Question Answer [...] Risk Notes Problem Mild recurrent major depression (25846926) Major depressive disorder, recurrent, mild (F33.0) Active confirmed Problem Generalized anxiety disorder (77860176) Generalized anxiety disorder (F41.1) Active confirmed Problem Insomnia disorder related to another mental disorder (90946418) Insomnia 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) Active confirmed Problem Nondependent alcohol abuse in remission (181984641) Alcohol abuse, in remission (F10.11) Active confirmed Problem Attention deficit hyperactivity disorder (804204897) ADHD (attention deficit hyperactivity disorder), combined type (F90.2) Active confirmed Vital Signs Heart Rate 112 /min 03/07/2025 Height-cm 157.48 cm 03/07/2025 Blood pressure diastolic 89 mm Hg 03/07/2025 Weight-kg 86.64 kg 03/07/2025 Height 62.00 in 03/07/2025 Blood pressure systolic 131 mm Hg 03/07/2025 Weight 191.0 lbs 03/07/2025 BMI 34.93 kg/m2 03/07/2025 Encounters Encounter Location Date Provider Diagnosis [facility] [address] 06/05/2024 Devang Neff Generalized anxiety disorder F41.1 ; Major depressive disorder, recurrent, mild F33.0 ; Alcohol abuse, in remission F10.11 ; Insomnia due to other mental disorder F51.05 and ADHD (attention deficit hyperactivity disorder), combined type F90.2 [facility] [address] 09/04/2024 Devang Neff Generalized anxiety disorder F41.1 ; Major depressive disorder, recurrent, mild F33.0 ; Alcohol abuse, in remission F10.11 ; Insomnia due to other mental disorder F51.05 and ADHD (attention deficit hyperactivity disorder), combined type F90.2 [facility] [address] [address] 11/28/2024 Devang Neff Negative depression screening Z13.31 ; Encounter for screening for cardiovascular disorders Z13.6 ; Dietary counseling and surveillance Z71.3 ; Generalized anxiety disorder F41.1 ; Major depressive disorder, recurrent, mild F33.0 ; Alcohol abuse, in remission F10.11 ; Insomnia due to other mental disorder F51.05 and ADHD (attention deficit hyperactivity disorder), combined type F90.2 [facility] [address] [place] [address] 03/07/2025 Devang Neff Generalized anxiety disorder F41.1 ; Major depressive disorder, recurrent, mild F33.0 ; Alcohol abuse, in remission F10.11 ; Insomnia due to other mental disorder F51.05 and ADHD (attention deficit hyperactivity disorder), combined type F90.2 [facility], [facility] [address] [place] [address] 08/07/2024 Devang Neff [facility], [facility] [address] [place] [address] 12/17/2024 Devang Neff [facility], [facility] [address] [place] [address] 07/23/2024 Devang Neff ADHD (attention defi cit hyperactivity disorder), combined type F90.2 [facility] [address] [place] [address] 08/05/2024 Devang Neff Generalized anxiety disorder F41.1 [facility] [address] [place] [address] 08/21/2024 Devang Neff ADHD (attention defi cit hyperactivity disorder), combined type F90.2 [facility] [address] [place] [address] 09/29/2024 Devang Neff ADHD (attention defi cit hyperactivity disorder), combined type F90.2 [facility], [facility] [address] [place] [address] 10/12/2024 Devang Neff Generalized anxiety disorder F41.1 [facility] [address] [place] [address] 11/05/2024 Devang Neff ADHD (attention defi cit hyperactivity disorder), combined type F90.2 [facility] [address] [place] [address] 12/15/2024 Devang Neff [facility], [facility] [address] [place] [address] 01/09/2025 Devang Neff ADHD (attention defi cit hyperactivity disorder), combined type F90.2 [facility] [address] [place] [address] 02/15/2025 Devang Neff ADHD (attention defi cit hyperactivity disorder), combined type F90.2 [facility] [address] [place] [address] 02/18/2025 Devang Neff [facility] [address] [place] [address] 03/22/2025 Devang Nicholsonoza ADHD (attention defi cit hyperactivity disorder), combined type F90.2 [facility] [address] [place] [address] 04/17/2025 Devang Jamesa Generalized anxiety disorder F41.1 [place] [address] [place] [address] 04/28/2025 Devang Nicholsonoza ADHD (attention defi cit hyperactivity disorder), combined type F90.2 Assessments Encounter Date Diagnosis (ICD Code) Assessment Notes Treatment Notes Treatment Clinical Notes Section Notes 06/05/2024 Generalized anxiety disorder (ICD-10 - F41.1) 1. Memory and cognitive concerns - Patient reports difficulty recalling specific details from past work experiences. - Recent neuropsychological testing at [facility] showed normal results. Plan: - Continue [...] work experiences. - Recent neuropsychological testing at [facility] showed normal results. Plan: - Continue [...] work experiences. - Recent neuropsychological testing at [facility] showed normal results. Plan: - Continue [...] work experiences. - Recent neuropsychological testing at [facility] showed normal results. Plan: - Continue [...] work experiences. - Recent neuropsychological testing at [facility] showed normal results. Plan: - Continue [...] well-being and provide support as needed. 09/04/2024 ADHD (attention deficit hyperactivity disorder), combined [...] with dietitian - Continue exercise regimen at [employer] (minimum twice weekly) - Monitor for side [...] exercise regimen for sleep improvement - Discussed uqiw-mln-ictny er options: - L-theanine - Lavender - Magnesium - Advised on supplement use: - Ensure SNF certification - Use appropriate dosage - Maintain [...] Details Provider Name:Devang pagan, 06/06/2025 04:45:00 PM, [facility], [facility] [address], [place], [address], Insurance Providers Payer Name Payer Address Payer Phone Subscriber Number Group Number Insured Name Patient Relationship to Insured Coverage Start Date Coverage End Date [employer] [employer] [address] [place] [phone] [id number] JOSE ALBERTO HOLLINGSWORTH Spouse - patient is the spouse of [...] support visit with Rene Ambrose, PhD at [employer] on 05/22/2024 and an office visit with Paige Philip MD PhD at the same institution on 11/28/2023. Gynecological examinations and screenings were conducted by TATIANNA Miranda on 03/09/2022, 03/07/2022, and 03/21/2023. 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 Menopausal symptoms were addressed during preventative visits with Fabrice Ochoa MD on 05/23/2024, 09/04/2024, and 07/04/2024. Surgical History Surgery Date(Month/Year) Other Fibula bone graft microvasc (86249) Carpal tunnel surgery (68367) Finger tendon transfer (71576)
[2025-05-27 10:04] LABS: Hematocrit 43.7 % (37.0-47.0); Hemoglobin 14.3 g/dL (12.0-15.0); Immature Granulocyte Percent A 0.3 % (0-0.5); Lymphocytes Absolute Auto 1.48 K/mm3 (0.9-3.2); Mean Corpuscular HGB Conc 32.7 g/dl (32-36); Mean Corpuscular Hemoglobin 31.0 pg (26-34); Mean Corpuscular Volume 94.8 fl (80-100); Nucleated Red Blood Cells Absolute Auto 0.000 K/mm3 (0.0-0.012); Nucleated Red Blood Cells Perc 0.0 % (0.0-0.2); Platelet Count Result 297 k/mm3 (150-375); Red Blood Count 4.61 M/mm3 (4.2-5.4); White Blood Count 6.1 K/mm3 (4.5-10.0)
[2025-05-27 10:23] LABS: Alanine Aminotransferase 17 U/L (6-35); Albumin Level 4.5 g/dL (3.5-5.1); Alkaline Phosphatase 79 U/L (38-126); Anion Gap 10 mmol/L (4-12); Aspartate Amino Transferase 26 U/L (14-36); Bilirubin,Total 0.9 mg/dL (0.2-1.3); Blood Urea Nitrogen 6 mg/dL (7-17); Calcium 9.2 mg/dL (8.4-10.2); Carbon Dioxide 23 mmol/L (22-30); Chloride 105 mmol/L (98-107); Cholesterol 200 mg/dL (0-200); Estimated Glomerular Filt Rate > 60; Glucose 95 mg/dL (65-110); HDL Direct 67 mg/dL; Potassium 3.8 mmol/L (3.4-5.0); Sodium 138 mmol/L (137-145); Total Protein 8.1 g/dL (6.3-8.2); Triglycerides 100 mg/dL (<150)
[2025-05-27 10:48] LABS: Thyroid Stimulating Hormone Reflex 1.210 uIU/mL (0.465-4.68)
[2025-05-27 10:51] LABS: Hemoglobin A1C 5.4 % (<5.7)
== END 2025-05-27 08:58 | disposition home or self-care (01) ==
LOC: ANHLAB 09:03
DX: Z00.00 Encounter for general adult medical examination without abnormal findings (principal); I10 Essential (primary) hypertension; E66.9 Obesity, unspecified
CPT/HCPCS: 36415; 80053; 80061; 83036; 84443; 85025